=== PATIENT | female | born 1965 | race Caucasian/White ===

== ENCOUNTER 2016-08-05 11:12 | Observation (INO) | payer MEDICAID ==
[2016-08-05] MEDS ORDERED: SODIUM CHLORIDE 0.9% 1,000 ML IV ONE (12:49)
[2016-08-05] MEDS ORDERED: ONDANSETRON 4 MG/2 ML VIAL IVP STA ×2 (12:50→14:53)
[2016-08-05] MEDS ORDERED: KETOROLAC 30 MG/ML 1 ML VIAL IVP STA (12:51)
--- NOTE | 2016-08-05 12:54 | ED ---
Nausea/Vomiting/Diarrhea HPI - General Chief complaint: Nausea/Vomiting/Diarrhea Stated complaint: vomiting Time Seen by Provider: 08/05/16 12:31 Source: patient, RN notes reviewed Mode of arrival: ambulatory Limitations: no limitations - History of Present Illness Initial comments: Patient is a 51-year-old female since emergency room for multiple complaints. Patient states on Wednesday she began experiencing body aches. Patient states Wednesday night she began with nausea and vomiting. Patient states throughout the weekend she experiencing nausea, vomiting and diarrhea. Patient states on Wednesday she began with a cough and nasal congestion associated with nausea and vomiting. Patient states with her primary care provider, chest x-ray and was told she had "walking pneumonia". Patient states she wasn't sent home with out antibiotics and was told to take Tylenol and Motrin. Patient states she woke up this morning feeling even worse. Patient states she has not been able to eat for the past few days. Patient states she feels very weak and is still having all over body aches. Patient states she's having a nonproductive cough. Patient states she has chest pain every time she coughs. Patient denies shortness of breath. Patient denies headache. Patient states she feels very dizzy. He states dizziness is worse with movement. Patient denies any significant past medical history. Patient denies cardiac issues along issues. Patient denies smoking. Patient does admit she has a history of diverticulosis. Patient states she's having slight abdominal pain. Patient denies pain or burning during urination, trouble urinating or blood in urine. Patient does also admit she's having diarrhea. Patient denies any discoloration or blood in the stools. - Related Data Home Medications Medication Instructions Recorded Confirmed Ibuprofen [Motrin] 400 - 800 mg PO Q6HR PRN 08/05/16 08/05/16 Protonix (Unk Strength) 1 tab PO DAILY 08/05/16 08/05/16 Allergies Allergy/AdvReac Type Severity Reaction Status Date / Time No Known Allergies Allergy Verified 08/05/16 12:39 Review of Systems ROS Statement: Those systems with pertinent positive or pertinent negative responses have been documented in the HPI. ROS Other: All systems not noted in ROS Statement are negative. Past Medical History Additional Past Medical History / Comment(s): diverticulosis History of Any Multi-Drug Resistant Organisms: None Reported Past Surgical History: Section, Cholecystectomy Past Anesthesia/Blood Transfusion Reactions: No Reported Reaction Past Psychological History: No Psychological Hx Reported Smoking Status: Current some day smoker Past Alcohol Use History: None Reported Additional Past Alcohol Use History / Comment(s): OCCASSIONAL CIGAR Past Drug Use History: None Reported - Past Family History Mother Family Medical History: No Reported History General Exam - General Exam Comments Initial Comments: Laying in exam room, no acute distress. Limitations: no limitations General appearance: alert, in no apparent distress Head exam: Present: atraumatic, normocephalic, normal inspection Eye exam: Present: normal appearance ENT exam: Present: normal exam, normal oropharynx, mucous membranes moist, TM's normal bilaterally, normal external ear exam Neck exam: Present: normal inspection, full ROM. Absent: tenderness, lymphadenopathy Respiratory exam: Present: normal lung sounds bilaterally. Absent: respiratory distress Cardiovascular Exam: Present: regular rate, normal rhythm, normal heart sounds GI/Abdominal exam: Present: soft, tenderness (diffuse mild tenderness), normal bowel sounds. Absent: distended, guarding, rebound, rigid Extremities exam: Present: normal inspection Back exam: Present: normal inspection Neurological exam: Present: alert, oriented X3, CN II-XII intact Psychiatric exam: Present: normal affect, normal mood Skin exam: Present: warm, dry, intact, normal color. Absent: rash Course Vital Signs 08/05/16 08/05/16 08/05/16 11:17 13:15 15:01 Temperature 98.3 F Pulse Rate 78 67 Respiratory 20 18 Rate Blood Pressure 140/87 140/68 Blood Pressure 134/72 [Sitting] Blood Pressure 153/80 [Standing] Blood Pressure 156/70 [Supine] O2 Sat by Pulse 98 99 Oximetry 08/05/16 08/05/16 08/05/16 15:54 16:38 18:21 Temperature 97.7 F 98 F Pulse Rate 54 L 60 60 Respiratory 18 16 18 Rate Blood Pressure 164/74 160/83 150/58 Blood Pressure [Sitting] Blood Pressure [Standing] Blood Pressure [Supine] O2 Sat by Pulse 98 97 97 Oximetry Medical Decision Making - Medical Decision Making Patient is a 51-year-old female presents to the emergency room with multiple complaints. REVIEWED. Results discussed with patient. Patient still complaining of worsening dizziness and nausea. EKG significant for sinus bradycardia with PVCs. Patient denies any significant cardiac history. Case discussed with Dr. Ha. Dr. Ha also evaluated patient. Dr. Ha discussed case with Analisa GREENE, who agreed to admit for Dr. Weaver. - Lab Data Result diagrams: 08/05/16 13:04 08/05/16 13:04 Lab Results 08/05/16 08/05/16 08/05/16 Range/Units 13:04 13:04 13:04 WBC (3.8-10.6) k/uL RBC (3.80-5.40) m/uL Hgb (11.4-16.0) gm/dL Hct (34.0-46.0) % MCV (80.0-100.0) fL MCH (25.0-35.0) pg MCHC (31.0-37.0) g/dL RDW (11.5-15.5) % Plt Count (150-450) k/uL Neutrophils % % Lymphocytes % % Monocytes % % Eosinophils % % Basophils % % Neutrophils # (1.3-7.7) k/uL Lymphocytes # (1.0-4.8) k/uL Monocytes # (0-1.0) k/uL Eosinophils # (0-0.7) k/uL Basophils # (0-0.2) k/uL Sodium 144 (137-145) mmol/L Potassium 4.9 (3.5-5.1) mmol/L Chloride 106 (98-107) mmol/L Carbon Dioxide 24 (22-30) mmol/L Anion Gap 14 mmol/L BUN 11 (7-17) mg/dL Creatinine 0.58 (0.52-1.04) mg/dL Est GFR (MDRD) Af Amer >60 (>60 ml/min/1.73 sqM) Est GFR (MDRD) Non-Af >60 (>60 ml/min/1.73 sqM) Glucose 94 (74-99) mg/dL Calcium 9.6 (8.4-10.2) mg/dL Magnesium 2.0 (1.6-2.3) mg/dL Total Bilirubin 0.8 (0.2-1.3) mg/dL AST 32 (14-36) U/L ALT 46 (9-52) U/L Alkaline Phosphatase 76 (38-126) U/L Total Creatine Kinase (30-135) U/L CK-MB (CK-2) (0.0-2.4) ng/mL CK-MB (CK-2) Rel Index Troponin I (0.000-0.034) ng/mL Total Protein 8.2 (6.3-8.2) g/dL Albumin 4.7 (3.5-5.0) g/dL Amylase 31 (30-110) U/L Lipase 29 (23-300) U/L Urine Color Urine Appearance (Clear) Urine pH (5.0-8.0) Ur Specific [place] (1.001-1.035) Urine Protein (Negative) Urine Glucose (UA) (Negative) Urine Ketones (Negative) Urine Blood (Negative) Urine Nitrate (Negative) Urine Bilirubin (Negative) Urine Urobilinogen (<2.0) mg/dL Ur Leukocyte Esterase (Negative) Urine RBC (0-5) /hpf Urine WBC (0-5) /hpf Ur Squamous Epith Cells (0-4) /hpf Urine Bacteria (None) /hpf Urine Mucus (None) /hpf Influenza Type A RNA Not Detected (Not Detectd) Influenza Type B (PCR) Not Detected (Not Detectd) 08/05/16 08/05/16 08/05/16 Range/Units 13:04 13:04 15:00 WBC 5.8 (3.8-10.6) k/uL RBC 5.46 H (3.80-5.40) m/uL Hgb 15.0 (11.4-16.0) gm/dL Hct 46.4 H (34.0-46.0) % MCV 85.0 (80.0-100.0) fL MCH 27.5 (25.0-35.0) pg MCHC 32.3 (31.0-37.0) g/dL RDW 13.2 (11.5-15.5) % Plt Count 216 (150-450) k/uL Neutrophils % 57 % Lymphocytes % 32 % Monocytes % 5 % Eosinophils % 2 % Basophils % 1 % Neutrophils # 3.3 (1.3-7.7) k/uL Lymphocytes # 1.9 (1.0-4.8) k/uL Monocytes # 0.3 (0-1.0) k/uL Eosinophils # 0.1 (0-0.7) k/uL Basophils # 0.0 (0-0.2) k/uL Sodium (137-145) mmol/L Potassium (3.5-5.1) mmol/L Chloride (98-107) mmol/L Carbon Dioxide (22-30) mmol/L Anion Gap mmol/L BUN (7-17) mg/dL Creatinine (0.52-1.04) mg/dL Est GFR (MDRD) Af Amer (>60 ml/min/1.73 sqM) Est GFR (MDRD) Non-Af (>60 ml/min/1.73 sqM) Glucose (74-99) mg/dL Calcium (8.4-10.2) mg/dL Magnesium (1.6-2.3) mg/dL Total Bilirubin (0.2-1.3) mg/dL AST (14-36) U/L ALT (9-52) U/L Alkaline Phosphatase (38-126) U/L Total Creatine Kinase 92 (30-135) U/L CK-MB (CK-2) 0.4 (0.0-2.4) ng/mL CK-MB (CK-2) Rel Index 0.4 Troponin I <0.012 (0.000-0.034) ng/mL Total Protein (6.3-8.2) g/dL Albumin (3.5-5.0) g/dL Amylase (30-110) U/L Lipase (23-300) U/L Urine Color Yellow Urine Appearance Cloudy H (Clear) Urine pH 6.0 (5.0-8.0) Ur Specific [place] 1.022 (1.001-1.035) Urine Protein Trace H (Negative) Urine Glucose (UA) Negative (Negative) Urine Ketones 2+ H (Negative) Urine Blood Negative (Negative) Urine Nitrate Negative (Negative) Urine Bilirubin Negative (Negative) Urine Urobilinogen <2.0 (<2.0) mg/dL Ur Leukocyte Esterase Trace H (Negative) Urine RBC 2 (0-5) /hpf Urine WBC 2 (0-5) /hpf Ur Squamous Epith Cells 2 (0-4) /hpf Urine Bacteria Rare H (None) /hpf Urine Mucus Many H (None) /hpf Influenza Type A RNA (Not Detectd) Influenza Type B (PCR) (Not Detectd) 08/05/16 19:05 Sinus bradycardia with occasional premature ventricular complexes, ventricular rate 57 bpm, [place] interval 140 ms, QRS duration 76, QT/QTc 464/451 ms - Radiology Data Radiology results: report reviewed, image reviewed Disposition Clinical Impression: Dizziness, Nausea & vomiting, Arrhythmia Disposition: ADMITTED IP TO THIS [facility] Condition: Stable Decision Date: 08/05/16
[2016-08-05 13:25] LABS: Basophils % (A) 1 %; CH 27.9; Eosinophils # (A) 0.1 k/uL (0-0.7); Eosinophils % (A) 2 %; HCT 46.4 % (34.0-46.0); HDW 2.52; Luc # (Auto) 0.15; Luc % (Auto) 3; Lymphocytes # (A) 1.9 k/uL (1.0-4.8); Lymphocytes % (A) 32 %; MCH 27.5 pg (25.0-35.0); MCHC 32.3 g/dL (31.0-37.0); Mean Platelet Volume 8.9; Monocytes # (A) 0.3 k/uL (0-1.0); Monocytes % (A) 5 %; Neutrophils # (A) 3.3 k/uL (1.3-7.7); Neutrophils % (A) 57 %; RBC 5.46 m/uL (3.80-5.40); RDW 13.2 % (11.5-15.5); WBC 5.8 k/uL (3.8-10.6); WBC (Perox) 5.69
--- NOTE | 2016-08-05 13:29 | XR ---
EXAMINATION TYPE: XR chest 2V DATE OF EXAM: 08/05/2016 1:25 PM COMPARISON: 06/24/2011 INDICATION: Cough TECHNIQUE: Single frontal view of the chest is obtained. FINDINGS: The heart size is normal. The pulmonary vasculature is normal. The lungs are clear. IMPRESSION: 1. No acute pulmonary process.
[2016-08-05 13:44] LABS: Amylase 31 U/L (30-110); Anion Gap 14 mmol/L; Calcium 9.6 mg/dL (8.4-10.2); Carbon Dioxide 24 mmol/L (22-30); Chloride 106 mmol/L (98-107); Glucose 94 mg/dL (74-99); Non-African American GFR(MDRD) >60 (>60 ml/min/1.73 sqM); Sodium 144 mmol/L (137-145); Total Bilirubin 0.8 mg/dL (0.2-1.3); Total Protein 8.2 g/dL (6.3-8.2)
[2016-08-05 13:51] LABS: ALT 46 U/L (9-52); AST 32 U/L (14-36); Alkaline Phosphatase 76 U/L (38-126); Blood Urea Nitrogen 11 mg/dL (7-17); Potassium 4.9 mmol/L (3.5-5.1)
[2016-08-05] MEDS ORDERED: MECLIZINE 12.5 MG TAB PO STA (14:53)
[2016-08-05 15:18] LABS: Appearance,Urine Cloudy (Clear); Bacteria,Urine Rare /hpf; Bilirubin,Urine Negative (Negative); Glucose,Urine (UA) Negative (Negative); Ketones,Urine 2+ (Negative); Leukocyte Esterase,Urine Trace (Negative); Mucus,Urine Many /hpf; Nitrite,Urine Negative (Negative); Particle Count 11539; Protein,Urine Trace (Negative); RBC,Urine 2 /hpf (0-5); Specific Gravity,Urine 1.022 (1.001-1.035); Squamous Epithelial Cell,Urine 2 /hpf (0-4); UA Billing (MACRO vs. MICRO) MICRO; Urobilinogen,Urine <2.0 mg/dL (<2.0); WBC,Urine 2 /hpf (0-5)
[2016-08-05 15:50] LABS: Creatine Kinase 92 U/L (30-135)
[2016-08-05 16:01] LABS: Creatine Kinase MB 0.4 ng/mL (0.0-2.4); Troponin I <0.012 ng/mL (0.000-0.034)
[2016-08-05] MEDS ORDERED: DIAZEPAM 5 MG/ML 2 ML SYRINGE IVP STA (16:29)
[2016-08-05] MEDS ORDERED: NALOXONE 0.4 MG/ML 1 ML VIAL IV PRN (17:07)
[2016-08-05] MEDS ORDERED: ACETAMINOPHEN TAB 325 MG TAB PO PRN (17:07)
[2016-08-05] MEDS: SODIUM CHLORIDE 0.9% 1,000 ML IV SCH (17:25)
[2016-08-05] MEDS ORDERED: KETOROLAC 30 MG/ML 1 ML VIAL IVP PRN (19:00)
[2016-08-05 20:18] VITALS: BMI 27.9
[2016-08-06] MEDS: ONDANSETRON 4 MG/2 ML VIAL IVP PRN ×2 (06:22→14:43)
--- NOTE | 2016-08-06 08:42 | PN ---
CHIEF COMPLAINT: Vertigo. This is a 51-year-old lady with no significant past medical history, presented to hospital with what started like a afebrile illness in the beginning of the week, was started on antibiotics and she also developed symptoms of dizziness and vertigo. She comes to hospital with the same symptoms and had been admitted. She does not have any chest pain, difficulty in breathing, palpitations, or syncope. Her dizziness gets worse even with movements of her head. Her EKG shows sinus rhythm with PVCs and she has had one set of troponin that is negative. The other one is not available at this time. Hemoglobin is normal at 15, creatinine is 0.58. Past medical history is negative for hypertension, diabetes, dyslipidemia. Medications included ibuprofen and Protonix. ALLERGIES: There are no known drug allergies. Family history is negative for premature coronary artery disease. Social history is negative for current smoking, EtOH abuse, or drug abuse. REVIEW OF SYSTEMS: HEENT: Unremarkable. CARDIAC: As described above. RESPIRATORY: As described above. GI: Negative. GENITOURINARY: Negative. ALLERGY/IMMUNOLOGY: Negative. SKIN: Negative. MUSCULOSKELETAL: Negative. ENDOCRINE: Negative. DERM: Negative. CONSTITUTIONAL: Negative. ONCOLOGICAL: Negative. The rest of the system review is not relevant. On exam, comfortable at rest. Vital signs are stable. There is no jugular venous distention. Chest exam reveals good air entry bilaterally. Heart exam reveals first and second heart sounds. No gallop. No murmur, no rub. Abdomen is soft, nontender. Exam of extremities did not reveal any edema. Peripheral pulses are felt. FEATHER MAKER exam did not reveal focal neurological deficits. ASSESSMENT: 1. Asymptomatic premature ventricular contractions. 2. Vertigo, probably related to an ( ) problem related to recent viral infection. PLAN: I am going to start the patient on Antivert, obtain a 2-D echo to document her LV function, ambulate her and discharge her home. Work-up will be pursued as outpatient. If necessary with a stress test and Holter monitor.
[2016-08-06] MEDS: MECLIZINE 25 MG TAB PO SCH ×3 (10:17→20:52)
[2016-08-06] MEDS ORDERED: methylPREDNISolone SOD SUCCI 125 MG/2 ML VIAL IV STA (10:19)
[2016-08-06] MEDS ORDERED: DIAZEPAM 5 MG TAB PO STA (10:20)
--- NOTE | 2016-08-06 11:06 | ECHOF ---
Referral Reason:dizziness MEASUREMENTS -------- HEIGHT: 175.3 cm WEIGHT: 85.7 kg BP: 120/79 RVIDd: 2.5 cm (< 3.3) IVSd: 0.8 cm (0.6 - 1.1) LVIDd: 4.9 cm (3.9 - 5.3) LVPWd: 0.8 cm (0.6 - 1.1) IVSs: 1.5 cm LVIDs: 3.4 cm LVPWs: 1.3 cm LA Diam: 3.5 cm (2.7 - 3.8) LAESV Index (A-L): 25.67 ml/m Ao Diam: 3.0 cm (2.0 - 3.7) AV Cusp: 2.2 cm (1.5 - 2.6) MV EXCURSION: 19.132 mm (> 18.000) MV EF SLOPE: 130 mm/s (70 - 150) EPSS: 0.2 cm MV E Rene: 0.94 m/s MV DecT: 170 ms MV A Rene: 0.73 m/s MV E/A Ratio: 1.29 FINDINGS -------- Sinus rhythm. This was a technically good study. The left ventricular size is normal. Left ventricular wall thickness is normal. Overall left ventricular systolic function is normal with, an EF between 60 - 65 %. The right ventricle is normal in size and function. Normal LA size by volume 22+/-6 ml/m2. The right atrium is normal in size. The aortic valve is trileaflet and appears structurally normal. The mitral valve is normal. The tricuspid valve appears structurally normal. Pulmonic valve appears structurally normal. The aortic root size is normal. There is no pericardial effusion. CONCLUSIONS -------- 1. Sinus rhythm. 2. The mitral valve is normal. 3. The tricuspid valve appears structurally normal. 4. Pulmonic valve appears structurally normal. 5. The aortic root size is normal. 6. There is no pericardial effusion. 7. This was a technically good study. 8. The left ventricular size is normal. 9. Left ventricular wall thickness is normal. 10. Overall left ventricular systolic function is normal with, an EF between 60 - 65 %. 11. The right ventricle is normal in size and function. 12. Normal LA size by volume 22+/-6 ml/m2. 13. The right atrium is normal in size. 14. The aortic valve is trileaflet and appears structurally normal. PRESS SERVICE READER: Amara Power RDCS
--- NOTE | 2016-08-06 12:15 | P.HPIM ---
History of Present Illness H&P Date: 08/06/16 This is a 51-year-old female with recent onset history of dizziness that appears to get worse with the change in position of her head. Patient stated in good health until 4 days prior to admission. Patient noted to have progressive worsening of cough that is nonproductive in nature during the same period of time. Patient then noted to have dizziness is intermittent in nature that is associated with them nausea and vomiting. Patient was admitted to the hospital. Was noted to have multiple asymptomatic PVCs. Patient is having any chest pain, dizziness, nausea, vomiting at rest however with any head movement patient does have reproducibility of symptoms of vertigo. Patient denies having any decreased strength numbness or headaches or change in vision in the recent times. 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 EKG did not reveal any AV blocks. No ST-T wave changes. Was noted to have some PVCs. Cardiac enzymes initially were negative. Review of Systems All systems: negative (Noted in nature) Past Medical History Past Medical History: GERD/Reflux Additional Past Medical History / Comment(s): diverticulosis,uti, "i think i have a hiatal hernia" History of Any Multi-Drug Resistant Organisms: None Reported Past Surgical History: Section, Cholecystectomy Additional Past Surgical History / Comment(s): egd/colonosocpy Past Anesthesia/Blood Transfusion Reactions: No Reported Reaction Additional Past Anesthesia/Blood Transfusion Reaction / Comment(s): clausterphobia Past Psychological History: No Psychological Hx Reported Smoking Status: Current some day smoker Past Alcohol Use History: None Reported Additional Past Alcohol Use History / Comment(s): OCCASSIONAL CIGAR Past Drug Use History: None Reported - Past Family History Mother Family Medical History: Hypertension Father Family Medical History: Diabetes Mellitus Additional Family Medical History / Comment(s): diverticulosis Medications and Allergies Home Medications Medication Instructions Recorded Confirmed Type Ibuprofen [Motrin] 400 - 800 mg PO Q6HR PRN 08/05/16 08/05/16 History Protonix (Unk Strength) 1 tab PO DAILY 08/05/16 08/05/16 History Allergies Allergy/AdvReac Type Severity Reaction Status Date / Time No Known Allergies Allergy Verified 08/05/16 12:39 Physical Exam Vitals: Vital Signs Temp Pulse Pulse Resp BP BP Pulse Ox 08/06/16 11:40 97.2 F L 55 L 18 127/85 96 08/06/16 08:00 97.9 F 62 18 120/79 98 08/06/16 04:00 98.1 F 55 L 16 123/59 96 08/06/16 00:00 97.9 F 53 L 16 132/78 96 08/05/16 21:58 75 18 08/05/16 18:55 97.9 F 62 18 162/77 97 08/05/16 18:21 98 F 60 18 150/58 97 Intake and Output 08/05/16 08/06/16 08/06/16 22:59 06:59 14:59 Intake Total 236 Balance 236 Intake: Oral 236 Other: Voiding Method Toilet Toilet # Voids 1 1 Weight 85.9 kg Physical exam Gen. appearance oriented 3 in no distress HEENT reproducibility of peripheral vertigo no nystagmus present on admission. Neck is supple no JVD Lungs good air entry clear to auscultation no rhonchi or wheezing Heart S1-S2 heard regular rate and rhythm no murmurs appreciated Abdomen is soft nontender no organomegaly bowel sounds are intact Neurologically cranial nerves II-12 grossly intact no focal motor or sensory deficits noted strength is 5 out of 5 in all 4 extremities. Skin no abnormalities appreciated Results CBC & Chem 7: 08/05/16 13:04 08/05/16 13:04 Assessment and Plan Plan: 1 peripheral vertigo #2 asymptomatic PVCs #3 acute bronchitis likely viral in nature Plan Patient will be given symptomatically treatment if able to tolerate oral medication patient can likely be discharged home or discussed options including a dose of Solu-Medrol and 1 dose of Valium. Patient will have an echocardiogram as per cardiology. If patient does not tolerate oral intake will likely monitor or night with symptomatically control and thereafter be discharged in the a.m. Antivert to continue. Continue telemetry monitoring. No need for any therapy for PVCs.
[2016-08-06] MEDS: SODIUM CHLORIDE 0.9% 1,000 ML IV SCH ×2 (14:42→20:51)
[2016-08-06] MEDS ORDERED: ALBUTEROL NEBULIZED 2.5 MG/3 ML INHALATION PRN (20:27)
[2016-08-06] MEDS ORDERED: PANTOPRAZOLE 40 MG TABLET PO SCH (20:30)
[2016-08-06] MEDS ORDERED: IPRATROPIUM-ALBUTEROL 3 ML NEB INHALATION PRN (20:32)
[2016-08-06] MEDS: PANTOPRAZOLE 40 MG TABLET PO SCH (20:51)
--- NOTE | 2016-08-07 07:42 | PN ---
Jennifer is a 51-year-old lady who was admitted to hospital with dizziness and vertigo. I started her on Antivert with which there has been significant improvement in her symptoms. I did an echocardiogram on her that shows normal LV function and no evidence of significant valvular heart disease. This morning she is doing well and dizziness has resolved. On exam, she is comfortable at rest. Vital signs are stable. Chest exam reveals good air entry bilaterally. Heart exam reveals first and second heart sounds. No gallop. No murmur. Abdomen is soft. Exam of the extremities did not reveal any edema. Peripheral pulses are palpable. ASSESSMENT: 1. Dizziness and vertigo. 2. Premature ventricular contractions. PLAN: The patient is doing well. LV function is normal. She is stable to be discharged home and I will follow her up as outpatient.
[2016-08-07] MEDS: MECLIZINE 25 MG TAB PO SCH ×2 (08:53→17:21)
[2016-08-07] MEDS: PANTOPRAZOLE 40 MG TABLET PO SCH ×2 (08:54→17:21)
[2016-08-07] MEDS: IPRATROPIUM-ALBUTEROL 3 ML NEB INHALATION SCH ×3 (09:09→16:31)
[2016-08-07] MEDS: SODIUM CHLORIDE 0.9% 1,000 ML IV SCH (11:11)
[2016-08-07 15:24] VITALS: BP 136/81; PULSE 66; RESP 18; TEMP 98.2
--- NOTE | 2016-08-08 11:54 | DS ---
DATE OF ADMISSION: 08/05/2016 DATE OF DISCHARGE: 08/07/2016 DISCHARGE DIAGNOSES: 1. Benign positional vertigo, improved with meclizine. 2. Symptomatic premature ventricular contractions. 3. Acute bronchitis, likely viral in nature. HOSPITAL COURSE: Ms. Steiner is a 51-year-old female with known history of GERD and diverticulosis and also history of dizziness came to the hospital with complaints of dizziness, worsening with change in position of her head. Patient also having progressive worsening cough and nonproductive, most likely viral in nature. Otherwise, the patient was treated symptomatically for that and patient was started on meclizine. Patient did improve symptomatically. Patient also noted to have PVCs on the tele monitoring. Cardiology has seen the patient and recommended no further intervention at this time. Patient is asymptomatic otherwise, currently patient today ( ) is much improved with no dizziness or headache and is being discharged and followed at the cardiology clinic for possible outpatient stress test. The patient otherwise is still ready for discharge home. DISCHARGE PHYSICAL EXAMINATION: A 51-year-old female lying in bed comfortably. Awake, alert and oriented x3. Appears to be in no apparently distress. VITALS: Blood pressure is 136/81, pulse 66, respiration 18, temperature afebrile, pulse ox 96% on room air. HEENT: Atraumatic, normocephalic. Neck is supple. No JVD. CVS EXAM: S1 and S2 heard. No murmurs, no gallop, no rub. LUNGS: Bilateral air entry is present. No wheezing or crackles. ABDOMEN: Soft, nontender. Bowel sounds are present. CLIENT MANAGER: Awake, alert and oriented x3. No focal deficit. EXTREMITIES: No edema. Peripheral pulses bilaterally. No clubbing or cyanosis. PSYCHIATRIC: Cooperative. LABORATORY DATA: Reviewed. Discharge physical examination done. Discharge medications include: 1. Ibuprofen 400 mg q.6 hourly p.r.n. for pain. 2. Protonix 40 mg 1 tablet p.o. daily. 3. Meclizine 25 mg p.o. t.i.d. p.r.n. for dizziness and vertigo. Follow with Dr. Laila Miranda in one week Follow with Dr. Shaka Acharya on 08/27/2016 at 3:30 p.m. Home with self-care care. Activity as tolerated. Heart healthy diet.
== END 2016-08-07 18:33 | disposition home or self-care (01) ==
LOC: EC 11:12 → 3OBS 17:22
PROVIDERS: ADMIT Hospitalist; ATTEND Hospitalist
DX: H81.10 Benign paroxysmal vertigo, unspecified ear (principal); I49.3 Ventricular premature depolarization; J20.9 Acute bronchitis, unspecified; F17.200 Nicotine dependence, unspecified, uncomplicated; H81.399 Other peripheral vertigo, unspecified ear; K21.9 Gastro-esophageal reflux disease without esophagitis; Z82.49 Family history of ischemic heart disease and other diseases of the circulatory system; Z83.3 Family history of diabetes mellitus; Z79.899 Other long term (current) drug therapy; R52 Pain, unspecified
CPT/HCPCS: 36415; 94640; 93005; 93306; 80053; 82150; 82550; 82553; 83690; 83735; 84484 ×2; 85025; 81001; 80299; 87502; 71020; 99285; 96374; 96375 ×2; 96376; 96361 ×3; G0378 ×3; J2930; J3360; J2405 ×2; J1885 ×2; 87324

== ENCOUNTER 2021-05-18 06:53 | Emergency (ER) | payer BC, MEDICAID ==
[2021-05-18 07:16] VITALS: TEMP 99.8
[2021-05-18] MEDS ORDERED: ONDANSETRON 4 MG/2 ML VIAL IVP STA ×2 (07:39→10:08)
[2021-05-18] MEDS ORDERED: SODIUM CHLORIDE 0.9% 1,000 ML IV STA (07:39)
[2021-05-18] MEDS ORDERED: SODIUM CHLORIDE 0.9% 50 ML IVPB ONE (08:00)
[2021-05-18 08:14] LABS: ALT 30 U/L (4-34); AST 44 U/L (14-36); African American GFR (CKD) >90 (>60 ml/min/1.73 sqM); Albumin 4.1 g/dL (3.5-5.0); Alkaline Phosphatase 83 U/L (38-126); Anion Gap 9 mmol/L; Blood Urea Nitrogen 11 mg/dL (7-17); Calcium 8.7 mg/dL (8.4-10.2); Carbon Dioxide 24 mmol/L (22-30); Chloride 101 mmol/L (98-107); Glucose 107 mg/dL (74-99); Non-African American GFR(CKD) >90 (>60 ml/min/1.73 sqM); Sodium 134 mmol/L (137-145); Total Bilirubin 0.6 mg/dL (0.2-1.3); Total Protein 7.4 g/dL (6.3-8.2)
[2021-05-18 08:15] LABS: Potassium 4.4 mmol/L (3.5-5.1)
[2021-05-18 08:28] LABS: Basophils % (A) 0 %; Eosinophils % (A) 0 %; HCT 41.8 % (34.0-46.0); HGB 14.6 gm/dL (11.4-16.0); Lymphocytes # (A) 1.9 k/uL (1.0-4.8); Lymphocytes % (A) 44 %; MCV 82.9 fL (80.0-100.0); Mean Platelet Volume 10.3; Monocytes # (A) 0.2 k/uL (0-1.0); Monocytes % (A) 4 %; Neutrophils # (A) 2.1 k/uL (1.3-7.7); Neutrophils % (A) 50 %; Platelet Count 148 k/uL (150-450); RBC 5.04 m/uL (3.80-5.40); RDW 13.4 % (11.5-15.5); WBC 4.2 k/uL (3.8-10.6)
[2021-05-18] MEDS ORDERED: CASIRIVIMAB (REGN10933) (EUA) 600 MG, IMDEVIMAB (REGN10987) (EUA) 600 MG in SODIUM CHLO... IVPB ONE (08:30)
--- NOTE | 2021-05-18 09:26 | ED ---
SOB HPI - General Chief Complaint: Shortness of Breath Stated Complaint: Covid+,not feeling well Time Seen by Provider: 05/18/21 07:17 Source: patient, RN notes reviewed Mode of arrival: ambulatory Limitations: no limitations - History of Present Illness Initial Comments: Patient is a 56-year-old female with history of GERD, presenting to the emergency Department with complaints of increasing pleuritic symptoms. Patient states he tested positive for cochlear 5 days ago at the [facility], after having a few days of cough and cold-like symptoms. She states over the past 4-5 days, she's not been able to tolerate much food or liquids. She's been coughing to the point where it is making her throw up. She's been having intermittent low-grade fevers. She denies any chest pains, no shortness of breath, she does admit to some intermittent abdominal pains but no specific areas. She is requesting monoclonal antibodies. Patient has no further complaints. Upon arrival to the ER, her vitals are stable. - Related Data Home Medications Medication Instructions Recorded Confirmed Ibuprofen [Motrin] 400 - 800 mg PO Q6HR PRN 08/05/16 08/05/16 Protonix (Unk Strength) 1 tab PO DAILY 08/05/16 08/05/16 Previous Rx's Medication Instructions Recorded Meclizine [Antivert] 25 mg PO TID PRN #30 tab 08/07/16 Dexamethasone [Decadron] 6 mg PO DAILY 5 Days #5 tablet 05/18/21 Ondansetron Odt [Zofran Odt] 4 mg PO Q8HR PRN #10 tab 05/18/21 Allergies Allergy/AdvReac Type Severity Reaction Status Date / Time No Known Allergies Allergy Verified 05/18/21 07:12 Review of Systems ROS Statement: Those systems with pertinent positive or pertinent negative responses have been documented in the HPI. ROS Other: All systems not noted in ROS Statement are negative. Past Medical History Past Medical History: GERD/Reflux Additional Past Medical History / Comment(s): diverticulosis,uti, "i think i have a hiatal hernia" History of Any Multi-Drug Resistant Organisms: None Reported Past Surgical History: Section, Cholecystectomy Additional Past Surgical History / Comment(s): egd/colonosocpy Past Anesthesia/Blood Transfusion Reactions: No Reported Reaction Additional Past Anesthesia/Blood Transfusion Reaction / Comment(s): clausterphobia Past Psychological History: No Psychological Hx Reported Smoking Status: Never smoker Past Alcohol Use History: Occasional Past Drug Use History: None Reported - Past Family History Mother Family Medical History: Hypertension Father Family Medical History: Diabetes Mellitus Additional Family Medical History / Comment(s): diverticulosis General Exam - General Exam Comments Initial Comments: GENERAL: Patient is well-developed and well-nourished. Patient is nontoxic and in no acute distress. HEAD: Atraumatic, normocephalic. EYES: Pupils equal round and reactive to light, extraocular movements intact, sclera anicteric, conjunctiva are normal. Eyelids were unremarkable. ENT: Oropharynx clear without exudates. Moist mucous membranes. NECK: Normal range of motion, supple without lymphadenopathy or JVD. LUNGS: Unlabored respirations. Breath sounds clear to auscultation bilaterally and equal. No wheezes rales or rhonchi. HEART: Regular rate and rhythm without murmurs, rubs or gallops. ABDOMEN: Soft, nontender, normoactive bowel sounds. No guarding, no rebound. No masses appreciated. MUSCULOSKELETAL: Normal extremities with adequate strength and normal range of motion, no pitting or edema. No clubbing or cyanosis. NEUROLOGICAL: Patient is alert and oriented x 3. SKIN: Warm, Dry, normal turgor, no rashes or lesions noted. Course Vital Signs 05/18/21 05/18/21 05/18/21 07:12 08:37 08:59 Temperature 99.8 F H Pulse Rate 101 H 80 80 Respiratory 20 20 19 Rate Blood Pressure 102/72 119/80 127/73 O2 Sat by Pulse 96 96 97 Oximetry Medical Decision Making - Medical Decision Making Patient is a 56-year-old female here with nausea and vomiting over the past 4-5 days. Patient tested positive for cocaine 5 days ago, her symptoms began about 9-10 days ago. She having intermittent fevers. She is coughing to the point where tick in her throw up. Her exam is unremarkable. Patient does meet qualifications monoclonal antibodies, she does want these. Patient received infusion, no adverse side effects. Labs are within normal limits, chest x-ray shows scattered infiltrates, consistent with Covid. Patient received fluids and Zofran, feeling some mild improvement in her symptoms. I will start her on steroids and give her Zofran for home. Continue to increase her diet as tolerated. She is agreeable to this plan of care. Return parameters were discussed with her and she verbalized understanding. She'll follow up with her primary care. Case discussed with Dr. Chaidez. - Lab Data Result diagrams: 05/18/21 07:51 05/18/21 07:51 Lab Results 05/18/21 05/18/21 Range/Units 07:51 07:51 WBC 4.2 (3.8-10.6) k/uL RBC 5.04 (3.80-5.40) m/uL Hgb 14.6 (11.4-16.0) gm/dL Hct 41.8 (34.0-46.0) % MCV 82.9 (80.0-100.0) fL MCH 29.0 (25.0-35.0) pg MCHC 35.0 (31.0-37.0) g/dL RDW 13.4 (11.5-15.5) % Plt Count 148 L (150-450) k/uL MPV 10.3 Neutrophils % 50 % Lymphocytes % 44 % Monocytes % 4 % Eosinophils % 0 % Basophils % 0 % Neutrophils # 2.1 (1.3-7.7) k/uL Lymphocytes # 1.9 (1.0-4.8) k/uL Monocytes # 0.2 (0-1.0) k/uL Eosinophils # 0.0 (0-0.7) k/uL Basophils # 0.0 (0-0.2) k/uL Sodium 134 L (137-145) mmol/L Potassium 4.4 (3.5-5.1) mmol/L Chloride 101 (98-107) mmol/L Carbon Dioxide 24 (22-30) mmol/L Anion Gap 9 mmol/L BUN 11 (7-17) mg/dL Creatinine 0.66 (0.52-1.04) mg/dL Est GFR (CKD-EPI)AfAm >90 (>60 ml/min/1.73 sqM) Est GFR (CKD-EPI)NonAf >90 (>60 ml/min/1.73 sqM) Glucose 107 H (74-99) mg/dL Calcium 8.7 (8.4-10.2) mg/dL Total Bilirubin 0.6 (0.2-1.3) mg/dL AST 44 H (14-36) U/L ALT 30 (4-34) U/L Alkaline Phosphatase 83 (38-126) U/L Total Protein 7.4 (6.3-8.2) g/dL Albumin 4.1 (3.5-5.0) g/dL Disposition Clinical Impression: COVID-19, Nausea & vomiting Disposition: HOME SELF-CARE Condition: Stable Instructions (If sedation given, give patient instructions): Coronavirus Disease 2019 (COVID-19) Additional Instructions: Please return to the Emergency Department if symptoms worsen or any other concerns. May take Tylenol and/or Motrin for fever control. Take prescribed medications as instructed. Increase diet as tolerated. Follow up with your primary care. Prescriptions: Dexamethasone [Decadron] 6 mg PO DAILY 5 Days #5 tablet Ondansetron Odt [Zofran Odt] 4 mg PO Q8HR PRN #10 tab PRN Reason: Nausea Is patient prescribed a controlled substance at d/c from ED?: No Referrals: None,Stated [Primary Care Provider] - 1-2 days Time of Disposition: 10:10
--- NOTE | 2021-05-18 09:47 | XR ---
EXAMINATION TYPE: XR chest 1V portable DATE OF EXAM: 05/18/2021 COMPARISON: 08/05/2026 HISTORY: 56 years Female. STUDY INDICATION GIVEN: covid + . TECHNIQUE: AP chest radiograph IMPRESSION: Patchy bilateral and mild interstitial right greater than left opacities concerning for multifocal pn eumonia. No pneumothorax or large effusion. Normal cardiomediastinal silhouette. No acute osseous abnormalities seen.
[2021-05-18 11:01] VITALS: BP 120/86; PULSE 81; RESP 18
== END 2021-05-18 11:01 | disposition home or self-care (01) ==
LOC: EC 06:53
DX: U07.1 COVID-19 (principal); K21.9 Gastro-esophageal reflux disease without esophagitis; Z79.1 Long term (current) use of non-steroidal anti-inflammatories (NSAID); Z79.899 Other long term (current) drug therapy
CPT/HCPCS: 36415; 80053; 85025; 71045; 96374; 96376; 99284; J2405; Q0243

== ENCOUNTER 2021-08-02 11:42 | Observation (INO) | payer BC ==
--- NOTE | 2021-08-02 12:17 | ED ---
General Adult HPI - General Chief complaint: Neuro Symptoms/Deficit Stated complaint: slurred speech, lt arm problem Time Seen by Provider: 08/02/21 12:04 Source: patient, family, RN notes reviewed, old records reviewed Mode of arrival: wheelchair Limitations: no limitations - History of Present Illness Initial comments: 56-year-old female presents for evaluation of word finding difficulty, and left arm weakness and numbness. This occurred at approximately 11:15 AM. Lasted several minutes. Resolved at the time my evaluation. No previous history of TIA or CVA. Patient states she was unable to speak momentarily as well as had lost coordination and weakness of the left arm and hand. No symptoms on the right. No facial droop. Speech has returned to normal. - Related Data Home Medications Medication Instructions Recorded Confirmed No Known Home Medications 08/02/21 08/02/21 Allergies Allergy/AdvReac Type Severity Reaction Status Date / Time No Known Allergies Allergy Verified 08/02/21 13:59 Review of Systems ROS Statement: Those systems with pertinent positive or pertinent negative responses have been documented in the HPI. ROS Other: All systems not noted in ROS Statement are negative. Past Medical History Past Medical History: GERD/Reflux Additional Past Medical History / Comment(s): diverticulosis,uti, "i think i have a hiatal hernia" History of Any Multi-Drug Resistant Organisms: None Reported Past Surgical History: Section, Cholecystectomy Additional Past Surgical History / Comment(s): egd/colonosocpy Past Anesthesia/Blood Transfusion Reactions: No Reported Reaction Additional Past Anesthesia/Blood Transfusion Reaction / Comment(s): clausterphobia Past Psychological History: No Psychological Hx Reported Smoking Status: Never smoker Past Alcohol Use History: Occasional Past Drug Use History: None Reported - Past Family History Mother Family Medical History: Hypertension Father Family Medical History: Diabetes Mellitus Additional Family Medical History / Comment(s): diverticulosis General Exam Limitations: no limitations General appearance: alert, in no apparent distress Head exam: Present: atraumatic, normocephalic Eye exam: Present: normal appearance, PERRL, EOMI ENT exam: Present: normal exam Neck exam: Present: normal inspection. Absent: tenderness, meningismus Respiratory exam: Present: normal lung sounds bilaterally. Absent: respiratory distress, wheezes Cardiovascular Exam: Present: regular rate, normal rhythm GI/Abdominal exam: Present: soft. Absent: distended, tenderness Extremities exam: Present: normal inspection, normal capillary refill. Absent: pedal edema Neurological exam: Present: alert, oriented X3, CN II-XII intact, other (No ataxia, normal finger-nose bilaterally, normal [id number], good strength throughout, no numbness. NIH of 0.). Absent: motor sensory deficit Psychiatric exam: Present: normal affect, normal mood Skin exam: Present: warm, dry, intact. Absent: cyanosis, diaphoretic Course Vital Signs 08/02/21 08/02/21 11:47 12:12 Temperature 97.6 F Pulse Rate 71 70 Respiratory 18 18 Rate Blood Pressure 148/85 143/83 O2 Sat by Pulse 100 100 Oximetry EKG Findings - EKG Comments: EKG Findings:: EKG: Sinus rhythm with ventricular rate 72, OR interval 144, QRS duration 85, QTC 399, T-wave flattening in V2 and V3 no ST segment elevation. Medical Decision Making - Medical Decision Making 56-year-old female presenting with symptoms concerning for TIA. Symptoms resolved time my evaluation. I'll signs stable. She has an NIH of 0 and a normal neurologic exam. Head CT is performed, negative for cranial hemorrhage or mass effect. CT angiography performed which is negative for occlusion or stenosis. She has normal labs. EKG sinus rhythm. She will be admitted for further evaluation of TIA. Case discussed with Dr. Flores - Lab Data Result diagrams: 08/02/21 12:33 08/02/21 14:10 Lab Results 08/02/21 08/02/21 08/02/21 Range/Units 12:33 12:33 14:10 WBC 7.0 (3.8-10.6) k/uL RBC 4.79 (3.80-5.40) m/uL Hgb 14.2 (11.4-16.0) gm/dL Hct 43.1 (34.0-46.0) % MCV 90.0 (80.0-100.0) fL MCH 29.6 (25.0-35.0) pg MCHC 32.9 (31.0-37.0) g/dL RDW 13.5 (11.5-15.5) % Plt Count 237 (150-450) k/uL MPV 9.2 Neutrophils % 64 % Lymphocytes % 27 % Monocytes % 4 % Eosinophils % 3 % Basophils % 1 % Neutrophils # 4.5 (1.3-7.7) k/uL Lymphocytes # 1.9 (1.0-4.8) k/uL Monocytes # 0.3 (0-1.0) k/uL Eosinophils # 0.2 (0-0.7) k/uL Basophils # 0.1 (0-0.2) k/uL PT 9.7 (9.0-12.0) sec INR 0.9 (<1.2) APTT 22.4 (22.0-30.0) sec Sodium 138 (137-145) mmol/L Potassium 4.1 (3.5-5.1) mmol/L Chloride 108 H (98-107) mmol/L Carbon Dioxide 26 (22-30) mmol/L Anion Gap 4 mmol/L BUN 12 (7-17) mg/dL Creatinine 0.68 (0.52-1.04) mg/dL Est GFR (CKD-EPI)AfAm >90 (>60 ml/min/1.73 sqM) Est GFR (CKD-EPI)NonAf >90 (>60 ml/min/1.73 sqM) Glucose 106 H (74-99) mg/dL Calcium 8.9 (8.4-10.2) mg/dL Total Bilirubin 0.4 (0.2-1.3) mg/dL AST 17 (14-36) U/L ALT 17 (4-34) U/L Alkaline Phosphatase 57 (38-126) U/L Troponin I (0.000-0.034) ng/mL Total Protein 6.0 L (6.3-8.2) g/dL Albumin 3.7 (3.5-5.0) g/dL 08/02/21 Range/Units 14:10 WBC (3.8-10.6) k/uL RBC (3.80-5.40) m/uL Hgb (11.4-16.0) gm/dL Hct (34.0-46.0) % MCV (80.0-100.0) fL MCH (25.0-35.0) pg MCHC (31.0-37.0) g/dL RDW (11.5-15.5) % Plt Count (150-450) k/uL MPV Neutrophils % % Lymphocytes % % Monocytes % % Eosinophils % % Basophils % % Neutrophils # (1.3-7.7) k/uL Lymphocytes # (1.0-4.8) k/uL Monocytes # (0-1.0) k/uL Eosinophils # (0-0.7) k/uL Basophils # (0-0.2) k/uL PT (9.0-12.0) sec INR (<1.2) APTT (22.0-30.0) sec Sodium (137-145) mmol/L Potassium (3.5-5.1) mmol/L Chloride (98-107) mmol/L Carbon Dioxide (22-30) mmol/L Anion Gap mmol/L BUN (7-17) mg/dL Creatinine (0.52-1.04) mg/dL Est GFR (CKD-EPI)AfAm (>60 ml/min/1.73 sqM) Est GFR (CKD-EPI)NonAf (>60 ml/min/1.73 sqM) Glucose (74-99) mg/dL Calcium (8.4-10.2) mg/dL Total Bilirubin (0.2-1.3) mg/dL AST (14-36) U/L ALT (4-34) U/L Alkaline Phosphatase (38-126) U/L Troponin I <0.012 (0.000-0.034) ng/mL Total Protein (6.3-8.2) g/dL Albumin (3.5-5.0) g/dL Disposition Clinical Impression: Transient cerebral ischemia Disposition: ADMITTED IP TO THIS [facility] Condition: Stable Is patient prescribed a controlled substance at d/c from ED?: No Referrals: None,Stated [Primary Care Provider] - 1-2 days Decision to Admit Reason: Admit from EC Decision Date: 08/02/21 Decision Time: 16:25
[2021-08-02 12:49] LABS: Basophils # (A) 0.1 k/uL (0-0.2); Basophils % (A) 1 %; Eosinophils # (A) 0.2 k/uL (0-0.7); Eosinophils % (A) 3 %; HCT 43.1 % (34.0-46.0); HGB 14.2 gm/dL (11.4-16.0); Lymphocytes # (A) 1.9 k/uL (1.0-4.8); Lymphocytes % (A) 27 %; MCH 29.6 pg (25.0-35.0); MCHC 32.9 g/dL (31.0-37.0); Mean Platelet Volume 9.2; Monocytes # (A) 0.3 k/uL (0-1.0); Monocytes % (A) 4 %; Neutrophils # (A) 4.5 k/uL (1.3-7.7); Neutrophils % (A) 64 %; Platelet Count 237 k/uL (150-450); RBC 4.79 m/uL (3.80-5.40); RDW 13.5 % (11.5-15.5)
[2021-08-02 13:00] LABS: INR 0.9 (<1.2); Partial Thromboplastin Time 22.4 sec (22.0-30.0); Prothrombin Time 9.7 sec (9.0-12.0)
[2021-08-02 14:28] LABS: ALT 17 U/L (4-34); AST 17 U/L (14-36); African American GFR (CKD) >90 (>60 ml/min/1.73 sqM); Albumin 3.7 g/dL (3.5-5.0); Alkaline Phosphatase 57 U/L (38-126); Anion Gap 4 mmol/L; Blood Urea Nitrogen 12 mg/dL (7-17); Calcium 8.9 mg/dL (8.4-10.2); Carbon Dioxide 26 mmol/L (22-30); Chloride 108 mmol/L (98-107); Glucose 106 mg/dL (74-99); Non-African American GFR(CKD) >90 (>60 ml/min/1.73 sqM); Potassium 4.1 mmol/L (3.5-5.1); Sodium 138 mmol/L (137-145); Total Bilirubin 0.4 mg/dL (0.2-1.3)
--- NOTE | 2021-08-02 15:31 | CT ---
EXAMINATION TYPE: CT brain wo con DATE OF EXAM: 08/02/2021 COMPARISON: None HISTORY: Episode of slurred speech and difficulty moving left thumb. CT DLP: 1055.8 mGycm Automated exposure control for dose reduction was used. Images of the brain obtained without contrast. Ventricles have normal size. There is no mass effect or midline shift. There is no sign of intracrani al hemorrhage. Calvarium is intact skull base is intact. There is normal aeration of the mastoid sinu ses. IMPRESSION: Negative unenhanced head CT scan.
[2021-08-02] MEDS ORDERED: SODIUM CHLORIDE 0.9% 500 ML 500 ML IV ONE (15:51)
[2021-08-02] MEDS ORDERED: ASPIRIN 325 MG TAB PO STA (15:51)
--- NOTE | 2021-08-02 15:58 | CT ---
EXAMINATION TYPE: CT angio head neck DATE OF EXAM: 08/02/2021 COMPARISON: None HISTORY: Episode of slurred speech and difficulty moving left thumb. CT DLP: 433.5 mGycm Automated exposure control for dose reduction was used. CONTRAST: Performed with IV Contrast, patient injected with 65 mL of Isovue 370. Images obtained from the aortic arch to the vertex of the brain with IV contrast. There are Three-D p ostprocessed images. There is normal branching pattern of the great vessels on the aortic arch. There is bilateral arteria l flow in the subclavian arteries. There is arterial flow in the vertebrobasilar artery system. There is arterial flow in the vertebral arteries. There is arterial flow in the common internal and underwriting support specialist al carotid arteries bilaterally. There is no evidence of carotid or vertebral artery aneurysm or diss ection. There is wide patency of the carotid artery bifurcations. There is arterial flow in the anterior middle and posterior cerebral arteries. There is no mass effec t. There is no evidence of intracranial aneurysm or neovascularity. No evidence of intracranial arter ial stenosis. There is normal enhancement of the venous sinuses. IMPRESSION: Negative CT angiogram of the brain. Negative CT angiogram of the neck.
[2021-08-02] MEDS: SODIUM CHLORIDE 0.9% 1,000 ML IV SCH (16:43)
--- NOTE | 2021-08-02 18:16 | P.HPIM ---
History of Present Illness H&P Date: 08/02/21 Chief Complaint: TIA 56-year-old female with no significant past medical history presented to the emergency department because of an episode of word finding difficulty, and left arm weakness and numbness. This occurred at approximately 11:15 AM. Lasted several minutes. No previous history of TIA or CVA. Patient states she was unable to express herself, lost coordination and had weakness of the left arm and hand while she was holding a cup. No blurred vision, no leg weakness. No facial droop. Speech has returned to normal after a few minutes. Head CT is performed, negative for cranial hemorrhage or mass effect. CT angiography of the head and neck performed which is negative for occlusion or stenosis. She has normal labs. EKG sinus rhythm with no acute ST or T-wave changes.. She will be admitted for further evaluation of TIA. Review of Systems Complete review of system performed, pertinent positives per HPI, otherwise neg ative. Past Medical History Past Medical History: GERD/Reflux Additional Past Medical History / Comment(s): diverticulosis,uti, "i think i have a hiatal hernia" History of Any Multi-Drug Resistant Organisms: None Reported Past Surgical History: Section, Cholecystectomy Additional Past Surgical History / Comment(s): egd/colonosocpy Past Anesthesia/Blood Transfusion Reactions: No Reported Reaction Additional Past Anesthesia/Blood Transfusion Reaction / Comment(s): clausterphobia Past Psychological History: No Psychological Hx Reported Smoking Status: Never smoker Past Alcohol Use History: Occasional Past Drug Use History: None Reported - Past Family History Mother Family Medical History: Hypertension Father Family Medical History: Diabetes Mellitus Additional Family Medical History / Comment(s): diverticulosis Medications and Allergies Home Medications Medication Instructions Recorded Confirmed Type No Known Home Medications 08/02/21 08/02/21 History Allergies Allergy/AdvReac Type Severity Reaction Status Date / Time No Known Allergies Allergy Verified 08/02/21 13:59 Physical Exam Vitals: Vital Signs Temp Pulse Resp BP Pulse Ox 08/02/21 16:48 58 L 18 148/90 99 08/02/21 12:12 70 18 143/83 100 08/02/21 11:47 97.6 F 71 18 148/85 100 Intake and Output 08/02/21 08/02/21 08/02/21 06:59 14:59 22:59 Other: Weight 79.379 kg Constitutional: No acute distress, conversant, pleasant Eyes:Anicteric sclerae, moist conjunctiva, no lid-lag, PERRLA, ENMT: Oropharynx clear, no erythema, exudates Neck: Supple, FROM, no masses, or JVD, No carotid bruits, No thyromegaly Lungs: Clear to auscultation, Clear to percussion, Normal respiratory effort, no accessory muscle use Cardiovascular: Heart regular in rate and rhythm, No murmurs, gallops, or rubs, No peripheral edema Abdominal: Soft, Nontender, no guarding, rebound or rigidity, Normoactive bowel sounds, No hepatomegaly, No splenomegaly, No palpable mass Skin: Normal temperature, tone, texture, turgor, no induration, No subcutaneous nodules, No rash, lesions, No ulcers Extremities: No digital cyanosis, No clubbing, Pedal pulses intact and symmetrical, Radial pulses intact and symmetrical, No calf tenderness Psychiatric: Alert and oriented to person, place and time, appropriate affect, intact judgement Neuro: Muscles Strength 5/5 in all 4 extremities, Sensation to light touch grossly present throughout, Cranial nerves II-XII grossly intact, no focal sensory deficits Results CBC & Chem 7: 08/02/21 12:33 08/02/21 14:10 Labs: Abnormal Lab Results - Last 24 Hours (Table) 08/02/21 Range/Units 14:10 Chloride 108 H (98-107) mmol/L Glucose 106 H (74-99) mg/dL Total Protein 6.0 L (6.3-8.2) g/dL Assessment and Plan Plan: TIA Admit to observation Telemetry Neuro checks every 4 hours Check A1c Check lipid profile Check echocardiogram Brain MRI She was started on aspirin and Lipitor DVT prophylaxis Patient is ambulatory, low risk Admitted to observation, expected length of stay less than two midnights.
[2021-08-02] MEDS ORDERED: NALOXONE 0.4 MG/ML 1 ML VIAL IV PRN (18:19)
[2021-08-02] MEDS: ATORVASTATIN 80 MG TAB PO SCH (22:41)
[2021-08-03] MEDS: SODIUM CHLORIDE 0.9% 1,000 ML IV SCH ×3 (05:23→22:36)
[2021-08-03] MEDS: ASPIRIN 325 MG TAB PO SCH (08:03)
[2021-08-03 12:16] LABS: Chol/HDL Ratio 3.51 Ratio; VLDL Calculation 11.58 mg/dL (5.00-40.00)
[2021-08-03] MEDS: CLOPIDOGREL 75 MG TAB PO SCH (12:39)
[2021-08-03] MEDS: ACETAMINOPHEN TAB 325 MG TAB PO PRN (14:33)
--- NOTE | 2021-08-03 14:42 | P.PN ---
Subjective Progress Note Date: 08/03/21 Principal diagnosis: Left hand/arm weakness and numbness She is feeling well today, no recurrent symptoms of weakness or numbness. No slurred speech, no visual changes. Lipid profile came back significant for LDL 145, total cholesterol 219. Objective - Vital Signs Vital signs: Vital Signs Temp 98 F 08/03/21 14:10 Pulse 74 08/03/21 14:10 Resp 18 08/03/21 14:10 BP 130/78 08/03/21 14:10 Pulse Ox 98 08/03/21 14:10 Intake & Output 08/02/21 08/03/21 08/03/21 18:59 06:59 18:59 Intake Total 240 540 Balance 240 540 Weight 79.379 kg 79.6 kg Intake: Oral 240 540 Other: Voiding Method Toilet # Voids 2 3 - Exam Constitutional: No acute distress, conversant, pleasant Eyes:Anicteric sclerae, moist conjunctiva, no lid-lag, PERRLA, ENMT: Oropharynx clear, no erythema, exudates Neck: Supple, FROM, no masses, or JVD, No carotid bruits, No thyromegaly Lungs: Clear to auscultation, Clear to percussion, Normal respiratory effort, no accessory muscle use Cardiovascular: Heart regular in rate and rhythm, No murmurs, gallops, or rubs, No peripheral edema Abdominal: Soft, Nontender, no guarding, rebound or rigidity, Normoactive bowel sounds, No hepatomegaly, No splenomegaly, No palpable mass Skin: Normal temperature, tone, texture, turgor, no induration, No subcutaneous nodules, No rash, lesions, No ulcers Extremities: No digital cyanosis, No clubbing, Pedal pulses intact and symmetrical, Radial pulses intact and symmetrical, No calf tenderness Psychiatric: Alert and oriented to person, place and time, appropriate affect, intact judgement Neuro: Muscles Strength 5/5 in all 4 extremities, Sensation to light touch grossly present throughout, Cranial nerves II-XII grossly intact, no focal sensory deficits - Labs CBC & Chem 7: 08/02/21 12:33 08/02/21 14:10 Labs: Abnormal Lab Results - Last 24 Hours (Table) 08/02/21 08/02/21 Range/Units 12:33 14:10 Hemoglobin A1c 6.2 H (0.0-6.0) % Cholesterol 219.00 H (0.00-200.00) mg/dL LDL Cholesterol, Calc 145.0 H (0.0-131.0) mg/dL HDL Cholesterol 62.40 H (40.00-60.00) mg/dL Assessment and Plan Plan: TIA Continue telemetry Neuro checks every 4 hours A1c6.2 consistent with prediabetes, will advice diet and exercise vs. starting metformin. Follow up in 3 months. Lipid profile consistent with elevated LDL, started on lipitor, will benefit from low fat diet and exercise. Check echocardiogram Brain MRI She was started on aspirin and Lipitor. Plavix added by Dr. Patterson. DVT prophylaxis Patient is ambulatory, low risk
--- NOTE | 2021-08-03 16:22 | P.CNNES ---
History of Present Illness Consult date: 08/03/21 Requesting physician: Walter Otero Reason for Consult: TIA History of Present Illness: This is a telemedicine neurology consultation performed today on 08/03/2021. Patient is a 56-year-old right-handed female came to the hospital yesterday at 11:42 AM for a TIA. Patient states that yesterday she was ready to go out and start her day when while talking with the son, she started slurring her words, the words were nonsensical, could not form words. The symptoms lasted for about 5 minutes. She sat down, her gave her some water grading. She couldn't open the lead with her left hand, the left hand was not under control. Her son noticed some facial droop. The left arm/hand weakness lasted for about 15 minutes. She felt nauseous. The nausea continued for rest of the day. This morning the nausea has resolved, but she still has some slight frontal headache almost as if she has overslept. She denied any symptoms with the legs, balance issues. No loss of vision. Vital signs on arrival blood pressure 148/85, pulse rate 71, temperature 97.6. Patient's blood test shows normal CBC, PT/PTT, normal CMP. Troponin negative. Coronal virus PCR negative. Computed tomography scan of head showed no acute process. I personally reviewed computed tomography scan of the head, and agree with the findings. No acute process. Very subtle basal ganglial calcifications. CTA of head and neck was reported as negative. EKG with sinus rhythm. Patient does not take any medications at home. Patient was given aspirin 325 mg in the ER. Also started on Lipitor 80 mg. Patient does not take any med ications at home otherwise. She is nonsmoker. Patient was diagnosed with diabetes with hemoglobin A1c of 7.2. Patient states that she lost 40 pounds, and her A1c has returned back to normal 5.7. She drinks alcohol once in a while. Denies any family history of strokes or TIA. Denies excessive caffeine or soda intake. Review of Systems As mentioned in detail in HPI as above. All other 14 point of review of system reviewed and negative. Past Medical History Past Medical History: GERD/Reflux Additional Past Medical History / Comment(s): diverticulosis,uti, "i think i have a hiatal hernia" History of Any Multi-Drug Resistant Organisms: None Reported Past Surgical History: Section, Cholecystectomy Additional Past Surgical History / Comment(s): egd/colonosocpy Past Anesthesia/Blood Transfusion Reactions: No Reported Reaction Additional Past Anesthesia/Blood Transfusion Reaction / Comment(s): clausterphobia Past Psychological History: No Psychological Hx Reported Smoking Status: Never smoker Past Alcohol Use History: Occasional Past Drug Use History: None Reported - Past Family History Mother Family Medical History: Hypertension Father Family Medical History: Diabetes Mellitus Additional Family Medical History / Comment(s): diverticulosis Medications and Allergies Home Medications Medication Instructions Recorded Confirmed Type No Known Home Medications 08/02/21 08/02/21 History Allergies Allergy/AdvReac Type Severity Reaction Status Date / Time No Known Allergies Allergy Verified 08/02/21 13:59 Physical Examination - Vital Signs Vital Signs: Vital Signs Temp Pulse Pulse Resp BP BP Pulse Ox 08/03/21 08:00 58 L 18 08/03/21 07:00 97.6 F 60 16 120/74 96 08/03/21 02:00 97.5 F L 58 L 18 132/79 98 08/02/21 22:41 97.5 F L 56 L 18 146/78 98 08/02/21 21:10 80 18 137/87 98 08/02/21 18:55 81 16 128/81 99 08/02/21 16:48 58 L 18 148/90 99 08/02/21 12:12 70 18 143/83 100 08/02/21 11:47 97.6 F 71 18 148/85 100 Intake and Output 08/02/21 08/03/21 08/03/21 22:59 06:59 14:59 Intake Total 240 Balance 240 Intake: Oral 240 Other: Voiding Method Toilet # Voids 1 2 Weight 79.6 kg Patient is a middle aged female, in no acute distress. Patient is alert awake oriented to time place and person. Speech and language functions are normal. Patient can name and repeat very well. No aphasia or dysarthria. Attention, concentration and fund of knowledge is adequate. On cranial nerve examination, pupils are equal, round and reacting to light, visual watt are full on confrontation, extraocular muscles are intact with no nystagmus. Face is symmetric, tongue protrudes to the midline. Palatal elevation and sensation normal, hearing and shoulder shrug normal, facial sensation normal. Shoulder shrug normal. On muscle strength testing, there is no pronator drift and the strength is normal in arms and legs distally and proximally, except air traffic controller center which is 5-on the left. Deep tendon reflexes are 1 in the upper limbs, 2 with the knees 1 ankles and plantars downgoing. Sensory to touch is equal with no neglect. Cerebellar function showed no ataxia for [id number] testing. No dysdiadochokinesia. Tone and bulk of muscles normal. Gait normal. On general examination, there is no carotid bruit or murmur, S1-S2 audible. Abdomen is soft nontender. No organomegaly. Chest is clear. Peripheral pulses are present. No edema. Results - Laboratory Findings CBC and BMP: 08/02/21 12:33 08/02/21 14:10 Abnormal Lab Findings: Abnormal Labs 08/02/21 14:10 Chloride 108 H Glucose 106 H Total Protein 6.0 L Assessment and Plan Assessment: * Stroke/TIA, manifesting with transient slurred speech and left arm weakness. Her symptoms resolved in about 15 minutes. Patient still has very minimal weakness of the left hand on examination. Rule out CVA. Exact cause uncertain. Rule out cardioembolism. * Previous history of diabetes, resolved since lost weight 40 pounds. Plan: * MRI of the brain to evaluate for an acute stroke. * CTA of head and neck reported no significant stenosis. * Patient to be started on dual antiplatelet medication, as her ABCD2 score is 5. * 2-D echo with bubble study. Patient may need RSUS. * Patient's lipid panel with cholesterol 219, LDL 145, HDL 62 and triglycerides 57. We will start Lipitor 80 mg daily. * Hemoglobin A1c 6.2 * Telemetry monitoring so far showing sinus rhythm. * Continue neuro checks. Blood pressure is well-controlled 130/78. * Dr. Chavo Perry will resume neurology service in the morning. * Thank you for the consult.
[2021-08-03] MEDS: ATORVASTATIN 80 MG TAB PO SCH (21:06)
[2021-08-04] MEDS: HEPARIN SODIUM,PORCINE/PF 5,000 UNIT/0.5 ML SYRINGE SQ SCH ×2 (11:23→22:19)
[2021-08-04] MEDS: CLOPIDOGREL 75 MG TAB PO SCH (11:23)
--- NOTE | 2021-08-04 11:24 | P.PN ---
Subjective Progress Note Date: 08/04/21 I am seeing the patient for the first time during this admission. Please refer to Dr. Mac's note for further details. She feels her speech is better today compared to presentation. Objective - Vital Signs Vital signs: Vital Signs Temp 97.9 F 08/04/21 07:00 Pulse 55 L 08/04/21 07:00 Resp 15 08/04/21 07:00 BP 122/76 08/04/21 07:00 Pulse Ox 99 08/04/21 07:00 Intake & Output 08/03/21 08/04/21 08/04/21 18:59 06:59 18:59 Intake Total 660 Balance 660 Intake: Oral 660 Other: Voiding Method Toilet # Voids 3 2 - Exam GENERAL: The patient is lying in bed and is not in acute distress. NEUROLOGICAL: Higher mental function: The patient is awake, alert, oriented to self, place and time. Patient is following commands. No aphasia and no neglect. Cranial nerves: The pupils are round, equal and reactive to light. Visual watt are full to confrontation throughout. Extraocular movement is intact no nystagmus is noted. Facial sensation is normal to touch throughout. The facial strength is normal throughout. Tongue is midline and moved [id number] without any difficulty. No dysarthria is noted. Shoulder shrug is normal bilaterally. Motor: Gait is deferred. The strength is left upper extremity is 4+ to 5-. Otherwise 5 over 5 throughout. Normal tone and bulk. Cerebellum: Normal finger to nose heel to chin bilaterally. Sensation: Sensation is normal to touch throughout. WORK-UP: Diaz virus PCR was not detected Lipid panel is triglyceride of 57, cholesterol is 219, LDLs 145, HDL 62. Hemoglobin A1c is 6.2 Computed tomography scan of head showed no acute process. CTA of head and neck was reported as negative - Labs CBC & Chem 7: 08/02/21 12:33 08/02/21 14:10 Labs: Abnormal Lab Results - Last 24 Hours (Table) 08/02/21 08/02/21 Range/Units 12:33 14:10 Hemoglobin A1c 6.2 H (0.0-6.0) % Cholesterol 219.00 H (0.00-200.00) mg/dL LDL Cholesterol, Calc 145.0 H (0.0-131.0) mg/dL HDL Cholesterol 62.40 H (40.00-60.00) mg/dL Assessment and Plan Assessment: * Stroke, manifesting with transient slurred speech and left arm weakness. Her symptoms resolved in about 15 minutes. Patient still has minimal weakness of the left upper extremity on examination. Rule out CVA. Exact cause uncertain. Rule out cardioembolism. * Previous history of diabetes, resolved since lost weight 40 pounds. Plan: * MRI of the brain to evaluate for an acute stroke. * CTA of head and neck reported no significant stenosis. * Patient to be started on dual antiplatelet medication (currently on ASA 325mg and Plavix 75mg daily), as her ABCD2 score is 5. I will decrease ASA to 81mg daily (patient was not on any antiplatelets at home). Continue Lipitor 80 mg daily. * 2-D echo with bubble study is pending. Patient may need RUSS per Dr. Mac's recommendation.. * Telemetry monitoring so far showing sinus rhythm and few episodes essence in 50's at night. * Continue neuro checks. * PT, OT and TIPPLE BOSS are consulted. * Will defer the rest of medical management to the primary team. * For DVT prophylaxis: Started on subq heparin 5000U every 12 hours. * Upon discharge, the patient needs to follow-up with a neurologist as outpatient within 1-2 weeks. The plan is discussed with the patient's nurse and primary team. Lc Perry M.D. Neuro-Hospitalist Time with Patient: Less than 30
[2021-08-04] MEDS: ASPIRIN 81 MG PO SCH (11:40)
--- NOTE | 2021-08-04 17:47 | P.PN ---
Subjective Progress Note Date: 08/04/21 (delayed charting seen at 1530) Principal diagnosis: left hand weakness Patient is a 56-year-old female with GERD, prior diagnosis of prediabetes who presented with slurred speech and left arm weakness. In the ER she underwent an extensive evaluation. Head CT was negative for any acute process. CTA of the head and neck was negative for occlusion or stenosis. EKG showed no acute ST-T wave changes. She was admitted for stroke workup. She was started on aspirin a nd Plavix by neurology. MRI and echocardiogram are pending. Telemetry without any signs of A. fib. Patient seen and examined at bedside. She reports she continues to have some left hand difficulties however it is much improved. She feels as though her speech is back to baseline. General: non toxic, no distress, appears at stated age Derm: warm, dry Head: atraumatic, normocephalic, symmetric Eyes: EOMI, no lid lag, anicteric sclera Mouth: no lip lesion, mucus membranes moist Cardiovascular: S1S2 reg, no murmur, positive posterior tibial pulse bilateral, Lungs: CTA bilateral, no rhonchi, no rales , no accessory muscle use Abdominal: soft, nontender to palpation, no guarding, no appreciable organomegaly Ext: no gross muscle atrophy, no edema, no contractures Neuro: Extraocular motion intact, pupil equal round reactive to light, tongue deviation to the right, uvula elevation equal, muscle strength 5 out of 5 in bilateral shoulders, wrists, and elbow. Decreased strength of left intrinsic hand muscles when compared to right. [id number] normal. Psych: Alert, oriented, appropriate affect Left hand weakness and slurred speech Prediabetes Dyslipidemia -Anticipate patient will have a stroke as symptoms lasted greater than 24 hours -Await MRI brain -Await echo with bubble study -Case discussed with neurology. We'll anticipate patient will need outpatient RUSS as well as event monitor. Continue with aspirin and Plavix. Statin. -Hemoglobin A1c mildly elevated at 6.2 - anticipated home in AM DVT: heparin Objective - Vital Signs Vital signs: Vital Signs Temp 97.8 F 08/04/21 15:00 Pulse 62 08/04/21 15:00 Resp 15 08/04/21 15:00 BP 135/74 08/04/21 15:00 Pulse Ox 100 08/04/21 15:00 Intake & Output 08/03/21 08/04/21 08/04/21 18:59 06:59 18:59 Intake Total 660 252 Balance 660 252 Intake: Oral 660 252 Other: Voiding Method Toilet # Voids 3 2 1 - Labs CBC & Chem 7: 08/02/21 12:33 08/02/21 14:10
[2021-08-04] MEDS: SODIUM CHLORIDE 0.9% 1,000 ML IV SCH ×2 (20:28→20:29)
[2021-08-04] MEDS: ASPIRIN 325 MG TAB PO SCH (20:30)
--- NOTE | 2021-08-04 20:37 | MR ---
EXAMINATION TYPE: MR brain wo con DATE OF EXAM: 08/04/2021 COMPARISON: CT brain 2 days earlier. HISTORY: Episode of slurred speech and difficulty moving left thumb. TECHNIQUE: Multiplanar, multisequence imaging of the brain and brainstem is performed without IV cont rast. FINDINGS: Diffusion weighted images demonstrate no evidence of a recent infarct or other diffusion abnormality. There is no extraaxial fluid collection or significant white matter signal abnormality. The ventricu lar system and cisternal spaces are normal in size and appearance. The brain volume is age appropria te. Midline structures demonstrate normal morphology. The craniocervical junction appears within normal limits. Normal vascular flow voids are present. There is an incidental hypoplastic right A1 segment w ith filling of the A2 segment due to patent anterior communicating artery. The visualized sinuses are clear and the globes are intact. IMPRESSION: No MRI evidence for a recent infarct.
[2021-08-04] MEDS: ATORVASTATIN 80 MG TAB PO SCH (22:19)
[2021-08-05] MEDS: SODIUM CHLORIDE 0.9% 1,000 ML IV SCH (05:36)
[2021-08-05] MEDS: ACETAMINOPHEN TAB 325 MG TAB PO PRN (07:23)
[2021-08-05] MEDS: CLOPIDOGREL 75 MG TAB PO SCH (07:25)
[2021-08-05] MEDS: ASPIRIN 81 MG PO SCH (07:25)
[2021-08-05] MEDS: HEPARIN SODIUM,PORCINE/PF 5,000 UNIT/0.5 ML SYRINGE SQ SCH (07:26)
[2021-08-05 07:51] VITALS: RESP 15; TEMP 97.5
--- NOTE | 2021-08-05 11:37 | P.PN ---
Subjective Progress Note Date: 08/05/21 The patient is seen at bedside and she feels about the same. She denies any further episode of speech difficulty but continues to have weakness over the left upper extremity. She denies of any new neurological problems. Objective - Vital Signs Vital signs: Vital Signs Temp 97.5 F L 08/05/21 07:00 Pulse 57 L 08/05/21 07:00 Resp 15 08/05/21 07:00 BP 131/80 08/05/21 07:00 Pulse Ox 99 08/05/21 07:00 Intake & Output 08/04/21 08/05/21 08/05/21 18:59 06:59 18:59 Intake Total 725 80 Balance 725 80 Intake: Oral 725 80 Other: # Voids 1 3 1 - Exam GENERAL: The patient is lying in bed and is not in acute distress. NEUROLOGICAL: Higher mental function: The patient is awake, alert, oriented to self, place and time. Patient is following commands. No aphasia and no neglect. Cranial nerves: The pupils are round, equal and reactive to light. Visual fi elds are full to confrontation throughout. Extraocular movement is intact no nystagmus is noted. Facial sensation is normal to touch throughout. The facial strength is normal throughout. Tongue is midline and moved [id number] without any difficulty. No dysarthria is noted. Shoulder shrug is normal bilaterally. Motor: Gait is deferred. The strength is left upper extremity is 4+ to 5-. Oth erwise 5 over 5 throughout. Normal tone and bulk. Cerebellum: Normal finger bilaterally. Sensation: Sensation is normal to touch throughout. Reflex: 2+ over triceps, right bicep is 2+. Otherwise rest of uppers are 1+. Lowers are 2+. WORK-UP: Diaz virus PCR was not detected Lipid panel is triglyceride of 57, cholesterol is 219, LDLs 145, HDL 62. Hemoglobin A1c is 6.2 Computed tomography scan of head showed no acute process. CTA of head and neck was reported as negative. MRI the brain is reported as no MRI evidence for recent infarct. I personally reviewed the MRI and I agree was negative for at acute or subacute ischemic stroke. - Labs CBC & Chem 7: 08/02/21 12:33 08/02/21 14:10 Assessment and Plan Assessment: * Transient slurred speech and left arm weakness. Her symptoms resolved in about 15 minutes. Patient still has minimal weakness of the left upper extremity on examination. MRI Brain is negative for acute or subacute ischemic stroke. Rule out cervical pathology. Not sure reason for her ? transient slurred speech. * Previous history of diabetes, resolved since lost weight 40 pounds. Plan: * Patient to be started on dual antiplatelet medication (currently on ASA 81mg and Plavix 75mg daily. She was not on antiplatelets at home), as her ABCD2 score is 5. Because MRI Brain is negative for stroke I stopped Plavix. I decrease Lipitor from 80 mg to 40 qhs. * Ordered MRI C-spine. * Pending 2D echo. * Telemetry monitoring so far showing sinus rhythm and few episodes essence in 50's at night. * Continue neuro checks. * PT, OT and STATION MECHANIC are consulted. * Will defer the rest of medical management to the primary team. * For DVT prophylaxis: On subq heparin 5000U every 12 hours. * Upon discharge, the patient needs to follow-up with a neurologist as outpatient within 1-2 weeks. The plan is discussed with the patient's nurse and primary team. Lc Perry M.D. Neuro-Hospitalist Time with Patient: Less than 30
--- NOTE | 2021-08-05 11:42 | ECHOF ---
Referral Reason: MEASUREMENTS -------- HEIGHT: 154.9 cm WEIGHT: 79.4 kg BP: 111/73 RVIDd: 2.6 cm (< 3.3) IVSd: 1.0 cm (0.6 - 1.1) LVIDd: 3.2 cm (3.9 - 5.3) LVPWd: 1.3 cm (0.6 - 1.1) IVSs: 1.5 cm LVIDs: 2.0 cm LVPWs: 1.4 cm LAESV Index (A-L): 20.77 ml/m Ao Diam: 3.2 cm (2.0 - 3.7) AV Cusp: 2.2 cm (1.5 - 2.6) LA Diam: 3.4 cm (2.7 - 3.8) MV EXCURSION: 17.007 mm (> 18.000) MV EF SLOPE: 81 mm/s (70 - 150) EPSS: 0.6 cm MV E Rene: 0.64 m/s MV DecT: 259 ms MV A Rene: 0.78 m/s MV E/A Ratio: 0.82 RAP: 15.00 mmHg RVSP: 25.92 mmHg FINDINGS -------- Sinus rhythm. This was a technically adequate study. The left ventricular size is normal. Left ventricular wall thickness is normal. Overall left vent ricular systolic function is normal with, an EF between 55 - 60 %. The diastolic filling pattern is normal for the age of the patient 13.45. The right ventricle is normal in size. Normal LA size by volume 22+/-6 ml/m2. The right atrial size is normal. Contrast study was performed with 2 iv injections of 8 ccs of agitated normal saline, at rest, and wi th cough. Interatrial and interventricular septum intact. The aortic valve is trileaflet, and appears structurally normal. No aortic stenosis or regurgitation. The mitral valve is normal. Mild mitral regurgitation is present. The tricuspid valve appears structurally normal. Mild tricuspid regurgitation present. Right vent ricular systolic pressure is normal at < 35 mmHg. There is no pulmonic regurgitation present. The aortic root size is normal. The inferior vena cava is mildly dilated. There is no pericardial effusion. CONCLUSIONS -------- 1. Left ventricular wall thickness is normal. 2. Overall left ventricular systolic function is normal with, an EF between 55 - 60 %. 3. Normal LA size by volume 22+/-6 ml/m2. 4. Contrast study was performed with 2 iv injections of 8 ccs of agitated normal saline, at rest, and with cough. 5. Interatrial and interventricular septum intact. 6. The aortic valve is trileaflet, and appears structurally normal. No aortic stenosis or regurgitati on. 7. Mild mitral regurgitation is present. 8. Mild tricuspid regurgitation present. 9. The inferior vena cava is mildly dilated. 10. There is no pericardial effusion. DIRECTOR RIVER [employer]ORATION: Ronel Rivera RDCS
--- NOTE | 2021-08-05 14:22 | MR ---
MRI CERVICAL SPINE: CLINICAL HISTORY: Left arm weakness. TECHNIQUE: Multiplanar, multisequence imaging of the cervical spine is performed without precontrast. COMPARISON: CTA neck August 02, 2021. FINDINGS: Sagittal images of the cervical spine show the craniocervical junction to appear within nor mal limits. The cervical and upper thoracic spinal cord is normal in course, caliber, and signal. V ertebral alignment is straightened. The vertebral body heights are normal. [id number] multilev el spurring and disc space narrowing. The bone marrow signal intensity is within normal limits. Axial images at C2-C3 level appears within normal limits. Axial images at C3-C4 level shows broad-based right paracentral disc protrusion effacing anterior the suraj sac and causing mild bilateral neural foraminal narrowing. Axial images at C4-C5 level showed broad based right paracentral/foraminal disc protrusion effacing a nterior thecal sac, there is asymmetric moderate to severe right-sided neural foraminal narrowing wit h more mild to moderate left-sided neural foraminal narrowing. Axial images at C5-C6 level broad-based posterior disc protrusion effacing anterior thecal sac and ca using mild left and moderate right-sided neural foraminal narrowing as there is some marginal spurrin g. Axial images at C6-C7 level showed broad based posterior disc protrusion effacing anterior thecal sac and causing moderate right greater than left bilateral neural foraminal narrowing. Axial images at C7-T1 levels show small posterior disc protrusion mildly facing anterior thecal sac w ith mild right greater than left bilateral neural foraminal narrowing. Tiny 4 mm round low intensity lesion posterior left C7 vertebra axial image 9 and corresponds to small nonspecific sclerotic focus. IMPRESSION: Straightening of cervical spine with multilevel degenerative changes as detailed above. No suspicious cord edema.
[2021-08-05 15:15] VITALS: BP 147/85; PULSE 70
--- NOTE | 2021-08-05 16:47 | P.DS ---
Providers Date of admission: 08/02/21 16:23 Expected date of discharge: 08/05/21 Attending physician: Jerrod Flores MD Consults: 08/02/21 16:22 Consult Physician Routine Consulting Provider: Alvin Mac Consult Reason/Comments: TIA Do you want consulting provider notified?: Yes Primary care physician: Stated None Hospital Course: Discharge Diagnosis: Transient ischemic attack Dyslipidemia Cervical degenerative disc disease with radiculopathy Prediabetes Hospital Course: Patient is a 56-year-old female with GERD, prior diagnosis of prediabetes who presented with slurred speech and left arm weakness. In the ER she underwent an extensive evaluation. Head CT was negative for any acute process. CTA of the head and neck was negative for occlusion or stenosis. EKG showed no acute ST-T wave changes. She was admitted for stroke workup. She was started on aspirin and Plavix by neurology. MRI brain was negative for signs of stroke and echocardiogram had an EF of 55-60%. Telemetry without any signs of A. fib. due to conitnued hand weakness she had an MRI cervical spine which showed mulitple level degenerative changes. Patient seen and examined at bedside. No chest pain, no recurrent sppech difficulaties. She is aware that she again has pre-diabetes. 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 Vital signs reviewed and stable. General: non toxic, no distress, appears at stated age Derm: warm, dry Head: atraumatic, normocephalic, symmetric Eyes: EOMI, no lid lag, anicteric sclera Mouth: no lip lesion, mucus membranes moist Cardiovascular: S1S2 reg, no murmur, positive posterior tibial pulse bilateral, Lungs: CTA bilateral, no rhonchi, no rales , no accessory muscle use Abdominal: soft, nontender to palpation, no guarding, no appreciable organomegaly Ext: no gross muscle atrophy, no edema, no contractures Neuro: CN II-XI grossly intact, weakness left hand. Psych: Alert, oriented, appropriate affect A total of 25 minutes of time were spent preparing this complex discharge summary . Patient Condition at Discharge: Stable Plan - Discharge Summary Discharge Rx Participant: Yes New Discharge Prescriptions: New Aspirin 81 mg PO DAILY methylPREDNISolone Dose Pack [Medrol Dose Pack] 4 mg PO DIRECTED #1 packet Atorvastatin [Lipitor] 40 mg PO HS #30 tab Discharge Medication List Aspirin 81 mg PO DAILY 08/05/21 [Rx] Atorvastatin [Lipitor] 40 mg PO HS #30 tab 08/05/21 [Rx] methylPREDNISolone Dose Pack [Medrol Dose Pack] 4 mg PO DIRECTED #1 packet 08/05/21 [Rx] Follow up Appointment(s)/Referral(s): Jaylan Holder MD [STAFF PHYSICIAN] - 1 Week Ritchie Hernandez MD [STAFF PHYSICIAN] - As Needed (if unable to do a skilled nursing event monitor at Dr. Holder's office) Getachew Delgado DO [Doctor of Osteopathic Medicine] - 2 Weeks Activity/Diet/Wound Care/Special Instructions: Activity: as tolerated Diet: carb consistent diet Special Instructions: Repeat A1C in 3 months You should have an event monitor to assess for a fib, if you cannot get this done at Dr. Holder's office please follow with Dr. Hernandez. Discharge Disposition: HOME SELF-CARE
[2021-08-05] MEDS ORDERED: ATORVASTATIN 40 MG TAB PO SCH (21:00)
== END 2021-08-05 18:10 | disposition home or self-care (01) ==
LOC: EC 11:42 → 6NMEDSUR 16:23
PROVIDERS: ADMIT Internal Medicine; ATTEND Internal Medicine
DX: G45.9 Transient cerebral ischemic attack, unspecified (principal); E78.5 Hyperlipidemia, unspecified; M50.222 Other cervical disc displacement at C5-C6 level; M50.223 Other cervical disc displacement at C6-C7 level; M48.02 Spinal stenosis, cervical region; M54.10 Radiculopathy, site unspecified; R73.03 Prediabetes; R53.1 Weakness; R11.0 Nausea; R51.9 Headache, unspecified; K21.9 Gastro-esophageal reflux disease without esophagitis; I08.1 Rheumatic disorders of both mitral and tricuspid valves; Z71.3 Dietary counseling and surveillance; Z71.9 Counseling, unspecified; Z71.82 Exercise counseling; Z20.822 Contact with and (suspected) exposure to COVID-19; Z90.49 Acquired absence of other specified parts of digestive tract; Z82.49 Family history of ischemic heart disease and other diseases of the circulatory system; Z83.3 Family history of diabetes mellitus; Z83.79 Family history of other diseases of the digestive system
CPT/HCPCS: 96360; 96361 ×2; 96372 ×2; 99285; 36415; 93005; 93306; 97162; 97166; 92610; 92523; 80061; 80053; 84484; 85025; 85610; 85730; 83036; 87635; 70496; 70450; 70498; 70551; 72141; G0378 ×4; Q9967; J1644 ×2

== ENCOUNTER 2022-05-04 10:46 | Emergency (ER) | payer BC ==
[2022-05-04 11:02] VITALS: RESP 20
--- NOTE | 2022-05-04 12:29 | ED ---
General Adult HPI - General Chief complaint: Neuro Symptoms/Deficit Stated complaint: right side weakness Time Seen by Provider: 05/04/22 12:03 Source: patient Mode of arrival: ambulatory Limitations: no limitations - History of Present Illness Initial comments: Dictation was produced using [employer] dictation software. please excuse any grammatical, word or spelling errors. Chief Complaint: 57-year-old male presents emergency department for weakness and sensory deficit of the right upper extremity History of Present Illness: Patient's 57-year-old female she presents emergency Department with 1 week of decreased dexterity, control and sensory deficits to light touch of the right upper extremity. But: For the Last Week. Patient Has History of Transient Ischemic Attack Back in July. At That Time She Is Admitted to the Hospital. Patient denies any other deficits at this time. Denies any pain. No neck pain. Denies any fever, chills or night sweats. Patient did report having issue with vision that lasted for 30 minutes about 56 days ago. States that the the bitemporal visual watt had flashing lights. That resolved on its own spontaneously. The ROS documented in this emergency department record has been reviewed and confirmed by me. Those systems with pertinent positive or negative responses have been documented in the HPI. All other systems are other negative and/or noncontributory. PHYSICAL EXAM: General Impression: Alert and oriented x3, not in acute distress HEENT: Normocephalic atraumatic, extra-ocular movements intact, pupils equal and reactive to light bilaterally, mucous membranes moist. Cardiovascular: Heart regular rate and rhythm Chest: Able to complete full sentences, no retractions, no tachypnea Abdomen: abdomen soft, non-tender, non-distended, no organomegaly Musculoskeletal: Pulses present and equal in all extremities, no peripheral edema Motor: no focal deficits noted Neurological: CN II-XII grossly intact, no focal motor or sensory deficits noted, mild right extremity weakness, decreased dexterity with penmanship, gait is normal Skin: Intact with no visualized rashes Psych: Normal affect and mood ED course: 57-year-old female presents to the emergency department for right extremity issues. Signs upon arrival are within acceptable limits. Patient's symptoms have been ongoing for 7 days. Patient had a candidate for aggressive stroke treatments. NIH would be considered a score of 2. Chart review was performed. It appears that patient was admitted back in July for strokelike symptoms. She had an MRI. She also had a cervical spine MRI that showed deg enerative disc disease with foraminal narrowing. At that time she was admitted to the hospital for left-sided deficits. Laboratory evaluation obtained. CBC, coag panel, metabolic panel is unremarka ble. Computed tomography scan of the brain shows bilateral areas of low attenuation left worse than right concerning for stroke versus metastatic disease to the brain. Patient reevaluated at bedside found to be stable medical condition. Considering patient's clinical presentation is suspicion that this represents likely a brain mass. Patient will be transferred to [facility] for further intervention. My EKG interpretation: Ventricular rate 67, sinus rhythm,. 1:30, QS 90, QTC 336. No GA prolongation, no QTC prolongation, no ST or T-wave changes noted. . Overall, this EKG is unremarkable Case discussed with Dr. Escalante who is willing to accept patients care for ER to ER transfer. - Related Data Home Medications Medication Instructions Recorded Confirmed No Known Home Medications 05/04/22 05/04/22 Allergies Allergy/AdvReac Type Severity Reaction Status Date / Time No Known Allergies Allergy Verified 05/04/22 13:03 Review of Systems ROS Statement: Those systems with pertinent positive or pertinent negative responses have been documented in the HPI. ROS Other: All systems not noted in ROS Statement are negative. Past Medical History Past Medical History: CVA/TIA, GERD/Reflux Additional Past Medical History / Comment(s): diverticulosis,uti, "i think i silva ve a hiatal hernia" History of Any Multi-Drug Resistant Organisms: None Reported Past Surgical History: Section, Cholecystectomy Additional Past Surgical History / Comment(s): egd/colonosocpy Past Anesthesia/Blood Transfusion Reactions: No Reported Reaction Additional Past Anesthesia/Blood Transfusion Reaction / Comment(s): clausterphobia Past Psychological History: No Psychological Hx Reported Smoking Status: Never smoker Past Alcohol Use History: Occasional Past Drug Use History: None Reported - Past Family History Mother Family Medical History: Hypertension Father Family Medical History: Diabetes Mellitus Additional Family Medical History / Comment(s): diverticulosis General Exam Limitations: no limitations Course Vital Signs 05/04/22 10:59 Temperature 98.2 F Pulse Rate 82 Respiratory 20 Rate Blood Pressure 164/90 O2 Sat by Pulse 98 Oximetry Medical Decision Making - Lab Data Result diagrams: 05/04/22 12:49 05/04/22 12:49 Lab Results 05/04/22 05/04/22 05/04/22 Range/Units 12:49 12:49 12:49 WBC 11.2 H (3.8-10.6) k/uL RBC 4.72 (3.80-5.40) m/uL Hgb 13.4 (11.4-16.0) gm/dL Hct 40.9 (34.0-46.0) % MCV 86.7 (80.0-100.0) fL MCH 28.4 (25.0-35.0) pg MCHC 32.8 (31.0-37.0) g/dL RDW 13.0 (11.5-15.5) % Plt Count 279 (150-450) k/uL MPV 9.3 Neutrophils % 69 % Lymphocytes % 20 % Monocytes % 5 % Eosinophils % 5 % Basophils % 1 % Neutrophils # 7.7 (1.3-7.7) k/uL Lymphocytes # 2.3 (1.0-4.8) k/uL Monocytes # 0.5 (0-1.0) k/uL Eosinophils # 0.5 (0-0.7) k/uL Basophils # 0.1 (0-0.2) k/uL PT 10.1 (9.0-12.0) sec INR 0.9 (<1.2) APTT 22.8 (22.0-30.0) sec Sodium 141 (137-145) mmol/L Potassium 4.0 (3.5-5.1) mmol/L Chloride 104 (98-107) mmol/L Carbon Dioxide 30 (22-30) mmol/L Anion Gap 7 mmol/L BUN 10 (7-17) mg/dL Creatinine 0.64 (0.52-1.04) mg/dL Est GFR (CKD-EPI)AfAm >90 (>60 ml/min/1.73 sqM) Est GFR (CKD-EPI)NonAf >90 (>60 ml/min/1.73 sqM) Glucose 92 (74-99) mg/dL Calcium 9.3 (8.4-10.2) mg/dL Disposition Clinical Impression: Right arm weakness, Brain mass Disposition: OTHER INSTITUTION NOT DEFINED Condition: Serious Referrals: Daniel Abraham DO [Primary Care Provider] - 1-2 days Time of Disposition: 13:53 - Out of Hospital Transfer - Req. Specs Out of Hospital Transfer - Requested Specifics: Other Emergency Center ([facility])
--- NOTE | 2022-05-04 12:53 | CT ---
EXAMINATION TYPE: CT brain wo con DATE OF EXAM: 05/04/2022 HISTORY: Rt extremity sensory and strength deficit. Pt states hx TIA, CT DLP: 1114.4 mGycm. Automated Exposure Control for Dose Reduction was Utilized. TECHNIQUE: CT scan of the head is performed without contrast. COMPARISON: CT brain August 02, 2021. MRI brain August 04, 2021 FINDINGS: There is no acute intracranial hemorrhage or midline shift identified. Ventricles and sul ci within normal limits in size for patient's age. Area of low-attenuation with mendosa-white matter hany rring posterior left frontal lobe with some sulcal effacement is identified. Some involvement into th e left parietal lobe is not excluded. Smaller area of involvement in the right posterior frontal lobe near axial image 38 is also noted. Possible smaller area of involvement right parietal region axial image 40. Low-lying cerebellar tonsils into foramen magnum are redemonstrated. Position is stable. Th e globes are intact and the visualized sinuses are clear. IMPRESSION: No acute intracranial hemorrhage or midline shift. There are new areas of concern child care supervisor ior frontal lobe level bilaterally left greater than right could reflect evolving acute/subacute infa rcts. Due to bilateral new Findings and degree of left-sided vasogenic edema, differential would inc lude metastatic disease to the brain. Correlate clinically. Contrast-enhanced MRI follow-up can be pe rformed to further evaluate and differentiate if necessary.
[2022-05-04 13:06] LABS: Basophils # (A) 0.1 k/uL (0-0.2); Basophils % (A) 1 %; Eosinophils # (A) 0.5 k/uL (0-0.7); Eosinophils % (A) 5 %; HCT 40.9 % (34.0-46.0); HGB 13.4 gm/dL (11.4-16.0); Lymphocytes # (A) 2.3 k/uL (1.0-4.8); Lymphocytes % (A) 20 %; MCH 28.4 pg (25.0-35.0); MCHC 32.8 g/dL (31.0-37.0); MCV 86.7 fL (80.0-100.0); Mean Platelet Volume 9.3; Monocytes # (A) 0.5 k/uL (0-1.0); Monocytes % (A) 5 %; Neutrophils # (A) 7.7 k/uL (1.3-7.7); Neutrophils % (A) 69 %; Platelet Count 279 k/uL (150-450); RBC 4.72 m/uL (3.80-5.40); WBC 11.2 k/uL (3.8-10.6)
[2022-05-04 13:19] LABS: INR 0.9 (<1.2); Partial Thromboplastin Time 22.8 sec (22.0-30.0); Prothrombin Time 10.1 sec (9.0-12.0)
[2022-05-04 13:22] LABS: African American GFR (CKD) >90 (>60 ml/min/1.73 sqM); Anion Gap 7 mmol/L; Blood Urea Nitrogen 10 mg/dL (7-17); Calcium 9.3 mg/dL (8.4-10.2); Carbon Dioxide 30 mmol/L (22-30); Chloride 104 mmol/L (98-107); Glucose 92 mg/dL (74-99); Non-African American GFR(CKD) >90 (>60 ml/min/1.73 sqM); Sodium 141 mmol/L (137-145)
[2022-05-04] MEDS ORDERED: DEXAMETHASONE SOD PHOSPHATE 10 MG/ML 1 ML VIAL IV STA (14:00)
[2022-05-04 23:48] VITALS: BP 160/80; PULSE 76; TEMP 98.5
== END 2022-05-04 14:39 | disposition other institution (70) ==
LOC: EC 10:46
DX: R53.1 Weakness (principal); C71.9 Malignant neoplasm of brain, unspecified; G45.9 Transient cerebral ischemic attack, unspecified; K21.9 Gastro-esophageal reflux disease without esophagitis; Z79.899 Other long term (current) drug therapy
CPT/HCPCS: 36415; 93005; 80048; 85025; 85610; 85730; 70450; 99285; 96374; J1100

== ENCOUNTER → 2022-05-29 | Outpatient (CLI) | payer BC ==
--- NOTE | 2022-05-30 13:49 | PE ---
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 Images are reviewed on the computer in the coronal, a xial, and sagittal planes. Reconstructed rotating images are created on independent workstation and reviewed on the computer. A non-contrast CT is performed in conjunction with the PET scan. Glucose level 120 mg/dL COMPARISON: CT abdomen pelvis 12/31/2015, head neck 08/02/2021., PET/CT None, FINDINGS: Mediastinal SUV mean is 1.4. Hepatic parenchyma SUV mean is 2.4.. SKULL BASE AND NECK: No suspicious radiotracer activity. CHEST, MEDIASTINUM, AND HILAR REGION * Left supraclavicular lymphadenopathy somewhat conglomerate measuring up to 2.0 x 1.6 cm Max SUV 9. 2. Additional other lymph nodes noted in the left supraclavicular region. * Left perihilar lymph nodes/ consolidation with max SUV 7.8. * Left lower lobe consolidation measuring at least 4.0 x 3.2 x 3.7 cm Max SUV 11.3. Mediastinal lymphadenopathy with increased radiotracer activity including: * Prevascular space lymph node measuring 1.7 cm in short axis max SUV 6.5. * Right paratracheal lymph node measuring 2.1 cm Max SUV 5.8. * Subcarinal lymph node measuring 10 mm in short axis and max SUV 7.2 * Right intramuscular focus of FDG activity in the right subscapularis muscle measuring Max SUV 6.2. * Left focus of FDG activity within the triceps muscle max SUV 4.2 ABDOMEN AND PELVIS: * Right adrenal nodule measuring 1.6 cm Max SUV 4.1. * Left retroperitoneal lymph nodes max SUV 7.0 measuring up to 10 mm in short axis. OSSEOUS STRUCTURES: * T9 vertebral body abnormal FDG activity max SUV 10.3. * Right iliac bone focus of abnormal lucency with increased FDG activity max SUV 7.2. * Left femoral head and neck FDG activity with subtle lucency max SUV 9.9. * Left posterior vertebral body/left pedicle FDG activity max SUV 5.6. * C2 vertebral body/odontoid max SUV 4.5. OTHER CT: Mild atherosclerosis of the arterial vasculature. Mild multilevel disc degeneration changes throughout the spine. The gallbladder surgically absent. Colonic diverticulosis is mild. IMPRESSION: 1. Left lower lobe lung mass measuring up to 4.0 cm concerning for primary malignancy. There is abdo bianca, intraosseous and muscular metastatic disease. 2. Left femoral neck FDG activity with underlying lucent lesion concerning for impending pathologic fracture. Patient should be made left leg nonweightbearing. Orthopedic consultation.
== END | disposition home or self-care (01) ==
LOC: RADPETMAIN 14:58
PROVIDERS: ATTEND Radiology Radiation Oncology
DX: C34.32 Malignant neoplasm of lower lobe, left bronchus or lung (principal); C79.89 Secondary malignant neoplasm of other specified sites; C79.51 Secondary malignant neoplasm of bone; C79.31 Secondary malignant neoplasm of brain
CPT/HCPCS: 78815; A9552

== ENCOUNTER → 2022-07-20 | Outpatient (CLI) | payer BC ==
--- NOTE | 2022-07-20 09:56 | XR ---
EXAMINATION TYPE: XR chest 2V DATE OF EXAM: 07/20/2022 COMPARISON: Chest x-ray May 18, 2021. PET/CT May 29, 2022. HISTORY: Left sided lung cancer. TECHNIQUE: Frontal and lateral views of the chest are obtained. FINDINGS: Known central left lung mass or neoplasm less well seen on plain films versus recent PET/C T. No suspicious new focal airspace opacity, pleural effusion, or pneumothorax seen bilaterally. The cardiac silhouette size is stable and within normal limits. New moderate compression type fracture d eformity at level of osseous metastatic disease approximate T9 level in the thoracic spine is noted f rom most recent PET/CT. A metallic coil overlying the upper heart on frontal view is not clearly seen on lateral view presumably external to patient. Cholecystectomy clips are seen. IMPRESSION: As above.
== END | disposition home or self-care (01) ==
LOC: RADXRYALE 09:01
PROVIDERS: ATTEND Physician Assistant
DX: C34.92 Malignant neoplasm of unspecified part of left bronchus or lung (principal)
CPT/HCPCS: 71046

== ENCOUNTER 2022-09-22 10:26 | Inpatient (IN) | payer BC ==
[2022-09-22] MEDS ORDERED: SODIUM CHLORIDE 0.9% 500 ML 500 ML IV STA (10:46)
[2022-09-22 11:17] LABS: Anisocytosis Slight; Basophils % (A) 0 %; Eosinophils # (A) 0.1 k/uL (0-0.7); Eosinophils % (A) 1 %; HCT 33.4 % (34.0-46.0); Lymphocytes # (A) 0.3 k/uL (1.0-4.8); Lymphocytes % (A) 4 %; MCHC 32.9 g/dL (31.0-37.0); MCV 91.4 fL (80.0-100.0); Macrocytosis Slight; Monocytes # (A) 0.7 k/uL (0-1.0); Monocytes % (A) 8 %; Neutrophils # (A) 7.2 k/uL (1.3-7.7); Neutrophils % (A) 85 %; RBC 3.66 m/uL (3.80-5.40); RDW 19.4 % (11.5-15.5); WBC 8.5 k/uL (3.8-10.6)
[2022-09-22 11:34] LABS: Albumin 3.6 g/dL (3.5-5.0); Calcium 8.7 mg/dL (8.4-10.2); Magnesium 1.9 mg/dL (1.6-2.3); Potassium 3.5 mmol/L (3.5-5.1); Total Bilirubin 0.7 mg/dL (0.2-1.3)
[2022-09-22 11:42] LABS: Partial Thromboplastin Time 22.9 sec (22.0-30.0); Prothrombin Time 10.8 sec (9.0-12.0)
[2022-09-22 12:23] LABS: Platelet Count 60 k/uL (150-450)
--- NOTE | 2022-09-22 13:14 | CT ---
EXAMINATION TYPE: CT brain cspine wo con CT DLP: 1390.9 mGycm, Automated exposure control for dose reduction was used. DATE OF EXAM: 09/22/2022 11:49 AM COMPARISON: CT brain 05/04/2022, MRI brain 05/05/2022 MRI cervical spine 08/05/2021. CLINICAL INDICATION:Female, 57 years old with history of right sided tremor, hx brain mets; Right jose manuel e body tremors TECHNIQUE: Brain: Multiple axial CT images of the brain were obtained without IV contrast. Cspine: Axial CT images from the skull base to the inferior aspect of T2 we obtained without intraven ous contrast. Coronal and sagittal reformatted images were also reviewed. FINDINGS: Brain: Extra-axial spaces: No abnormal extra-axial fluid collections. Ventricular system: Within normal limits Cerebral parenchyma: No acute intraparenchymal hemorrhage or mass effect. Similar low attenuation wi th preservation the mendosa-white differentiation in the bilateral frontal lobes. Suggested new region w ithin the medial aspect of the right parietal lobe (series 201, image 35). The remaining mendosa-white j unction is well differentiated. Cerebellum: Unremarkable. Mass effect: No evidence of midline shift. Intracranial vasculature: unremarkable Soft tissues: Normal. Calvarium/osseous structures: No depressed skull fracture. Paranasal sinuses and mastoid air cells: The mastoid air cells are clear. Moderate mucosal thickening of the left sphenoid sinus. Visualized orbits: Orbital contents are intact. Cervical spine: Fracture: None. Osseous structures: Multilevel degenerative disc disease changes with endplate spurring and disc oste ophyte complex's. Vertebral alignment: Within normal limits. Spinal canal/Neural Foramina: No evidence of significant spinal canal narrowing. No evidence for sign ificant neural foraminal stenosis. Neck soft tissues: Prevertebral soft tissues are within normal limits. Other: The airway is patent. The lung apices are clear. IMPRESSION: 1. No acute intracranial hemorrhage or significant mass effect. 2. Similar bilateral frontal lobe hypodense regions with suggested new region in the medial aspect o f the right parietal lobe. These correlate to known metastatic disease. Consider further evaluation w ith MRI brain to assess for interval change. 3. No evidence of cervical spine fracture. 4. Mild multilevel degenerative disc disease.
--- NOTE | 2022-09-22 14:20 | ED ---
General Adult HPI - General Chief complaint: Neuro Symptoms/Deficit Stated complaint: Hypotension Time Seen by Provider: 09/22/22 10:30 Source: patient Mode of arrival: EMS Limitations: no limitations - History of Present Illness Initial comments: 57-year-old female past medical history of lung cancer metastatic to the brain who presents to the emergency department reporting right-sided tremors. She states that she felt well this morning and got up to cut herself breakfast. She was in the kitchen when she ended up having diffuse shaking of her right side. States that this is her week side due to her history of metastatic lung cancer to the brain. She has never had a seizure before or a focal seizure. She is not on any antiepileptics. States that the uncontrolled shaking went on for 2 minutes. She was conscious throughout all however she felt dizzy. She was assisted to a sitting position by her son. Denies any falls loss of conscious ness or injuries. Last had chemo 4 weeks ago. She did have some radiation in June by Dr. Webb at our facility. Her oncologist is out of [place]. She denies any headaches or visual changes. No weakness. Tremors have resolved at this time and patient states that she is asymptomatic. Does report to a rash on her body which is new. Denies any new exposures. EMS did provide her with 50 mg of Benadryl, 125 of Solu-Medrol, 500 mL of normal saline. She does admit that she's been having some mild headaches over the past week. 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 - Related Data Home Medications Medication Instructions Recorded Confirmed Apixaban [Eliquis] 5 mg PO BID 09/22/22 09/22/22 Cyclobenzaprine [Flexeril] 5 mg PO TID 09/22/22 09/22/22 Folic Acid 1 mg PO DAILY 09/22/22 09/22/22 Loperamide [Imodium] 2 mg PO QID PRN 09/22/22 09/22/22 Magnesium Oxide [Mag-Ox] 400 mg PO DAILY 09/22/22 09/22/22 Pantoprazole Sodium [Protonix] 40 mg PO DAILY 09/22/22 09/22/22 Pregabalin [Lyrica] 50 mg PO TID 09/22/22 09/22/22 Simethicone [Mylanta Gas Minis] 125 mg PO BID PRN 09/22/22 09/22/22 Previous Rx's Medication Instructions Recorded Acetaminophen Tab [Tylenol] 650 mg PO Q6HR PRN #90 tab 09/25/22 Cephalexin [Keflex] 500 mg PO Q6HR 7 Days #28 cap 09/25/22 Magnesium Oxide [Mag-Ox] 400 mg PO DAILY tab 09/25/22 dexAMETHasone [Decadron] 4 mg PO DIRECTED 8 Days #10 tab 09/25/22 levETIRAcetam [Keppra] 500 mg PO Q12HR #60 tab 09/25/22 Allergies Allergy/AdvReac Type Severity Reaction Status Date / Time No Known Allergies Allergy Verified 09/22/22 11:09 Review of Systems ROS Statement: Those systems with pertinent positive or pertinent negative responses have been documented in the HPI. ROS Other: All systems not noted in ROS Statement are negative. Past Medical History Past Medical History: CVA/TIA, GERD/Reflux Additional Past Medical History / Comment(s): diverticulosis,uti, "i think i have a hiatal hernia", brain and lung cancer, History of Any Multi-Drug Resistant Organisms: None Reported Past Surgical History: Section, Cholecystectomy Additional Past Surgical History / Comment(s): egd/colonosocpy Past Anesthesia/Blood Transfusion Reactions: No Reported Reaction Additional Past Anesthesia/Blood Transfusion Reaction / Comment(s): clausterphobia Past Psychological History: No Psychological Hx Reported Smoking Status: Never smoker Past Alcohol Use History: Occasional Past Drug Use History: None Reported - Past Family History Mother Family Medical History: Hypertension Father Family Medical History: Diabetes Mellitus Additional Family Medical History / Comment(s): diverticulosis General Exam Limitations: no limitations General appearance: alert, in no apparent distress Head exam: Present: atraumatic, normocephalic, normal inspection Eye exam: Present: normal appearance, PERRL, EOMI. Absent: scleral icterus, conjunctival injection, periorbital swelling ENT exam: Present: normal exam, mucous membranes moist Neck exam: Present: normal inspection. Absent: tenderness, meningismus, lymphadenopathy Respiratory exam: Present: normal lung sounds bilaterally. Absent: respiratory distress, wheezes, rales, rhonchi, stridor Cardiovascular Exam: Present: regular rate, normal rhythm, normal heart sounds. Absent: systolic murmur, diastolic murmur, rubs, gallop, clicks GI/Abdominal exam: Present: soft, normal bowel sounds. Absent: distended, tenderness, guarding, rebound, rigid Extremities exam: Present: normal inspection, full ROM, normal capillary refill. Absent: tenderness, pedal edema, joint swelling, calf tenderness Back exam: Present: normal inspection Neurological exam: Present: alert, oriented X3, CN II-XII intact Psychiatric exam: Present: normal affect, normal mood Skin exam: Present: warm, dry, intact, normal color. Absent: rash Course Vital Signs 09/22/22 09/22/22 09/22/22 10:29 12:16 14:21 Temperature 98.1 F 98.4 F 97.8 F Pulse Rate 105 H 95 98 Respiratory 18 16 18 Rate Blood Pressure 147/99 146/98 131/97 O2 Sat by Pulse 100 98 98 Oximetry 09/22/22 09/22/22 09/22/22 15:46 18:09 20:12 Temperature 98.1 F 97.6 F 98.0 F Pulse Rate 92 96 94 Respiratory 18 18 16 Rate Blood Pressure 136/93 140/78 124/85 O2 Sat by Pulse 99 96 97 Oximetry 09/22/22 20:41 Temperature Pulse Rate 98 Respiratory 18 Rate Blood Pressure 125/93 O2 Sat by Pulse 98 Oximetry EKG Findings - EKG Comments: EKG Findings:: EKG demonstrates sinus tachycardia with a rate of 104. NC inte rval 131. QRS 76. QTC 392. No acute ST segment elevations or depressions Medical Decision Making - Medical Decision Making Was pt. sent in by a medical professional or institution (, PA, [facility] [employer], urgent care, hospital, or [facility]...) When possible be specific @ -No Did you speak to anyone other than the patient for history (EMS, parent, family, police, friend...)? What history was obtained from this source @ -EMS regarding circumstances that patient was found, vitals, etc Did you review nursing and triage notes (agree or disagree)? Why? @ -I reviewed and agree with nursing and triage notes Were old charts reviewed (outside hosp., previous admission, EMS record, old EKG, old radiological studies, urgent care reports/EKG's, [facility] records)? Report findings @ -No old charts were reviewed - attempted but most care has not been at [facility] Differential Diagnosis (chest pain, altered mental status, abdominal pain women, abdominal pain men, vaginal bleeding, weakness, fever, dyspnea, syncope, headache, dizziness, GI bleed, back pain, seizure, CVA, palpatations, mental health, musculoskeletal)? @ -general seizure, focal seizure, brain mass, sdh, vasogenic edema EKG interpreted by me (3pts min.). @ -Yes X-rays interpreted by me (1pt min.). @ -None done CT interpreted by me (1pt min.). @ -yes U/S interpreted by me (1pt. min.). @ -None done What testing was considered but not performed or refused? (CT, X-rays, U/S, labs)? Why? @ -None What meds were considered but not given or refused? Why? @ -None Did you discuss the management of the patient with other professionals (professionals i.e. , PA, [employer] [employer], lab, RT, psych nurse, social service director, rail assembler, teacher, supervisor dog license officer, rn case mgr)? Give summary @ -Dr. Franco, admitting physician Was smoking cessation discussed for >3mins.? @ -No Was critical care preformed (if so, how long)? @ -No Were there social determinants of health that impacted care today? How? (Homelessness, low income, unemployed, alcoholism, drug addiction, transportation, low edu. Level, literacy, decrease access to med. care, [facility], rehab)? @ -No Was there de-escalation of care discussed even if they declined (Discuss DNR or withdrawal of care, Hospice)? DNR status @ -No What co-morbidities impacted this encounter? (DM, HTN, Smoking, COPD, CAD, Cancer, CVA, ARF, Chemo, Hep., AIDS, mental health diagnosis, sleep apnea, morbid obesity)? @ -Lung cancer with brain mets Was patient admitted / discharged? Hospital course, mention meds given and route, prescriptions, significant lab abnormalities, going to OR and other pertinent info. @ -Upon arrival patient was placed into room 6. A thorough history and physical exam was performed. Patient does not have any appreciable neuro symptoms. She reports that her symptoms are completely resolved. Laboratory studies are conducted and reviewed. Lactic acid elevated. CT of the brain demonstrates possible new questionable area of metastatic focus. Discuss the results with the patient. She wants to stay at our facility as this is where she has received her previous radiation treatments. Called and spoke with Dr. Franco who agreed to admit the patient. I will place the radiation oncology and neurologic consult Undiagnosed new problem with uncertain prognosis? @ -Yes Drug Therapy requiring intensive monitoring for toxicity (Heparin, Nitro, Insulin, Cardizem)? @ -No Were any procedures done? @ -No Diagnosis/symptom? @ -acute seizure-like activity, lung cancer with brain mets Acute, or Chronic, or Acute on Chronic? @ -acute seizure like, chronic lung cancer Uncomplicated (without systemic symptoms) or Complicated (systemic symptoms)? @ -complicated Side effects of treatment? @ -No Exacerbation, Progression, or Severe Exacerbation? @ -No Poses a threat to life or bodily function? How? (Chest pain, [place], [place], pneumonia, PE, COPD, DKA, ARF, appy, cholecystitis, CVA, Diverticulitis, Homicidal, Suicidal, threat to staff... and all critical care pts) @ -Yes - Lab Data Result diagrams: 09/25/22 06:03 09/25/22 06:03 Lab Results 09/22/22 09/22/22 09/22/22 Range/Units 10:57 10:57 10:57 WBC 8.5 (3.8-10.6) k/uL RBC 3.66 L (3.80-5.40) m/uL Hgb 11.0 L (11.4-16.0) gm/dL Hct 33.4 L (34.0-46.0) % MCV 91.4 (80.0-100.0) fL MCH 30.0 (25.0-35.0) pg MCHC 32.9 (31.0-37.0) g/dL RDW 19.4 H (11.5-15.5) % Plt Count 60 L (150-450) k/uL MPV 11.0 Neutrophils % 85 % Lymphocytes % 4 % Monocytes % 8 % Eosinophils % 1 % Basophils % 0 % Neutrophils # 7.2 (1.3-7.7) k/uL Lymphocytes # 0.3 L (1.0-4.8) k/uL Monocytes # 0.7 (0-1.0) k/uL Eosinophils # 0.1 (0-0.7) k/uL Basophils # 0.0 (0-0.2) k/uL Anisocytosis Slight Macrocytosis Slight PT 10.8 (9.0-12.0) sec INR 1.0 (<1.2) APTT 22.9 (22.0-30.0) sec Sodium 137 (137-145) mmol/L Potassium 3.5 (3.5-5.1) mmol/L Chloride 101 (98-107) mmol/L Carbon Dioxide 25 (22-30) mmol/L Anion Gap 11 mmol/L BUN 21 H (7-17) mg/dL Creatinine 1.15 H (0.52-1.04) mg/dL Est GFR (CKD-EPI)AfAm 62 (>60 ml/min/1.73 sqM) Est GFR (CKD-EPI)NonAf 53 (>60 ml/min/1.73 sqM) Glucose 134 H (74-99) mg/dL Lactic Ac Sepsis Rflx Plasma Lactic Acid Sp (0.7-2.0) mmol/L Calcium 8.7 (8.4-10.2) mg/dL Magnesium 1.9 (1.6-2.3) mg/dL Total Bilirubin 0.7 (0.2-1.3) mg/dL AST 30 (14-36) U/L ALT 46 H (4-34) U/L Alkaline Phosphatase 103 (38-126) U/L Creatine Kinase 21 L (30-135) U/L Total Protein 6.0 L (6.3-8.2) g/dL Albumin 3.6 (3.5-5.0) g/dL Prolactin 25.400 (2.800-29.200) ng/mL 09/22/22 09/22/22 Range/Units 10:57 11:45 WBC (3.8-10.6) k/uL RBC (3.80-5.40) m/uL Hgb (11.4-16.0) gm/dL Hct (34.0-46.0) % MCV (80.0-100.0) fL MCH (25.0-35.0) pg MCHC (31.0-37.0) g/dL RDW (11.5-15.5) % Plt Count (150-450) k/uL MPV Neutrophils % % Lymphocytes % % Monocytes % % Eosinophils % % Basophils % % Neutrophils # (1.3-7.7) k/uL Lymphocytes # (1.0-4.8) k/uL Monocytes # (0-1.0) k/uL Eosinophils # (0-0.7) k/uL Basophils # (0-0.2) k/uL Anisocytosis Macrocytosis PT (9.0-12.0) sec INR (<1.2) APTT (22.0-30.0) sec Sodium (137-145) mmol/L Potassium (3.5-5.1) mmol/L Chloride (98-107) mmol/L Carbon Dioxide (22-30) mmol/L Anion Gap mmol/L BUN (7-17) mg/dL Creatinine (0.52-1.04) mg/dL Est GFR (CKD-EPI)AfAm (>60 ml/min/1.73 sqM) Est GFR (CKD-EPI)NonAf (>60 ml/min/1.73 sqM) Glucose (74-99) mg/dL Lactic Ac Sepsis Rflx Y Plasma Lactic Acid Sp 3.6 H* (0.7-2.0) mmol/L Calcium (8.4-10.2) mg/dL Magnesium (1.6-2.3) mg/dL Total Bilirubin (0.2-1.3) mg/dL AST (14-36) U/L ALT (4-34) U/L Alkaline Phosphatase (38-126) U/L Creatine Kinase (30-135) U/L Total Protein (6.3-8.2) g/dL Albumin (3.5-5.0) g/dL Prolactin (2.800-29.200) ng/mL Disposition Clinical Impression: Tremor, Lung cancer metastatic to brain Disposition: ADMITTED IP TO THIS [facility] Condition: Stable Is patient prescribed a controlled substance at d/c from ED?: No Time of Disposition: 14:18 Decision to Admit Reason: Admit from EC Decision Date: 09/22/22 Decision Time: 14:18
[2022-09-22] MEDS ORDERED: NALOXONE 0.4 MG/ML 1 ML VIAL IV PRN (15:12)
[2022-09-22] MEDS ORDERED: LOPERAMIDE 2 MG CAP PO PRN (15:21)
[2022-09-22] MEDS ORDERED: SIMETHICONE 80 MG CHEWABLE PO PRN (15:21)
[2022-09-22] MEDS: MAGNESIUM OXIDE 400 MG TAB PO SCH ×2 (15:40→15:42)
[2022-09-22] MEDS: FOLIC ACID 1 MG TAB PO SCH ×2 (15:40→15:41)
[2022-09-22] MEDS: PANTOPRAZOLE 40 MG TABLET PO SCH ×2 (15:40→15:42)
[2022-09-22] MEDS: CYCLOBENZAPRINE 5 MG TAB PO SCH ×2 (15:40→21:36)
[2022-09-22] MEDS: SODIUM CHLORIDE 0.9% 1,000 ML IV SCH (15:40)
[2022-09-22] MEDS: PREGABALIN 50 MG CAP PO SCH ×2 (15:48→21:36)
--- NOTE | 2022-09-22 17:00 | P.HPIM ---
History of Present Illness H&P Date: 09/22/22 Patient is a 57-year-old female with history of lung cancer metastatic to brain, PE on Eliquis presenting for new onset of seizure-like activity. She claims that today while in the kitchen she noted her right eye flickering and then started noticing tremor of the right hand. It only lasted for a few seconds and she had weakness on the right side subsequently. All of her symptoms resolved by the time EMS was called. She's never had seizures in the past, and she is not on any antiepileptics. Her last chemotherapy was 4 weeks ago. She has had 4 rounds of chemotherapy, and 7 times pain radiation, she has also had radiation of other spots including her spine where she has fractures. In the ED, she was afebrile, tachycardic to 105, respiratory rate 18, blood pressure 147/99, saturating percent on room air. Laboratory workup showed hemoglobin of 11, platelet of 60, sodium 137, potassium 2.5, BUN 21, creatinine 1.15, Lactic acid 3.6. Head and cervical spine CT shows no acute intracranial hemorrhage or significant mass effect, but does show similar bilateral frontal lobe hypodense regions with suggested new lesion in the medial aspect of the right parietal lobe. Patient admitted for new seizure-like activity. Pertinent positives and negatives as discussed in HPI, a complete review of systems was performed and all other systems are negative. Patient seen and examined at bedside. Vital signs reviewed General: nontoxic, no distress, appears at stated age Derm: warm, dry, lower extremity petechiae Head: atraumatic, normocephalic, symmetric Eyes: EOMI, no lid lag, anicteric sclera, pupils equal round reactive to light ENT: Nose and ears atraumatic Neck: No thyromegaly, supple Mouth: no lip lesion, mucus membranes moist Cardiovascular: S1S2 reg, no murmur, no edema Lungs: clear to auscultation bilateral, no rhonchi, no rales, no wheeze, no accessory muscle use Abdominal: soft, nontender to palpation, no guarding, no appreciable organomegaly Ext: no gross muscle atrophy, muscle strength muscle strength 5 out of 5 in all 4 extremities, no contractures Neuro: CN II-XII grossly intact Psych: Alert, oriented, appropriate affect Assessment/Plan: Active: Seizure-like activity Lung cancer with metastatic brain lesions Mild normocytic anemia Thrombocytopenia Sinus tachycardia Acute kidney injury, nonoliguric Lactic acidosis -EEG ordered, prolactin pending -CT had to show new lesion in the medial aspect of the right parietal lobe -Neurology and oncology consulted -Anemia and thrombocytopenia likely in the setting of chemotherapy and nuria gnancy -CBC ordered for tomorrow -EKG personally interpreted, shows sinus tachycardia -Patient received 1 L of normal saline in the ED, continue normal saline at 75 mL an hour, encourage oral intake -Continue to monitor urine output, BMP ordered tomorrow -Repeat lactic acid pending Chronic: Pulmonary embolism on Eliquis The patient is admitted with an anticipated greater than 2 midnight stay as inpatient status for evaluation of seizure-like activity, new metastatic brain lesion. Surrogate decision-maker: spouse CODE STATUS: Full code DVT prophylaxis: Eliquis Anticipated discharge date: Pending clinical course Anticipated discharge place: Pending clinical course A total of 68 minutes was spent on the care of this complex patient more than 50% of the time was spent in counseling and care coordination. Past Medical History Past Medical History: CVA/TIA, GERD/Reflux Additional Past Medical History / Comment(s): diverticulosis,uti, "i think i have a hiatal hernia", brain and lung cancer, History of Any Multi-Drug Resistant Organisms: None Reported Past Surgical History: Section, Cholecystectomy Additional Past Surgical History / Comment(s): egd/colonosocpy Past Anesthesia/Blood Transfusion Reactions: No Reported Reaction Additional Past Anesthesia/Blood Transfusion Reaction / Comment(s): clausterphobia Past Psychological History: No Psychological Hx Reported Smoking Status: Never smoker Past Alcohol Use History: Occasional Past Drug Use History: None Reported - Past Family History Mother Family Medical History: Hypertension Father Family Medical History: Diabetes Mellitus Additional Family Medical History / Comment(s): diverticulosis Medications and Allergies Home Medications Medication Instructions Recorded Confirmed Type Apixaban [Eliquis] 5 mg PO BID 09/22/22 09/22/22 History Cyclobenzaprine [Flexeril] 5 mg PO TID 09/22/22 09/22/22 History Folic Acid 1 mg PO DAILY 09/22/22 09/22/22 History Ibuprofen [Motrin Ib] 600 mg PO Q6H PRN 09/22/22 09/22/22 History Loperamide [Imodium] 2 mg PO QID PRN 09/22/22 09/22/22 History Magnesium Oxide [Mag-Ox] 400 mg PO DAILY 09/22/22 09/22/22 History Pantoprazole Sodium [Protonix] 40 mg PO DAILY 09/22/22 09/22/22 History Pregabalin [Lyrica] 50 mg PO TID 09/22/22 09/22/22 History Simethicone [Mylanta Gas Minis] 125 mg PO BID PRN 09/22/22 09/22/22 History Allergies Allergy/AdvReac Type Severity Reaction Status Date / Time No Known Allergies Allergy Verified 09/22/22 11:09 Physical Exam Vitals: Vital Signs Temp Pulse Resp BP Pulse Ox 09/22/22 15:46 98.1 F 92 18 136/93 99 09/22/22 14:21 97.8 F 98 18 131/97 98 09/22/22 12:16 98.4 F 95 16 146/98 98 09/22/22 10:29 98.1 F 105 H 18 147/99 100 Intake and Output 09/22/22 09/22/22 09/22/22 06:59 14:59 22:59 Other: Weight 78.925 kg Results CBC & Chem 7: 09/22/22 10:57 09/22/22 10:57 Labs: Abnormal Lab Results - Last 24 Hours (Table) 09/22/22 09/22/22 09/22/22 Range/Units 10:57 10:57 10:57 RBC 3.66 L (3.80-5.40) m/uL Hgb 11.0 L (11.4-16.0) gm/dL Hct 33.4 L (34.0-46.0) % RDW 19.4 H (11.5-15.5) % Plt Count 60 L (150-450) k/uL Lymphocytes # 0.3 L (1.0-4.8) k/uL BUN 21 H (7-17) mg/dL Creatinine 1.15 H (0.52-1.04) mg/dL Glucose 134 H (74-99) mg/dL Plasma Lactic Acid Sp 3.6 H* (0.7-2.0) mmol/L ALT 46 H (4-34) U/L Creatine Kinase 21 L (30-135) U/L Total Protein 6.0 L (6.3-8.2) g/dL
[2022-09-22] MEDS ORDERED: LORazepam 2 MG/ML INJ IV PRN (17:04)
[2022-09-22] MEDS: ACETAMINOPHEN TAB 325 MG TAB PO PRN (18:12)
[2022-09-22 18:13] LABS: Prolactin 25.4 ng/mL (2.800-29.200)
[2022-09-22] MEDS: APIXABAN 5 MG TAB PO SCH (20:23)
[2022-09-22] MEDS ORDERED: diphenhydrAMINE 25 MG CAP PO PRN (22:59)
[2022-09-23] MEDS: SODIUM CHLORIDE 0.9% 1,000 ML IV SCH ×2 (05:08→15:27)
[2022-09-23 08:08] LABS: Anisocytosis Slight; Basophils % (A) 0 %; Eosinophils % (A) 0 %; HCT 27.7 % (34.0-46.0); Lymphocytes # (A) 0.5 k/uL (1.0-4.8); Lymphocytes % (A) 4 %; MCH 29.7 pg (25.0-35.0); MCHC 32.7 g/dL (31.0-37.0); MCV 90.7 fL (80.0-100.0); Macrocytosis Slight; Mean Platelet Volume 11.1; Monocytes # (A) 0.9 k/uL (0-1.0); Monocytes % (A) 7 %; Neutrophils # (A) 9.8 k/uL (1.3-7.7); Neutrophils % (A) 85 %; RBC 3.05 m/uL (3.80-5.40); RDW 19.5 % (11.5-15.5); WBC 11.5 k/uL (3.8-10.6)
[2022-09-23 08:17] LABS: African American GFR (CKD) 64 (>60 ml/min/1.73 sqM); Anion Gap 6 mmol/L; Blood Urea Nitrogen 26 mg/dL (7-17); Calcium 8.7 mg/dL (8.4-10.2); Carbon Dioxide 24 mmol/L (22-30); Chloride 106 mmol/L (98-107); Glucose 130 mg/dL (74-99); Non-African American GFR(CKD) 56 (>60 ml/min/1.73 sqM); Potassium 4.1 mmol/L (3.5-5.1); Sodium 136 mmol/L (137-145)
[2022-09-23 08:35] LABS: HGB 9.1 gm/dL (11.4-16.0); Platelet Count 65 k/uL (150-450)
[2022-09-23] MEDS: PANTOPRAZOLE 40 MG TABLET PO SCH (11:01)
[2022-09-23] MEDS: APIXABAN 5 MG TAB PO SCH ×2 (11:01→21:48)
[2022-09-23] MEDS: CYCLOBENZAPRINE 5 MG TAB PO SCH ×3 (11:02→21:49)
[2022-09-23] MEDS: MAGNESIUM OXIDE 400 MG TAB PO SCH (11:02)
[2022-09-23] MEDS: FOLIC ACID 1 MG TAB PO SCH (11:02)
[2022-09-23] MEDS: PREGABALIN 50 MG CAP PO SCH ×3 (11:03→21:49)
[2022-09-23] MEDS: DEXAMETHASONE SOD PHOSPHATE 4 MG/ML 1 ML VIAL IVP SCH ×2 (13:03→17:38)
--- NOTE | 2022-09-23 13:13 | P.PN ---
Subjective Progress Note Date: 09/23/22 Hospital Course: 57-year-old female with history of lung cancer metastatic to brain, PE on Eliquis presenting for new onset of seizure-like activity. In the ED, she was afebrile, tachycardic to 105, respiratory rate 18, blood pressure 147/99, saturating percent on room air. Laboratory workup showed hemoglobin of 11, platelet of 60, sodium 137, potassium 2.5, BUN 21, creatinine 1.15, Lactic acid 3.6. Head and cervical spine CT shows no acute intracranial hemorrhage or significant mass effect, but does show similar bilateral frontal lobe hypodense regions with suggested new lesion in the medial aspect of the right parietal lobe. Patient admitted for new seizure-like activity. She is pending brain MRI, and EEG. Neurology has been consulted. Subjective: Seen and examined at bedside. No acute events overnight. Denies any further seizure-like activity. Pertinent positives and negatives as discussed above, a complete review of systems was performed and all other systems are negative. Vitals Signs Reviewed. General: nontoxic, no distress, appears at stated age Derm: warm, dry, lower extremity petechiae Head: atraumatic, normocephalic, symmetric Eyes: EOMI, no lid lag, anicteric sclera, pupils equal round reactive to light ENT: Nose and ears atraumatic Neck: No thyromegaly, supple Mouth: no lip lesion, mucus membranes moist Cardiovascular: S1S2 reg, no murmur, no edema Lungs: clear to auscultation bilateral, no rhonchi, no rales, no wheeze, no accessory muscle use Abdominal: soft, nontender to palpation, no guarding, no appreciable organomegaly Ext: no gross muscle atrophy, muscle strength muscle strength 5 out of 5 in all 4 extremities, no contractures Neuro: CN II-XII grossly intact Psych: Alert, oriented, appropriate affect Data Reviewed Today: Pertinent Labs: WBC 11.5, hemoglobin 9.1, platelets 65, sodium 136, creatinine 1.11, lactate 1.3 Assessment and Plan: Active: Seizure-like activity Lung cancer with metastatic brain lesions Mild normocytic anemia Thrombocytopenia -EEG pending, brain MRI pending -Neurology and oncology and radiation oncology consulted -Ativan 2 mg IV every 6 hours as needed for seizures -Anemia and thrombocytopenia likely in the setting of chemotherapy and malignancy -No active bleeding -Patient currently is on Eliquis, repeat CBC tomorrow Resolved: Sinus tachycardia Acute kidney injury, nonoliguric Lactic acidosis Chronic: Pulmonary embolism on Eliquis DVT ppx: Eliquis Code status: Full code Anticipated discharge place: Pending clinical course Anticipated discharge time: Pending clinical course Objective - Vital Signs Vital signs: Vital Signs Temp 98.5 F 09/23/22 08:00 Pulse 98 09/23/22 10:55 Resp 16 09/23/22 08:54 BP 125/82 09/23/22 08:00 Pulse Ox 97 09/23/22 08:00 FiO2 Intake & Output 09/22/22 09/23/22 09/23/22 18:59 06:59 18:59 Intake Total 590 Balance 590 Weight 78.925 kg 78.925 kg Intake: Oral 590 Other: Voiding Method Bedside Commode Toilet Bedside Commode # Voids 2 - Labs CBC & Chem 7: 09/23/22 06:45 09/23/22 06:45 Labs: Abnormal Lab Results - Last 24 Hours (Table) 09/23/22 09/23/22 Range/Units 06:45 06:45 WBC 11.5 H (3.8-10.6) k/uL RBC 3.05 L (3.80-5.40) m/uL Hgb 9.1 L D (11.4-16.0) gm/dL Hct 27.7 L (34.0-46.0) % RDW 19.5 H (11.5-15.5) % Plt Count 65 L (150-450) k/uL Neutrophils # 9.8 H (1.3-7.7) k/uL Lymphocytes # 0.5 L (1.0-4.8) k/uL Sodium 136 L (137-145) mmol/L BUN 26 H (7-17) mg/dL Creatinine 1.11 H (0.52-1.04) mg/dL Glucose 130 H (74-99) mg/dL
--- NOTE | 2022-09-23 13:14 | MR ---
EXAMINATION TYPE: MR brain wo/w con DATE OF EXAM: 09/23/2022 COMPARISON: Outside brain MRI May 05, 2022. Outside report not available. CT brain from [facility]. HISTORY: Lung cancer, acute right side tremor, evaluate for mets. TECHNIQUE: Multiplanar, multisequence images of the brain and brainstem is performed without and with IV contras t, utilizing 8 mL intravenous Gadavist . FINDINGS: Diffusion weighted images demonstrate no evidence of a recent infarct or other diffusion ab normality. There is no extra-axial fluid collection or significant white matter signal abnormality. The ventricular system and cisternal spaces are normal in size and appearance. The brain volume is age appropriate. Midline structures demonstrate normal morphology. The craniocervical junction appears within normal limits. There is ring-enhancing mass in the posterior left frontal lobe measuring 1.2 x 1.2 cm image 40 sligh tly smaller in size from outside prior images where I measure near 1.5 cm. There is adjacent T2 signa l or vasogenic edema redemonstrated also improved from prior. Additional smaller ring-enhancing lesio ns right frontal and right parietal lobes axial image 39 diminished in size from prior. Right frontal lobe particularly decreased from 7 mm to 3 mm. Punctate right superior enhancing lesion prior study image 51 and now is not clearly seen. There is punctate 2 mm enhancing lesion deep right frontal lobe axial image 36. I cannot clearly see this on prior study. Additional punctate enhancing lesions thro ughout cerebellar hemisphere are felt present on coronal images is not clearly seen on prior study. F or reference is sagittal postcontrast image 89. Increased fluid signal left mastoid air cells is now present. There is new enhancing mucosa and abnor mal signal in the left sphenoid sinus. Globes are intact bilaterally. IMPRESSION: 1. Overall mixed response. Larger lesions are diminished in size from outside prior images. There are however several new punctate enhancing lesions worrisome for new metastatic foci not clearly seen on prior outside images. 2. There is new left-sided sphenoid sinusitis. Correlate clinically. 3. New fluid signal left mastoid air cells worrisome for mastoiditis. Correlate clinically.
[2022-09-23] MEDS ORDERED: levETIRAcetam IV 1,000 MG in SALINE 1 100ML.BAG IVPB STA (13:22)
--- NOTE | 2022-09-23 13:36 | EEG ---
ELECTROENCEPHALOGRAM REPORT PREAMBLE: This is a 57-year-old female with metastatic lung cancer with brain metastasis, has a new seizure like activity. CURRENT MEDICATIONS: 1. Eliquis. 2. Flexeril. 3. Benadryl. 4. Folic acid. 5. Ativan. 6. Lyrica. EEG FINDINGS: This is a 21-channel digital EEG recorded with video component, utilizing 10/20 international system with referential and bipolar montages. Background consists of well developed, well regulated moderate voltage activity in 10 hertz alpha. Background is posterior dominant and reactive to eye opening and closing. Photic driving response was seen with some flash frequencies. Drowsiness was seen with presence of bilaterally symmetric theta frequency rhythm. Deeper stages of sleep were not seen. Frequent myogenic activity was seen in the temporal region. No focal or generalized epileptiform activity was seen. IMPRESSION: This is a normal awake and drowsy EEG. No focal, lateralized, or epileptiform activity was seen. MMODL / IJN: [id number] /
--- NOTE | 2022-09-23 14:07 | P.CNNES ---
History of Present Illness Consult date: 09/23/22 Requesting physician: Raiza Tellez Reason for Consult: right sided tremor, possible new brain mets, hx radiation treatment History of Present Illness: Patient is a 57-year-old female with history of metastatic lung cancer with cerebral metastasis, came to the hospital by ambulance yesterday at 10:26 AM for new onset seizure. Patient states that yesterday she was cooking pancakes. She went to grab the fork when her right eye started twitching and then her head started twitching, then her right arm started jerking. She called her son who helped her. Patient was breathing very hard, she couldn't talk although she knew what was going on. She never lost consciousness. This episode lasted for 2-3 minutes. Patient's son called the ambulance and by the time EMS arrived, patient was able to speak and started coming around. By the time she was in the ambulance, everything was fine. She denies any tongue bite or loss of control of urine. She never had any seizure before. Patient says she has been having some headache for last 1 week as she sometimes see flashing light on the right side. EMS flow sheet not available in the chart. Vital signs on arrival blood pressure 147/99, pulse rate 105, temperature 98.1. Blood test shows normal WBC hemoglobin 11.0, platelets 60. PT/PTT normal, electrolytes are normal, BUN 21, creatinine 1.15. Lactate 3.6. AST normal, ALT mildly elevated 46. CK is normal, prolactin 25.4. CT head revealed no acute intracranial process. Similar bilateral frontal lobe hypodense regions with suspected new region in the medial aspect of the right parietal now. These correlate to known metastatic disease. Consider further evaluation with MRI brain to assess for interval change. I personally reviewed her CT head, and compared with the previous MRI from 05/05/2022, and agree with the findings. CT of the cervical spine showed no evidence of cervical spine fracture. Mild multilevel degenerative disc disease. EKG shows sinus tachycardia Patient states she has prediabetes with last A1c 6.2. Denies any hypertension. Current medications include folic acid, Flexeril, Eliquis 5 mg twice a day, Lyrica 50 mg 3 times a day and Protonix. Patient states that she was diagnosed with cancer on 05/04/2022, when she was having problems with handwriting with the right hand. She underwent testing and was found to have brain lesions. Further testing revealed metastatic lung cancer. Patient states she has undergone 7 radiation treatments to her head, 5 radiation treatment to her hip, 5 radiation treatment to the lower spine for bone metastasis. She also had undergone 4 sessions of chemo immunotherapy. Patient has been seen by myself in July 2021 for TIA when she has presented with slurred speech and left arm weakness. MRI of the cervical and brain were normal. Review of Systems Constitutional: Denies chills, Denies fever Eyes: right blurred vision, denies diplopia, denies pain Ears: deny: decreased hearing, ear discharge Ears, nose, mouth and throat: Reports headache, Denies sore throat Cardiovascular: Denies chest pain, Denies shortness of breath Respiratory: Denies cough, Denies excessive sputum Gastrointestinal: Denies abdominal pain, Denies diarrhea, Denies nausea, Denies vomiting Genitourinary: Denies dysuria, Denies hematuria Musculoskeletal: Denies frequent falls, Denies myalgias Integumentary: Denies pruritus, Denies rash Neurological: Reports as per HPI Psychiatric: Denies anxiety, Denies depression Past Medical History Past Medical History: CVA/TIA, GERD/Reflux, Pulmonary Embolus (PE) Additional Past Medical History / Comment(s): diverticulosis,uti, "i think i have a hiatal hernia", brain and lung cancer History of Any Multi-Drug Resistant Organisms: None Reported Past Surgical History: Section, Cholecystectomy, Joint Replacement Additional Past Surgical History / Comment(s): egd/colonosocpy, left hip replacement Past Anesthesia/Blood Transfusion Reactions: No Reported Reaction Additional Past Anesthesia/Blood Transfusion Reaction / Comment(s): clausterphobia Past Psychological History: No Psychological Hx Reported Smoking Status: Never smoker Past Alcohol Use History: Occasional Additional Past Alcohol Use History / Comment(s): OCCASSIONAL CIGAR Past Drug Use History: None Reported - Past Family History Mother Family Medical History: Hypertension Father Family Medical History: Diabetes Mellitus Additional Family Medical History / Comment(s): diverticulosis Medications and Allergies Home Medications Medication Instructions Recorded Confirmed Type Apixaban [Eliquis] 5 mg PO BID 09/22/22 09/22/22 History Cyclobenzaprine [Flexeril] 5 mg PO TID 09/22/22 09/22/22 History Folic Acid 1 mg PO DAILY 09/22/22 09/22/22 History Ibuprofen [Motrin Ib] 600 mg PO Q6H PRN 09/22/22 09/22/22 History Loperamide [Imodium] 2 mg PO QID PRN 09/22/22 09/22/22 History Magnesium Oxide [Mag-Ox] 400 mg PO DAILY 09/22/22 09/22/22 History Pantoprazole Sodium [Protonix] 40 mg PO DAILY 09/22/22 09/22/22 History Pregabalin [Lyrica] 50 mg PO TID 09/22/22 09/22/22 History Simethicone [Mylanta Gas Minis] 125 mg PO BID PRN 09/22/22 09/22/22 History Allergies Allergy/AdvReac Type Severity Reaction Status Date / Time No Known Allergies Allergy Verified 09/22/22 11:09 Physical Examination - Vital Signs Vital Signs: Vital Signs Temp Pulse Pulse Resp BP BP Pulse Ox 09/23/22 08:54 16 09/23/22 08:00 98.5 F 98 16 125/82 97 09/23/22 02:35 98.1 F 87 18 127/75 98 09/22/22 22:00 18 09/22/22 21:30 97.8 F 86 18 132/87 97 09/22/22 20:41 98 18 125/93 98 09/22/22 20:12 98.0 F 94 16 124/85 97 09/22/22 18:09 97.6 F 96 18 140/78 96 09/22/22 15:46 98.1 F 92 18 136/93 99 09/22/22 14:21 97.8 F 98 18 131/97 98 09/22/22 12:16 98.4 F 95 16 146/98 98 Intake and Output 09/22/22 09/23/22 09/23/22 22:59 06:59 14:59 Intake Total 590 Balance 590 Intake: Oral 590 Other: Voiding Method Bedside Commode Toilet Bedside Commode # Voids 2 Weight 78.925 kg Patient is a middle aged female, in no acute distress. Patient is alert awake oriented to time place and person. Speech and language functions are normal. Patient can name and repeat very well. No aphasia or dysarthria. Attention, concentration and fund of knowledge is adequate. On cranial nerve examination, pupils are equal, round and reacting to light, vi sual watt are full on confrontation, with no neglect on double simultaneous depression. Extraocular muscles are intact with no nystagmus. Face is symmetric, tongue protrudes to the midline. Palatal elevation and sensation normal, hearing and shoulder shrug normal, facial sensation normal. On muscle strength testing, there is no pronator drift and the strength is normal in arms and legs distally and proximally. Deep tendon reflexes are symmetric biceps 1+, brachioradialis 1+, knees 3+ and plantars are flat bilaterally. Sensory to touch is equal with no neglect on double simultaneous stimulation. Cerebellar function showed no ataxia for [id number] testing. No dysdiadochokinesia. No ataxia for [id number] testing on either side. Tone and bulk of muscles normal. Gait deferred.. On general examination, there is no carotid bruit or murmur, S1-S2 audible. Chest is clear on consultation. Abdomen is soft nontender. No organomegaly, bowel sounds present. Peripheral pulses are present. No edema. Results - Laboratory Findings CBC and BMP: 09/23/22 06:45 09/24/22 07:13 Abnormal Lab Findings: Abnormal Labs 09/22/22 09/22/22 09/22/22 10:57 10:57 10:57 WBC RBC 3.66 L Hgb 11.0 L Hct 33.4 L RDW 19.4 H Plt Count 60 L Neutrophils # Lymphocytes # 0.3 L Sodium BUN 21 H Creatinine 1.15 H Glucose 134 H Plasma Lactic Acid Sp 3.6 H* ALT 46 H Creatine Kinase 21 L Total Protein 6.0 L 09/23/22 09/23/22 06:45 06:45 WBC 11.5 H RBC 3.05 L Hgb 9.1 L D Hct 27.7 L RDW 19.5 H Plt Count 65 L Neutrophils # 9.8 H Lymphocytes # 0.5 L Sodium 136 L BUN 26 H Creatinine 1.11 H Glucose 130 H Plasma Lactic Acid Sp ALT Creatine Kinase Total Protein Assessment and Plan Assessment: * New onset focal seizure, 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 * Metastatic lung cancer Plan: * EEG was performed today, which was normal. No epileptiform activity was seen. However patient's event was classical partial seizure, likely from focal irritation from underlying metastasis. Patient needs to be on long-term antiepileptic medication. * Patient will be given Keppra 1000 mg IV loading dose, and then maintain on Keppra 500 mg twice a day. Possible side effects were discussed, including tiredness, drowsiness, and rare behavioral disturbance. * Patient was informed of [place] state law of no driving unless seizure free for 6 months, climbing ladders, operating dangerous machinery or unsupervised swimming. * Patient had MRI of the brain, results pending. * Neurology will follow. Thank you for the consult.
[2022-09-23] MEDS: levETIRAcetam 500 MG TAB PO SCH (21:48)
--- NOTE | 2022-09-23 22:10 | P.CONS ---
History of Present Illness - Reason for Consult Consult date: 09/23/22 History of metastatic lung cancer with metastasis to the brain - Chief Complaint Shaking of the arm and right eyelid - History of Present Illness Ms. Steiner is a 57-year-old woman with a past medical history significant for metastatic adenocarcinoma of the lung with metastases to the brain status post stereotactic radiosurgery in May 2022 followed by 4 cycles of carboplatin/pemetrexed/pembrolizumab treated at [facility] who presents following an episode concerning for seizure. She noted being at home and seated when she spontaneously developed flickering movements of the right eyelid along with generalized tonic-clonic movements of the right arm in the late morning of 09/22/2022. This lasted for about 2 to 3 minutes. She did not have loss of consciousness during this episode, but noted that she was in a mental fog for about 15 to 30 minutes afterwards. She was transported by EMS to to the ED. On presentation, she was hemodynamically stable and afebrile. Labs are notable for BUN 21, creatinine 1.15, and normal glucose and calcium. Prolactin levels were at 25.4 and within normal limits. Hemoglobin was noted to be 11 along with a platelet count of 60. CT of the head without contrast noted similar bilateral frontal lobe hypodense lesions when compared to MRI of the brain on 05/05/2022, but did note concern for potentially new lesion in the medial aspect of the rig ht parietal lobe. She was admitted to internal medicine for additional management recommendations. Following admission, she was started on Keppra along with dexamethasone 4 mg IV every 6 hours. Brain MRI noted treatment response to previously visualized lesions, but did note 2 new punctate lesions in the deep right frontal lobe and cerebellar hemisphere. She has not had any additional episodes concerning for seizure since admission. She denies any focal neurologic deficits currently. Review of Systems 14 point review of systems was conducted with pertinent positives negatives noted per HPI. Past Medical History Past Medical History: CVA/TIA, GERD/Reflux, Pulmonary Embolus (PE) Additional Past Medical History / Comment(s): diverticulosis,uti, "i think i have a hiatal hernia", brain and lung cancer History of Any Multi-Drug Resistant Organisms: None Reported Past Surgical History: Section, Cholecystectomy, Joint Replacement Additional Past Surgical History / Comment(s): egd/colonosocpy, left hip replac ement Past Anesthesia/Blood Transfusion Reactions: No Reported Reaction Additional Past Anesthesia/Blood Transfusion Reaction / Comm: clausterphobia Past Psychological History: No Psychological Hx Reported Smoking Status: Never smoker Past Alcohol Use History: Occasional Additional Past Alcohol Use History / Comment(s): OCCASSIONAL CIGAR Past Drug Use History: None Reported - Past Family History Mother Family Medical History: Hypertension Father Family Medical History: Diabetes Mellitus Additional Family Medical History / Comment(s): diverticulosis Medications and Allergies Home Medications Medication Instructions Recorded Confirmed Type Apixaban [Eliquis] 5 mg PO BID 09/22/22 09/22/22 History Cyclobenzaprine [Flexeril] 5 mg PO TID 09/22/22 09/22/22 History Folic Acid 1 mg PO DAILY 09/22/22 09/22/22 History Ibuprofen [Motrin Ib] 600 mg PO Q6H PRN 09/22/22 09/22/22 History Loperamide [Imodium] 2 mg PO QID PRN 09/22/22 09/22/22 History Magnesium Oxide [Mag-Ox] 400 mg PO DAILY 09/22/22 09/22/22 History Pantoprazole Sodium [Protonix] 40 mg PO DAILY 09/22/22 09/22/22 History Pregabalin [Lyrica] 50 mg PO TID 09/22/22 09/22/22 History Simethicone [Mylanta Gas Minis] 125 mg PO BID PRN 09/22/22 09/22/22 History Allergies Allergy/AdvReac Type Severity Reaction Status Date / Time No Known Allergies Allergy Verified 09/22/22 11:09 Physical Exam Vitals: Vital Signs Temp Pulse Resp BP Pulse Ox 09/23/22 19:39 97.9 F 90 18 130/77 94 L 09/23/22 14:00 97.5 F L 89 16 136/81 99 09/23/22 10:55 98 09/23/22 08:54 16 09/23/22 08:00 98.5 F 98 16 125/82 97 09/23/22 02:35 98.1 F 87 18 127/75 98 09/22/22 22:00 18 Intake and Output 09/23/22 09/23/22 09/23/22 06:59 14:59 22:59 Intake Total 590 Balance 590 Intake: Oral 590 Other: Voiding Method Toilet Bedside Commode # Voids 2 4 - Constitutional General appearance: cooperative, no acute distress - Respiratory Respiratory: bilateral: CTA - Cardiovascular Rhythm: regular - Gastrointestinal General gastrointestinal: no distended, normal bowel sounds, soft, no tenderness - Neurologic No dysmetria on [id number] exam. No focal weakness on flexion of the lower extremities or plantar flexion of the feet. No facial droop or dysarthria Results CBC & Chem 7: 09/23/22 06:45 09/23/22 06:45 Labs: Abnormal Lab Results - Last 24 Hours (Table) 09/23/22 09/23/22 Range/Units 06:45 06:45 WBC 11.5 H (3.8-10.6) k/uL RBC 3.05 L (3.80-5.40) m/uL Hgb 9.1 L D (11.4-16.0) gm/dL Hct 27.7 L (34.0-46.0) % RDW 19.5 H (11.5-15.5) % Plt Count 65 L (150-450) k/uL Neutrophils # 9.8 H (1.3-7.7) k/uL Lymphocytes # 0.5 L (1.0-4.8) k/uL Sodium 136 L (137-145) mmol/L BUN 26 H (7-17) mg/dL Creatinine 1.11 H (0.52-1.04) mg/dL Glucose 130 H (74-99) mg/dL MRI - head: image reviewed Assessment and Plan (1) Lung cancer metastatic to brain Current Visit: Yes Status: Acute Code(s): C34.90 - MALIGNANT NEOPLASM OF UNSP PART OF UNSP BRONCHUS OR LUNG; C79.31 - SECONDARY MALIGNANT NEOPLASM OF BRAIN SNOMED Code(s): 78330475 (2) Seizure Current Visit: Yes Status: Acute Code(s): R56.9 - UNSPECIFIED CONVULSIONS SNOMED Code(s): 35595432 Plan: Seizure -Noted to have episode of described tonic-clonic movement in the right arm along with flickering of the right eyelid lasting about 2 to 3 minutes -She appears to have mental fog for about 15 to 30 minutes following this episode, but denied any loss of consciousness -She does not have any focal deficits on exam and has not had any repeat episodes -Brain MRI did reveal new punctate lesions in the right frontal lobe and cerebellar hemispheres -It is unclear if these lesions resulted in a potential seizure as there is no vasogenic edema -Currently on Keppra and IV steroids with PPI for GI prophylaxis -Neurology consult for additional work-up and management Metastatic adenocarcinoma of the lung with metastasis to the brain -Received SRS in May 2022 to 6 previously visualized brain metastases -She has received 4 cycles of carboplatin/Alimta/pembrolizumab -Ms. Escobar and her note she was due for cycle 5 of chemotherapy for 09/24/2022 -We discussed that this will likely be rescheduled with her primary oncologist at [facility] -We will discuss her options for radiation treatment with her primary radiation oncologist Dr. Ferguson -She currently has treatment induced anemia and thrombocytopenia -Transfuse for hemoglobin less than 7 and/or platelet count less than 10,000 and/or bleeding
[2022-09-24] MEDS: SODIUM CHLORIDE 0.9% 1,000 ML IV SCH ×2 (04:27→17:11)
[2022-09-24] MEDS: DEXAMETHASONE SOD PHOSPHATE 4 MG/ML 1 ML VIAL IVP SCH ×5 (05:26→23:43)
[2022-09-24] MEDS: PANTOPRAZOLE 40 MG TABLET PO SCH (08:20)
[2022-09-24] MEDS: FOLIC ACID 1 MG TAB PO SCH (09:15)
[2022-09-24] MEDS: APIXABAN 5 MG TAB PO SCH ×2 (09:15→21:06)
[2022-09-24] MEDS: MAGNESIUM OXIDE 400 MG TAB PO SCH (09:16)
[2022-09-24] MEDS: levETIRAcetam 500 MG TAB PO SCH ×2 (09:16→21:06)
[2022-09-24] MEDS: CYCLOBENZAPRINE 5 MG TAB PO SCH ×3 (09:16→21:06)
[2022-09-24] MEDS: PREGABALIN 50 MG CAP PO SCH ×3 (09:16→21:06)
[2022-09-24 11:22] LABS: African American GFR (CKD) 86.6 (60.0-200.0); Anion Gap 10.5 mmol/L (10.00-18.00); BUN/Creat Ratio 22.47 Ratio (12.00-20.00); Blood Urea Nitrogen 19.5 mg/dL (9.0-27.0); Carbon Dioxide 23.4 mmol/L (20.0-27.5); Non-African American GFR(CKD) 74.7 (60.0-200.0); Potassium 3.8 mmol/L (3.5-5.5)
--- NOTE | 2022-09-24 12:07 | P.CONS ---
History of Present Illness - Reason for Consult Consult date: 09/24/22 Seizures, concern for JACKERMAN progression Requesting physician: Raiza Tellez - Chief Complaint "I feel better" - History of Present Illness Ms. Steiner is a 57-year-old female with metastatic adenocarcinoma of the lung. She underwent SRS to 6 intracranial lesions, completing treatment on 05/28/2022. She subsequently underwent courses of palliative radiation to the left hip and T7-T10 in 06/2022. She continues on chemoimmunotherapy with carboplatin/Alimta/Keytruda. She presents with seizure. The patient notes that over the past week she has had worsening headaches. Then, prior to admission, she was in her kitchen when her right arm suddenly started shaking. She did not lose consicousness. She presented to the ED. CT head demonstrated possible new hypodensity in the medial right frontal lobe. MRI brain on 09/23/2022 demonstrated possible new punctate lesion in the deep right frontal lobe, as well as possible punctate cerebellar lesions. The patient was started on Decadron 4 mg every 6 hours with GI prophylaxis. She has not had recurrent symptoms and denies any neurological deficits. She is inquiring about discharge. Review of Systems Neurological: Reports seizures Past Medical History Past Medical History: CVA/TIA, GERD/Reflux, Pulmonary Embolus (PE) Additional Past Medical History / Comment(s): diverticulosis,uti, "i think i have a hiatal hernia", brain and lung cancer History of Any Multi-Drug Resistant Organisms: None Reported Past Surgical History: Section, Cholecystectomy, Joint Replacement Additional Past Surgical History / Comment(s): egd/colonosocpy, left hip replacement Past Anesthesia/Blood Transfusion Reactions: No Reported Reaction Additional Past Anesthesia/Blood Transfusion Reaction / Comm: clausterphobia Past Psychological History: No Psychological Hx Reported Smoking Status: Never smoker Past Alcohol Use History: Occasional Additional Past Alcohol Use History / Comment(s): OCCASSIONAL CIGAR Past Drug Use History: None Reported - Past Family History Mother Family Medical History: Hypertension Father Family Medical History: Diabetes Mellitus Additional Family Medical History / Comment(s): diverticulosis Medications and Allergies Home Medications Medication Instructions Recorded Confirmed Type Apixaban [Eliquis] 5 mg PO BID 09/22/22 09/22/22 History Cyclobenzaprine [Flexeril] 5 mg PO TID 09/22/22 09/22/22 History Folic Acid 1 mg PO DAILY 09/22/22 09/22/22 History Ibuprofen [Motrin Ib] 600 mg PO Q6H PRN 09/22/22 09/22/22 History Loperamide [Imodium] 2 mg PO QID PRN 09/22/22 09/22/22 History Magnesium Oxide [Mag-Ox] 400 mg PO DAILY 09/22/22 09/22/22 History Pantoprazole Sodium [Protonix] 40 mg PO DAILY 09/22/22 09/22/22 History Pregabalin [Lyrica] 50 mg PO TID 09/22/22 09/22/22 History Simethicone [Mylanta Gas Minis] 125 mg PO BID PRN 09/22/22 09/22/22 History Allergies Allergy/AdvReac Type Severity Reaction Status Date / Time No Known Allergies Allergy Verified 09/22/22 11:09 Physical Exam Vitals: Vital Signs Temp Pulse Resp BP Pulse Ox 09/24/22 07:23 97.8 F 80 18 138/80 98 09/24/22 02:10 98.3 F 81 18 132/75 97 09/23/22 20:10 18 09/23/22 19:39 97.9 F 90 18 130/77 94 L 09/23/22 14:00 97.5 F L 89 16 136/81 99 Intake and Output 09/23/22 09/24/22 09/24/22 22:59 06:59 14:59 Intake Total 1500 Balance 1500 Intake: Intake, IV Titration 900 Amount Sodium Chloride 0.9% 1, 900 000 ml @ 75 mls/hr IV . [id number] [facility] Rx#:[id number] Oral 600 Other: Voiding Method Toilet Toilet Bedside Commode # Voids 4 3 1 - Constitutional General appearance: average body habitus - EENT mild facial swelling - Respiratory Respiratory: negative: prolonged expiration, prolonged inspiration - Neurologic no focal deficits Results CBC & Chem 7: 09/23/22 06:45 09/24/22 07:13 Labs: Abnormal Lab Results - Last 24 Hours (Table) 09/24/22 Range/Units 07:13 BUN/Creatinine Ratio 22.47 H (12.00-20.00) Ratio Glucose 143 H (70-110) mg/dL Assessment and Plan Assessment: Ms. Steiner is a 57-year-old female with metastatic adenocarcinoma of the lung. She underwent SRS to 6 intracranial lesions, completing treatment on 05/28/2022. She subsequently underwent courses of palliative radiation to the left hip and T7-T10 in 06/2022. She continues on chemoimmunotherapy with carboplatin/Alimta/Keytruda. She presents with seizure. Plan: Clinically, the patient is improved on Decadron. I personally reviewed her MRI brain. I do not appreciate new lesions within the cerebellum but do appreciate a punctate focus in the right medial frontal lobe. However, there is little associated FLAIR abnormality. Overall, her JACKERMAN demonstrates good treatment response to SRS and I do not have concern for JACKERMAN progression. Given her symptoms were right-sided, I suspect this may have been secondary to treatment- related edema from her dominant left-sided lesion. I reassured her there is not evidence for JACKERMAN progression. We will repeat MRI brain in 2 months. She will continue on chemoimmunotherapy. She can undergo a steroid taper upon discharge. Steven Ferguson MD Radiation Oncology Time with Patient: Greater than 30
[2022-09-24 12:39] LABS: Basophils # (A) 0.01 X 10*3/uL (0.00-0.10); Basophils % (A) 0.1 %; Eosinophils # (A) 0 X 10*3/uL (0.04-0.35); Eosinophils % (A) 0 %; HCT 25.6 % (37.2-46.3); HGB 8.1 g/dL (12.0-15.0); Immature Grans, Automated 1.1 %; Immature Platelet Fraction 14.2 % (1.1-6.1); Lymphocytes # (A) 0.62 X 10*3/uL (0.90-5.00); Lymphocytes % (A) 5.1 %; MCHC 31.6 g/dL (32.0-37.0); MCV 94.8 fL (80.0-97.0); Monocytes # (A) 0.52 X 10*3/uL (0.20-1.00); Monocytes % (A) 4.3 %; NRBC Per 100 WBC 0 /100 WBCS (0.0-0.0); Neutrophils # (A) 10.94 X 10*3/uL (1.80-7.70); Neutrophils % (A) 89.4 %; Platelet Count 66 X 10*3/uL (140-440); RDW 19.2 % (11.5-14.5); Rouleaux PRESENT; WBC 12.22 X 10*3/uL (4.50-10.00)
[2022-09-24] MEDS: ACETAMINOPHEN TAB 325 MG TAB PO PRN ×2 (14:32→19:47)
--- NOTE | 2022-09-24 15:10 | P.PN ---
Subjective Progress Note Date: 09/24/22 Hospital Course: 57-year-old female with history of lung cancer metastatic to brain, PE on Eliquis presenting for new onset of seizure-like activity. In the ED, she was afebrile, tachycardic to 105, respiratory rate 18, blood pressure 147/99, saturating percent on room air. Laboratory workup showed hemoglobin of 11, platelet of 60, sodium 137, potassium 2.5, BUN 21, creatinine 1.15, Lactic acid 3.6. Head and cervical spine CT shows no acute intracranial hemorrhage or significant mass effect, but does show similar bilateral frontal lobe hypodense regions with suggested new lesion in the medial aspect of the right parietal lobe. Patient admitted for new seizure-like activity. Neurology has been consulted. MRI brain shows several new punctate enhancing lesions, , new left-sided sphenoid sinusitis, possible left mastoiditis. EEG was negative. Patient was started on Keppra 500 twice a day. Oncology and radiation oncology was also consulted. Patient started on dexamethasone 4 mg IV every 6 hours. Subjective: Seen and examined at bedside. No acute events overnight. Denies any further seizure-like activity. Pertinent positives and negatives as discussed above, a complete review of systems was performed and all other systems are negative. Vitals Signs Reviewed. General: nontoxic, no distress, appears at stated age Derm: warm, dry, lower extremity petechiae Head: atraumatic, normocephalic, symmetric Eyes: EOMI, no lid lag, anicteric sclera, pupils equal round reactive to light ENT: Nose and ears atraumatic Neck: No thyromegaly, supple Mouth: no lip lesion, mucus membranes moist Cardiovascular: S1S2 reg, no murmur, no edema Lungs: clear to auscultation bilateral, no rhonchi, no rales, no wheeze, no accessory muscle use Abdominal: soft, nontender to palpation, no guarding, no appreciable organomegaly Ext: no gross muscle atrophy, muscle strength muscle strength 5 out of 5 in all 4 extremities, no contractures Neuro: CN II-XII grossly intact Psych: Alert, oriented, appropriate affect Data Reviewed Today: Pertinent Labs: WBC 12.2 , hemoglobin 8.1, platelets 66, sodium 142, creatinine 0.9 Assessment and Plan: Active: Seizure-like activity Lung cancer with metastatic brain lesions Mild normocytic anemia Thrombocytopenia Leukocytosis, likely steroid-induced -Neurology and oncology following -Keppra 500 twice a day -Patient oncology note reviewed: Repeat MRI brain in 2 months, and care on chemoimmunotherapy, she can go with a steroid taper upon discharge -Ativan 2 mg IV every 6 hours as needed for seizures -Anemia and thrombocytopenia likely in the setting of chemotherapy and malignancy -No active bleeding -Patient currently is on Eliquis Resolved: Sinus tachycardia Acute kidney injury, nonoliguric Lactic acidosis Chronic: Pulmonary embolism on Eliquis DVT ppx: Eliquis Code status: Full code Anticipated discharge place: Home Anticipated discharge time: Likely tomorrow Objective - Vital Signs Vital signs: Vital Signs Temp 98 F 09/24/22 12:19 Pulse 79 09/24/22 12:19 Resp 16 09/24/22 12:19 BP 133/81 09/24/22 12:19 Pulse Ox 97 09/24/22 12:19 FiO2 Intake & Output 09/23/22 09/24/22 09/24/22 18:59 06:59 18:59 Intake Total 1500 Balance 1500 Intake: Intake, IV Titration 900 Amount Sodium Chloride 0.9% 1, 900 000 ml @ 75 mls/hr IV . [id number] [facility] Rx#:[id number] Oral 600 Other: Voiding Method Toilet Toilet Toilet Bedside Commode Bedside Commode # Voids 4 3 1 - Labs CBC & Chem 7: 09/24/22 07:13 09/24/22 07:13 Labs: Abnormal Lab Results - Last 24 Hours (Table) 09/24/22 09/24/22 Range/Units 07:13 07:13 WBC 12.22 H (4.50-10.00) X 10*3/uL RBC 2.70 L (4.10-5.20) X 10*6/uL Hgb 8.1 L (12.0-15.0) g/dL Hct 25.6 L (37.2-46.3) % MCHC 31.6 L (32.0-37.0) g/dL RDW 19.2 H (11.5-14.5) % Plt Count 66 L (140-440) X 10*3/uL Plt Count Comment DECREASED A MPV 13.0 H (9.5-12.2) fL Immature Gran # 0.13 H (0.00-0.04) X 10*3/uL Neutrophils # 10.94 H (1.80-7.70) X 10*3/uL Lymphocytes # 0.62 L (0.90-5.00) X 10*3/uL Eosinophils # 0 L (0.04-0.35) X 10*3/uL Immature Plt Fraction 14.2 H (1.1-6.1) % BUN/Creatinine Ratio 22.47 H (12.00-20.00) Ratio Glucose 143 H (70-110) mg/dL
[2022-09-25] MEDS: SODIUM CHLORIDE 0.9% 1,000 ML IV SCH (05:26)
[2022-09-25] MEDS: DEXAMETHASONE SOD PHOSPHATE 4 MG/ML 1 ML VIAL IVP SCH ×2 (05:26→11:22)
[2022-09-25] MEDS: ACETAMINOPHEN TAB 325 MG TAB PO PRN (06:26)
[2022-09-25 07:34] VITALS: RESP 17
[2022-09-25] MEDS: PANTOPRAZOLE 40 MG TABLET PO SCH (08:08)
[2022-09-25] MEDS: CYCLOBENZAPRINE 5 MG TAB PO SCH (09:09)
[2022-09-25] MEDS: MAGNESIUM OXIDE 400 MG TAB PO SCH (09:09)
[2022-09-25] MEDS: APIXABAN 5 MG TAB PO SCH (09:09)
[2022-09-25] MEDS: levETIRAcetam 500 MG TAB PO SCH (09:09)
[2022-09-25] MEDS: PREGABALIN 50 MG CAP PO SCH (09:09)
[2022-09-25] MEDS: FOLIC ACID 1 MG TAB PO SCH (09:09)
--- NOTE | 2022-09-25 10:08 | P.PN ---
Subjective Progress Note Date: 09/24/22 Patient was seen for a follow-up. Patient is laying comfortably in the bed. Offers no complaints. No further seizures. She is tolerating Keppra very well. Objective - Vital Signs Vital signs: Vital Signs Temp 98 F 09/24/22 12:19 Pulse 79 09/24/22 12:19 Resp 16 09/24/22 12:19 BP 133/81 09/24/22 12:19 Pulse Ox 97 09/24/22 12:19 FiO2 Intake & Output 09/23/22 09/24/22 09/24/22 18:59 06:59 18:59 Intake Total 1500 Balance 1500 Intake: Intake, IV Titration 900 Amount Sodium Chloride 0.9% 1, 900 000 ml @ 75 mls/hr IV . [id number] [facility] Rx#:[id number] Oral 600 Other: Voiding Method Toilet Toilet Toilet Bedside Commode Bedside Commode # Voids 4 3 1 - Exam Mentation normal. Detail examination deferred. - Labs CBC & Chem 7: 09/24/22 07:13 09/24/22 07:13 Labs: Abnormal Lab Results - Last 24 Hours (Table) 09/24/22 09/24/22 Range/Units 07:13 07:13 WBC 12.22 H (4.50-10.00) X 10*3/uL RBC 2.70 L (4.10-5.20) X 10*6/uL Hgb 8.1 L (12.0-15.0) g/dL Hct 25.6 L (37.2-46.3) % MCHC 31.6 L (32.0-37.0) g/dL RDW 19.2 H (11.5-14.5) % Plt Count 66 L (140-440) X 10*3/uL Plt Count Comment DECREASED A MPV 13.0 H (9.5-12.2) fL Immature Gran # 0.13 H (0.00-0.04) X 10*3/uL Neutrophils # 10.94 H (1.80-7.70) X 10*3/uL Lymphocytes # 0.62 L (0.90-5.00) X 10*3/uL Eosinophils # 0 L (0.04-0.35) X 10*3/uL Immature Plt Fraction 14.2 H (1.1-6.1) % BUN/Creatinine Ratio 22.47 H (12.00-20.00) Ratio Glucose 143 H (70-110) mg/dL Assessment and Plan Assessment: * New onset focal seizure, likely from the dominant cerebral metastasis left parietal region. * Brain MRI revealed some improved prior metastatic lesions, however several new punctate enhancing lesions, worrisome for new metastatic foci. * Metastatic lung cancer * Possible left sphenoid sinusitis, left mastoiditis noticed on MRI. Plan: * EEG 09/23/2022 was normal. No epileptiform activity was seen. However patient's event was classical partial seizure, likely from focal irritation from underlying metastasis. Patient needs to be on long-term antiepileptic medication. * Patient was given Keppra 1000 mg IV loading dose, and then maintain on Keppra 500 mg twice a day. Possible side effects were discussed, including tiredness, drowsiness, and rare behavioral disturbance. Patient tolerating Keppra well. * MRI brain with and without contrast revealed overall mixed response. Larger lesions are diminished in size from outside Ryer images. There are however several new punctate enhancing lesions worrisome for new metastatic foci, not clearly seen on the prior outside images. There is new left-sided sphenoid sinusitis, correlate clinically. New fluid signal left mastoid air cells worrisome for mastoiditis. Correlate clinically. I personally reviewed MRI, agree with the findings. * Regarding new onset possible left sphenoid sinusitis and left mastoiditis, consider course of antibiotics or ENT consultation . * Reports of oncologist and radiation oncologist reviewed, appreciate input. Radiation oncologist not concerned about disease progression. No radiation treatment indicated. Patient will continue with chemotherapy as per oncologist. * Patient currently on dexamethasone 4 mg IV push every 6 hours. Tapering down those as per oncology. * Patient was informed of [place] state law of no driving unless seizure free for 6 months, climbing ladders, operating dangerous machinery or unsupervised swimming. * Neurologically clear for discharge. May follow up with neurologist as an outpatient.
[2022-09-25 11:27] LABS: African American GFR (CKD) 72.9 (60.0-200.0); Anion Gap 10.3 mmol/L (10.00-18.00); BUN/Creat Ratio 20.2 Ratio (12.00-20.00); Blood Urea Nitrogen 20.2 mg/dL (9.0-27.0); Calcium 8.7 mg/dL (8.7-10.3); Carbon Dioxide 22.7 mmol/L (20.0-27.5); Non-African American GFR(CKD) 62.9 (60.0-200.0)
[2022-09-25 11:36] LABS: Basophils # (A) 0.01 X 10*3/uL (0.00-0.10); Basophils % (A) 0.1 %; Eosinophils # (A) 0.02 X 10*3/uL (0.04-0.35); Eosinophils % (A) 0.1 %; HGB 7.5 g/dL (12.0-15.0); Immature Grans, Automated 1.2 %; Immature Platelet Fraction 13.3 % (1.1-6.1); Lymphocytes # (A) 0.75 X 10*3/uL (0.90-5.00); Lymphocytes % (A) 5.3 %; MCH 29.3 pg (27.0-32.0); MCV 97.7 fL (80.0-97.0); NRBC Per 100 WBC 0 /100 WBCS (0.0-0.0); Neutrophils # (A) 12.29 X 10*3/uL (1.80-7.70); Neutrophils % (A) 86.3 %; Platelet Count 64 X 10*3/uL (140-440); RBC 2.56 X 10*6/uL (4.10-5.20); RDW 19.1 % (11.5-14.5); WBC 14.24 X 10*3/uL (4.50-10.00)
[2022-09-25 12:18] VITALS: BP 138/79; PULSE 54; TEMP 97.5
--- NOTE | 2022-09-25 13:15 | P.DS ---
Providers Date of admission: 09/22/22 15:21 Expected date of discharge: 09/25/22 Attending physician: Owen Franco MD Consults: 09/22/22 15:12 Consult Physician Urgent Consulting Provider: Alvin Mac Consult Reason/Comments: right sided tremor, possible new brain mets, hx radiation treatment Do you want consulting provider notified?: Yes Consult Physician Urgent Consulting Provider: Steven Ferguson Consult Reason/Comments: possible new brain mets, hx radiation treatment Do you want consulting provider notified?: Yes 09/23/22 09:34 Consult Physician Urgent Consulting Provider: Petra Cleary Consult Reason/Comments: History of metastatic lung cancer, 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 She claims that today while in the kitchen she noted her right eye flickering and then started noticing tremor of the right hand. It only lasted for a few seconds and she had weakness on the right side subsequently. All of her symptoms resolved by the time EMS was called. She's never had seizures in the past, and she is not on any antiepileptics. Her last chemotherapy was 4 weeks ago. She has had 4 rounds of chemotherapy, and 7 times pain radiation, she has also had radiation of other spots including her spine where she has fractures. In the ED, she was afebrile, tachycardic to 105, respiratory rate 18, blood pressure 147/99, saturating percent on room air. Laboratory workup showed hemoglobin of 11, platelet of 60, sodium 137, potassium 2.5, BUN 21, creatinine 1.15, Lactic acid 3.6. Head and cervical spine CT shows no acute intracranial hemorrhage or significant mass effect, but does show similar bilateral frontal lobe hypodense regions with suggested new lesion in the medial aspect of the right parietal lobe. Patient admitted for new seizure-like activity." Progress note of 09/24/2022 Assessment and Plan: "Active: Seizure-like activity Lung cancer with metastatic brain lesions Mild normocytic anemia Thrombocytopenia Leukocytosis, likely steroid-induced -Neurology and oncology following -Keppra 500 twice a day -Patient oncology note reviewed: Repeat MRI brain in 2 months, and care on chemoimmunotherapy, she can go with a steroid taper upon discharge -Ativan 2 mg IV every 6 hours as needed for seizures -Anemia and thrombocytopenia likely in the setting of chemotherapy and malignancy -No active bleeding -Patient currently is on Eliquis Resolved: Sinus tachycardia Acute kidney injury, nonoliguric Lactic acidosis Chronic: Pulmonary embolism on Eliquis DVT ppx: Eliquis Code status: Full code Anticipated discharge place: Home" Today's note No new systemic symptoms on direct questioning patient was waking to be discharged home today General: nontoxic, no distress, appears at stated age, patient is sitting in the bed Derm: warm, dry, lower extremity petechiae Head: atraumatic, normocephalic, symmetric Eyes: EOMI, no lid lag, anicteric sclera, pupils equal round reactive to light ENT: Nose and ears atraumatic Neck: No thyromegaly, supple Mouth: no lip lesion, mucus membranes moist Cardiovascular: S1S2 reg, no murmur, no edema Lungs: clear to auscultation bilateral, no rhonchi, no rales, no wheeze, no accessory muscle use Abdominal: soft, nontender to palpation, no guarding, no appreciable organomegaly Ext: no gross muscle atrophy, muscle strength muscle strength 5 out of 5 in all 4 extremities, no contractures Neuro: CN II-XII grossly intact Psych: Alert, oriented, appropriate affect Sinusitis noted on the MRI, antibiotic was recommended by the neurology Patient is discharged home with her , to follow up with her PCP within a week Patient was given a prescription for Keppra, tapering dose of prednisone, Keflex for sinusitis Patient is strongly advised to return to the emergency room should there be any worsening of symptoms or recurrence of seizures Patient Condition at Discharge: Serious Plan - Discharge Summary Discharge Rx Participant: No New Discharge Prescriptions: New levETIRAcetam [Keppra] 500 mg PO Q12HR #60 tab Magnesium Oxide [Mag-Ox] 400 mg PO DAILY tab Acetaminophen Tab [Tylenol] 650 mg PO Q6HR PRN #90 tab PRN Reason: Mild Pain Or Fever > 100.5 Cephalexin [Keflex] 500 mg PO Q6HR 7 Days #28 cap predniSONE 0 mg PO DIRECTED #42 tab Continue Magnesium Oxide [Mag-Ox] 400 mg PO DAILY Loperamide [Imodium] 2 mg PO QID PRN PRN Reason: Diarrhea Folic Acid 1 mg PO DAILY Cyclobenzaprine [Flexeril] 5 mg PO TID Apixaban [Eliquis] 5 mg PO BID Simethicone [Mylanta Gas Minis] 125 mg PO BID PRN PRN Reason: Gi Upset Pregabalin [Lyrica] 50 mg PO TID Pantoprazole Sodium [Protonix] 40 mg PO DAILY Discontinued Ibuprofen [Motrin Ib] 600 mg PO Q6H PRN PRN Reason: Fever And/ Or Pain Discharge Medication List Apixaban [Eliquis] 5 mg PO BID 09/22/22 [History] Cyclobenzaprine [Flexeril] 5 mg PO TID 09/22/22 [History] Folic Acid 1 mg PO DAILY 09/22/22 [History] Loperamide [Imodium] 2 mg PO QID PRN 09/22/22 [History] Magnesium Oxide [Mag-Ox] 400 mg PO DAILY 09/22/22 [History] Pantoprazole Sodium [Protonix] 40 mg PO DAILY 09/22/22 [History] Pregabalin [Lyrica] 50 mg PO TID 09/22/22 [History] Simethicone [Mylanta Gas Minis] 125 mg PO BID PRN 09/22/22 [History] Acetaminophen Tab [Tylenol] 650 mg PO Q6HR PRN #90 tab 09/25/22 [Rx] Cephalexin [Keflex] 500 mg PO Q6HR 7 Days #28 cap 09/25/22 [Rx] Magnesium Oxide [Mag-Ox] 400 mg PO DAILY tab 09/25/22 [Rx] levETIRAcetam [Keppra] 500 mg PO Q12HR #60 tab 09/25/22 [Rx] predniSONE 0 mg PO DIRECTED #42 tab 09/25/22 [Rx] Follow up Appointment(s)/Referral(s): Daniel Abraham DO [Primary Care Provider] - 1-2 days
--- NOTE | 2022-09-25 17:52 | P.PN ---
Subjective Progress Note Date: 09/25/22 Principal diagnosis: seziure?/hx lung adenocarcinoma with brain mets At today's visit patient is resting comfortably in bed. at bedside. Patient reports feeling well. Denies any neuro deficits. Denies pain. Patient continues on Keppra and Decadron. No other reported complaints at this time Objective - Vital Signs Vital signs: Vital Signs Temp 97.5 F L 09/25/22 12:12 Pulse 54 L 09/25/22 12:12 Resp 17 09/25/22 12:12 BP 138/79 09/25/22 12:12 Pulse Ox 98 09/25/22 12:12 FiO2 Intake & Output 09/24/22 09/25/22 09/25/22 18:59 06:59 18:59 Other: Voiding Method Toilet Toilet Toilet # Voids 1 2 2 - Constitutional General appearance: Present: average body habitus, no acute distress - EENT Eyes: Present: anicteric sclerae, EOMI ENT: Present: hearing grossly normal - Respiratory Details: Breathing is even and unlabored - Cardiovascular Details: Skin is warm and dry - Integumentary Integumentary: Present: pale - Neurologic Neurologic Comment(s): Grossly intact - Musculoskeletal Musculoskeletal: Present: strength equal bilaterally - Psychiatric Psychiatric: Present: A&O x's 3, appropriate affect, intact judgment & insight - Labs CBC & Chem 7: 09/25/22 06:03 09/25/22 06:03 Labs: Abnormal Lab Results - Last 24 Hours (Table) 09/25/22 09/25/22 Range/Units 06:03 06:03 WBC 14.24 H (4.50-10.00) X 10*3/uL RBC 2.56 L (4.10-5.20) X 10*6/uL Hgb 7.5 L (12.0-15.0) g/dL Hct 25.0 L (37.2-46.3) % MCV 97.7 H (80.0-97.0) fL MCHC 30.0 L (32.0-37.0) g/dL RDW 19.1 H (11.5-14.5) % Plt Count 64 L (140-440) X 10*3/uL MPV 14.0 H (9.5-12.2) fL Immature Gran # 0.17 H (0.00-0.04) X 10*3/uL Neutrophils # 12.29 H (1.80-7.70) X 10*3/uL Lymphocytes # 0.75 L (0.90-5.00) X 10*3/uL Eosinophils # 0.02 L (0.04-0.35) X 10*3/uL Immature Plt Fraction 13.3 H (1.1-6.1) % BUN/Creatinine Ratio 20.20 H (12.00-20.00) Ratio Glucose 170 H (70-110) mg/dL Assessment and Plan (1) Lung cancer metastatic to brain Status: Acute Priority: High Code(s): C34.90 - MALIGNANT NEOPLASM OF UNSP PART OF UNSP BRONCHUS OR LUNG; C79.31 - SECONDARY MALIGNANT NEOPLASM OF BRAIN SNOMED Code(s): 02472358 Plan: Seizure -Noted to have episode of described tonic-clonic movement in the right arm along with flickering of the right eyelid lasting about 2 to 3 minutes -She appears to have mental fog for about 15 to 30 minutes following this episode, but denied any loss of consciousness -She does not have any focal deficits on exam and has not had any repeat episodes -Brain MRI did reveal new punctate lesions in the right frontal lobe and cerebellar hemispheres. -It is unclear if these lesions resulted in a potential seizure as there is no vasogenic edema, and mentioned cerebellar lesions wasn't appreciable upon review of MRI images. 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 Symptoms may be secondary to treatment- related edema from her dominant left sided lesion as neuro deficits were right sided. Patient will continue to follow with rad onc, and recommended repeat MRI brain in 2 months. Patient has follow-up next week with her primary oncologist. She'll be discharged on a Decadron taper -Currently on Keppra and IV steroids with PPI for GI prophylaxis -Neurology consult for additional work-up and management. EEG study normal Metastatic adenocarcinoma of the lung with metastasis to the brain -Received SRS in May 2022 to 6 previously visualized brain metastases -She has received 4 cycles of carboplatin/Alimta/pembrolizumab -Ms. Escobar and her note she was due for cycle 5 of chemotherapy for 09/24/2022 -Patient has follow-up next week with her primary oncologist at [facility] -It is recommended by her primary radiation oncologist Dr. Ferguson to have repeat brain MRI in 2 months. -Will discharge on decadron taper -She currently has treatment induced anemia and thrombocytopenia -Transfuse for hemoglobin less than 7 and/or platelet count less than 10,000 and/or bleeding
== END 2022-09-25 14:04 | disposition home or self-care (01) | DRG 55 ==
LOC: EC 10:26 → 5NMEDONC 15:21
PROVIDERS: ADMIT Student in an Organized Health Care Education/Training Program; ATTEND Student in an Organized Health Care Education/Training Program
DX: C79.31 Secondary malignant neoplasm of brain (principal); N17.9 Acute kidney failure, unspecified; C79.51 Secondary malignant neoplasm of bone; C34.90 Malignant neoplasm of unspecified part of unspecified bronchus or lung; R56.9 Unspecified convulsions; I95.9 Hypotension, unspecified; D69.59 Other secondary thrombocytopenia; D63.0 Anemia in neoplastic disease; D64.81 Anemia due to antineoplastic chemotherapy; Z28.310 Unvaccinated for COVID-19; T45.1X5A Adverse effect of antineoplastic and immunosuppressive drugs, initial encounter; K21.9 Gastro-esophageal reflux disease without esophagitis; K57.90 Diverticulosis of intestine, part unspecified, without perforation or abscess without bleeding; J32.3 Chronic sphenoidal sinusitis; R21 Rash and other nonspecific skin eruption; D72.829 Elevated white blood cell count, unspecified; T38.0X5A Adverse effect of glucocorticoids and synthetic analogues, initial encounter; M50.30 Other cervical disc degeneration, unspecified cervical region; R73.03 Prediabetes; Z79.01 Long term (current) use of anticoagulants; Z79.899 Other long term (current) drug therapy; Z96.642 Presence of left artificial hip joint; Z86.73 Personal history of transient ischemic attack (TIA), and cerebral infarction without residual deficits; Z87.440 Personal history of urinary (tract) infections; Z86.711 Personal history of pulmonary embolism
CPT/HCPCS: 36415; 70450; 70553; 72125; 80048; 80053; 82550; 83605; 83735; 84146; 85025; 85610; 85730; 93005; 95816; 96360; 96361; 99285

== ENCOUNTER 2022-10-09 05:17 | Inpatient (IN) | payer BC ==
[2022-10-09] MEDS ORDERED: SODIUM CHLORIDE 0.9% 500 ML 500 ML IV ONE (06:19)
[2022-10-09] MEDS ORDERED: HYDROmorphone 1 MG/ML 1 ML SYRINGE IVP STA (06:19)
--- NOTE | 2022-10-09 06:19 | ED ---
Extremity Problem HPI - General Chief complaint: Extremity Problem,Nontraumatic Stated complaint: Leg Pain/Tumor Time Seen by Provider: 10/09/22 06:06 Source: patient, RN notes reviewed, old records reviewed Mode of arrival: wheelchair Limitations: no limitations - History of Present Illness Initial comments: This is 57-year-old female that presents to the emergency room sent by her cancer Dr Celia for admission for intractable cancer pain. 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 She also has a blood clot in her right leg and had a stent placed and is currently taking Eliquis. They are planning on treating her tumor with radiation but she states missed her first appointment yesterday due to inability to get out of her chair due to pain. Her doctor recommended she come to the emergency room for pain control and have radiation treatments inpatient. Patient denies any fevers. No nausea vomiting or diarrhea. No chest pain or shortness of breath. MD Complaint: extremity pain -: days(s) Location: right, lower extremity History of Same: Yes Severity scale (1-10): 10 Quality: constant - Related Data Home Medications Medication Instructions Recorded Confirmed Apixaban [Eliquis] 5 mg PO BID 09/22/22 10/09/22 Cyclobenzaprine [Flexeril] 5 - 10 mg PO TID PRN 09/22/22 10/09/22 Folic Acid 1 mg PO DAILY 09/22/22 10/09/22 Pantoprazole Sodium [Protonix] 40 mg PO DAILY 09/22/22 10/09/22 Pregabalin [Lyrica] 50 mg PO TID 09/22/22 10/09/22 Acetaminophen Tab [Tylenol] 650 mg PO Q4HR PRN 10/09/22 10/09/22 HYDROcodone/APAP 7.5-325MG [[place] 1 tab PO Q6H PRN 10/09/22 10/09/22 7.5-325] Ondansetron [Zofran] 8 mg PO Q8HR PRN 10/09/22 10/09/22 dexAMETHasone [Decadron] 4 mg PO TID 10/09/22 10/09/22 Previous Rx's Medication Instructions Recorded Magnesium Oxide [Mag-Ox] 400 mg PO DAILY tab 09/25/22 levETIRAcetam [Keppra] 500 mg PO Q12HR #60 tab 09/25/22 Allergies Allergy/AdvReac Type Severity Reaction Status Date / Time diphenhydramine Allergy head to Verified 10/09/22 07:30 [From Benadryl] toe rash/peeling hands Review of Systems ROS Statement: Those systems with pertinent positive or pertinent negative responses have been documented in the HPI. ROS Other: All systems not noted in ROS Statement are negative. Past Medical History Past Medical History: CVA/TIA, GERD/Reflux, Pulmonary Embolus (PE) Additional Past Medical History / Comment(s): diverticulosis,uti, "i think i have a hiatal hernia", brain and lung cancer, "bone cancer" History of Any Multi-Drug Resistant Organisms: None Reported Past Surgical History: Section, Cholecystectomy, Joint Replacement Additional Past Surgical History / Comment(s): egd/colonosocpy, left hip replacement Past Anesthesia/Blood Transfusion Reactions: No Reported Reaction Additional Past Anesthesia/Blood Transfusion Reaction / Comment(s): clausterphobia Past Psychological History: No Psychological Hx Reported Smoking Status: Never smoker Past Alcohol Use History: Occasional Past Drug Use History: None Reported - Past Family History Mother Family Medical History: Hypertension Father Family Medical History: Diabetes Mellitus Additional Family Medical History / Comment(s): diverticulosis General Exam Limitations: no limitations General appearance: alert, in no apparent distress Head exam: Present: atraumatic Eye exam: Absent: scleral icterus, conjunctival injection, periorbital swelling ENT exam: Present: mucous membranes dry Neck exam: Absent: meningismus Respiratory exam: Absent: respiratory distress, accessory muscle use Cardiovascular Exam: Present: tachycardia GI/Abdominal exam: Present: soft. Absent: distended, guarding, rebound, rigid Extremities exam: Present: normal capillary refill. Absent: pedal edema, joint swelling, calf tenderness Right Neurovascular tendon exam: Absent: abnormal cap refill, extremity cold to touch, pallor, foot drop Neurological exam: Present: alert, oriented X3 Psychiatric exam: Present: normal affect, normal mood Skin exam: Present: warm, dry, normal color. 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 States her cancer doctor, Dr Yang wanted her admitted for inpatient radiation therapy and pain control. PET scan performed 05/29/2022 showing left lower lobe lung mass measuring 4 cm left femoral neck. Patient has metastatic adenocarcinoma of the lung, underwent SIRS 26 intracranial lesions completed treatment 05/28/2022. Palliative radiation to the left hip and T7 to T10 in June 2022. Patient diagnosed with DVT right leg at last admission Yvette León on Wednesday09/28/22 with filter placed at that time , has been on Eliquis. Patient will be admitted with intractable cancer pain. Case discussed with Dr. Breen. Was pt. sent in by a medical professional or institution (, PA, HEADWAITRESS, urgent care, hospital, or jail...) When possible be specific @ -Dr Yang Did you speak to anyone other than the patient for history (EMS, parent, family, police, friend...)? What history was obtained from this source @ -No Did you review nursing and triage notes (agree or disagree)? Why? @ -I reviewed and agree with nursing and triage notes Were old charts reviewed (outside hosp., previous admission, EMS record, old EKG, old radiological studies, urgent care reports/EKG's, jail records)? Report findings @ -yes as above Differential Diagnosis (chest pain, altered mental status, abdominal pain women, abdominal pain men, vaginal bleeding, weakness, fever, dyspnea, syncope, headache, dizziness, GI bleed, back pain, seizure, CVA, palpatations, mental health, musculoskeletal)? @ -Intractable cancer pain, DVT, radiculopathy, cellulitis, nerve entrapment, fracture EKG interpreted by me (3pts min.). @ -n/a X-rays interpreted by me (1pt min.). @ -None done CT interpreted by me (1pt min.). @ -None done U/S interpreted by me (1pt. min.). @ -None done What testing was considered but not performed or refused? (CT, X-rays, U/S, labs)? Why? @ -None What meds were considered but not given or refused? Why? @ -None Did you discuss the management of the patient with other professionals (professionals i.e. , PA, HEADWAITRESS, lab, RT, psych nurse, social services, senior research project manager, teacher, youth liaison officer, casework specialist)? Give summary @ -No Was smoking cessation discussed for >3mins.? @ -No Was critical care preformed (if so, how long)? @ -No Were there social determinants of health that impacted care today? How? (Homelessness, low income, unemployed, alcoholism, drug addiction, transportation, low edu. Level, literacy, decrease access to med. care, [facility], rehab)? @ -No Was there de-escalation of care discussed even if they declined (Discuss DNR or withdrawal of care, Hospice)? DNR status @ -No What co-morbidities impacted this encounter? (DM, HTN, Smoking, COPD, CAD, Cancer, CVA, ARF, Chemo, Hep., AIDS, mental health diagnosis, sleep apnea, morbid obesity)? @ -PE, DVT, CVA, lung cancer with metastasis to brain and spine, hiatal hernia Was patient admitted / discharged? Hospital course, mention meds given and ro felipe, prescriptions, significant lab abnormalities, going to OR and other pertinent info. @ -Admitted Undiagnosed new problem with uncertain prognosis? @ -No Drug Therapy requiring intensive monitoring for toxicity (Heparin, Nitro, Insulin, Cardizem)? @ -No Were any procedures done? @ -No Diagnosis/symptom? @ -Intractable cancer pain, lung cancer with metastasis to brain and bone Acute, or Chronic, or Acute on Chronic? @ -Acute on chronic Uncomplicated (without systemic symptoms) or Complicated (systemic symptoms)? @ -Uncomplicated Side effects of treatment? @ -No Exacerbation, Progression, or Severe Exacerbation? @ -No Poses a threat to life or bodily function? How? (Chest pain, [place], [place], pneumonia, PE, COPD, DKA, ARF, appy, cholecystitis, CVA, Diverticulitis, Homicidal, Suicidal, threat to staff... and all critical care pts) @ -No - Lab Data Result diagrams: 10/09/22 06:42 10/09/22 06:42 Lab Results 10/09/22 10/09/22 Range/Units 06:42 06:42 WBC 11.5 H (3.8-10.6) k/uL RBC 4.37 (3.80-5.40) m/uL Hgb 13.9 D (11.4-16.0) gm/dL Hct 40.8 (34.0-46.0) % MCV 93.3 (80.0-100.0) fL MCH 31.8 (25.0-35.0) pg MCHC 34.1 (31.0-37.0) g/dL RDW 19.3 H (11.5-15.5) % MPV 9.7 Anisocytosis Slight Macrocytosis Slight Sodium 137 (137-145) mmol/L Potassium 3.8 (3.5-5.1) mmol/L Chloride 105 (98-107) mmol/L Carbon Dioxide 26 (22-30) mmol/L Anion Gap 6 mmol/L BUN 32 H (7-17) mg/dL Creatinine 0.76 (0.52-1.04) mg/dL Est GFR (CKD-EPI)AfAm >90 (>60 ml/min/1.73 sqM) Est GFR (CKD-EPI)NonAf 89 (>60 ml/min/1.73 sqM) Glucose 103 H (74-99) mg/dL Calcium 9.0 (8.4-10.2) mg/dL Total Bilirubin 0.7 (0.2-1.3) mg/dL AST 36 (14-36) U/L ALT 25 (4-34) U/L Alkaline Phosphatase 101 (38-126) U/L Total Protein 6.0 L (6.3-8.2) g/dL Albumin 3.5 (3.5-5.0) g/dL Disposition Clinical Impression: Intractable pain, Lung cancer metastatic to bone, Lung cancer metastatic to brain Disposition: ADMITTED IP TO THIS [facility] Decision Date: 10/09/22 Decision Time: 06:33
[2022-10-09] MEDS ORDERED: NALOXONE 0.4 MG/ML 1 ML VIAL IV PRN (06:51)
[2022-10-09 07:04] LABS: ALT 25 U/L (4-34); AST 36 U/L (14-36); African American GFR (CKD) >90 (>60 ml/min/1.73 sqM); Albumin 3.5 g/dL (3.5-5.0); Alkaline Phosphatase 101 U/L (38-126); Anion Gap 6 mmol/L; Blood Urea Nitrogen 32 mg/dL (7-17); Carbon Dioxide 26 mmol/L (22-30); Chloride 105 mmol/L (98-107); Glucose 103 mg/dL (74-99); Non-African American GFR(CKD) 89 (>60 ml/min/1.73 sqM); Potassium 3.8 mmol/L (3.5-5.1); Sodium 137 mmol/L (137-145); Total Bilirubin 0.7 mg/dL (0.2-1.3)
[2022-10-09 07:17] LABS: Anisocytosis Slight; Basophils % (A) 0 %; Eosinophils # (A) 0.3 k/uL (0-0.7); Eosinophils % (A) 3 %; HCT 40.8 % (34.0-46.0); Lymphocytes # (A) 0.7 k/uL (1.0-4.8); Lymphocytes % (A) 6 %; MCH 31.8 pg (25.0-35.0); MCHC 34.1 g/dL (31.0-37.0); MCV 93.3 fL (80.0-100.0); Macrocytosis Slight; Mean Platelet Volume 9.7; Monocytes # (A) 0.5 k/uL (0-1.0); Monocytes % (A) 4 %; Neutrophils % (A) 87 %; RBC 4.37 m/uL (3.80-5.40); RDW 19.3 % (11.5-15.5); WBC 11.5 k/uL (3.8-10.6)
[2022-10-09 07:29] LABS: HGB 13.9 gm/dL (11.4-16.0)
[2022-10-09] MEDS ORDERED: ONDANSETRON 4 MG TAB PO PRN (07:46)
[2022-10-09 07:48] LABS: Platelet Count 37 k/uL (150-450)
[2022-10-09 07:49] LABS: Polychromasia Present
[2022-10-09] MEDS: levETIRAcetam 500 MG TAB PO SCH ×2 (08:45→20:00)
[2022-10-09] MEDS: PREGABALIN 50 MG CAP PO SCH ×3 (08:45→20:00)
[2022-10-09] MEDS: APIXABAN 5 MG TAB PO SCH ×2 (08:45→20:00)
[2022-10-09] MEDS: FOLIC ACID 1 MG TAB PO SCH (08:45)
[2022-10-09] MEDS: MAGNESIUM OXIDE 400 MG TAB PO SCH (08:45)
[2022-10-09] MEDS ORDERED: dexAMETHasone 4 MG TAB PO SCH (09:00)
[2022-10-09] MEDS ORDERED: PANTOPRAZOLE 40 MG TABLET PO SCH (09:00)
[2022-10-09] MEDS: HYDROcodone/APAP 7.5-325MG 1 EACH TAB PO PRN ×2 (09:29→16:12)
--- NOTE | 2022-10-09 12:47 | P.HPIM ---
History of Present Illness H&P Date: 10/09/22 Patient is a 57-year-old female with history of lung cancer metastatic to brain, PE on Eliquis and recent IVC filter, seizure disorder presenting with worsening right lower extremity pain. She claims that she had a recent MRI lumbar spine done at [facility] which showed a lesion at L5 causing nerve impingement leading to radiculopathy. She was supposed to get radiation yesterday, but missed her appointment due to intractable leg pain. She was unable to ambulate due to the pain. She was then asked by her physician to present to the hospital for further radiation and pain management. Currently she denies any chest pain, shortness of breath, abdominal pain, nausea, vomiting, diarrhea, constipation, or urinary complaints. She claims that her lower extremity pain starts in her back and radiates down to her foot on the right side. It is usually 10/10, stabbing and achy in nature. She still has some pain in the left side, but denies any extreme pain slight on the right. She denies any saddle anesthesia. In the ED, temperature was 98.5, pulse 124, blood pressure 114/79, respiratory rate 16, oxygen saturation 98% on room air. Lab workup showed WBC 11.5, plat elet 37, sodium 137, creatinine 0.76. Pertinent positives and negatives as discussed in HPI, a complete review of systems was performed and all other systems are negative. Patient seen and examined at bedside. Vital signs reviewed General: nontoxic, no distress, appears at stated age Derm: warm, dry Head: atraumatic, normocephalic, symmetric Eyes: EOMI, no lid lag, anicteric sclera, pupils equal round reactive to light ENT: Nose and ears atraumatic Neck: No thyromegaly, supple Mouth: no lip lesion, mucus membranes moist Cardiovascular: S1S2 reg, no murmur, no edema Lungs: clear to auscultation bilateral, no rhonchi, no rales, no wheeze, no accessory muscle use Abdominal: soft, nontender to palpation, no guarding, no appreciable organomegaly Ext: no gross muscle atrophy, unable to lift left leg due to pain, rest of the extremities were within normal limits Neuro: CN II-XII grossly intact Psych: Alert, oriented, appropriate affect Assessment/Plan: L5 radiculopathy Intractable pain, related to malignancy Metastatic lung cancer, with metastases to brain and spine Seizure disorder Mild leukocytosis Thrombocytopenia PE on Eliquis and status post IVC filter -Patient reportedly had an MRI of lumbar spine few days ago at [facility] -Oncology consult, radiation oncology consult -Currently on dexamethasone 4 mg by mouth 3 times a day -On Dilaudid 1 mg IV every 3 hours as needed, Tylenol 650 mg every 4 hours as needed, [place] 7.5 every 6 hours as needed -Lyrica 50 mg 3 times a day -Continue Keppra 500 twice a day -Leukocytosis likely reactive -Thrombocytopenia in the setting of chemotherapy and malignancy -Continue Eliquis 5 mg twice a day -Palliative care consulted The patient is admitted with an anticipated greater than 2 midnight stay as inpatient status for evaluation of intractable malignancy pain, L5 radiculopathy. Surrogate decision-maker: CODE STATUS: Full Code DVT prophylaxis: Eliquis Anticipated discharge date: Pending clinical course Anticipated discharge place: Pending clinical course A total of 55 minutes was spent on the care of this complex patient more than 50% of the time was spent in counseling and care coordination. Past Medical History Past Medical History: CVA/TIA, Deep Vein Thrombosis (DVT), GERD/Reflux, Pulmonary Embolus (PE) Additional Past Medical History / Comment(s): diverticulosis,uti, hiatal hernia, brain and lung cancer, bone cancer- spinal lesion History of Any Multi-Drug Resistant Organisms: None Reported Past Surgical History: Section, Cholecystectomy, Joint Replacement Additional Past Surgical History / Comment(s): egd/colonosocpy, left hip replacement, blood clot filter 09/2022 vicente garcia Past Anesthesia/Blood Transfusion Reactions: No Reported Reaction Additional Past Anesthesia/Blood Transfusion Reaction / Comment(s): clausterphobia Past Psychological History: No Psychological Hx Reported Smoking Status: Never smoker Past Alcohol Use History: None Reported Past Drug Use History: None Reported - Past Family History Mother Family Medical History: Hypertension Father Family Medical History: Diabetes Mellitus Additional Family Medical History / Comment(s): diverticulosis Medications and Allergies Home Medications Medication Instructions Recorded Confirmed Type Apixaban [Eliquis] 5 mg PO BID 09/22/22 10/09/22 History Cyclobenzaprine [Flexeril] 5 - 10 mg PO TID PRN 09/22/22 10/09/22 History Folic Acid 1 mg PO DAILY 09/22/22 10/09/22 History Pantoprazole Sodium [Protonix] 40 mg PO DAILY 09/22/22 10/09/22 History Pregabalin [Lyrica] 50 mg PO TID 09/22/22 10/09/22 History Magnesium Oxide [Mag-Ox] 400 mg PO DAILY tab 09/25/22 10/09/22 Rx levETIRAcetam [Keppra] 500 mg PO Q12HR #60 tab 09/25/22 10/09/22 Rx Acetaminophen Tab [Tylenol] 650 mg PO Q4HR PRN 10/09/22 10/09/22 History HYDROcodone/APAP 7.5-325MG [[place] 1 tab PO Q6H PRN 10/09/22 10/09/22 History 7.5-325] Ondansetron [Zofran] 8 mg PO Q8HR PRN 10/09/22 10/09/22 History dexAMETHasone [Decadron] 4 mg PO TID 10/09/22 10/09/22 History Allergies Allergy/AdvReac Type Severity Reaction Status Date / Time diphenhydramine Allergy head to Verified 10/09/22 07:30 [From Benadryl] toe rash/peeling hands Physical Exam Vitals: Vital Signs Temp Pulse Pulse Resp BP BP Pulse Ox 10/09/22 12:00 98 F 104 H 18 112/76 97 10/09/22 11:00 78 20 117/93 96 10/09/22 10:30 20 111/83 95 10/09/22 09:30 20 119/88 96 10/09/22 09:00 18 110/71 96 10/09/22 08:00 91 16 120/89 96 10/09/22 07:30 88 16 119/93 95 10/09/22 06:03 105 H 20 134/96 10/09/22 05:37 98.5 F 124 H 16 114/79 98 Intake and Output 10/08/22 10/09/22 10/09/22 22:59 06:59 14:59 Other: Weight 74.843 kg 74.843 kg Results CBC & Chem 7: 10/09/22 06:42 10/09/22 06:42 Labs: Abnormal Lab Results - Last 24 Hours (Table) 10/09/22 10/09/22 Range/Units 06:42 06:42 WBC 11.5 H (3.8-10.6) k/uL RDW 19.3 H (11.5-15.5) % Plt Count 37 L (150-450) k/uL Neutrophils # 10.0 H (1.3-7.7) k/uL Lymphocytes # 0.7 L (1.0-4.8) k/uL BUN 32 H (7-17) mg/dL Glucose 103 H (74-99) mg/dL Total Protein 6.0 L (6.3-8.2) g/dL Thrombosis Risk Factor Assmnt - Choose All That Apply Each Factor Represents 1 point: Age 41-60 years Each Risk Factor Represents 2 Points: Malignancy Each Risk Factor Represents 3 Points: History of DVT/PE Thrombosis Risk Factor Assessment Total Risk Factor Score: 6 Thrombosis Risk Factor Assessment Level: High Risk
[2022-10-09] MEDS: HYDROmorphone 1 MG/ML 1 ML SYRINGE IVP PRN ×2 (13:30→21:54)
[2022-10-09 16:56] LABS: Prothrombin Time 10.9 sec (9.0-12.0)
--- NOTE | 2022-10-09 17:07 | P.CONS ---
History of Present Illness - Reason for Consult Consult date: 10/09/22 right hip pain, metastatic cancer Requesting physician: Otto Nuñez - Chief Complaint right hip pain, inability to ambulate - History of Present Illness The patient is a 57-year-old female who was diagnosed with metastatic adenocarcinoma of the lung in April 2022. She was found to have disease involving the bone as well as brain metastasis. She was initially treated with radiosurgery to [employer] lesions in May 2022. She also underwent palliative radiotherapy to the left hip following EUGENIE for pathologic fracture and simultaneously underwent radiotherapy involving T7 to T10 in June 2022. This was done under the care of Dr. Ferguson. The patient has completed 4 cycles of Carbo/Alimta/Keytruda with her most recent on 08/27/2022. She now is hospitalized due to intractable right hip pain. The patient was hospitalized 1 week prior at [facility] on September 30. She was having intractable right hip pain at this time as well. She was found to have bilateral common femoral DVT, chronic on the right and subacute/chronic on the left. Secondary to this, the patient had an IVC filter placed on September 30. She underwent MRI evaluation of the lumbar spine on September 30 as well. This revealed metastatic involvement, particularly involving the posterior elements of multiple vertebral bodies. The worse lesion involving L5 with cortical breakthrough extending along the right cortical margin in the epidural space. The patient also was found to have osseous disease involving the right hip particularly the superior acetabulum, lesser trochanter and femoral canal on an MRI of the hip from October 04. The patient was told to minimize any weightbearing, and was planning for outpatient radiotherapy evaluation. Unfortunately, the patient's pain became such that she was not able to ambulate over the past 24 hours. She states she could barely move the leg and could not put weight on it. When she first presented to the ER, she was given 1 treatment with a lot it and had significant improvement. At the time of my visit, the patient's pain medication has worn off a bed and her pain is currently 7-8 out of 10. At this time the patient denies other complaints including headaches, nausea or other sites of pain. She has no significant changes in her bladder or bowel habits. Review of Systems Constitutional: Denies chills, Denies fever Ears, nose, mouth and throat: Denies headache Cardiovascular: Denies chest pain Respiratory: Denies cough, Denies dyspnea Gastrointestinal: Denies change in bowel habits Genitourinary: Denies dysuria, Denies flank pain Musculoskeletal: Reports as per HPI Integumentary: Denies rash Neurological: Denies aphasia, Denies ataxia, Denies seizures Psychiatric: Denies anxiety, Denies confusion Past Medical History Past Medical History: CVA/TIA, Deep Vein Thrombosis (DVT), GERD/Reflux, Pulmonary Embolus (PE) Additional Past Medical History / Comment(s): diverticulosis,uti, hiatal hernia, brain and lung cancer, bone cancer- spinal lesion History of Any Multi-Drug Resistant Organisms: None Reported Past Surgical History: Section, Cholecystectomy, Joint Replacement Additional Past Surgical History / Comment(s): egd/colonosocpy, left hip replacement, blood clot filter 09/2022 a tmacomb radha Past Anesthesia/Blood Transfusion Reactions: No Reported Reaction Additional Past Anesthesia/Blood Transfusion Reaction / Comm: clausterphobia Past Psychological History: No Psychological Hx Reported Smoking Status: Never smoker Past Alcohol Use History: None Reported Past Drug Use History: None Reported - Past Family History Mother Family Medical History: Hypertension Father Family Medical History: Diabetes Mellitus Additional Family Medical History / Comment(s): diverticulosis Medications and Allergies Home Medications Medication Instructions Recorded Confirmed Type Apixaban [Eliquis] 5 mg PO BID 09/22/22 10/09/22 History Cyclobenzaprine [Flexeril] 5 - 10 mg PO TID PRN 09/22/22 10/09/22 History Folic Acid 1 mg PO DAILY 09/22/22 10/09/22 History Pantoprazole Sodium [Protonix] 40 mg PO DAILY 09/22/22 10/09/22 History Pregabalin [Lyrica] 50 mg PO TID 09/22/22 10/09/22 History Magnesium Oxide [Mag-Ox] 400 mg PO DAILY tab 09/25/22 10/09/22 Rx levETIRAcetam [Keppra] 500 mg PO Q12HR #60 tab 09/25/22 10/09/22 Rx Acetaminophen Tab [Tylenol] 650 mg PO Q4HR PRN 10/09/22 10/09/22 History HYDROcodone/APAP 7.5-325MG [[place] 1 tab PO Q6H PRN 10/09/22 10/09/22 History 7.5-325] Ondansetron [Zofran] 8 mg PO Q8HR PRN 10/09/22 10/09/22 History dexAMETHasone [Decadron] 4 mg PO TID 10/09/22 10/09/22 History Allergies Allergy/AdvReac Type Severity Reaction Status Date / Time diphenhydramine Allergy head to Verified 10/09/22 07:30 [From Benadryl] toe rash/peeling hands Physical Exam Vitals: Vital Signs Temp Pulse Pulse Resp BP BP Pulse Ox 10/09/22 12:00 98 F 104 H 18 112/76 97 10/09/22 11:00 78 20 117/93 96 10/09/22 10:30 20 111/83 95 10/09/22 09:30 20 119/88 96 10/09/22 09:00 18 110/71 96 10/09/22 08:00 91 16 120/89 96 10/09/22 07:30 88 16 119/93 95 10/09/22 06:03 105 H 20 134/96 10/09/22 05:37 98.5 F 124 H 16 114/79 98 Intake and Output 10/09/22 10/09/22 10/09/22 06:59 14:59 22:59 Other: Weight 74.843 kg 74.843 kg - Constitutional General appearance: no acute distress - EENT Eyes: EOMI, PERRLA ENT: hearing grossly normal - Neck Neck: no lymphadenopathy - Respiratory Respiratory: bilateral: CTA - Cardiovascular Rhythm: regular - Gastrointestinal General gastrointestinal: no distended, no tenderness - Integumentary Integumentary: no calor - Neurologic Neurologic: CNII-XII intact - Musculoskeletal Musculoskeletal: right sided weakness (Right lower extremity - 4/5 strength with hip flexion and ankle flexion/ext) - Psychiatric Psychiatric: A&O x's 3, appropriate affect Results CBC & Chem 7: 10/09/22 06:42 10/09/22 06:42 Labs: Abnormal Lab Results - Last 24 Hours (Table) 10/09/22 10/09/22 Range/Units 06:42 06:42 WBC 11.5 H (3.8-10.6) k/uL RDW 19.3 H (11.5-15.5) % Plt Count 37 L (150-450) k/uL Neutrophils # 10.0 H (1.3-7.7) k/uL Lymphocytes # 0.7 L (1.0-4.8) k/uL BUN 32 H (7-17) mg/dL Glucose 103 H (74-99) mg/dL Total Protein 6.0 L (6.3-8.2) g/dL Assessment and Plan Assessment: The patient is a 57-year-old female who was diagnosed with metastatic adenocarcinoma of the lung in April 2022. She was found to have disease involving the bone as well as brain metastasis. She was initially treated with radiosurgery to [employer] lesions in May 2022. She also underwent palliative radiotherapy to the left hip following EUGENIE for pathologic fracture and simultaneously underwent radiotherapy involving T7 to T10 in June 2022. This was done under the care of Dr. Ferguson. The patient has completed 4 cycles of Carbo/Alimta/Keytruda with her most recent on 08/27/2022. She now is hospitalized due to intractable right hip pain. Plan: 1. Right hip pain: This is likely secondary to the patient's underlying metastatic disease involving the bone. Although a direct MRI comparison is not present, the disease involving both L5 and the right hip appear more significant than on prior CT or PET exams. I discussed with the patient that at this time we would continue Decadron, optimize pain management and initiate palliative radiotherapy. I explained that unfortunately we do not feel to initiate this treatment until Wednesday morning. I discussed that a course of palliative radiotherapy may help to decrease the patient's pain and improve her function. However, it sometimes takes 1-2 weeks for the full effects of radiotherapy to be realized. Therefore, continued optimization of her pain regimen is recommended. 2. Metastatic NSCLC: As detailed above, patient has completed 4 cycles of chemotherapy immunotherapy, but has been on hold since early August. She follows with Dr. Yang. She is not recommending additional systemic therapy until the patient has adequate pain control and is able to attend an outpatient visit. They have discussed palliative care/hospice within the past week, and the patient was not interested at that time. We will move forward with palliative radiation - likely just 1 large fraction of treatment to try to accelerate her response on Wednesday. Time with Patient: Greater than 30
[2022-10-09 17:08] LABS: Partial Thromboplastin Time 20.7 sec (22.0-30.0)
[2022-10-09] MEDS: DEXAMETHASONE SOD PHOSPHATE 4 MG/ML 1 ML VIAL IVP SCH (17:17)
--- NOTE | 2022-10-09 18:10 | P.CONS ---
History of Present Illness - Reason for Consult Consult date: 10/09/22 intractable cancer pain Requesting physician: Sammy Navarro - Chief Complaint RLE pain, hx metastatic lung adenocarcinoma - History of Present Illness Ms. Steiner is a 57-year-old woman with a past medical history significant for metastatic adenocarcinoma of the lung with metastases to the brain and bone, status post stereotactic radiosurgery in May 2022 followed by 4 cycles of carboplatin/pemetrexed/pembrolizumab, last cycle in early August. She is being treated at [facility] and follows with Dr. Yang. Treatment is on hold until she receives further XRT to manage pain of RLE/hip. Pt reports treatment regimen is being changed due to disease progression. She also follows for Dr. Blood and has received stereotactic radiosurgery in May 2022, and pall iative XRT to left hip and T7-T10 in 06/2022. She was scheduled for simulation yesterday with Dr. Blood for further XRT but was unable to make appt due to pain. Patient presented to the ER with worsening right lower extremity pain and was sent by her oncologist for pain control and further evaluation by rad onc. She reports that she has been unable to ambulate because of the pain. Of note nelson felix was admitted to [facility] approximately 2 weeks ago and was diagnosed with a DVT of the right lower extremity and had stent placed and was put on eliquis at that time. patient denies loss of bowel and bladder control. Denies numbness of lower extremities. Review of Systems 10 point ROS is negative except as stated in the HPI Past Medical History Past Medical History: CVA/TIA, GERD/Reflux, Pulmonary Embolus (PE) Additional Past Medical History / Comment(s): diverticulosis,uti, "i think i have a hiatal hernia", brain and lung cancer, "bone cancer" History of Any Multi-Drug Resistant Organisms: None Reported Past Surgical History: Section, Cholecystectomy, Joint Replacement Additional Past Surgical History / Comment(s): egd/colonosocpy, left hip replacement Past Anesthesia/Blood Transfusion Reactions: No Reported Reaction Additional Past Anesthesia/Blood Transfusion Reaction / Comm: clausterphobia Past Psychological History: No Psychological Hx Reported Smoking Status: Never smoker Past Alcohol Use History: Occasional Past Drug Use History: None Reported - Past Family History Mother Family Medical History: Hypertension Father Family Medical History: Diabetes Mellitus Additional Family Medical History / Comment(s): diverticulosis Medications and Allergies Home Medications Medication Instructions Recorded Confirmed Type Apixaban [Eliquis] 5 mg PO BID 09/22/22 10/09/22 History Cyclobenzaprine [Flexeril] 5 - 10 mg PO TID PRN 09/22/22 10/09/22 History Folic Acid 1 mg PO DAILY 09/22/22 10/09/22 History Pantoprazole Sodium [Protonix] 40 mg PO DAILY 09/22/22 10/09/22 History Pregabalin [Lyrica] 50 mg PO TID 09/22/22 10/09/22 History Magnesium Oxide [Mag-Ox] 400 mg PO DAILY tab 09/25/22 10/09/22 Rx levETIRAcetam [Keppra] 500 mg PO Q12HR #60 tab 09/25/22 10/09/22 Rx Acetaminophen Tab [Tylenol] 650 mg PO Q4HR PRN 10/09/22 10/09/22 History HYDROcodone/APAP 7.5-325MG [[place] 1 tab PO Q6H PRN 10/09/22 10/09/22 History 7.5-325] Ondansetron [Zofran] 8 mg PO Q8HR PRN 10/09/22 10/09/22 History dexAMETHasone [Decadron] 4 mg PO TID 10/09/22 10/09/22 History Allergies Allergy/AdvReac Type Severity Reaction Status Date / Time diphenhydramine Allergy head to Verified 10/09/22 07:30 [From Benadryl] toe rash/peeling hands Physical Exam Vitals: Vital Signs Temp Pulse Resp BP Pulse Ox 10/09/22 08:00 91 16 120/89 96 10/09/22 07:30 88 16 119/93 95 10/09/22 06:03 105 H 20 134/96 10/09/22 05:37 98.5 F 124 H 16 114/79 98 Intake and Output 10/08/22 10/09/22 10/09/22 22:59 06:59 14:59 Other: Weight 74.843 kg - Constitutional General appearance: average body habitus, no acute distress - EENT Eyes: anicteric sclerae, EOMI ENT: hearing grossly normal - Respiratory Respiratory: bilateral: CTA - Cardiovascular Rhythm: regular Heart sounds: normal: S1, S2 Abnormal Heart Sounds: no systolic murmur, no diastolic murmur, no rub, no S3 Gallop, no S4 Gallop, no click, no other leg Peripheral Edema: bilateral: None - Gastrointestinal General gastrointestinal: soft, no tenderness - Integumentary Integumentary: normal - Neurologic sensation of lower extremities intact, RLE 4/5 strength, LLE 5/5 - Psychiatric Psychiatric: A&O x's 3, appropriate affect, intact judgment & insight Results CBC & Chem 7: 10/09/22 06:42 10/09/22 06:42 Labs: Abnormal Lab Results - Last 24 Hours (Table) 10/09/22 10/09/22 Range/Units 06:42 06:42 WBC 11.5 H (3.8-10.6) k/uL RDW 19.3 H (11.5-15.5) % Plt Count 37 L (150-450) k/uL Neutrophils # 10.0 H (1.3-7.7) k/uL Lymphocytes # 0.7 L (1.0-4.8) k/uL BUN 32 H (7-17) mg/dL Glucose 103 H (74-99) mg/dL Total Protein 6.0 L (6.3-8.2) g/dL Assessment and Plan (1) Non-small cell lung cancer (NSCLC) Current Visit: Yes Status: Acute Priority: High Code(s): C34.90 - MALIGNANT NEOPLASM OF UNSP PART OF UNSP BRONCHUS OR LUNG SNOMED Code(s): 288366655 Plan: Metastatic adenocarcinoma of the lung with metastasis to the brain/bone -Received SRS in May 2022 to 6 previously visualized brain metastases. XRT to left hip, and T7-T10 in June 2022. -Rad onc consulted. Spoke with Dr. Castorena, and simulation planned for L5 and right hip lesions on Wednesday -She has received 4 cycles of carboplatin/Alimta/pembrolizumab, last cycle in early august -She is being treated at [facility] and follows with Dr. Yang. Treatment is on hold until she receives further XRT to manage pain of RLE/hip. Pt reports treatment regimen is being changed due to disease progression. -Decadron 4mg q6hr and pain medications ordered. PPI will also be added. Thrombocytopenia: -Thrombocytopenia noted in during last admission with platelets in the 60s. Platelets 37,000 today. -Thrombocytopenia could be related to treatment, will r/o DIC and HIT. No reported episodes of bleeding -1 unit platelets ordered to maintain platelets >50,000, due to anticoagulation for recent DVT -Please transfuse for platelets less than 50,000 attests: I performed H&P and developed impression and plan a care for patient, discussed with dictator. I agree with dictated note, documented as a scribe
[2022-10-10] MEDS: DEXAMETHASONE SOD PHOSPHATE 4 MG/ML 1 ML VIAL IVP SCH ×2 (01:10→05:56)
[2022-10-10] MEDS: polyethylene glycoL 3350 17 GM POWD.PACK PO PRN (05:56)
[2022-10-10] MEDS: HYDROmorphone 1 MG/ML 1 ML SYRINGE IVP PRN ×2 (05:56→22:42)
[2022-10-10 08:23] LABS: Anisocytosis Slight; Basophils % (A) 0 %; Eosinophils # (A) 0.1 k/uL (0-0.7); Eosinophils % (A) 0 %; HCT 30.1 % (34.0-46.0); Lymphocytes # (A) 0.3 k/uL (1.0-4.8); Lymphocytes % (A) 1 %; MCH 31.6 pg (25.0-35.0); MCHC 33.1 g/dL (31.0-37.0); MCV 95.6 fL (80.0-100.0); Macrocytosis Slight; Mean Platelet Volume 9.3; Monocytes # (A) 0.5 k/uL (0-1.0); Monocytes % (A) 3 %; Neutrophils # (A) 16.4 k/uL (1.3-7.7); Neutrophils % (A) 95 %; RBC 3.15 m/uL (3.80-5.40); WBC 17.2 k/uL (3.8-10.6)
[2022-10-10 08:34] LABS: African American GFR (CKD) >90 (>60 ml/min/1.73 sqM); Anion Gap 9 mmol/L; Blood Urea Nitrogen 25 mg/dL (7-17); Carbon Dioxide 25 mmol/L (22-30); Chloride 102 mmol/L (98-107); Glucose 212 mg/dL (74-99); Non-African American GFR(CKD) >90 (>60 ml/min/1.73 sqM); Sodium 136 mmol/L (137-145)
[2022-10-10 08:35] LABS: Platelet Count 71 k/uL (150-450)
[2022-10-10] MEDS ORDERED: PANTOPRAZOLE 40 MG/10 ML VIAL IVP SCH (09:00)
[2022-10-10] MEDS: FOLIC ACID 1 MG TAB PO SCH (09:48)
[2022-10-10] MEDS: PREGABALIN 50 MG CAP PO SCH ×3 (09:48→21:12)
[2022-10-10] MEDS: levETIRAcetam 500 MG TAB PO SCH ×2 (09:48→21:12)
[2022-10-10] MEDS: MAGNESIUM OXIDE 400 MG TAB PO SCH (09:48)
[2022-10-10] MEDS: APIXABAN 5 MG TAB PO SCH ×2 (09:48→21:12)
[2022-10-10] MEDS: PANTOPRAZOLE 40 MG TABLET PO SCH (09:48)
[2022-10-10] MEDS: HYDROcodone/APAP 7.5-325MG 1 EACH TAB PO PRN ×2 (09:52→18:10)
--- NOTE | 2022-10-10 10:48 | P.PN ---
Subjective Progress Note Date: 10/10/22 Hospital Course: 57-year-old female with history of lung cancer metastatic to brain, PE on Eliquis and recent IVC filter, seizure disorder presenting with worsening right lower extremity pain. In the ED, temperature was 98.5, pulse 124, blood pressure 114/79, respiratory rate 16, oxygen saturation 98% on room air. Lab workup showed WBC 11.5, platelet 37, sodium 137, creatinine 0.76. Patient admitted for acute or chronic intractable malignancy related pain, and likely L5 radiculopa thy. Patient oncology and oncology consulted. Subjective: Patient seen and examined at bedside. Pain has improved. She was able to get up out of the bed and use a commode. Denies any other complaints at the moment. Pertinent positives and negatives as discussed above, a complete review of sys tems was performed and all other systems are negative. Vitals Signs Reviewed. General: nontoxic, no distress, appears at stated age Derm: warm, dry Head: atraumatic, normocephalic, symmetric Eyes: EOMI, no lid lag, anicteric sclera Mouth: no lip lesion, mucus membranes moist Cardiovascular: S1S2 reg, no murmur Lungs: CTA bilateral, no rhonchi, no rales , no accessory muscle use Abdominal: soft, nontender to palpation, no guarding, no appreciable organomegaly Ext: no gross muscle atrophy, no edema, no contractures Neuro: CN II-XI grossly intact, no focal neuro deficits Psych: Alert, oriented, appropriate affect Data Reviewed Today: Pertinent Labs: WBC 17.2, hemoglobin 10, platelet 71, sodium 136, creatinine 0.57, blood sugar 212 Assessment and Plan: L5 radiculopathy Intractable pain, related to malignancy Metastatic lung cancer, with metastases to brain and spine Seizure disorder Leukocytosis Thrombocytopenia PE on Eliquis and status post IVC filter Hyperglycemia -Oncology note reviewed: Continue Decadron 4 mg every 6 hours, started on PPI, rule out DIC, and HRT, given 1 unit of platelets -Radiation oncology note reviewed: We'll be initiating palliative radiotherapy, likely on Wednesday -On Dilaudid 1 mg IV every 3 hours as needed, Tylenol 650 mg every 4 hours as needed, Nelson 7.5 every 6 hours as needed -Lyrica 50 mg 3 times a day -Continue Keppra 500 twice a day -Leukocytosis likely reactive and steroid-induced -Continue Eliquis 5 mg twice a day -Palliative care consulted -Hyperglycemia likely related to steroids DVT ppx: Eliquis Code status: Full code Anticipated discharge place: Pending clinical course Anticipated discharge time: Pending clinical course Objective - Vital Signs Vital signs: Vital Signs Temp 98.4 F 10/10/22 07:48 Pulse 85 10/10/22 07:48 Resp 18 10/10/22 07:48 BP 155/84 10/10/22 07:48 Pulse Ox 96 10/10/22 07:48 FiO2 Intake & Output 10/09/22 10/10/22 10/10/22 18:59 06:59 18:59 Intake Total 811 Balance 811 Weight 74.843 kg Intake: Oral 450 Blood Product 361 Platelet Pheresis Pas 361 Psoralen Unit [id number] Other: Voiding Method Bedside Commode Bedpan # Voids 1 1 # Bowel Movements 0 - Labs CBC & Chem 7: 10/10/22 07:43 10/10/22 07:43 Labs: Abnormal Lab Results - Last 24 Hours (Table) 10/09/22 10/10/22 10/10/22 Range/Units 15:57 07:43 07:43 WBC 17.2 H (3.8-10.6) k/uL RBC 3.15 L (3.80-5.40) m/uL Hgb 10.0 L D (11.4-16.0) gm/dL Hct 30.1 L (34.0-46.0) % RDW 19.0 H (11.5-15.5) % Plt Count 71 L D (150-450) k/uL Neutrophils # 16.4 H (1.3-7.7) k/uL Lymphocytes # 0.3 L (1.0-4.8) k/uL APTT 20.7 L (22.0-30.0) sec Sodium 136 L (137-145) mmol/L BUN 25 H (7-17) mg/dL Glucose 212 H (74-99) mg/dL
[2022-10-10] MEDS: dexAMETHasone 4 MG TAB PO SCH ×3 (14:56→21:12)
[2022-10-11] MEDS: MAGNESIUM OXIDE 400 MG TAB PO SCH (07:42)
[2022-10-11] MEDS: APIXABAN 5 MG TAB PO SCH ×2 (07:42→20:23)
[2022-10-11] MEDS: PREGABALIN 50 MG CAP PO SCH ×3 (07:42→21:33)
[2022-10-11] MEDS: FOLIC ACID 1 MG TAB PO SCH (07:43)
[2022-10-11] MEDS: PANTOPRAZOLE 40 MG TABLET PO SCH (07:43)
[2022-10-11] MEDS: levETIRAcetam 500 MG TAB PO SCH ×2 (07:43→20:23)
[2022-10-11] MEDS: dexAMETHasone 4 MG TAB PO SCH ×3 (07:43→21:33)
[2022-10-11] MEDS: HYDROcodone/APAP 7.5-325MG 1 EACH TAB PO PRN (09:05)
--- NOTE | 2022-10-11 10:20 | P.PN ---
Subjective Progress Note Date: 10/11/22 Hospital Course: 57-year-old female with history of lung cancer metastatic to brain, PE on Eliqu is and recent IVC filter, seizure disorder presenting with worsening right lower extremity pain. In the ED, temperature was 98.5, pulse 124, blood pressure 114/79, respiratory rate 16, oxygen saturation 98% on room air. Lab workup showed WBC 11.5, platelet 37, sodium 137, creatinine 0.76. Patient admitted for acute or chronic intractable malignancy related pain, and likely L5 radiculopathy. Radiation oncology and oncology consulted. Subjective: Patient seen and examined at bedside. Pain has improved. She was able to get up out of the bed and use a commode. Denies any other complaints at the moment. Pertinent positives and negatives as discussed above, a complete review of systems was performed and all other systems are negative. Vitals Signs Reviewed. General: nontoxic, no distress, appears at stated age Derm: warm, dry Head: atraumatic, normocephalic, symmetric Eyes: EOMI, no lid lag, anicteric sclera Mouth: no lip lesion, mucus membranes moist Cardiovascular: S1S2 reg, no murmur Lungs: CTA bilateral, no rhonchi, no rales , no accessory muscle use Abdominal: soft, nontender to palpation, no guarding, no appreciable organomegaly Ext: no gross muscle atrophy, no edema, no contractures Neuro: CN II-XI grossly intact, no focal neuro deficits Psych: Alert, oriented, appropriate affect Data Reviewed Today: Pertinent Labs: CBC and BMP pending, will be reviewed when available, fibrinogen 487 Assessment and Plan: L5 radiculopathy Intractable pain, related to malignancy Metastatic lung cancer, with metastases to brain and spine Seizure disorder Leukocytosis Thrombocytopenia, status post 1 unit of platelets PE on Eliquis and status post IVC filter Hyperglycemia -Oncology following, Continue Decadron 4 mg every 6 hours, started on pantoprazole 40, status post 1 unit of platelets -Less likely to be DIC, fibrinogen normal, HIT panel pending -Radiation oncology following, plan to initiate palliative radiotherapy, likely on Wednesday -On Dilaudid 1 mg IV every 3 hours as needed, Tylenol 650 mg every 4 hours as needed, [employer] 7.5 every 6 hours as needed -Lyrica 50 mg 3 times a day -Continue Keppra 500 twice a day -Leukocytosis likely reactive and steroid-induced, CBC ordered for tomorrow -Continue Eliquis 5 mg twice a day -Palliative care consulted -Hyperglycemia likely related to steroids DVT ppx: Eliquis Code status: Full code Anticipated discharge place: Pending clinical course Anticipated discharge time: Pending clinical course Objective - Vital Signs Vital signs: Vital Signs Temp 98.2 F 10/11/22 08:00 Pulse 93 10/11/22 08:00 Resp 16 10/11/22 08:00 BP 149/85 10/11/22 08:00 Pulse Ox 97 10/11/22 08:00 FiO2 Intake & Output 10/10/22 10/11/22 10/11/22 18:59 06:59 18:59 Other: Voiding Method Bedside Commode Bedside Commode # Voids 1 2 - Labs CBC & Chem 7: 10/10/22 07:43 10/10/22 07:43
[2022-10-11 11:07] LABS: African American GFR (CKD) 91.2 (60.0-200.0); Anion Gap 13.3 mmol/L (10.00-18.00); BUN/Creat Ratio 33.45 Ratio (12.00-20.00); Blood Urea Nitrogen 27.8 mg/dL (9.0-27.0); Calcium 9.2 mg/dL (8.7-10.3); Carbon Dioxide 23.3 mmol/L (20.0-27.5); Non-African American GFR(CKD) 78.7 (60.0-200.0); Potassium 4.1 mmol/L (3.5-5.5)
[2022-10-11 12:01] LABS: Basophils # (A) 0.02 X 10*3/uL (0.00-0.10); Basophils % (A) 0.1 %; Eosinophils # (A) 0.01 X 10*3/uL (0.04-0.35); Eosinophils % (A) 0.1 %; HCT 27.3 % (37.2-46.3); HGB 8.8 g/dL (12.0-15.0); Immature Grans, Automated 1.2 %; Immature Platelet Fraction 10.8 % (1.1-6.1); Lymphocytes # (A) 0.22 X 10*3/uL (0.90-5.00); Lymphocytes % (A) 1.2 %; MCHC 32.2 g/dL (32.0-37.0); MCV 96.1 fL (80.0-97.0); Mean Platelet Volume 13.2 fL (9.5-12.2); Monocytes # (A) 0.45 X 10*3/uL (0.20-1.00); Monocytes % (A) 2.5 %; NRBC Per 100 WBC 0 /100 WBCS (0.0-0.0); Neutrophils # (A) 16.86 X 10*3/uL (1.80-7.70); Neutrophils % (A) 94.9 %; Platelet Count 53 X 10*3/uL (140-440); RBC 2.84 X 10*6/uL (4.10-5.20); RDW 19.9 % (11.5-14.5); WBC 17.77 X 10*3/uL (4.50-10.00)
[2022-10-11] MEDS: HYDROmorphone 1 MG/ML 1 ML SYRINGE IVP PRN (12:07)
[2022-10-11] MEDS ORDERED: DEXTROSE 50% SYRINGE 50 ML IVP PRN (13:37)
--- NOTE | 2022-10-11 15:46 | P.PN ---
Subjective Progress Note Date: 10/11/22 Principal diagnosis: hx of metastatic lung adenocarcinoma, RLE pain At today's visit patient is resting comfortably in bed, family at bedside. Patient reports pain has been controlled on current medication regimen. She reports that right lower extremity pain worsened today when she was on the commode, and believes she was sitting down for too long. She has been taking 2 mg of IVP Dilaudid daily and two 7.5 mg [place] daily over the last 48 hours with adequate pain control. Plan to transition to oral pain meds. Simulation was rad onc planned for tomorrow Objective - Vital Signs Vital signs: Vital Signs Temp 97.5 F L 10/11/22 14:00 Pulse 98 10/11/22 14:00 Resp 18 10/11/22 14:00 BP 144/82 10/11/22 14:00 Pulse Ox 96 10/11/22 14:00 FiO2 Intake & Output 10/10/22 10/11/22 10/11/22 18:59 06:59 18:59 Other: Voiding Method Bedside Commode Bedside Commode # Voids 1 2 - Constitutional General appearance: Present: average body habitus, no acute distress - EENT Eyes: Present: anicteric sclerae, EOMI ENT: Present: hearing grossly normal - Respiratory Details: breathing is even and unlabored - Cardiovascular Details: skin is warm and dry - Integumentary Integumentary: Present: normal - Neurologic Neurologic Comment(s): right lower extremity weakness related to pain - Psychiatric Psychiatric: Present: A&O x's 3, appropriate affect, intact judgment & insight - Labs CBC & Chem 7: 10/11/22 04:22 10/11/22 04:22 Labs: Abnormal Lab Results - Last 24 Hours (Table) 10/11/22 10/11/22 Range/Units 04:22 04:22 WBC 17.77 H (4.50-10.00) X 10*3/uL RBC 2.84 L (4.10-5.20) X 10*6/uL Hgb 8.8 L (12.0-15.0) g/dL Hct 27.3 L (37.2-46.3) % RDW 19.9 H (11.5-14.5) % Plt Count 53 L (140-440) X 10*3/uL MPV 13.2 H (9.5-12.2) fL Immature Gran # 0.21 H (0.00-0.04) X 10*3/uL Neutrophils # 16.86 H (1.80-7.70) X 10*3/uL Lymphocytes # 0.22 L (0.90-5.00) X 10*3/uL Eosinophils # 0.01 L (0.04-0.35) X 10*3/uL Immature Plt Fraction 10.8 H (1.1-6.1) % BUN 27.8 H (9.0-27.0) mg/dL BUN/Creatinine Ratio 33.45 H (12.00-20.00) Ratio Glucose 344 H (70-110) mg/dL Assessment and Plan (1) Non-small cell lung cancer (NSCLC) Current Visit: Yes Status: Acute Priority: High Code(s): C34.90 - MALIGNANT NEOPLASM OF UNSP PART OF UNSP BRONCHUS OR LUNG SNOMED Code(s): 128102727 Plan: Metastatic adenocarcinoma of the lung with metastasis to the brain/bone -Received SRS in May 2022 to 6 previously visualized brain metastases. XRT to left hip, and T7-T10 in June 2022. -Rad onc consulted. Spoke with Dr. Castorena, and simulation planned for L5 and right hip lesions on Wednesday, no concern for cord compression at this time. Decadron switched to PO TID, continue PPI -She has been taking 2 mg of IVP Dilaudid daily and two 7.5 mg [place] daily over the last 48 hours with adequate pain control. Will transition to oral pain med regimen. -She has received 4 cycles of carboplatin/Alimta/pembrolizumab, last cycle in early august -She is being treated at [facility] and follows with Dr. Yang. Treatment is on hold until she receives further palliative XRT to manage pain of RLE/hip. Pt reports treatment regimen is being changed due to disease progression. Will f/u with Dr. Yang upon discharge Thrombocytopenia: -Thrombocytopenia noted in during last admission with platelets in the 60s. Platelets 53,000 today. -Thrombocytopenia could be related to treatment, will r/o DIC and HIT. DIC negative, HIT pending. No reported episodes of bleeding -S/p 1 unit of platelets to maintain platelets >50,000, due to anticoagulation for recent DVT -Please transfuse for platelets less than 50,000
[2022-10-11 17:20] LABS: Glucose,Whole Blood 339 mg/dL (70-110)
[2022-10-11] MEDS: INSULIN ASPART (NovoLOG) 100 UNIT/ML VIAL SQ SCH ×2 (17:49→20:23)
[2022-10-11 20:10] LABS: Glucose,Whole Blood 368 mg/dL (70-110)
[2022-10-12] MEDS: HYDROcodone/APAP 7.5-325MG 1 EACH TAB PO PRN ×4 (01:54→21:38)
[2022-10-12 08:03] LABS: Glucose,Whole Blood 168 mg/dL (70-110)
[2022-10-12] MEDS: PREGABALIN 50 MG CAP PO SCH ×3 (08:39→21:38)
[2022-10-12] MEDS: PANTOPRAZOLE 40 MG TABLET PO SCH (08:39)
[2022-10-12] MEDS: MAGNESIUM OXIDE 400 MG TAB PO SCH (08:39)
[2022-10-12] MEDS: APIXABAN 5 MG TAB PO SCH ×2 (08:39→20:10)
[2022-10-12] MEDS: INSULIN ASPART (NovoLOG) 100 UNIT/ML VIAL SQ SCH ×4 (08:39→20:14)
[2022-10-12] MEDS: levETIRAcetam 500 MG TAB PO SCH ×2 (08:40→20:10)
[2022-10-12] MEDS: dexAMETHasone 4 MG TAB PO SCH ×3 (08:40→21:38)
[2022-10-12] MEDS: FOLIC ACID 1 MG TAB PO SCH (08:40)
[2022-10-12 11:34] LABS: African American GFR (CKD) 105.8 (60.0-200.0); Anion Gap 11.9 mmol/L (10.00-18.00); BUN/Creat Ratio 34.56 Ratio (12.00-20.00); Blood Urea Nitrogen 25.4 mg/dL (9.0-27.0); Calcium 9.2 mg/dL (8.7-10.3); Carbon Dioxide 23.7 mmol/L (20.0-27.5); Non-African American GFR(CKD) 91.3 (60.0-200.0); Potassium 4.3 mmol/L (3.5-5.5)
[2022-10-12 12:14] LABS: HCT 27.4 % (37.2-46.3); HGB 8.8 g/dL (12.0-15.0); MCH 31.3 pg (27.0-32.0); MCHC 32.1 g/dL (32.0-37.0); MCV 97.5 fL (80.0-97.0); Mean Platelet Volume 12.4 fL (9.5-12.2); NRBC Per 100 WBC 0 /100 WBCS (0.0-0.0); Platelet Count 59 X 10*3/uL (140-440); RBC 2.81 X 10*6/uL (4.10-5.20); RDW 19.9 % (11.5-14.5); WBC 19.62 X 10*3/uL (4.50-10.00)
[2022-10-12 12:15] LABS: Basophils # (M) 0 X 10*3/uL (0.00-0.10); Eosinophils # (M) 0 X 10*3/uL (0.04-0.35); Immature Platelet Fraction 11.2 % (1.1-6.1); Monocytes # (M) 0.59 X 10*3/uL (0.20-1.00); Neutrophils # (M) 18.84 X 10*3/uL (2.00-8.90); Neutrophils % (M) 96 %; RBC Morphology NORMAL
[2022-10-12 12:31] LABS: Glucose,Whole Blood 205 mg/dL (70-110)
--- NOTE | 2022-10-12 15:08 | P.PN ---
Subjective Progress Note Date: 10/12/22 Principal diagnosis: Intractable pain from metastasis, non-small cell lung cancer In follow-up today patient has just returned from being simulated for radiation to painful mets, she will begin radiation tomorrow. Her pain is fairly well- controlled currently, on [place]. Reports increased pain when her legs "dangle"- ie sitting in chair, on commode, at bedside. She reports a bowel movement yesterday, soft and easily passable. Objective - Vital Signs Vital signs: Vital Signs Temp 98.1 F 10/12/22 06:56 Pulse 73 10/12/22 06:56 Resp 17 10/12/22 06:56 BP 154/81 10/12/22 06:56 Pulse Ox 98 10/12/22 06:56 FiO2 Intake & Output 10/11/22 10/12/22 10/12/22 18:59 06:59 18:59 Intake Total 600 Balance 600 Intake: Oral 600 Other: Voiding Method Bedside Commode Bedside Commode # Voids 2 2 - Constitutional General appearance: Present: average body habitus, cooperative, no acute distress - EENT Eyes: Present: anicteric sclerae, EOMI ENT: Present: hearing grossly normal - Respiratory Details: Respirations even and unlabored at rest - Integumentary Integumentary: Present: normal - Neurologic Neurologic: Present: CNII-XII intact (Grossly) - Psychiatric Psychiatric: Present: A&O x's 3, appropriate affect, intact judgment & insight - Labs CBC & Chem 7: 10/12/22 05:54 10/12/22 05:54 Labs: Abnormal Lab Results - Last 24 Hours (Table) 10/11/22 10/11/22 10/11/22 Range/Units 04:22 04:22 17:17 WBC 17.77 H (4.50-10.00) X 10*3/uL RBC 2.84 L (4.10-5.20) X 10*6/uL Hgb 8.8 L (12.0-15.0) g/dL Hct 27.3 L (37.2-46.3) % RDW 19.9 H (11.5-14.5) % Plt Count 53 L (140-440) X 10*3/uL MPV 13.2 H (9.5-12.2) fL Immature Gran # 0.21 H (0.00-0.04) X 10*3/uL Neutrophils # 16.86 H (1.80-7.70) X 10*3/uL Lymphocytes # 0.22 L (0.90-5.00) X 10*3/uL Eosinophils # 0.01 L (0.04-0.35) X 10*3/uL Immature Plt Fraction 10.8 H (1.1-6.1) % BUN 27.8 H (9.0-27.0) mg/dL BUN/Creatinine Ratio 33.45 H (12.00-20.00) Ratio Glucose 344 H (70-110) mg/dL POC Glucose (mg/dL) 339 H (70-110) mg/dL 10/11/22 10/12/22 Range/Units 20:08 08:02 WBC (4.50-10.00) X 10*3/uL RBC (4.10-5.20) X 10*6/uL Hgb (12.0-15.0) g/dL Hct (37.2-46.3) % RDW (11.5-14.5) % Plt Count (140-440) X 10*3/uL MPV (9.5-12.2) fL Immature Gran # (0.00-0.04) X 10*3/uL Neutrophils # (1.80-7.70) X 10*3/uL Lymphocytes # (0.90-5.00) X 10*3/uL Eosinophils # (0.04-0.35) X 10*3/uL Immature Plt Fraction (1.1-6.1) % BUN (9.0-27.0) mg/dL BUN/Creatinine Ratio (12.00-20.00) Ratio Glucose (70-110) mg/dL POC Glucose (mg/dL) 368 H 168 H (70-110) mg/dL Assessment and Plan (1) Intractable pain Current Visit: Yes Status: Acute Code(s): R52 - PAIN, UNSPECIFIED SNOMED Code(s): 47074719 (2) Non-small cell lung cancer (NSCLC) Current Visit: Yes Status: Acute Priority: High Code(s): C34.90 - MALIGNAN T NEOPLASM OF UNSP PART OF UNSP BRONCHUS OR LUNG SNOMED Code(s): 504096227 Plan: NSCLC -Progressive metastatic disease to the bones. Simulated and will start palliative radiation tomorrow -Hx of brain mets, previously treated with XRT -Tx at [facility] Primary Oncologist Dr. Yang. Finish palliative radiation 1st. Will f/u with Dr. Yang after discharge Intractable pain 2/2 metastatic disease -[place] working well in conjunction with steroids. Cont outpt for now -Radiation to start tomorrow for pain control -Medications for prevention of narcotic induced constipation ordered, cont outpt -PPI for prevention of steroid induced gastritis, cont outpt Doctor attests: I performed a history and physical examination of this patient, developed impression and plan of care. Discussed with dictator. I agree with dictators note, documented as a scribe.
--- NOTE | 2022-10-12 15:20 | P.PN ---
Subjective Progress Note Date: 10/12/22 Patient is a 57-year-old female with a history of metastatic lung cancer to brain and spine, pulmonary embolism on Eliquis with recent IVC filter and DVT, and seizure disorder who presented to the ER with complaints of worsening right lower extremity pain. She had a known L1 5 lesion with nerve root impingement. She presented to the ER for intractable pain. On presentation to the ER her vital signs within normal limits, lab work was remarkable for white blood cell count of 11.5, platelets 37, sodium 137, creatinine 0.76. She was admitted and was started on Dilaudid and [place] for pain as well as Lyrica. Oncology and radiation oncology were consulted. Patient underwent simulation for radiation on 10/12. Patient seen and examined at bedside. I had a long discussion with patient and her spouse. We discussed that she would benefit from longer acute opiate medications to achieve better pain control. Her and her will think about the benefits and risks that we talked about including sedation, increased ability to participate in ADLs, and constipation. They will consider this and we will reconvene tomorrow. Vital signs reviewed General: nontoxic, no distress, appears at stated age Cardiovascular: S1S2 reg, no murmur, positive posterior tibial pulse bilateral, Lungs: CTA bilateral, no rhonchi, no rales , no accessory muscle use Ext: no gross muscle atrophy, no edema, no contractures Neuro: CN II-XI grossly intact, no focal neuro deficits Psych: Alert, oriented, appropriate affect Assessment: Intractable malignancy related pain secondary to an L5 nerve root impingement Metastatic lung cancer with metastases to the brain and bone Thrombocytopenia, likely related to treatment for cancer and overall oncologic process Newly discovered DM 2 with hyperglycemia due to steroids Seizure disorder Leukocytosis Thrombocytopenia, status post 1 unit of platelets, HIT ruled out PE on Eliquis and status post IVC filter Imaging: None new Data Review: Vital signs reviewed from this morning temperature 98.1, respirations 17, pulse 73, blood pressure 154/81, O2 sat 98% on room air Morning laboratory analysis remarkable for white blood cell count 19.62, hemoglobin 8.8, platelets 59, blood sugar 205, A1c 6.5 Plan: - Had radaition simulation today, Plan is for radiation tomorrow at 10 am - Continue Decadron 4 mg every 6 hours, pantoprazole 40 mg daily, status post 1 unit of platelets - Conitnue with [place] 7.5 every 6 hours as needed. Patient consider long acting opiate medication. - Tylenol 650 mg every 4 hours as needed, - Lyrica 50 mg 3 times a day - Keppra 500 twice a day -Leukocytosis likely reactive and steroid-induced, Repeat CBC in AM, no signs of infection -Continue Eliquis 5 mg twice a day -Await palliative care recs -Hyperglycemia likely related to steroids - Will discuss with pt new diagnosis of DM in the morning, labs not available when I evaluated the patient. DVT prophylaxis: Eliquis Anticipated discharge date: Pending clinical course Anticipated discharge place: Pending clinical course This dictation was prepared using [employer] voice recognition software. Though every attempt is made to correct errors during during dictation some may still exist. Objective - Vital Signs Vital signs: Vital Signs Temp 98.1 F 10/12/22 06:56 Pulse 73 10/12/22 06:56 Resp 17 10/12/22 06:56 BP 154/81 10/12/22 06:56 Pulse Ox 98 10/12/22 06:56 FiO2 Intake & Output 10/11/22 10/12/22 10/12/22 18:59 06:59 18:59 Intake Total 600 Balance 600 Intake: Oral 600 Other: Voiding Method Bedside Commode Bedside Commode # Voids 2 2 - Labs CBC & Chem 7: 10/12/22 05:54 10/12/22 05:54 Labs: Abnormal Lab Results - Last 24 Hours (Table) 10/11/22 10/11/22 10/12/22 Range/Units 17:17 20:08 05:54 WBC (4.50-10.00) X 10*3/uL RBC (4.10-5.20) X 10*6/uL Hgb (12.0-15.0) g/dL Hct (37.2-46.3) % MCV (80.0-97.0) fL RDW (11.5-14.5) % Plt Count (140-440) X 10*3/uL Plt Count Comment MPV (9.5-12.2) fL Neutrophils # (Manual) (2.00-8.90) X 10*3/uL Lymphocytes # (Manual) (0.90-5.00) X 10*3/uL Eosinophils # (Manual) (0.04-0.35) X 10*3/uL Immature Plt Fraction (1.1-6.1) % BUN/Creatinine Ratio (12.00-20.00) Ratio Glucose (70-110) mg/dL POC Glucose (mg/dL) 339 H 368 H (70-110) mg/dL Hemoglobin A1c 6.5 H (0.0-6.0) % 10/12/22 10/12/22 10/12/22 Range/Units 05:54 05:54 08:02 WBC 19.62 H (4.50-10.00) X 10*3/uL RBC 2.81 L (4.10-5.20) X 10*6/uL Hgb 8.8 L (12.0-15.0) g/dL Hct 27.4 L (37.2-46.3) % MCV 97.5 H (80.0-97.0) fL RDW 19.9 H (11.5-14.5) % Plt Count 59 L (140-440) X 10*3/uL Plt Count Comment A MPV 12.4 H (9.5-12.2) fL Neutrophils # (Manual) 18.84 H (2.00-8.90) X 10*3/uL Lymphocytes # (Manual) 0.20 L (0.90-5.00) X 10*3/uL Eosinophils # (Manual) 0 L (0.04-0.35) X 10*3/uL Immature Plt Fraction 11.2 H (1.1-6.1) % BUN/Creatinine Ratio 34.56 H (12.00-20.00) Ratio Glucose 162 H (70-110) mg/dL POC Glucose (mg/dL) 168 H (70-110) mg/dL Hemoglobin A1c (0.0-6.0) % 10/12/22 Range/Units 12:28 WBC (4.50-10.00) X 10*3/uL RBC (4.10-5.20) X 10*6/uL Hgb (12.0-15.0) g/dL Hct (37.2-46.3) % MCV (80.0-97.0) fL RDW (11.5-14.5) % Plt Count (140-440) X 10*3/uL Plt Count Comment MPV (9.5-12.2) fL Neutrophils # (Manual) (2.00-8.90) X 10*3/uL Lymphocytes # (Manual) (0.90-5.00) X 10*3/uL Eosinophils # (Manual) (0.04-0.35) X 10*3/uL Immature Plt Fraction (1.1-6.1) % BUN/Creatinine Ratio (12.00-20.00) Ratio Glucose (70-110) mg/dL POC Glucose (mg/dL) 205 H (70-110) mg/dL Hemoglobin A1c (0.0-6.0) %
[2022-10-12 17:03] LABS: Glucose,Whole Blood 301 mg/dL (70-110)
[2022-10-12 20:11] LABS: Glucose,Whole Blood 391 mg/dL (70-110)
--- NOTE | 2022-10-12 20:29 | P.CONS ---
History of Present Illness - Reason for Consult Consult date: 10/12/22 Goals of care Requesting physician: Owen Franco - Chief Complaint Intractable right lower extremity pain - History of Present Illness The patient is a 57 year-old female with a past medical history of seizure disorder and Pr - on Eliquis and s/p IVC filter. 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 She is status post stereotactic radiosurgery in May 2022, followed by 4 cycles of carboplatin/pemetrexed/pembrolizumab, last cycle in early August.Treatment is on hold until she receives further XRT to manage pain of RLE/hip. She also has has has received stereotactic radiosurgery in May 2022, and palliative XRT to left hip and T7-T10 in 06/2022. She presented to the emergency department on 10/09/22 with intractable right lower extremity pain. She claims that she had a recent MRI lumbar spine done at [facility] which showed a lesion at L5 causing nerve impingement leading to radiculopathy. She was supposed to get radiation yesterday, but missed her appointment due to intractable leg pain. She was unable to ambulate due to the pain. She was then asked by her physician to present to the hospital for further radiation and pain management.She denied any nausea, vomiting, consitpation, abdominal pain chest pain, or shortness of breath. She denies any loss of bowel or bowel control. No numbness of lower extremities. discussed with the patient that at this time we would continue Decadron, optimize pain management and initiate palliative radiotherapy. He explained that unfortunately we do not feel to initiate this treatment until Wednesday morning. He discussed that a course of palliative radiotherapy may help to decrease the patient's pain and improve her function. However, it sometimes takes 1-2 weeks for the full effects of radiotherapy to be realized. Therefore, continued optimization of her pain regimen is recommended. Review of Systems Constitutional: Reports as per HPI Past Medical History Past Medical History: CVA/TIA, GERD/Reflux, Pulmonary Embolus (PE) Additional Past Medical History / Comment(s): diverticulosis,uti, "i think i have a hiatal hernia", brain and lung cancer, "bone cancer" History of Any Multi-Drug Resistant Organisms: None Reported Past Surgical History: Section, Cholecystectomy, Joint Replacement Additional Past Surgical History / Comment(s): egd/colonosocpy, left hip replacement Past Anesthesia/Blood Transfusion Reactions: No Reported Reaction Additional Past Anesthesia/Blood Transfusion Reaction / Comm: clausterphobia Past Psychological History: No Psychological Hx Reported Smoking Status: Never smoker Past Alcohol Use History: Occasional Past Drug Use History: None Reported - Past Family History Mother Family Medical History: Hypertension Father Family Medical History: Diabetes Mellitus Additional Family Medical History / Comment(s): diverticulosis Medications and Allergies Home Medications Medication Instructions Recorded Confirmed Type Apixaban [Eliquis] 5 mg PO BID 09/22/22 10/09/22 History Cyclobenzaprine [Flexeril] 5 - 10 mg PO TID PRN 09/22/22 10/09/22 History Folic Acid 1 mg PO DAILY 09/22/22 10/09/22 History Pantoprazole Sodium [Protonix] 40 mg PO DAILY 09/22/22 10/09/22 History Pregabalin [Lyrica] 50 mg PO TID 09/22/22 10/09/22 History Magnesium Oxide [Mag-Ox] 400 mg PO DAILY tab 09/25/22 10/09/22 Rx levETIRAcetam [Keppra] 500 mg PO Q12HR #60 tab 09/25/22 10/09/22 Rx Acetaminophen Tab [Tylenol] 650 mg PO Q4HR PRN 10/09/22 10/09/22 History HYDROcodone/APAP 7.5-325MG [[place] 1 tab PO Q6H PRN 10/09/22 10/09/22 History 7.5-325] Ondansetron [Zofran] 8 mg PO Q8HR PRN 10/09/22 10/09/22 History dexAMETHasone [Decadron] 4 mg PO DIRECTED #25 tablet 10/11/22 Rx Allergies Allergy/AdvReac Type Severity Reaction Status Date / Time diphenhydramine Allergy head to Verified 10/09/22 07:30 [From Benadryl] toe rash/peeling hands Physical Exam Vitals: Vital Signs Temp Pulse Resp BP BP Pulse Ox 10/12/22 06:56 98.1 F 73 17 154/81 98 10/12/22 02:20 98.7 F 85 18 154/85 96 10/12/22 01:37 98.4 F 83 18 164/88 97 10/11/22 20:05 18 Intake and Output 10/12/22 10/12/22 10/12/22 06:59 14:59 22:59 Intake Total 600 Balance 600 Intake: Oral 600 Other: Voiding Method Bedside Commode # Voids 2 3 General: Nontoxic, no acute distress HEENT: Atraumatic, normocephalic Lungs: Repirations even and unlabored. On RA GI: Soft, non-distended, non-tender Ext: No gross muscle atrophy, no edema, no contractures Neuro: Alert and oriented x 3. CN II-XI grossly intact, no focal deficits Psych: Alppropriate mood and affect, Intact judgement and insight Results CBC & Chem 7: 10/12/22 05:54 10/12/22 05:54 Labs: Abnormal Lab Results - Last 24 Hours (Table) 10/11/22 10/12/22 10/12/22 Range/Units 20:08 05:54 05:54 WBC 19.62 H (4.50-10.00) X 10*3/uL RBC 2.81 L (4.10-5.20) X 10*6/uL Hgb 8.8 L (12.0-15.0) g/dL Hct 27.4 L (37.2-46.3) % MCV 97.5 H (80.0-97.0) fL RDW 19.9 H (11.5-14.5) % Plt Count 59 L (140-440) X 10*3/uL Plt Count Comment A MPV 12.4 H (9.5-12.2) fL Neutrophils # (Manual) 18.84 H (2.00-8.90) X 10*3/uL Lymphocytes # (Manual) 0.20 L (0.90-5.00) X 10*3/uL Eosinophils # (Manual) 0 L (0.04-0.35) X 10*3/uL Immature Plt Fraction 11.2 H (1.1-6.1) % BUN/Creatinine Ratio (12.00-20.00) Ratio Glucose (70-110) mg/dL POC Glucose (mg/dL) 368 H (70-110) mg/dL Hemoglobin A1c 6.5 H (0.0-6.0) % 10/12/22 10/12/22 10/12/22 Range/Units 05:54 08:02 12:28 WBC (4.50-10.00) X 10*3/uL RBC (4.10-5.20) X 10*6/uL Hgb (12.0-15.0) g/dL Hct (37.2-46.3) % MCV (80.0-97.0) fL RDW (11.5-14.5) % Plt Count (140-440) X 10*3/uL Plt Count Comment MPV (9.5-12.2) fL Neutrophils # (Manual) (2.00-8.90) X 10*3/uL Lymphocytes # (Manual) (0.90-5.00) X 10*3/uL Eosinophils # (Manual) (0.04-0.35) X 10*3/uL Immature Plt Fraction (1.1-6.1) % BUN/Creatinine Ratio 34.56 H (12.00-20.00) Ratio Glucose 162 H (70-110) mg/dL POC Glucose (mg/dL) 168 H 205 H (70-110) mg/dL Hemoglobin A1c (0.0-6.0) % 10/12/22 Range/Units 17:01 WBC (4.50-10.00) X 10*3/uL RBC (4.10-5.20) X 10*6/uL Hgb (12.0-15.0) g/dL Hct (37.2-46.3) % MCV (80.0-97.0) fL RDW (11.5-14.5) % Plt Count (140-440) X 10*3/uL Plt Count Comment MPV (9.5-12.2) fL Neutrophils # (Manual) (2.00-8.90) X 10*3/uL Lymphocytes # (Manual) (0.90-5.00) X 10*3/uL Eosinophils # (Manual) (0.04-0.35) X 10*3/uL Immature Plt Fraction (1.1-6.1) % BUN/Creatinine Ratio (12.00-20.00) Ratio Glucose (70-110) mg/dL POC Glucose (mg/dL) 301 H (70-110) mg/dL Hemoglobin A1c (0.0-6.0) % Assessment and Plan Plan: Summary/Goals - The patient is resting in bed. Her , Michael, is present. Information regarding palliative care philosophies and services was provided. The patient got really anxious and stated that we are not to discuss the "H" word. She stated she is not willing to even consider hospice. The differences between palliative care were discussed. She stated that she is viewing this pain as a temporary set back. 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 She has 3 adult children and 3 grandchildren. She has been to Michael for 10 years. She states that she is very blessed to have a close family and is spoiled. She counts heavily on here to remember details and help her make decisions. She understands her diagnosis and her prognosis. She states she believes 90% of the castrejon is a positive mind set. She would like to continue treatment for her cancer once her palliative radiation treatment is done to help control her lower extremity pain. She rates her pain as a 7/10. A Fentanyl patch was added to her regimen to help provided consistent pain. She is hopeful that then she will not need to take [place] anymore. She agreed to think about outpatient palliative care. Recommendations - Fentanyl patch possible outpatient palliative care Advanced Directives - None on file Code Status - Full code Thank you for this consultation Kassy Keller [facility]- Palliative Care [facility]ink [phone] Email: [email or web address]
[2022-10-13 07:22] LABS: Glucose,Whole Blood 290 mg/dL (70-110)
[2022-10-13] MEDS: PANTOPRAZOLE 40 MG TABLET PO SCH (08:10)
[2022-10-13] MEDS: INSULIN ASPART (NovoLOG) 100 UNIT/ML VIAL SQ SCH ×4 (08:10→21:07)
[2022-10-13] MEDS: APIXABAN 5 MG TAB PO SCH ×2 (08:10→21:07)
[2022-10-13] MEDS: FOLIC ACID 1 MG TAB PO SCH (08:10)
[2022-10-13] MEDS: MAGNESIUM OXIDE 400 MG TAB PO SCH (08:10)
[2022-10-13] MEDS: levETIRAcetam 500 MG TAB PO SCH ×2 (08:10→21:07)
[2022-10-13] MEDS: PREGABALIN 50 MG CAP PO SCH ×3 (08:10→21:07)
[2022-10-13] MEDS: dexAMETHasone 4 MG TAB PO SCH ×3 (08:10→21:07)
[2022-10-13] MEDS: HYDROcodone/APAP 7.5-325MG 1 EACH TAB PO PRN ×4 (09:08→23:52)
--- NOTE | 2022-10-13 10:20 | CDI ---
Documentation Clarification Form Date: 10/13/2022 From: Peggy Espinosa Phone: [phone] Admit Date: 10/09/2022 6:53:00 AM Patient Name: Jennifer Steiner Visit Number: [id number] ATTENTION: The Clinical Documentation Specialists (CDI) and [facility] Coding Staff appreciate your assistance in clarifying documentation. Please respond to the clarification below the line at the bottom and electronically sign. The CDI & [facility] Coding staff will review the response and follow-up if needed. Please note: Queries are made part of the Legal Health Record. If you have any questions, please contact the author of this message via ITS. Dr. Maria D Eugene, DO There is documentation of a PE and DVT in the record. Additional clarification is requested. History/Risk Factors: Pt presented to [facility] approx. two weeks ago and was diagnosed w/ a PE and DVT of the RLE. Pt had an IVC filter placed during that admission and was started on Eliquis. Pt presented to [facility] for intractable pain due to her small cell lung cancer w/ mets to the brain and spine. Clinical Indicators: Per IM PN on 10/12 PE on Eliquis and status post IVC filter. Treatment: Eliquis Can you please clarify the acuity of the PE and DVT? [ ] Acute [ ] Subacute [ ] Chronic [ X ] History of [ ] Other, please specify [ ] Unable to determine MTDD
[2022-10-13 11:25] LABS: HGB 9.5 g/dL (12.0-15.0); MCH 31.4 pg (27.0-32.0); MCHC 31.7 g/dL (32.0-37.0); Mean Platelet Volume 13.3 fL (9.5-12.2); NRBC Per 100 WBC 0.1 /100 WBCS (0.0-0.0); Platelet Count 57 X 10*3/uL (140-440); RBC 3.03 X 10*6/uL (4.10-5.20); RDW 20.2 % (11.5-14.5); WBC 20.78 X 10*3/uL (4.50-10.00)
[2022-10-13 11:31] LABS: African American GFR (CKD) 95.7 (60.0-200.0); Anion Gap 13.7 mmol/L (10.00-18.00); BUN/Creat Ratio 34.79 Ratio (12.00-20.00); Blood Urea Nitrogen 27.8 mg/dL (9.0-27.0); Carbon Dioxide 23.1 mmol/L (20.0-27.5); Non-African American GFR(CKD) 82.5 (60.0-200.0); Potassium 3.9 mmol/L (3.5-5.5)
[2022-10-13 11:46] LABS: Glucose,Whole Blood 160 mg/dL (70-110)
--- NOTE | 2022-10-13 14:23 | P.PN ---
Subjective Progress Note Date: 10/13/22 The patient is a 57 year-old female with a past medical history of seizure disorder and Pr - on Eliquis and s/p IVC filter. 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 She is status post stereotactic radiosurgery in May 2022, followed by 4 cycles of carbop latin/pemetrexed/pembrolizumab, last cycle in early August.Treatment is on hold until she receives further XRT to manage pain of RLE/hip. She also has has has received stereotactic radiosurgery in May 2022, and palliative XRT to left hip and T7-T10 in 06/2022. She presented to the emergency department on 10/09/22 with intractable right lower extremity pain. She claims that she had a recent MRI lumbar spine done at [facility] which showed a lesion at L5 causing nerve impingement leading to radiculopathy. She was supposed to get radiation yesterday, but missed her appointment due to intractable leg pain. She was unable to ambulate due to the pain. She was then asked by her physician to present to the hospital for further radiation and pain management.She denied any nausea, vomiting, consitpation, abdominal pain chest pain, or shortness of breath. She denies any loss of bowel or bowel control. No numbness of lower extremities. discussed with the patient that at this time we would continue Decadron, optimize pain management and initiate palliative radiotherapy. He explained that unfortunately we do not feel to initiate this treatment until Wednesday morning. He discussed that a course of palliative radiotherapy may help to decrease the patient's pain and improve her function. However, it sometimes takes 1-2 weeks for the full effects of radiotherapy to be realized. Therefore, continued optimization of her pain regimen is recommended. 10/12 The patient is resting in bed. Her , Michael, is present. Information regarding palliative care philosophies and services was provided. The patient got really anxious and stated that we are not to discuss the "H" word. She stated she is not willing to even consider hospice. The differences between palliative care were discussed. She stated that she is viewing this pain as a temporary set back. 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 She has 3 adult children and 3 grandchildren. She has been to Michael for 10 years. She states that she is very blessed to have a close family and is spoiled. She counts heavily on here to remember details and help her make decisions. She understands her diagnosis and her prognosis. She states she believes 90% of the castrejon is a positive mind set. She would like to continue treatment for her cancer once her palliative radiation treatment is done to help control her lower extremity pain. She rates her pain as a 7/10. A Fentanyl patch was added to her regimen to help provided consistent pain. She is hopeful that then she will not need to take Porcupine anymore. She agreed to think about outpatient palliative care. Objective - Vital Signs Vital signs: Vital Signs Temp 97.8 F 10/13/22 12:28 Pulse 74 10/13/22 12:28 Resp 17 10/13/22 12:28 BP 144/88 10/13/22 12:28 Pulse Ox 97 10/13/22 12:28 FiO2 Intake & Output 10/12/22 10/13/22 10/13/22 18:59 06:59 18:59 Intake Total 200 Balance 200 Intake: Oral 200 Other: Voiding Method Bedside Commode Bedside Commode # Voids 3 2 - Exam General: Nontoxic, no acute distress HEENT: Atraumatic, normocephalic Lungs: Respirations even and unlabored. On RA GI: Soft, non-distended, non-tender Ext: No gross muscle atrophy, no edema, no contractures Neuro: Alert and oriented x 3. CN II-XI grossly intact, no focal deficits Psych: Appropriate mood and affect, judgment and insight intact - Labs CBC & Chem 7: 10/13/22 05:53 10/13/22 05:53 Labs: Abnormal Lab Results - Last 24 Hours (Table) 10/12/22 10/12/22 10/13/22 Range/Units 17:01 20:09 05:53 WBC 20.78 H (4.50-10.00) X 10*3/uL RBC 3.03 L (4.10-5.20) X 10*6/uL Hgb 9.5 L (12.0-15.0) g/dL Hct 30.0 L (37.2-46.3) % MCV 99.0 H (80.0-97.0) fL MCHC 31.7 L (32.0-37.0) g/dL RDW 20.2 H (11.5-14.5) % Plt Count 57 L (140-440) X 10*3/uL MPV 13.3 H (9.5-12.2) fL Absolute Nucleated RBC 0.02 H (0.00-0.00) X 10*3/uL NRBC/100 WBC Diff 0.1 H (0.0-0.0) /100 WBCS Immature Plt Fraction 12.0 H (1.1-6.1) % BUN (9.0-27.0) mg/dL BUN/Creatinine Ratio (12.00-20.00) Ratio Glucose (70-110) mg/dL POC Glucose (mg/dL) 301 H 391 H (70-110) mg/dL 10/13/22 10/13/22 10/13/22 Range/Units 05:53 07:18 11:43 WBC (4.50-10.00) X 10*3/uL RBC (4.10-5.20) X 10*6/uL Hgb (12.0-15.0) g/dL Hct (37.2-46.3) % MCV (80.0-97.0) fL MCHC (32.0-37.0) g/dL RDW (11.5-14.5) % Plt Count (140-440) X 10*3/uL MPV (9.5-12.2) fL Absolute Nucleated RBC (0.00-0.00) X 10*3/uL NRBC/100 WBC Diff (0.0-0.0) /100 WBCS Immature Plt Fraction (1.1-6.1) % BUN 27.8 H (9.0-27.0) mg/dL BUN/Creatinine Ratio 34.79 H (12.00-20.00) Ratio Glucose 287 H (70-110) mg/dL POC Glucose (mg/dL) 290 H 160 H (70-110) mg/dL Assessment and Plan Assessment: Symptoms * Pain - 5/10 RLE pain. 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 Her and friend/coworker are visiting. She reports improvement in her pain today. Anticipate having to increase dose of Fentanyl patch, will re-evaluate after 72 hours. The patient understands that the goal is to have long acting, consistent pain relief and decrease the need for [place]. She is in good spirits and is grateful for all the support she has received. She talked to the oncology team today and reports that she will begin 5 smaller dose radiation treatments as opposed to the one large dosed treatment. She is more comfortable with this because she has tolerated them well in the past. Recommendations - outpatient palliative care Advanced Directives - None on file Code Status - Full code Thank you for this consultation Kassy Keller [facility] Palliative Care [facility] [id number] Email: [email or web address]
--- NOTE | 2022-10-13 14:42 | P.PN ---
Subjective Progress Note Date: 10/13/22 (delayed charting seen at 0830) Patient is a 57-year-old female with a history of metastatic lung cancer to brain and spine, pulmonary embolism on Eliquis with recent IVC filter and DVT, a nd seizure disorder who presented to the ER with complaints of worsening right lower extremity pain. She had a known L1 5 lesion with nerve root impingement. She presented to the ER for intractable pain. On presentation to the ER her vital signs within normal limits, lab work was remarkable for white blood cell count of 11.5, platelets 37, sodium 137, creatinine 0.76. She was admitted and was started on Dilaudid and [place] for pain as well as Lyrica. Oncology and radiation oncology were consulted. Patient underwent simulation for radiation on 10/12 and first round on 10/13. Patient seen and examined at bedside. He continues to have some pain and is currently acyanotic 10. She did agree to a fentanyl patch yesterday but is still having some pain today. She denies any nausea, vomiting, diarrhea, constipation. Vital signs reviewed General: nontoxic, no distress, appears at stated age Cardiovascular: S1S2 reg, no murmur, positive posterior tibial pulse bilateral, Lungs: CTA bilateral, no rhonchi, no rales , no accessory muscle use Abdominal: soft, nontender to palpation, no guarding, no appreciable organomegaly Ext: no gross muscle atrophy, no edema, no contractures Neuro: CN II-XI grossly intact, no focal neuro deficits Psych: Alert, oriented, appropriate affect Assessment: Intractable malignancy related pain secondary to an L5 nerve root impingement Metastatic lung cancer with metastases to the brain and bone Thrombocytopenia, likely related to treatment for cancer and overall oncologic process Newly discovered DM 2 with hyperglycemia due to steroids Seizure disorder Thrombocytopenia, status post 1 unit of platelets, HIT ruled out Recent PE on Eliquis and status post IVC filter Leukocytosis increasing, likely related to steroid use. Data Review: Vital signs reviewed. Temperature 98.5, pulse 73, respirations 16, blood pressure 149/82, O2 sat 96% on room air Laboratory analysis reviewed. White blood cell count 20.78, hemoglobin 9.5, hematocrit 30, platelets 57. Sodium 139, potassium 3.9, BUN 27, creatinine 0.8, blood sugar 287. Blood sugars last evening were 391, 301, and 205. Plan: - First rounf of radiation today, D/W Dr. Bejarano and plan is for 4 additional sessions, patient will need to remain hosptialized until she can tolerate sitting to go to and from radiation. -Continue Decadron 4 mg every 6 hours, pantoprazole 40 mg daily, status post 1 unit of platelets -Conitnue with [place] 7.5 every 6 hours as needed. Fentany patch 25 mcg -Tylenol 650 mg every 4 hours as needed, -Lyrica 50 mg 3 times a day -Keppra 500 twice a day -Leukocytosis likely reactive and steroid-induced, Repeat CBC in AM, no signs of infection -Continue Eliquis 5 mg twice a day -Palliative care note reviewed, agree with fentanyl patch -Hyperglycemia likely related to steroids, SSI, add trandjenta conitnue to follow BS DVT prophylaxis: Eliquis Discussed with: PAtient, nursing Anticipated discharge date: Pending Clinical Course Anticipated discharge place: Pending Clinical Course This dictation was prepared using Comfy voice recognition software. Though every attempt is made to correct errors during during dictation some may still exist. Objective - Vital Signs Vital signs: Vital Signs Temp 97.8 F 10/13/22 12:28 Pulse 74 10/13/22 12:28 Resp 17 10/13/22 12:28 BP 144/88 10/13/22 12:28 Pulse Ox 97 10/13/22 12:28 FiO2 Intake & Output 10/12/22 10/13/22 10/13/22 18:59 06:59 18:59 Intake Total 450 Balance 450 Intake: Oral 450 Other: Voiding Method Bedside Commode Bedside Commode # Voids 3 2 - Labs CBC & Chem 7: 10/13/22 05:53 10/13/22 05:53 Labs: Abnormal Lab Results - Last 24 Hours (Table) 10/12/22 10/12/22 10/13/22 Range/Units 17:01 20:09 05:53 WBC 20.78 H (4.50-10.00) X 10*3/uL RBC 3.03 L (4.10-5.20) X 10*6/uL Hgb 9.5 L (12.0-15.0) g/dL Hct 30.0 L (37.2-46.3) % MCV 99.0 H (80.0-97.0) fL MCHC 31.7 L (32.0-37.0) g/dL RDW 20.2 H (11.5-14.5) % Plt Count 57 L (140-440) X 10*3/uL MPV 13.3 H (9.5-12.2) fL Absolute Nucleated RBC 0.02 H (0.00-0.00) X 10*3/uL NRBC/100 WBC Diff 0.1 H (0.0-0.0) /100 WBCS Immature Plt Fraction 12.0 H (1.1-6.1) % BUN (9.0-27.0) mg/dL BUN/Creatinine Ratio (12.00-20.00) Ratio Glucose (70-110) mg/dL POC Glucose (mg/dL) 301 H 391 H (70-110) mg/dL 10/13/22 10/13/22 10/13/22 Range/Units 05:53 07:18 11:43 WBC (4.50-10.00) X 10*3/uL RBC (4.10-5.20) X 10*6/uL Hgb (12.0-15.0) g/dL Hct (37.2-46.3) % MCV (80.0-97.0) fL MCHC (32.0-37.0) g/dL RDW (11.5-14.5) % Plt Count (140-440) X 10*3/uL MPV (9.5-12.2) fL Absolute Nucleated RBC (0.00-0.00) X 10*3/uL NRBC/100 WBC Diff (0.0-0.0) /100 WBCS Immature Plt Fraction (1.1-6.1) % BUN 27.8 H (9.0-27.0) mg/dL BUN/Creatinine Ratio 34.79 H (12.00-20.00) Ratio Glucose 287 H (70-110) mg/dL POC Glucose (mg/dL) 290 H 160 H (70-110) mg/dL
[2022-10-13] MEDS: SENNOSIDES-DOCUSATE SODIUM 1 EACH TAB PO SCH (14:48)
[2022-10-13] MEDS: LINAGLIPTIN 5 MG TABLET PO SCH (14:48)
[2022-10-13 17:11] LABS: Glucose,Whole Blood 292 mg/dL (70-110)
[2022-10-13 20:29] LABS: Glucose,Whole Blood 304 mg/dL (70-110)
[2022-10-14] MEDS: HYDROcodone/APAP 7.5-325MG 1 EACH TAB PO PRN ×4 (04:54→20:29)
[2022-10-14] MEDS: polyethylene glycoL 3350 17 GM POWD.PACK PO PRN ×2 (04:55→21:33)
[2022-10-14 07:04] LABS: Glucose,Whole Blood 160 mg/dL (70-110)
[2022-10-14] MEDS: INSULIN ASPART (NovoLOG) 100 UNIT/ML VIAL SQ SCH ×4 (08:07→21:23)
[2022-10-14] MEDS: dexAMETHasone 4 MG TAB PO SCH ×3 (08:08→21:26)
[2022-10-14] MEDS: APIXABAN 5 MG TAB PO SCH ×2 (08:08→21:26)
[2022-10-14] MEDS: FOLIC ACID 1 MG TAB PO SCH (08:08)
[2022-10-14] MEDS: levETIRAcetam 500 MG TAB PO SCH ×2 (08:08→21:26)
[2022-10-14] MEDS: PREGABALIN 50 MG CAP PO SCH ×3 (08:08→21:26)
[2022-10-14] MEDS: LINAGLIPTIN 5 MG TABLET PO SCH (08:08)
[2022-10-14] MEDS: MAGNESIUM OXIDE 400 MG TAB PO SCH (08:08)
[2022-10-14] MEDS: PANTOPRAZOLE 40 MG TABLET PO SCH (08:08)
[2022-10-14] MEDS: SENNOSIDES-DOCUSATE SODIUM 1 EACH TAB PO SCH (08:09)
[2022-10-14 11:04] LABS: Glucose,Whole Blood 216 mg/dL (70-110)
[2022-10-14 11:34] LABS: African American GFR (CKD) 95.5 (60.0-200.0); Anion Gap 11.7 mmol/L (10.00-18.00); BUN/Creat Ratio 42.63 Ratio (12.00-20.00); Blood Urea Nitrogen 34.1 mg/dL (9.0-27.0); Calcium 9.1 mg/dL (8.7-10.3); Carbon Dioxide 24.3 mmol/L (20.0-27.5); Non-African American GFR(CKD) 82.4 (60.0-200.0)
[2022-10-14 12:20] LABS: HCT 28.2 % (37.2-46.3); HGB 9.3 g/dL (12.0-15.0); Immature Platelet Fraction 12.4 % (1.1-6.1); MCH 31.5 pg (27.0-32.0); MCV 95.6 fL (80.0-97.0); Mean Platelet Volume 12.7 fL (9.5-12.2); NRBC Per 100 WBC 0 /100 WBCS (0.0-0.0); Platelet Count 44 X 10*3/uL (140-440); RBC 2.95 X 10*6/uL (4.10-5.20); RDW 19.8 % (11.5-14.5); WBC 21.29 X 10*3/uL (4.50-10.00)
--- NOTE | 2022-10-14 13:07 | P.PN ---
Subjective Progress Note Date: 10/14/22 The patient is a 57 year-old female with a past medical history of seizure disorder and Pr - on Eliquis and s/p IVC filter. 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 She is status post stereotactic radiosurgery in May 2022, followed by 4 cycles of carbop latin/pemetrexed/pembrolizumab, last cycle in early August.Treatment is on hold until she receives further XRT to manage pain of RLE/hip. She also has has has received stereotactic radiosurgery in May 2022, and palliative XRT to left hip and T7-T10 in 06/2022. She presented to the emergency department on 10/09/22 with intractable right lower extremity pain. She claims that she had a recent MRI lumbar spine done at [facility] which showed a lesion at L5 causing nerve impingement leading to radiculopathy. She was supposed to get radiation yesterday, but missed her appointment due to intractable leg pain. She was unable to ambulate due to the pain. She was then asked by her physician to present to the hospital for further radiation and pain management.She denied any nausea, vomiting, consitpation, abdominal pain chest pain, or shortness of breath. She denies any loss of bowel or bowel control. No numbness of lower extremities. discussed with the patient that at this time we would continue Decadron, optimize pain management and initiate palliative radiotherapy. He explained that unfortunately we do not feel to initiate this treatment until Wednesday morning. He discussed that a course of palliative radiotherapy may help to decrease the patient's pain and improve her function. However, it sometimes takes 1-2 weeks for the full effects of radiotherapy to be realized. Therefore, continued optimization of her pain regimen is recommended. 10/12 The patient is resting in bed. Her , Michael, is present. Information regarding palliative care philosophies and services was provided. The patient got really anxious and stated that we are not to discuss the "H" word. She stated she is not willing to even consider hospice. The differences between palliative care were discussed. She stated that she is viewing this pain as a temporary set back. 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 She has 3 adult children and 3 grandchildren. She has been to Michael for 10 years. She states that she is very blessed to have a close family and is spoiled. She counts heavily on here to remember details and help her make decisions. She understands her diagnosis and her prognosis. She states she believes 90% of the castrejon is a positive mind set. She would like to continue treatment for her cancer once her palliative radiation treatment is done to help control her lower extremity pain. She rates her pain as a 7/10. A Fentanyl patch was added to her regimen to help provided consistent pain. She is hopeful that then she will not need to take [place] anymore. She agreed to think about outpatient palliative care. 10/13 The patient is resting in bed. Her and friend/coworker are visiting. She reports improvement in her pain today. Anticipate having to increase dose of Fentanyl patch, will re-evaluate after 72 hours. The patient understands that the goal is to have long acting, consistent pain relief and decrease the need for [place]. She is in good spirits and is grateful for all the support she has received. She talked to the oncology team today and reports t hat she will begin 5 smaller dose radiation treatments as opposed to the one large dosed treatment. She is more comfortable with this because she has tolerated them well in the past. Objective - Vital Signs Vital signs: Vital Signs Temp 98.3 F 10/14/22 12:30 Pulse 82 10/14/22 12:30 Resp 18 10/14/22 12:30 BP 162/95 10/14/22 12:30 Pulse Ox 96 10/14/22 12:30 FiO2 Intake & Output 10/13/22 10/14/22 10/14/22 18:59 06:59 18:59 Intake Total 450 Output Total 0 Balance 450 0 Intake: Oral 450 Output: Stool 0 Other: Voiding Method Bedside Commode # Voids 1 - Exam General: Nontoxic, no acute distres HEENT: Atraumatic, normocephalic Lungs: Respirations even and unlabored. On RA GI: Soft, non-distended, non-tender Ext: No gross muscle atrophy, no edema, no contractures Neuro: Alert and oriented x 3. CN II-XI grossly intact, no focal deficits Psych: Appropriate mood and affect, judgment and insight intact - Labs CBC & Chem 7: 10/14/22 07:44 10/14/22 07:44 Labs: Abnormal Lab Results - Last 24 Hours (Table) 10/13/22 10/13/22 10/14/22 Range/Units 17:09 20:28 07:03 WBC (4.50-10.00) X 10*3/uL RBC (4.10-5.20) X 10*6/uL Hgb (12.0-15.0) g/dL Hct (37.2-46.3) % RDW (11.5-14.5) % Plt Count (140-440) X 10*3/uL MPV (9.5-12.2) fL Immature Plt Fraction (1.1-6.1) % BUN (9.0-27.0) mg/dL BUN/Creatinine Ratio (12.00-20.00) Ratio Glucose (70-110) mg/dL POC Glucose (mg/dL) 292 H 304 H 160 H (70-110) mg/dL 10/14/22 10/14/22 10/14/22 Range/Units 07:44 07:44 11:03 WBC 21.29 H (4.50-10.00) X 10*3/uL RBC 2.95 L (4.10-5.20) X 10*6/uL Hgb 9.3 L (12.0-15.0) g/dL Hct 28.2 L (37.2-46.3) % RDW 19.8 H (11.5-14.5) % Plt Count 44 L (140-440) X 10*3/uL MPV 12.7 H (9.5-12.2) fL Immature Plt Fraction 12.4 H (1.1-6.1) % BUN 34.1 H (9.0-27.0) mg/dL BUN/Creatinine Ratio 42.63 H (12.00-20.00) Ratio Glucose 143 H (70-110) mg/dL POC Glucose (mg/dL) 216 H (70-110) mg/dL Assessment and Plan Assessment: Symptoms * Pain - 0/10 RLE pain. Continue Fentanyl patch, [place], dexamethasone, and Lyrica. 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 She understands that she is getting 5 smaller treatments as opposed to 1 large radiation treatment. However, she was under the impression that she would be able to stay in the hospital until the 5 radiation treatments are completed. She is concerned that her right lower extremity pain will be too severe to travel 30 minutes in the care [address] way to radiation. Her pain is better when she is lying with her leg extended. However, it is still quite painful when she sits with her leg dangling. The plan is to increase her Fentanyl patch to 50 mcgs tomorrow. Oncology POWDER TRUCK DRIVER Jaylan Linton came to assess the patient. He stated he would talk to the oncology radiation doctor to confirm a plan. Recommendations - outpatient palliative care Advanced Directives - None on file Code Status - Full code Thank you for this consultation Kassy Keller [facility] [id number] Email: [email or web address]
[2022-10-14 13:30] VITALS: BMI 25.0
--- NOTE | 2022-10-14 14:46 | P.PN ---
Subjective Progress Note Date: 10/14/22 Principal diagnosis: hx of metastatic lung adenocarcinoma, RLE pain At today's visit patient is resting comfortably in bed, family at bedside. Patient reports pain has been controlled on current medication regimen. She reports when resting her pain is 0 out of 10 today. She reports pain is exacerbated by sitting up on the bed or the commode. She also reports numbness and right lower extremity. No loss of bowel or bladder control. Fentanyl patch added yesterday by palliative care team. S/p XRT yesterday, plan for 5 treatments. Objective - Vital Signs Vital signs: Vital Signs Temp 98.3 F 10/14/22 12:30 Pulse 82 10/14/22 12:30 Resp 18 10/14/22 12:30 BP 162/95 10/14/22 12:30 Pulse Ox 96 10/14/22 12:30 FiO2 Intake & Output 10/13/22 10/14/22 10/14/22 18:59 06:59 18:59 Intake Total 450 Output Total 0 Balance 450 0 Weight 74.843 kg Intake: Oral 450 Output: Stool 0 Other: Voiding Method Bedside Commode # Voids 1 - Constitutional General appearance: Present: average body habitus, no acute distress - EENT Eyes: Present: anicteric sclerae, EOMI ENT: Present: hearing grossly normal - Respiratory Details: Breathing is even and unlabored - Cardiovascular Details: Skin is warm and dry - Integumentary Integumentary: Present: pale - Neurologic Neurologic Comment(s): Right lower Extremity weakness - Psychiatric Psychiatric: Present: A&O x's 3, appropriate affect, intact judgment & insight - Labs CBC & Chem 7: 10/14/22 07:44 10/14/22 07:44 Labs: Abnormal Lab Results - Last 24 Hours (Table) 10/13/22 10/13/22 10/14/22 Range/Units 17:09 20:28 07:03 WBC (4.50-10.00) X 10*3/uL RBC (4.10-5.20) X 10*6/uL Hgb (12.0-15.0) g/dL Hct (37.2-46.3) % RDW (11.5-14.5) % Plt Count (140-440) X 10*3/uL MPV (9.5-12.2) fL Immature Plt Fraction (1.1-6.1) % BUN (9.0-27.0) mg/dL BUN/Creatinine Ratio (12.00-20.00) Ratio Glucose (70-110) mg/dL POC Glucose (mg/dL) 292 H 304 H 160 H (70-110) mg/dL 10/14/22 10/14/22 10/14/22 Range/Units 07:44 07:44 11:03 WBC 21.29 H (4.50-10.00) X 10*3/uL RBC 2.95 L (4.10-5.20) X 10*6/uL Hgb 9.3 L (12.0-15.0) g/dL Hct 28.2 L (37.2-46.3) % RDW 19.8 H (11.5-14.5) % Plt Count 44 L (140-440) X 10*3/uL MPV 12.7 H (9.5-12.2) fL Immature Plt Fraction 12.4 H (1.1-6.1) % BUN 34.1 H (9.0-27.0) mg/dL BUN/Creatinine Ratio 42.63 H (12.00-20.00) Ratio Glucose 143 H (70-110) mg/dL POC Glucose (mg/dL) 216 H (70-110) mg/dL Assessment and Plan (1) Non-small cell lung cancer (NSCLC) Current Visit: Yes Status: Acute Priority: High Code(s): C34.90 - MALIGNANT NEOPLASM OF UNSP PART OF UNSP BRONCHUS OR LUNG SNOMED Code(s): 416412676 Plan: Metastatic adenocarcinoma of the lung with metastasis to the brain/bone -Received SRS in May 2022 to 6 previously visualized brain metastases. XRT to left hip, and T7-T10 in June 2022. -Rad onc consulted. Spoke with Dr. Castorena, and simulation planned for L5 and right hip lesions, no concern for cord compression at this time. Decadron switched to PO TID, will begin taper after 7 days, continue PPI -25 mcg fentanyl patch started yesterday, taking 4 norcos daily with good pain control at rest, but with increasing pain on movement and sitting. Spoke with internal medicine and plan is to increase fentanyl patch to 50 mcg tomorrow. Will continue patient on [place] prn. 2 week script for fentanyl and norco sent to patient's pharmacy until she can f/u with primary oncologist for further ma sandra. -She has received 4 cycles of carboplatin/[place]/pembrolizumab, last cycle in early august -She is being treated at [facility] and follows with Dr. Yang. Treatment is on hold until she receives further palliative XRT to manage pain of RLE/hip. Pt reports treatment regimen is being changed due to disease progression. Will f/u with Dr. Yang upon discharge -Scheduled to receive 5 treatments of XRT to right hip and lumbar spine lesions. Spoke with Dr. Castorena, and as long as pain is controlled so patient can commute to treatment, they are ok with discharge on wednesday after XRT, and can complete XRT treatment wednesday as an outpatient. IM team updated Thrombocytopenia: -Thrombocytopenia noted during last admission with platelets in the 60s. Platelets 44,000 today. Additional unit platelets ordered -Thrombocytopenia may be related to treatment. DIC and HIT negative. No reported episodes of bleeding -Goal is platelets >50,000, to maintain anticoagulation for recent DVT -Please transfuse for platelets less than 50,000
--- NOTE | 2022-10-14 16:05 | P.PN ---
Subjective Progress Note Date: 10/14/22 Patient is a 57-year-old female with a history of metastatic lung cancer to brain and spine, pulmonary embolism on Eliquis with recent IVC filter and DVT, and seizure disorder who presented to the ER with complaints of worsening right lower extremity pain. She had a known L1 5 lesion with nerve root impingement. She presented to the ER for intractable pain. On presentation to the ER her vital signs within normal limits, lab work was remarkable for white blood cell count of 11.5, platelets 37, sodium 137, creatinine 0.76. She was admitted and was started on Dilaudid and [place] for pain as well as Lyrica. Oncology and radiation oncology were consulted. Patient underwent simulation for radiation on 10/12 and first round on 10/13. Patient seen and examined at bedside. She c/o hip and leg pain. We discussed that we need to treat her pain until she can tolerate sitting flat. Having bowel movements. Vital signs reviewed General: nontoxic, no distress, appears at stated age Cardiovascular: S1S2 reg, no murmur, positive posterior tibial pulse bilateral, Lungs: CTA bilateral, no rhonchi, no rales , no accessory muscle use Abdominal: soft, nontender to palpation, no guarding, no appreciable organomegaly Ext: no gross muscle atrophy, no edema, no contractures Neuro: CN II-XI grossly intact, no focal neuro deficits Psych: Alert, oriented, appropriate affect Assessment: Intractable malignancy related pain secondary to an L5 nerve root impingement Metastatic lung cancer with metastases to the brain and bone Thrombocytopenia, likely related to treatment for cancer and overall oncologic process, s/o 1 unit of plt and a second ordered for today. Newly discovered DM 2 with hyperglycemia due to steroids Seizure disorder Recent PE on Eliquis and status post IVC filter Leukocytosis increasing, likely related to steroid use. Data Review: Vital signs reviewed temperature 90.8, pulse 79, respirations 17, blood pressure 149/64, O2 sat 96% on room air Labs reviewed white blood cell count 21.29, hemoglobin 9.3, hematocrit 28.2, platelets 44, blood sugar 216 Plan: - S/p 2/5 rounds of radiation for bone pain and lesion - case discussed with oncology nurse practitioner. Plan will be for 4 additional sessions of radiation, patient needs to remain hospitalized until she can tolerate transportation to and from radiation. Any point in time with this is achieved she could be discharged to the outpatient setting. -Increase fentanyl patch to 50 g in the morning. Continue with [place] 7.5/325 as needed for pain. -Increase white blood cell consult to be secondary to steroids -Increased blood sugars felt to be secondary to steroids. Patient does meet diabetic criteria however she has been on steroids for an extended amount of time. I was planning to discharge her home on oral medication that avoids hypoglycemia such as SGL T2 inhibitor or DPP 4. However patient has had significant high blood sugars and will likely require continued dexamethasone therefore patient may need insulin. We'll start Levemir 12 units at night. If this is effective will need to discuss with need for insulin at home. - 1 unit plt ordered by oncology given todays plt of 44 -Continue Decadron 4 mg every 6 hours, pantoprazole 40 mg daily, status post 1 unit of platelets -Tylenol 650 mg every 4 hours as needed, -Lyrica 50 mg 3 times a day -Keppra 500 twice a day -Leukocytosis likely reactive and steroid-induced, Repeat CBC in AM, no signs of infection -Continue Eliquis 5 mg twice a day - SSI, trandjenta, continue to follow BS DVT prophylaxis: Eliquis Discussed with: Patient, nursing Anticipated discharge date: Pending Clinical Course Anticipated discharge place: Pending Clinical Course This dictation was prepared using [employer] voice recognition software. Though every attempt is made to correct errors during during dictation some may still exist. Objective - Vital Signs Vital signs: Vital Signs Temp 98.3 F 10/14/22 12:30 Pulse 82 10/14/22 12:30 Resp 18 10/14/22 12:30 BP 162/95 10/14/22 12:30 Pulse Ox 96 10/14/22 12:30 FiO2 Intake & Output 10/13/22 10/14/22 10/14/22 18:59 06:59 18:59 Intake Total 450 Output Total 0 Balance 450 0 Weight 74.843 kg Intake: Oral 450 Output: Stool 0 Other: Voiding Method Bedside Commode # Voids 1 1 - Labs CBC & Chem 7: 10/14/22 07:44 10/14/22 07:44 Labs: Abnormal Lab Results - Last 24 Hours (Table) 10/13/22 10/13/22 10/14/22 Range/Units 17:09 20:28 07:03 WBC (4.50-10.00) X 10*3/uL RBC (4.10-5.20) X 10*6/uL Hgb (12.0-15.0) g/dL Hct (37.2-46.3) % RDW (11.5-14.5) % Plt Count (140-440) X 10*3/uL MPV (9.5-12.2) fL Immature Plt Fraction (1.1-6.1) % BUN (9.0-27.0) mg/dL BUN/Creatinine Ratio (12.00-20.00) Ratio Glucose (70-110) mg/dL POC Glucose (mg/dL) 292 H 304 H 160 H (70-110) mg/dL 10/14/22 10/14/22 10/14/22 Range/Units 07:44 07:44 11:03 WBC 21.29 H (4.50-10.00) X 10*3/uL RBC 2.95 L (4.10-5.20) X 10*6/uL Hgb 9.3 L (12.0-15.0) g/dL Hct 28.2 L (37.2-46.3) % RDW 19.8 H (11.5-14.5) % Plt Count 44 L (140-440) X 10*3/uL MPV 12.7 H (9.5-12.2) fL Immature Plt Fraction 12.4 H (1.1-6.1) % BUN 34.1 H (9.0-27.0) mg/dL BUN/Creatinine Ratio 42.63 H (12.00-20.00) Ratio Glucose 143 H (70-110) mg/dL POC Glucose (mg/dL) 216 H (70-110) mg/dL
[2022-10-14 17:08] LABS: Glucose,Whole Blood 158 mg/dL (70-110)
[2022-10-14 20:20] LABS: Glucose,Whole Blood 140 mg/dL (70-110)
[2022-10-14] MEDS: INSULIN DETEMIR (LEVEMIR) 100 UNIT/ML SYR SQ SCH (21:25)
[2022-10-15] MEDS: HYDROcodone/APAP 7.5-325MG 1 EACH TAB PO PRN ×4 (04:22→22:23)
[2022-10-15 06:55] LABS: Anisocytosis Slight; Basophils % (A) 0 %; Eosinophils # (A) 0.1 k/uL (0-0.7); Eosinophils % (A) 1 %; HCT 28.8 % (34.0-46.0); HGB 9.4 gm/dL (11.4-16.0); Lymphocytes # (A) 0.2 k/uL (1.0-4.8); Lymphocytes % (A) 1 %; MCH 30.6 pg (25.0-35.0); MCHC 32.7 g/dL (31.0-37.0); MCV 93.8 fL (80.0-100.0); Macrocytosis Slight; Mean Platelet Volume 9.4; Monocytes # (A) 0.6 k/uL (0-1.0); Monocytes % (A) 3 %; Neutrophils # (A) 17.5 k/uL (1.3-7.7); Neutrophils % (A) 95 %; RBC 3.07 m/uL (3.80-5.40); RDW 19.2 % (11.5-15.5); WBC 18.5 k/uL (3.8-10.6)
[2022-10-15 07:12] LABS: Platelet Count 48 k/uL (150-450)
[2022-10-15 07:22] LABS: Glucose,Whole Blood 181 mg/dL (70-110)
[2022-10-15] MEDS: INSULIN ASPART (NovoLOG) 100 UNIT/ML VIAL SQ SCH ×4 (08:50→22:21)
[2022-10-15] MEDS: PANTOPRAZOLE 40 MG TABLET PO SCH (08:52)
[2022-10-15] MEDS: dexAMETHasone 4 MG TAB PO SCH ×3 (08:52→22:21)
[2022-10-15] MEDS: levETIRAcetam 500 MG TAB PO SCH ×2 (08:53→22:21)
[2022-10-15] MEDS: FOLIC ACID 1 MG TAB PO SCH (08:53)
[2022-10-15] MEDS: SENNOSIDES-DOCUSATE SODIUM 1 EACH TAB PO SCH (08:53)
[2022-10-15] MEDS: APIXABAN 5 MG TAB PO SCH ×2 (08:54→22:21)
[2022-10-15] MEDS: MAGNESIUM OXIDE 400 MG TAB PO SCH (08:54)
[2022-10-15] MEDS: LINAGLIPTIN 5 MG TABLET PO SCH (08:54)
[2022-10-15] MEDS: PREGABALIN 50 MG CAP PO SCH ×3 (08:54→22:21)
[2022-10-15 11:08] LABS: Glucose,Whole Blood 324 mg/dL (70-110)
--- NOTE | 2022-10-15 14:49 | P.PN ---
Subjective Progress Note Date: 10/15/22 Hospital Course: Patient is a 57-year-old female with a history of metastatic lung cancer to brain and spine, pulmonary embolism on Eliquis with recent IVC filter and DVT, and seizure disorder who presented to the ER with complaints of worsening right lower extremity pain. She had a known L1 5 lesion with nerve root impingement. She presented to the ER for intractable pain. On presentation to the ER her vital signs within normal limits, lab work was remarkable for white blood cell count of 11.5, platelets 37, sodium 137, creatinine 0.76. She was admitted and was started on Dilaudid and [place] for pain as well as Lyrica. Oncology and radiation oncology were consulted. Patient underwent simulation for radiation on 10/12 and first round on 10/13. Currently on round 3. Subjective: Seen and examined at bedside. No acute events overnight. Had her third round of radiation today. Continues to have pain in her leg. Pertinent positives and negatives as discussed above, a complete review of systems was performed and all other systems are negative. Vitals Signs Reviewed. General: nontoxic, no distress, appears at stated age Cardiovascular: S1S2 reg, no murmur, positive posterior tibial pulse bilateral, Lungs: CTA bilateral, no rhonchi, no rales , no accessory muscle use Abdominal: soft, nontender to palpation, no guarding, no appreciable organomegaly Ext: no gross muscle atrophy, no edema, no contractures Neuro: CN II-XI grossly intact, no focal neuro deficits Psych: Alert, oriented, appropriate affect Data Reviewed Today: Pertinent Labs: WBC 18.5, hemoglobin 9.4, platelet 48, blood sugars range between 148-181 Assessment and Plan: Intractable malignancy related pain secondary to an L5 nerve root impingement Metastatic lung cancer with metastases to the brain and bone Thrombocytopenia, likely related to treatment for cancer and overall oncologic process, s/o 1 unit of plt and a second ordered for today. Newly discovered DM 2 with hyperglycemia due to steroids Seizure disorder Recent PE on Eliquis and status post IVC filter Leukocytosis increasing, likely related to steroid use - S/p 3/5 rounds of radiation for bone pain and lesion -Oncology following, Plan will be for 4 additional sessions of radiation, patient needs to remain hospitalized until she can tolerate transportation to and from radiation. Any point in time with this is achieved she could be discharged to the outpatient setting. -On fentanyl patch to 50 g in the morning. Continue with [place] 7.5/325 as needed for pain. -Increase white blood cell consult to be secondary to steroids -Increased blood sugars felt to be secondary to steroids. Patient does meet diabetic criteria however she has been on steroids for an extended amount of time. I was planning to discharge her home on oral medication that avoids hypoglycemia such as SGL T2 inhibitor or DPP 4. However patient has had significant high blood sugars and will likely require continued dexamethasone therefore patient may need insulin. Currently on Levemir 12 units at night. If this is effective will need to discuss with need for insulin at home. , Continue sliding scale insulin, tradjeta -Patient is stable -Continue Decadron 4 mg every 6 hours, pantoprazole 40 mg daily -Tylenol 650 mg every 4 hours as needed, -Lyrica 50 mg 3 times a day -Keppra 500 twice a day -Leukocytosis likely reactive and steroid-induced, Repeat CBC in AM, no signs of infection -Continue Eliquis 5 mg twice a day DVT ppx: Eliquis Code status: Full code Anticipated discharge place: Pending clinical course Anticipated discharge time: Pending clinical course Objective - Vital Signs Vital signs: Vital Signs Temp 97.7 F 10/15/22 12:00 Pulse 80 10/15/22 12:00 Resp 18 10/15/22 12:00 BP 137/79 10/15/22 12:00 Pulse Ox 98 10/15/22 12:00 FiO2 Intake & Output 10/14/22 10/15/22 10/15/22 18:59 06:59 18:59 Intake Total 340 590 Balance 340 590 Weight 74.843 kg Intake: Oral 590 Blood Product 340 Platelet Pheresis Pas 340 Psoralen Unit [id number] Other: Voiding Method Bedpan # Voids 1 2 1 - Labs CBC & Chem 7: 10/15/22 06:14 10/14/22 07:44 Labs: Abnormal Lab Results - Last 24 Hours (Table) 10/14/22 10/14/22 10/15/22 Range/Units 17:06 20:18 06:14 WBC 18.5 H (3.8-10.6) k/uL RBC 3.07 L (3.80-5.40) m/uL Hgb 9.4 L (11.4-16.0) gm/dL Hct 28.8 L (34.0-46.0) % RDW 19.2 H (11.5-15.5) % Plt Count 48 L (150-450) k/uL Neutrophils # 17.5 H (1.3-7.7) k/uL Lymphocytes # 0.2 L (1.0-4.8) k/uL POC Glucose (mg/dL) 158 H 140 H (70-110) mg/dL 10/15/22 10/15/22 Range/Units 07:21 11:07 WBC (3.8-10.6) k/uL RBC (3.80-5.40) m/uL Hgb (11.4-16.0) gm/dL Hct (34.0-46.0) % RDW (11.5-15.5) % Plt Count (150-450) k/uL Neutrophils # (1.3-7.7) k/uL Lymphocytes # (1.0-4.8) k/uL POC Glucose (mg/dL) 181 H 324 H (70-110) mg/dL
[2022-10-15 17:08] LABS: Glucose,Whole Blood 158 mg/dL (70-110)
[2022-10-15 20:35] LABS: Glucose,Whole Blood 256 mg/dL (70-110)
[2022-10-15] MEDS: INSULIN DETEMIR (LEVEMIR) 100 UNIT/ML SYR SQ SCH (22:21)
[2022-10-16] MEDS: HYDROcodone/APAP 7.5-325MG 1 EACH TAB PO PRN ×5 (04:39→21:58)
[2022-10-16 07:41] LABS: Glucose,Whole Blood 148 mg/dL (70-110)
[2022-10-16] MEDS: INSULIN ASPART (NovoLOG) 100 UNIT/ML VIAL SQ SCH ×4 (07:59→20:46)
[2022-10-16] MEDS: SENNOSIDES-DOCUSATE SODIUM 1 EACH TAB PO SCH (09:15)
[2022-10-16] MEDS: APIXABAN 5 MG TAB PO SCH ×2 (09:15→20:46)
[2022-10-16] MEDS: FOLIC ACID 1 MG TAB PO SCH (09:15)
[2022-10-16] MEDS: MAGNESIUM OXIDE 400 MG TAB PO SCH (09:16)
[2022-10-16] MEDS: PREGABALIN 50 MG CAP PO SCH ×3 (09:16→20:46)
[2022-10-16] MEDS: PANTOPRAZOLE 40 MG TABLET PO SCH (09:16)
[2022-10-16] MEDS: dexAMETHasone 4 MG TAB PO SCH ×3 (09:16→20:46)
[2022-10-16] MEDS: LINAGLIPTIN 5 MG TABLET PO SCH (09:16)
[2022-10-16] MEDS: levETIRAcetam 500 MG TAB PO SCH ×2 (09:16→20:46)
[2022-10-16] MEDS: polyethylene glycoL 3350 17 GM POWD.PACK PO PRN (09:21)
[2022-10-16 11:11] LABS: Glucose,Whole Blood 178 mg/dL (70-110)
--- NOTE | 2022-10-16 11:45 | P.PN ---
Subjective Progress Note Date: 10/16/22 Hospital Course: Patient is a 57-year-old female with a history of metastatic lung cancer to bra in and spine, pulmonary embolism on Eliquis with recent IVC filter and DVT, and seizure disorder who presented to the ER with complaints of worsening right lower extremity pain. She had a known L1 5 lesion with nerve root impingement. She presented to the ER for intractable pain. On presentation to the ER her vital signs within normal limits, lab work was remarkable for white blood cell count of 11.5, platelets 37, sodium 137, creatinine 0.76. She was admitted and was started on Dilaudid and [place] for pain as well as Lyrica. Oncology and radiation oncology were consulted. Patient underwent simulation for radiation on 10/12 and first round on 10/13. Currently on round 4 today. Subjective: Seen and examined at bedside. No acute events overnight. Fourth round of radiation is planned for today the afternoon. Continues to have pain in her leg, but improving, she claims that she was able to sit up this morning. She is still struggling to go bedside commode. Pertinent positives and negatives as discussed above, a complete review of systems was performed and all other systems are negative. Vitals Signs Reviewed. General: nontoxic, no distress, appears at stated age Cardiovascular: S1S2 reg, no murmur, positive posterior tibial pulse bilateral, Lungs: CTA bilateral, no rhonchi, no rales , no accessory muscle use Abdominal: soft, nontender to palpation, no guarding, no appreciable organomegaly Ext: no gross muscle atrophy, no edema, no contractures Neuro: CN II-XI grossly intact, no focal neuro deficits, left hip flexion limited due to pain Psych: Alert, oriented, appropriate affect Data Reviewed Today: Pertinent Labs: Blood sugars range between 148-256, CBC pending, will be reviewed when available Assessment and Plan: Intractable malignancy related pain secondary to an L5 nerve root impingement Metastatic lung cancer with metastases to the brain and bone Thrombocytopenia, likely related to treatment for cancer and overall oncologic process, s/o 2 unit of plt Newly discovered DM 2 with hyperglycemia due to steroids Seizure disorder Recent PE on Eliquis and status post IVC filter Leukocytosis increasing, likely related to steroid use - S/p 3/5 rounds of radiation for bone pain and lesion, fourth session today -Oncology following, Plan will be for sessions of radiation inpatient, patient needs to remain hospitalized until she can tolerate transportation to and from radiation. Any point in time with this is achieved she could be discharged to the outpatient setting. -On fentanyl patch to 50 g in the morning. Continue with [place] 7.5/325 as needed for pain. -Increase white blood cell consult to be secondary to steroids, repeat CBC pendi ng from today -on Levemir 12 units at night, Continue sliding scale insulin, tradjeta -Continue Decadron 4 mg every 6 hours, pantoprazole 40 mg daily -Tylenol 650 mg every 4 hours as needed, -Lyrica 50 mg 3 times a day -Keppra 500 twice a day -Continue Eliquis 5 mg twice a day DVT ppx: Eliquis Code status: Full code Anticipated discharge place: Pending clinical course Anticipated discharge time: Pending clinical course Objective - Vital Signs Vital signs: Vital Signs Temp 97.9 F 10/16/22 07:35 Pulse 77 10/16/22 07:35 Resp 18 10/16/22 07:35 BP 151/91 10/16/22 07:35 Pulse Ox 96 10/16/22 07:35 FiO2 Intake & Output 10/15/22 10/16/22 10/16/22 18:59 06:59 18:59 Intake Total 590 Output Total 0 Balance 590 Intake: Oral 590 Output: Stool 0 Other: Voiding Method Bedpan Bedpan # Voids 1 2 1 - Labs CBC & Chem 7: 10/15/22 06:14 10/14/22 07:44 Labs: Abnormal Lab Results - Last 24 Hours (Table) 10/15/22 10/15/22 10/16/22 Range/Units 17:06 20:34 07:39 POC Glucose (mg/dL) 158 H 256 H 148 H (70-110) mg/dL 10/16/22 Range/Units 11:10 POC Glucose (mg/dL) 178 H (70-110) mg/dL
[2022-10-16 12:12] LABS: HCT 29.6 % (37.2-46.3); HGB 9.6 g/dL (12.0-15.0); MCH 31.7 pg (27.0-32.0); MCHC 32.4 g/dL (32.0-37.0); MCV 97.7 fL (80.0-97.0); Mean Platelet Volume 12.8 fL (9.5-12.2); NRBC Per 100 WBC 0 /100 WBCS (0.0-0.0); Platelet Count 39 X 10*3/uL (140-440); RBC 3.03 X 10*6/uL (4.10-5.20); RDW 19.8 % (11.5-14.5)
[2022-10-16 12:43] LABS: Basophils # (A) 0.04 X 10*3/uL (0.00-0.10); Basophils % (A) 0.2 %; Eosinophils # (A) 0.15 X 10*3/uL (0.04-0.35); Eosinophils % (A) 0.7 %; Immature Grans, Automated 3.5 %; Immature Platelet Fraction 10.9 % (1.1-6.1); Lymphocytes # (A) 0.23 X 10*3/uL (0.90-5.00); Lymphocytes % (A) 1.1 %; Monocytes # (A) 0.78 X 10*3/uL (0.20-1.00); Monocytes % (A) 3.6 %; Neutrophils # (A) 19.46 X 10*3/uL (1.80-7.70); Neutrophils % (A) 90.9 %; RBC Morphology NORMAL
[2022-10-16 17:10] LABS: Glucose,Whole Blood 173 mg/dL (70-110)
[2022-10-16 20:29] LABS: Glucose,Whole Blood 407 mg/dL (70-110)
[2022-10-16] MEDS: INSULIN DETEMIR (LEVEMIR) 100 UNIT/ML SYR SQ SCH (20:46)
[2022-10-16] MEDS: polyethylene glycoL 3350 17 GM POWD.PACK PO SCH (21:59)
[2022-10-17] MEDS: HYDROcodone/APAP 7.5-325MG 1 EACH TAB PO PRN ×5 (04:14→21:52)
[2022-10-17 07:04] LABS: Glucose,Whole Blood 200 mg/dL (70-110)
[2022-10-17] MEDS: dexAMETHasone 4 MG TAB PO SCH (08:16)
[2022-10-17] MEDS: LINAGLIPTIN 5 MG TABLET PO SCH (08:16)
[2022-10-17] MEDS: levETIRAcetam 500 MG TAB PO SCH ×2 (08:16→21:50)
[2022-10-17] MEDS: polyethylene glycoL 3350 17 GM POWD.PACK PO SCH ×2 (08:16→21:51)
[2022-10-17] MEDS: SENNOSIDES-DOCUSATE SODIUM 1 EACH TAB PO SCH (08:16)
[2022-10-17] MEDS: APIXABAN 5 MG TAB PO SCH ×2 (08:16→21:50)
[2022-10-17] MEDS: INSULIN ASPART (NovoLOG) 100 UNIT/ML VIAL SQ SCH ×4 (08:16→21:46)
[2022-10-17] MEDS: FOLIC ACID 1 MG TAB PO SCH (08:16)
[2022-10-17] MEDS: MAGNESIUM OXIDE 400 MG TAB PO SCH (08:16)
[2022-10-17] MEDS: PANTOPRAZOLE 40 MG TABLET PO SCH (08:16)
[2022-10-17] MEDS: PREGABALIN 50 MG CAP PO SCH ×3 (08:16→21:50)
[2022-10-17 10:46] LABS: Basophils # (A) 0.09 X 10*3/uL (0.00-0.10); Basophils % (A) 0.5 %; Eosinophils # (A) 0.15 X 10*3/uL (0.04-0.35); Eosinophils % (A) 0.8 %; HCT 29.7 % (37.2-46.3); HGB 9.6 g/dL (12.0-15.0); Immature Grans, Automated 4.2 %; Lymphocytes # (A) 0.16 X 10*3/uL (0.90-5.00); Lymphocytes % (A) 0.8 %; MCH 31.4 pg (27.0-32.0); MCHC 32.3 g/dL (32.0-37.0); MCV 97.1 fL (80.0-97.0); Mean Platelet Volume 12.2 fL (9.5-12.2); Monocytes # (A) 0.74 X 10*3/uL (0.20-1.00); Monocytes % (A) 3.8 %; NRBC Per 100 WBC 0 /100 WBCS (0.0-0.0); Neutrophils # (A) 17.28 X 10*3/uL (1.80-7.70); Neutrophils % (A) 89.9 %; Platelet Count 52 X 10*3/uL (140-440); RBC 3.06 X 10*6/uL (4.10-5.20); WBC 19.23 X 10*3/uL (4.50-10.00)
[2022-10-17 10:47] LABS: Immature Platelet Fraction 9.1 % (1.1-6.1); RBC Morphology NORMAL
[2022-10-17 11:28] LABS: Glucose,Whole Blood 371 mg/dL (70-110)
--- NOTE | 2022-10-17 12:05 | P.PN ---
Subjective Progress Note Date: 10/17/22 Patient is a 57-year-old female with a history of metastatic lung cancer to brain and spine, pulmonary embolism on Eliquis with recent IVC filter and DVT, and seizure disorder who presented to the ER with complaints of worsening right lower extremity pain. She had a known L1 5 lesion with nerve root impingement. She presented to the ER for intractable pain. On presentation to the ER her vital signs within normal limits, lab work was remarkable for white blood cell count of 11.5, platelets 37, sodium 137, creatinine 0.76. She was admitted and was started on Dilaudid and [place] for pain as well as Lyrica. Oncology and radiation oncology were consulted. Patient underwent simulation for radiation on 10/12 and first round on 10/13 with a plan for a total of 5 doses. She has not been able to sit due to pain. Patient seen and examined at bedside. She states that today she was able to sit in bed to eat instead of having to lay flat. She has not had a BM in a few days but feels like she could have one now. Discussed with her that she needs to start moving and sitting in the chair. If she is unable to do this without pain we need to start adjusting the pain medication regimen and she has to be able to function on discharge. Vital signs reviewed General: nontoxic, no distress, appears at stated age Cardiovascular: S1S2 reg, no murmur, positive posterior tibial pulse bilateral, Lungs: Decreased bs bilateral, no rhonchi, no rales , no accessory muscle use Abdominal: soft, nontender to palpation, no guarding, no appreciable organomegaly Ext: no gross muscle atrophy, no edema, no contractures Neuro: CN II-XI grossly intact, no focal neuro deficits Psych: Alert, oriented, appropriate affect Assessment: Intractable malignancy related pain secondary to an L5 nerve root impingement Metastatic lung cancer with metastases to the brain and bone Thrombocytopenia, likely related to treatment for cancer and overall oncologic process, s/p 2 units of plt and a second ordered for today. Newly discovered DM 2 with hyperglycemia due to steroids Seizure disorder Recent PE on Eliquis and status post IVC filter Leukocytosis, related to steroid use. Data Review: Vital signs reviewed and temperature 97.2, pulse 78, respirations 15, blood pressure 161/80, and O2 sat 96% on room air Labs reviewed and white blood cell count 19.23 (down from 21.4 yesterday), platelets 52 Blood sugars reviewed, AM fasting 200, yesterday blood sugars were 407, 173, 178, 148 Plan: - S/p 4/5 rounds of radiation for bone pain and lesion -Fentanyl patch to 50 g in the morning. Continue with [place] 7.5/325 as needed for pain. -Increase white blood cell consult to be secondary to steroids -Increased blood sugars felt to be secondary to steroids. However patient has had significant high blood sugars and will likely require continued dexamethasone therefore patient. Increase Levemir 15 units at night. Plan for insulin on discharge. -Continue Decadron 4 mg TID, pantoprazole 40 mg daily -Tylenol 650 mg every 4 hours as needed, -Lyrica 50 mg 3 times a day -Keppra 500 twice a day -Leukocytosis likely reactive and steroid-induced, Repeat CBC in AM, no signs of infection -Continue Eliquis 5 mg twice a day - SSI, trandjenta, continue to follow BS DVT prophylaxis: Eliquis Discussed with: Patient, nursing Anticipated discharge date: Wednesday after radiation Anticipated discharge place: Pending Clinical Course This dictation was prepared using [employer] voice recognition software. Though every attempt is made to correct errors during during dictation some may still exist. Objective - Vital Signs Vital signs: Vital Signs Temp 97.2 F L 10/17/22 06:05 Pulse 78 10/17/22 06:05 Resp 15 10/17/22 06:05 BP 161/80 10/17/22 06:05 Pulse Ox 96 10/17/22 06:05 FiO2 Intake & Output 10/16/22 10/17/22 10/17/22 18:59 06:59 18:59 Intake Total 365 118 Output Total 500 Balance 365 -382 Intake: Oral 118 Blood Product 365 Platelet Pheresis Pas 365 Psoralen Unit [id number] Output: Urine 500 Stool 0 Other: Voiding Method Bedpan Bedpan Bedpan # Voids 1 1 # Bowel Movements 1 - Labs CBC & Chem 7: 10/17/22 05:50 10/14/22 07:44 Labs: Abnormal Lab Results - Last 24 Hours (Table) 10/16/22 10/16/22 10/16/22 Range/Units 07:09 17:09 20:27 WBC 21.40 H (4.50-10.00) X 10*3/uL RBC 3.03 L (4.10-5.20) X 10*6/uL Hgb 9.6 L (12.0-15.0) g/dL Hct 29.6 L (37.2-46.3) % MCV 97.7 H (80.0-97.0) fL RDW 19.8 H (11.5-14.5) % Plt Count 39 L (140-440) X 10*3/uL Plt Count Comment A MPV 12.8 H (9.5-12.2) fL Immature Gran # 0.74 H (0.00-0.04) X 10*3/uL Neutrophils # 19.46 H (1.80-7.70) X 10*3/uL Lymphocytes # 0.23 L (0.90-5.00) X 10*3/uL Immature Plt Fraction 10.9 H (1.1-6.1) % POC Glucose (mg/dL) 173 H 407 H (70-110) mg/dL 10/17/22 10/17/22 10/17/22 Range/Units 05:50 07:03 11:26 WBC 19.23 H (4.50-10.00) X 10*3/uL RBC 3.06 L (4.10-5.20) X 10*6/uL Hgb 9.6 L (12.0-15.0) g/dL Hct 29.7 L (37.2-46.3) % MCV 97.1 H (80.0-97.0) fL RDW 20.0 H (11.5-14.5) % Plt Count 52 L (140-440) X 10*3/uL Plt Count Comment DECREASED A MPV (9.5-12.2) fL Immature Gran # 0.81 H (0.00-0.04) X 10*3/uL Neutrophils # 17.28 H (1.80-7.70) X 10*3/uL Lymphocytes # 0.16 L (0.90-5.00) X 10*3/uL Immature Plt Fraction 9.1 H (1.1-6.1) % POC Glucose (mg/dL) 200 H 371 H (70-110) mg/dL
[2022-10-17 17:17] LABS: Glucose,Whole Blood 85 mg/dL (70-110)
[2022-10-17 20:30] LABS: Glucose,Whole Blood 131 mg/dL (70-110)
[2022-10-17] MEDS ORDERED: INSULIN DETEMIR (LEVEMIR) 100 UNIT/ML SYR SQ SCH (21:00)
[2022-10-18] MEDS: HYDROcodone/APAP 7.5-325MG 1 EACH TAB PO PRN ×4 (06:20→21:03)
[2022-10-18 07:10] LABS: Glucose,Whole Blood 79 mg/dL (70-110)
[2022-10-18] MEDS: INSULIN ASPART (NovoLOG) 100 UNIT/ML VIAL SQ SCH ×4 (07:11→21:02)
[2022-10-18] MEDS: MAGNESIUM OXIDE 400 MG TAB PO SCH (08:12)
[2022-10-18] MEDS: FOLIC ACID 1 MG TAB PO SCH (08:12)
[2022-10-18] MEDS: LINAGLIPTIN 5 MG TABLET PO SCH (08:12)
[2022-10-18] MEDS: levETIRAcetam 500 MG TAB PO SCH ×2 (08:12→21:02)
[2022-10-18] MEDS: APIXABAN 5 MG TAB PO SCH ×2 (08:12→21:02)
[2022-10-18] MEDS: PANTOPRAZOLE 40 MG TABLET PO SCH (08:12)
[2022-10-18] MEDS: polyethylene glycoL 3350 17 GM POWD.PACK PO SCH ×2 (08:12→21:02)
[2022-10-18] MEDS: SENNOSIDES-DOCUSATE SODIUM 1 EACH TAB PO SCH (08:12)
[2022-10-18] MEDS: PREGABALIN 50 MG CAP PO SCH ×3 (08:12→21:01)
[2022-10-18] MEDS: dexAMETHasone 4 MG TAB PO SCH ×2 (10:21→21:02)
[2022-10-18 10:33] LABS: HGB 9.6 g/dL (12.0-15.0); Immature Platelet Fraction 11.3 % (1.1-6.1); MCH 31.6 pg (27.0-32.0); MCHC 33.1 g/dL (32.0-37.0); MCV 95.4 fL (80.0-97.0); Mean Platelet Volume 11.8 fL (9.5-12.2); NRBC Per 100 WBC 0.2 /100 WBCS (0.0-0.0); Platelet Count 25 X 10*3/uL (140-440); RBC 3.04 X 10*6/uL (4.10-5.20); RDW 20.1 % (11.5-14.5); WBC 12.24 X 10*3/uL (4.50-10.00)
[2022-10-18 11:15] LABS: Glucose,Whole Blood 213 mg/dL (70-110)
[2022-10-18 12:02] LABS: African American GFR (CKD) >90 (>60 ml/min/1.73 sqM); Anion Gap 6 mmol/L; Blood Urea Nitrogen 33 mg/dL (7-17); Calcium 9.2 mg/dL (8.4-10.2); Carbon Dioxide 29 mmol/L (22-30); Chloride 99 mmol/L (98-107); Glucose 70 mg/dL (74-99); Non-African American GFR(CKD) >90 (>60 ml/min/1.73 sqM); Potassium 4.1 mmol/L (3.5-5.1); Sodium 134 mmol/L (137-145)
--- NOTE | 2022-10-18 13:51 | P.PN ---
Subjective Progress Note Date: 10/18/22 (Delayed charting seen at 9 AM) Patient is a 57-year-old female with a history of metastatic lung cancer to brain and spine, pulmonary embolism on Eliquis with recent IVC filter and DVT, a nd seizure disorder who presented to the ER with complaints of worsening right lower extremity pain. She had a known L1 5 lesion with nerve root impingement. She presented to the ER for intractable pain. On presentation to the ER her vital signs within normal limits, lab work was remarkable for white blood cell count of 11.5, platelets 37, sodium 137, creatinine 0.76. She was admitted and was started on Dilaudid and [place] for pain as well as Lyrica. Oncology and radiation oncology were consulted. Patient underwent simulation for radiation on 10/12 and first round on 10/13 with a plan for a total of 5 doses. She has not been able to sit due to pain. Patient seen and examined at bedside. She is able to get up to the chair for 4 hours yesterday. She supplements her again this morning. She states the pain medications appear adequate. She denies any nausea or vomiting. She is anxious to go home. She is wondering if she should switch her care to the [place] was seen here and [facility] as it is much closer for her. Vital signs reviewed General: nontoxic, no distress, appears at stated age Cardiovascular: S1S2 reg, no murmur, positive posterior tibial pulse bilateral, Lungs: Decreased bs bilateral, no rhonchi, no rales , no accessory muscle use Abdominal: soft, nontender to palpation, no guarding, no appreciable organomegaly Ext: no gross muscle atrophy, no edema, no contractures Neuro: CN II-XI grossly intact, no focal neuro deficits Psych: Alert, oriented, appropriate affect Assessment: Intractable malignancy related pain secondary to an L5 nerve root impingement Metastatic lung cancer with metastases to the brain and bone Thrombocytopenia, likely related to treatment for cancer and overall oncologic process, s/p 3 units of plt Newly discovered DM 2 with hyperglycemia due to steroids Seizure disorder Recent PE on Eliquis and status post IVC filter Leukocytosis, related to steroid use. Data Review: Vital signs reviewed temperature 98.4, pulse 91, respirations 18, blood pressure 114/77, O2 sat 97% on air Labs reviewed and white blood cell count 12.24 (down from 19.23), hemoglobin stable at 9.6, platelets came back at 25 down from 52 yesterday, sodium 134 Blood sugars reviewed in a.m. fasting was 78 this morning Plan: -1 unit of platelets today, total of 4 after this is infused - S/p 4/5 rounds of radiation for bone pain and lesion -Fentanyl patch to 50 g. Continue with [place] 7.5/325 as needed for pain. - Case discussed with Dr. Nuñez, steroids will be weaned. Now dexamethasone 4 mg twice daily. Blood sugars therefore decrease or 78 this morning. We'll back off on Levemir to 10 units nightly. Discussed with patient that her cold be to get her home on a medication such tradjenta or Januvia. -Tylenol 650 mg every 4 hours as needed, -Lyrica 50 mg 3 times a day -Keppra 500 twice a day -Leukocytosis likely reactive and steroid-induced, Repeat CBC in AM, no signs of infection -Continue Eliquis 5 mg twice a day - SSI, trandjenta, continue to follow BS DVT prophylaxis: Eliquis Discussed with: Patient, nursing Anticipated discharge date: Wednesday after radiation Anticipated discharge place: Pending Clinical Course This dictation was prepared using [email or web address] voice recognition software. Though every attempt is made to correct errors during during dictation some may still exist. Objective - Vital Signs Vital signs: Vital Signs Temp 98.1 F 10/18/22 13:26 Pulse 100 10/18/22 13:26 Resp 16 10/18/22 13:26 BP 102/70 10/18/22 13:26 Pulse Ox 99 10/18/22 13:26 FiO2 Intake & Output 10/17/22 10/18/22 10/18/22 18:59 06:59 18:59 Intake Total 200 0 Output Total 0 Balance 200 0 Intake: Oral 200 Blood Product 0 Unit 0 Output: Stool 0 Other: Voiding Method Bedpan Bedpan # Voids 3 # Bowel Movements 2 - Labs CBC & Chem 7: 10/18/22 05:51 10/18/22 05:51 Labs: Abnormal Lab Results - Last 24 Hours (Table) 10/17/22 10/18/22 10/18/22 Range/Units 20:25 05:51 05:51 WBC 12.24 H (4.50-10.00) X 10*3/uL RBC 3.04 L (4.10-5.20) X 10*6/uL Hgb 9.6 L (12.0-15.0) g/dL Hct 29.0 L (37.2-46.3) % RDW 20.1 H (11.5-14.5) % Plt Count 25 L (140-440) X 10*3/uL Absolute Nucleated RBC 0.02 H (0.00-0.00) X 10*3/uL NRBC/100 WBC Diff 0.2 H (0.0-0.0) /100 WBCS Immature Plt Fraction 11.3 H (1.1-6.1) % Sodium 134 L (137-145) mmol/L BUN 33 H (7-17) mg/dL Glucose 70 L (74-99) mg/dL POC Glucose (mg/dL) 131 H (70-110) mg/dL 10/18/22 Range/Units 11:13 WBC (4.50-10.00) X 10*3/uL RBC (4.10-5.20) X 10*6/uL Hgb (12.0-15.0) g/dL Hct (37.2-46.3) % RDW (11.5-14.5) % Plt Count (140-440) X 10*3/uL Absolute Nucleated RBC (0.00-0.00) X 10*3/uL NRBC/100 WBC Diff (0.0-0.0) /100 WBCS Immature Plt Fraction (1.1-6.1) % Sodium (137-145) mmol/L BUN (7-17) mg/dL Glucose (74-99) mg/dL POC Glucose (mg/dL) 213 H (70-110) mg/dL
[2022-10-18 17:25] LABS: Glucose,Whole Blood 195 mg/dL (70-110)
--- NOTE | 2022-10-18 18:54 | P.PN ---
Subjective Progress Note Date: 10/18/22 the patient's pain control is improved. After being strongly urged to do so multiple times by the admitting service, and ours, the patient has been out of bed, and sitting up in a chair for significant periods of time since yesterday. She states that her pain control is better though she is not bearing any weight on the right lower extremity. She reports regular bowel movements. Objective - Vital Signs Vital signs: Vital Signs Temp 98.1 F 10/18/22 15:33 Pulse 105 H 10/18/22 15:33 Resp 16 10/18/22 15:33 BP 102/68 10/18/22 15:33 Pulse Ox 97 10/18/22 15:33 FiO2 Intake & Output 10/17/22 10/18/22 10/18/22 18:59 06:59 18:59 Intake Total 200 297 Output Total 0 Balance 200 297 Intake: Oral 200 Blood Product 297 Platelet Pheresis Pas 297 Psoralen Unit [id number] Output: Stool 0 Other: Voiding Method Bedpan Bedpan # Voids 3 1 # Bowel Movements 2 1 - Constitutional General appearance: Present: no acute distress - EENT Eyes: Present: EOMI ENT: Present: hearing grossly normal, normal oropharynx - Respiratory Respiratory: bilateral: CTA - Cardiovascular Rhythm: regular Heart sounds: normal: S1, S2 - Gastrointestinal General gastrointestinal: Present: normal bowel sounds, soft - Integumentary Integumentary: Present: normal - Neurologic Neurologic: Present: CNII-XII intact - Musculoskeletal Musculoskeletal: Present: right sided weakness (right lower extremity) - Labs CBC & Chem 7: 10/18/22 05:51 10/18/22 05:51 Labs: Abnormal Lab Results - Last 24 Hours (Table) 10/17/22 10/18/22 10/18/22 Range/Units 20:25 05:51 05:51 WBC 12.24 H (4.50-10.00) X 10*3/uL RBC 3.04 L (4.10-5.20) X 10*6/uL Hgb 9.6 L (12.0-15.0) g/dL Hct 29.0 L (37.2-46.3) % RDW 20.1 H (11.5-14.5) % Plt Count 25 L (140-440) X 10*3/uL Absolute Nucleated RBC 0.02 H (0.00-0.00) X 10*3/uL NRBC/100 WBC Diff 0.2 H (0.0-0.0) /100 WBCS Immature Plt Fraction 11.3 H (1.1-6.1) % Sodium 134 L (137-145) mmol/L BUN 33 H (7-17) mg/dL Glucose 70 L (74-99) mg/dL POC Glucose (mg/dL) 131 H (70-110) mg/dL 10/18/22 10/18/22 Range/Units 11:13 17:24 WBC (4.50-10.00) X 10*3/uL RBC (4.10-5.20) X 10*6/uL Hgb (12.0-15.0) g/dL Hct (37.2-46.3) % RDW (11.5-14.5) % Plt Count (140-440) X 10*3/uL Absolute Nucleated RBC (0.00-0.00) X 10*3/uL NRBC/100 WBC Diff (0.0-0.0) /100 WBCS Immature Plt Fraction (1.1-6.1) % Sodium (137-145) mmol/L BUN (7-17) mg/dL Glucose (74-99) mg/dL POC Glucose (mg/dL) 213 H 195 H (70-110) mg/dL Assessment and Plan (1) Intractable pain Narrative/Plan: this is improved, since increase in fentanyl to 50 g. The patient is continuing on [place] when necessary, and on Decadron. Case was discussed in detail with the admitting service. As she is still inpatient, her Decadron dose was decreased today as part of her planned taper - The patient did get out of bed, and spend time sitting up in the chair, with relatively good tolerance. - She will complete her radiation tomorrow - Continue to taper Decadron outpatient Current Visit: Yes Status: Acute Code(s): R52 - PAIN, UNSPECIFIED SNOMED Code(s): 00509232 (2) Non-small cell lung cancer (NSCLC) Narrative/Plan: the patient has follow-up scheduled with her primary oncologist after completion of radiation to discuss start of systemic therapy. She states that she is considering possibly transferring her care locally because of proximity to her place of residence. However , he'll make a decision regarding that after discussing with her family, and her primary oncologist. Current Visit: Yes Status: Acute Priority: High Code(s): C34.90 - MALIGNANT NEOPLASM OF UNSP PART OF UNSP BRONCHUS OR LUNG SNOMED Code(s): 750951385
[2022-10-18 20:00] LABS: Glucose,Whole Blood 283 mg/dL (70-110)
[2022-10-18] MEDS ORDERED: INSULIN DETEMIR (LEVEMIR) 100 UNIT/ML SYR SQ SCH (21:00)
[2022-10-18] MEDS: INSULIN DETEMIR (LEVEMIR) 100 UNIT/ML SYR SQ SCH (21:02)
[2022-10-19] MEDS: HYDROcodone/APAP 7.5-325MG 1 EACH TAB PO PRN ×4 (04:11→18:02)
[2022-10-19 07:12] LABS: Glucose,Whole Blood 123 mg/dL (70-110)
[2022-10-19] MEDS: MAGNESIUM OXIDE 400 MG TAB PO SCH (08:14)
[2022-10-19] MEDS: INSULIN ASPART (NovoLOG) 100 UNIT/ML VIAL SQ SCH ×4 (08:14→20:44)
[2022-10-19] MEDS: FOLIC ACID 1 MG TAB PO SCH (08:14)
[2022-10-19] MEDS: SENNOSIDES-DOCUSATE SODIUM 1 EACH TAB PO SCH (08:14)
[2022-10-19] MEDS: levETIRAcetam 500 MG TAB PO SCH ×2 (08:14→20:44)
[2022-10-19] MEDS: LINAGLIPTIN 5 MG TABLET PO SCH (08:15)
[2022-10-19] MEDS: PANTOPRAZOLE 40 MG TABLET PO SCH (08:15)
[2022-10-19] MEDS: PREGABALIN 50 MG CAP PO SCH ×3 (08:15→21:34)
[2022-10-19] MEDS: APIXABAN 5 MG TAB PO SCH ×2 (08:15→20:44)
[2022-10-19] MEDS: dexAMETHasone 4 MG TAB PO SCH (08:15)
[2022-10-19] MEDS: polyethylene glycoL 3350 17 GM POWD.PACK PO SCH ×2 (08:15→20:43)
[2022-10-19 11:19] LABS: Glucose,Whole Blood 172 mg/dL (70-110)
[2022-10-19 11:38] LABS: African American GFR (CKD) 113.7 (60.0-200.0); Anion Gap 12.3 mmol/L (10.00-18.00); BUN/Creat Ratio 49.18 Ratio (12.00-20.00); Blood Urea Nitrogen 33.1 mg/dL (9.0-27.0); Calcium 9.4 mg/dL (8.7-10.3); Carbon Dioxide 24.9 mmol/L (20.0-27.5); Non-African American GFR(CKD) 98.1 (60.0-200.0); Potassium 4.3 mmol/L (3.5-5.5)
[2022-10-19 12:02] LABS: HCT 28.1 % (37.2-46.3); Immature Platelet Fraction 13.7 % (1.1-6.1); MCH 30.8 pg (27.0-32.0); MCV 96.2 fL (80.0-97.0); Mean Platelet Volume 12.4 fL (9.5-12.2); NRBC Per 100 WBC 0 /100 WBCS (0.0-0.0); Platelet Count 17 X 10*3/uL (140-440); RBC 2.92 X 10*6/uL (4.10-5.20); WBC 12.77 X 10*3/uL (4.50-10.00)
--- NOTE | 2022-10-19 12:51 | P.PN ---
Subjective Progress Note Date: 10/19/22 (delayed charting seen at 0930) Patient is a 57-year-old female with a history of metastatic lung cancer to brain and spine, pulmonary embolism on Eliquis with recent IVC filter and DVT, a nd seizure disorder who presented to the ER with complaints of worsening right lower extremity pain. She had a known L1 5 lesion with nerve root impingement. She presented to the ER for intractable pain. On presentation to the ER her vital signs within normal limits, lab work was remarkable for white blood cell count of 11.5, platelets 37, sodium 137, creatinine 0.76. She was admitted and was started on Dilaudid and [place] for pain as well as Lyrica. Oncology and radiation oncology were consulted. Patient underwent simulation for radiation on 10/12 and first round on 10/13 with a plan for a total of 5 doses. She has not been able to sit due to pain. Her pain medications were adjusted and she was able to tolerate sitting in the chair between this and her radiation. Her platelets continued to be low and she required multiple transfusions. Patient seen and examined at bedside. Pain is well controlled. She is excited to complete radiation. She is worried about her platelets needing transfusion after discharge. NOw at [facility] they have to go through the ED for platelets and her wait is usually greater than 4 hours. Vital signs reviewed General: nontoxic, no distress, appears at stated age Cardiovascular: S1S2 reg, no murmur, positive posterior tibial pulse bilateral, Lungs: Decreased bs bilateral, no rhonchi, no rales , no accessory muscle use Abdominal: soft, nontender to palpation, no guarding, no appreciable organomegaly Ext: no gross muscle atrophy, no edema, no contractures Neuro: CN II-XI grossly intact, no focal neuro deficits Psych: Alert, oriented, appropriate affect Assessment: Intractable malignancy related pain secondary to an L5 nerve root impingement Metastatic lung cancer with metastases to the brain and bone Thrombocytopenia, possible IT related to immune therapy, s/p 4 units of plt Newly discovered DM 2 with hyperglycemia due to steroids Seizure disorder Recent PE on Eliquis and status post IVC filter Leukocytosis, related to steroid use. Data Review: Vital signs reviewed and temperature 98.5, pulse 86, respirations 18, blood pressure 134/81, O2 sat 97% on room air Laboratory analysis reviewed and was felt count 12.77, hemoglobin 9, platelets 17 (down from 25 after receiving 1 unit of platelets yesterday) Blood sugars a.m. fasting is 123, lasting evening 183, 195, and 213 Plan: - Case discussed with Dr Cleary and Loren Mcgowan, low platekets may be due to immunotherapy resulting in ITP. THey will increase steroids to prednisone 80 mg dialy - 1 additional unit of plt today and recheck CBC in AM - S/p 4/5 rounds of radiation for bone pain and lesion, last scheduled for today - Fentanyl patch to 50 g. Continue with [place] 7.5/325 as needed for pain. - Levemir to 10 units nightly. Discussed with patient that depending on steroid need could be home on levemir vs tradjenta or Januvia. -Tylenol 650 mg every 4 hours as needed, -Lyrica 50 mg 3 times a day -Keppra 500 twice a day -Leukocytosis likely reactive and steroid-induced, Repeat CBC in AM, no signs of infection -Continue Eliquis 5 mg twice a day - SSI, trandjenta, continue to follow BS DVT prophylaxis: Eliquis Discussed with: Patient, nursing Anticipated discharge date: tomorrow after CBC Anticipated discharge place: Pending Clinical Course This dictation was prepared using [employer] voice recognition software. Though every attempt is made to correct errors during during dictation some may still exist. Objective - Vital Signs Vital signs: Vital Signs Temp 98.5 F 10/19/22 07:13 Pulse 86 10/19/22 07:13 Resp 18 10/19/22 07:13 BP 134/81 10/19/22 07:13 Pulse Ox 97 10/19/22 07:13 FiO2 Intake & Output 10/18/22 10/19/22 10/19/22 18:59 06:59 18:59 Intake Total 297 400 Balance 297 400 Intake: Oral 400 Blood Product 297 Platelet Pheresis Pas 297 Psoralen Unit [id number] Other: Voiding Method Bedside Commode # Voids 1 1 # Bowel Movements 1 - Labs CBC & Chem 7: 10/19/22 06:42 10/19/22 06:42 Labs: Abnormal Lab Results - Last 24 Hours (Table) 10/18/22 10/18/22 10/19/22 Range/Units 17:24 19:46 06:42 WBC 12.77 H (4.50-10.00) X 10*3/uL RBC 2.92 L (4.10-5.20) X 10*6/uL Hgb 9.0 L (12.0-15.0) g/dL Hct 28.1 L (37.2-46.3) % RDW 20.0 H (11.5-14.5) % Plt Count 17 L* (140-440) X 10*3/uL MPV 12.4 H (9.5-12.2) fL Immature Plt Fraction 13.7 H (1.1-6.1) % BUN (9.0-27.0) mg/dL BUN/Creatinine Ratio (12.00-20.00) Ratio Glucose (70-110) mg/dL POC Glucose (mg/dL) 195 H 283 H (70-110) mg/dL 10/19/22 10/19/22 10/19/22 Range/Units 06:42 07:11 11:17 WBC (4.50-10.00) X 10*3/uL RBC (4.10-5.20) X 10*6/uL Hgb (12.0-15.0) g/dL Hct (37.2-46.3) % RDW (11.5-14.5) % Plt Count (140-440) X 10*3/uL MPV (9.5-12.2) fL Immature Plt Fraction (1.1-6.1) % BUN 33.1 H (9.0-27.0) mg/dL BUN/Creatinine Ratio 49.18 H (12.00-20.00) Ratio Glucose 136 H (70-110) mg/dL POC Glucose (mg/dL) 123 H 172 H (70-110) mg/dL
[2022-10-19] MEDS: predniSONE 20 MG TAB PO SCH (15:20)
--- NOTE | 2022-10-19 15:29 | P.PN ---
Subjective Progress Note Date: 10/19/22 Principal diagnosis: Intractable pain from metastasis, non-small cell lung cancer In follow-up today patient is staying "ahead of the pain" with fentanyl, [place] every 4 hours, and dexamethasone taper. Unfortunately, her platelets decreased when the steroids were tapered, thankfully her pain did not increase. She requires anticoagulation for recent DVT. Thankfully, hemoglobin has remained stable, no gross bleeding. Objective - Vital Signs Vital signs: Vital Signs Temp 99.0 F 10/19/22 12:56 Pulse 104 H 10/19/22 12:56 Resp 20 10/19/22 12:56 BP 138/83 10/19/22 12:56 Pulse Ox 97 10/19/22 12:56 FiO2 Intake & Output 10/18/22 10/19/22 10/19/22 18:59 06:59 18:59 Intake Total 297 400 240 Balance 297 400 240 Intake: Oral 400 240 Blood Product 297 Platelet Pheresis Pas 297 Psoralen Unit [id number] Other: Voiding Method Bedside Commode # Voids 1 1 # Bowel Movements 1 - Constitutional General appearance: Present: average body habitus, cooperative, no acute distress - EENT Eyes: Present: anicteric sclerae, EOMI ENT: Present: hearing grossly normal - Respiratory Details: Respirations even and unlabored at rest - Peripheral edema leg Peripheral Edema: bilateral: None - Integumentary Integumentary: Present: normal - Neurologic Neurologic: Present: CNII-XII intact - Musculoskeletal Musculoskeletal: Present: strength equal bilaterally - Psychiatric Psychiatric: Present: A&O x's 3, appropriate affect, intact judgment & insight - Labs CBC & Chem 7: 10/19/22 06:42 10/19/22 06:42 Labs: Abnormal Lab Results - Last 24 Hours (Table) 10/18/22 10/18/22 10/19/22 Range/Units 17:24 19:46 06:42 WBC 12.77 H (4.50-10.00) X 10*3/uL RBC 2.92 L (4.10-5.20) X 10*6/uL Hgb 9.0 L (12.0-15.0) g/dL Hct 28.1 L (37.2-46.3) % RDW 20.0 H (11.5-14.5) % Plt Count 17 L* (140-440) X 10*3/uL MPV 12.4 H (9.5-12.2) fL Immature Plt Fraction 13.7 H (1.1-6.1) % BUN (9.0-27.0) mg/dL BUN/Creatinine Ratio (12.00-20.00) Ratio Glucose (70-110) mg/dL POC Glucose (mg/dL) 195 H 283 H (70-110) mg/dL 10/19/22 10/19/22 10/19/22 Range/Units 06:42 07:11 11:17 WBC (4.50-10.00) X 10*3/uL RBC (4.10-5.20) X 10*6/uL Hgb (12.0-15.0) g/dL Hct (37.2-46.3) % RDW (11.5-14.5) % Plt Count (140-440) X 10*3/uL MPV (9.5-12.2) fL Immature Plt Fraction (1.1-6.1) % BUN 33.1 H (9.0-27.0) mg/dL BUN/Creatinine Ratio 49.18 H (12.00-20.00) Ratio Glucose 136 H (70-110) mg/dL POC Glucose (mg/dL) 123 H 172 H (70-110) mg/dL Assessment and Plan (1) Pain of metastatic malignancy Current Visit: Yes Status: Acute Priority: High Code(s): G89.3 - NEOPLASM RELATED PAIN (ACUTE) (CHRONIC) SNOMED Code(s): 899639458 (2) Non-small cell lung cancer (NSCLC) Current Visit: Yes Status: Acute Priority: High Code(s): C34.90 - MALIGNANT NEOPLASM OF UNSP PART OF UNSP BRONCHUS OR LUNG SNOMED Code(s): 921092820 (3) Thrombocytopathia Current Visit: Yes Status: Acute Code(s): D69.1 - QUALITATIVE PLATELET DEFECTS SNOMED Code(s): 849594400 (4) DVT (deep venous thrombosis) Current Visit: Yes Status: Acute Priority: High Code(s): I82.409 - ACUTE EMBOLISM AND THOMBOS UNSP DEEP VN UNSP LOWER EXTREMITY SNOMED Code(s): 817710533 Plan: NSCLC -Progressive, metastatic disease to the bones. Simulated, cont on palliative radiation -Hx of brain mets, previously treated with XRT -Tx at [facility] Primary Oncologist Dr. Yang. Patient wants to transfer care locally. Have asked patient to contact Primary Oncologist and have them make referral over to our office for transfer of care. Phone numbers were given to the patient's for the same. He verbalized understanding. Intractable pain 2/2 metastatic disease -Fentanyl has been added. Patient continuing on [place]. Fairly decent pain control at this time. -Continue medications for prevention of narcotic-induced constipation -Patient was on a dexamethasone taper for the same. Dexamethasone taper has been changed to prednisone taper, concerns for immunotherapy-induced ITP. -PPI for prevention of steroid induced gastritis, cont outpt -Radiation to to completion Thrombocytopenia -Persistent -platelet counts decreased with tapering of steroids, suspect low platelets may be immunotherapy-related. Patient reports a history of side effects of immunotherapy that sounds very much like a Latrell Raffaele's type reaction. -Change steroids to prednisone. A little over 1 mg/kg at 80 mg, Ordered daily. -Have requested labs from [facility] To see if this is chronic, stable or worsening, or a new problem Doctor attests: I performed a history and physical examination of this patient, developed impression and plan of care. Discussed with dictator. I agree with dictators note, documented as a scribe. Time with Patient: Greater than 30
[2022-10-19] MEDS ORDERED: MAGNESIUM HYDROXIDE 2,400 MG/10 ML CUP PO PRN (15:30)
[2022-10-19 17:22] LABS: Glucose,Whole Blood 205 mg/dL (70-110)
[2022-10-19 20:02] LABS: Glucose,Whole Blood 235 mg/dL (70-110)
[2022-10-19] MEDS: INSULIN DETEMIR (LEVEMIR) 100 UNIT/ML SYR SQ SCH (20:45)
[2022-10-20 06:58] LABS: Anisocytosis Slight; HCT 24.8 % (34.0-46.0); HGB 8.2 gm/dL (11.4-16.0); MCH 31.7 pg (25.0-35.0); MCHC 33.1 g/dL (31.0-37.0); MCV 95.5 fL (80.0-100.0); Macrocytosis Slight; Mean Platelet Volume 10.4; RDW 18.8 % (11.5-15.5); WBC 10.5 k/uL (3.8-10.6)
[2022-10-20 07:41] LABS: Glucose,Whole Blood 141 mg/dL (70-110)
[2022-10-20 08:49] LABS: Platelet Count 22 k/uL (150-450)
[2022-10-20] MEDS: INSULIN ASPART (NovoLOG) 100 UNIT/ML VIAL SQ SCH ×4 (09:05→20:58)
[2022-10-20] MEDS: FOLIC ACID 1 MG TAB PO SCH (09:21)
[2022-10-20] MEDS: MAGNESIUM OXIDE 400 MG TAB PO SCH (09:21)
[2022-10-20] MEDS: LINAGLIPTIN 5 MG TABLET PO SCH (09:21)
[2022-10-20] MEDS: PREGABALIN 50 MG CAP PO SCH ×3 (09:21→20:59)
[2022-10-20] MEDS: predniSONE 20 MG TAB PO SCH (09:21)
[2022-10-20] MEDS: levETIRAcetam 500 MG TAB PO SCH ×2 (09:21→20:58)
[2022-10-20] MEDS: PANTOPRAZOLE 40 MG TABLET PO SCH (09:22)
[2022-10-20] MEDS: SENNOSIDES-DOCUSATE SODIUM 1 EACH TAB PO SCH (09:22)
[2022-10-20] MEDS: APIXABAN 5 MG TAB PO SCH ×2 (09:22→20:58)
[2022-10-20] MEDS: polyethylene glycoL 3350 17 GM POWD.PACK PO SCH ×2 (09:22→20:59)
--- NOTE | 2022-10-20 09:38 | P.PN ---
Subjective Progress Note Date: 10/20/22 Patient is a 57-year-old female with a history of metastatic lung cancer to brain and spine, pulmonary embolism on Eliquis with recent IVC filter and DVT, and seizure disorder who presented to the ER with complaints of worsening right lower extremity pain. She had a known L1 5 lesion with nerve root impingement. She presented to the ER for intractable pain. On presentation to the ER her vital signs within normal limits, lab work was remarkable for white blood cell count of 11.5, platelets 37, sodium 137, creatinine 0.76. She was admitted and was started on Dilaudid and [place] for pain as well as Lyrica. Oncology and radiation oncology were consulted. Patient underwent simulation for radiation on 10/12 and first round on 10/13 with a plan for a total of 5 doses. She has not been able to sit due to pain. Her pain medications were adjusted and she was able to tolerate sitting in the chair between this and her radiation. Her platelets continued to be low and she required multiple transfusions. Patient seen and examined at bedside. She did well up and walking with physical therapy yesterday. She is still not wanting to bear weight. She denies any nausea or vomiting. She is eating and drinking well. She is very nervous about her platelets. Vital signs reviewed General: nontoxic, no distress, appears at stated age Cardiovascular: S1S2 reg, no murmur, positive posterior tibial pulse bilateral, Lungs: Decreased bs bilateral, no rhonchi, no rales , no accessory muscle use Abdominal: soft, nontender to palpation, no guarding, no appreciable organomegaly Ext: no gross muscle atrophy, no edema, no contractures Neuro: CN II-XI grossly intact, no focal neuro deficits Psych: Alert, oriented, appropriate affect Assessment: Thrombocytopenia, possible IT related to immune therapy, s/p 5 units of plt Anemia, worsening, undetermined etiology Intractable malignancy related pain secondary to an L5 nerve root impingement Metastatic lung cancer with metastases to the brain and bone Newly discovered DM 2 with hyperglycemia due to steroids Seizure disorder Recent PE on Eliquis and status post IVC filter Leukocytosis, related to steroid use, resolved Data Review: Vital signs reviewed texture 90, pulse 83, respirations 18, blood pressure 129/79, O2 sat 96% on room air Labs reviewed hemoglobin 8.2 (down from 9), platelets 22 (up from 17 yesterday but that was after 1 unit of platelets Sugars reviewed in fasting 141, yesterday evening 235 Plan: -Anemia is worsening and will need to monitor carefully as to etiology. -Await further oncology recommendations - 1 additional unit of plt today for a totoal of 6 this hospital stay and re check CBC in AM - S/p 5 rounds of radiation for bone pain and lesion - Fentanyl patch to 50 g. Continue with [place] 7.5/325 as needed for pain. -Continue to monitor blood sugars. I anticipate undergo up with reinitiation of high-dose steroids with prednisone 80 mg. Continue with sliding scale, NovoLog. Levemir will be increased to 12 units, continue with tradjenta 5 ,g daily. -Tylenol 650 mg every 4 hours as needed, -Lyrica 50 mg 3 times a day -Keppra 500 twice a day -Continue Eliquis 5 mg twice a day DVT prophylaxis: Eliquis Discussed with: Patient, nursing Anticipated discharge date: Pending clinical course Anticipated discharge place: Pending Clinical Course This dictation was prepared using [employer] voice recognition software. Though every attempt is made to correct errors during during dictation some may still exist. Objective - Vital Signs Vital signs: Vital Signs Temp 98.0 F 10/20/22 07:30 Pulse 83 10/20/22 07:30 Resp 18 10/20/22 07:30 BP 129/79 10/20/22 07:30 Pulse Ox 96 10/20/22 07:30 FiO2 Intake & Output 10/19/22 10/20/22 10/20/22 18:59 06:59 18:59 Intake Total 240 861 Balance 240 861 Intake: Oral 240 600 Blood Product 261 Platelet Pheresis Pas 261 Psoralen Unit [id number] Other: Voiding Method Bedside Commode # Voids 1 1 # Bowel Movements 1 - Labs CBC & Chem 7: 10/20/22 05:40 10/19/22 06:42 Labs: Abnormal Lab Results - Last 24 Hours (Table) 10/19/22 10/19/22 10/19/22 Range/Units 06:42 06:42 11:17 WBC 12.77 H (4.50-10.00) X 10*3/uL RBC 2.92 L (4.10-5.20) X 10*6/uL Hgb 9.0 L (12.0-15.0) g/dL Hct 28.1 L (37.2-46.3) % RDW 20.0 H (11.5-14.5) % Plt Count 17 L* (140-440) X 10*3/uL MPV 12.4 H (9.5-12.2) fL Immature Plt Fraction 13.7 H (1.1-6.1) % BUN 33.1 H (9.0-27.0) mg/dL BUN/Creatinine Ratio 49.18 H (12.00-20.00) Ratio Glucose 136 H (70-110) mg/dL POC Glucose (mg/dL) 172 H (70-110) mg/dL 10/19/22 10/19/22 10/20/22 Range/Units 17:20 19:58 05:40 WBC (4.50-10.00) X 10*3/uL RBC 2.60 L (4.10-5.20) X 10*6/uL Hgb 8.2 L (12.0-15.0) g/dL Hct 24.8 L (37.2-46.3) % RDW 18.8 H (11.5-14.5) % Plt Count 22 L D (140-440) X 10*3/uL MPV (9.5-12.2) fL Immature Plt Fraction (1.1-6.1) % BUN (9.0-27.0) mg/dL BUN/Creatinine Ratio (12.00-20.00) Ratio Glucose (70-110) mg/dL POC Glucose (mg/dL) 205 H 235 H (70-110) mg/dL 10/20/22 Range/Units 07:34 WBC (4.50-10.00) X 10*3/uL RBC (4.10-5.20) X 10*6/uL Hgb (12.0-15.0) g/dL Hct (37.2-46.3) % RDW (11.5-14.5) % Plt Count (140-440) X 10*3/uL MPV (9.5-12.2) fL Immature Plt Fraction (1.1-6.1) % BUN (9.0-27.0) mg/dL BUN/Creatinine Ratio (12.00-20.00) Ratio Glucose (70-110) mg/dL POC Glucose (mg/dL) 141 H (70-110) mg/dL
[2022-10-20 11:27] LABS: Glucose,Whole Blood 286 mg/dL (70-110)
[2022-10-20 12:27] LABS: Glucose,Whole Blood 285 mg/dL (70-110)
--- NOTE | 2022-10-20 16:19 | P.PN ---
Subjective Progress Note Date: 10/20/22 Principal diagnosis: Intractable pain from metastasis, non-small cell lung cancer In follow-up today patient reports significantly improved pain control, rating it at a 3, she was able to hold off on her breakthrough [place] for several hours and just use a heating pad with decent relief. She denies any bleeding. She continues on eliquis for DVT about 3 weeks ago. Her platelets are 22,000 today after a unit of single door platelets yesterday. She was started on high dose p rednisone yesterday. Objective - Vital Signs Vital signs: Vital Signs Temp 98.3 F 10/20/22 12:15 Pulse 86 10/20/22 12:15 Resp 18 10/20/22 12:15 BP 132/80 10/20/22 12:15 Pulse Ox 97 10/20/22 12:15 FiO2 Intake & Output 10/19/22 10/20/22 10/20/22 18:59 06:59 18:59 Intake Total 240 861 Balance 240 861 Intake: Oral 240 600 Blood Product 261 Platelet Pheresis Pas 261 Psoralen Unit [id number] Other: Voiding Method Bedside Commode # Voids 1 1 # Bowel Movements 1 - Constitutional General appearance: Present: average body habitus, cooperative, no acute distress - EENT Eyes: Present: anicteric sclerae, EOMI ENT: Present: hearing grossly normal, normal oropharynx - Respiratory Details: Respirations even and unlabored at rest - Cardiovascular Details: Skin warm and dry to the touch - Peripheral edema leg Peripheral Edema: bilateral: None - Integumentary Integumentary: Present: normal - Neurologic Neurologic: Present: CNII-XII intact - Musculoskeletal Musculoskeletal: Present: strength equal bilaterally - Psychiatric Psychiatric: Present: A&O x's 3, appropriate affect, intact judgment & insight - Labs CBC & Chem 7: 10/20/22 05:40 10/19/22 06:42 Labs: Abnormal Lab Results - Last 24 Hours (Table) 10/19/22 10/19/22 10/20/22 Range/Units 17:20 19:58 05:40 RBC 2.60 L (3.80-5.40) m/uL Hgb 8.2 L (11.4-16.0) gm/dL Hct 24.8 L (34.0-46.0) % RDW 18.8 H (11.5-15.5) % Plt Count 22 L D (150-450) k/uL POC Glucose (mg/dL) 205 H 235 H (70-110) mg/dL 10/20/22 10/20/22 10/20/22 Range/Units 07:34 11:15 12:25 RBC (3.80-5.40) m/uL Hgb (11.4-16.0) gm/dL Hct (34.0-46.0) % RDW (11.5-15.5) % Plt Count (150-450) k/uL POC Glucose (mg/dL) 141 H 286 H 285 H (70-110) mg/dL Assessment and Plan (1) Pain of metastatic malignancy Current Visit: Yes Status: Acute Priority: High Code(s): G89.3 - NEOPLASM RELATED PAIN (ACUTE) (CHRONIC) SNOMED Code(s): 477072372 (2) Non-small cell lung cancer (NSCLC) Current Visit: Yes Status: Acute Priority: High Code(s): C34.90 - MALIGNAN T NEOPLASM OF UNSP PART OF UNSP BRONCHUS OR LUNG SNOMED Code(s): 933033687 (3) Thrombocytopathia Current Visit: Yes Status: Acute Code(s): D69.1 - QUALITATIVE PLATELET DEFECTS SNOMED Code(s): 388402049 (4) DVT (deep venous thrombosis) Current Visit: Yes Status: Acute Priority: High Code(s): I82.409 - ACUTE EMBOLISM AND THOMBOS UNSP DEEP VN UNSP LOWER EXTREMITY SNOMED Code(s): 165696284 Plan: NSCLC -Progressive, metastatic disease to the bones. Simulated, cont on palliative radiation -Hx of brain mets, previously treated with XRT -Transfer of care locally. 10/29 at 3pm 1st office visit here Intractable pain 2/2 metastatic disease -Fentanyl and Panola, pt reporting decent pain control at this time. 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 -PPI for prevention of steroid induced gastritis, cont outpt -Radiation to to completion Thrombocytopenia -Persistent, 14K yesterday, s/p 1 unit SPD, 22K today -suspect low platelets may be immunotherapy-related. Patient reports a history of severe side effects of immunotherapy-sounded like a Latrell Raffaele's type reaction. -1 mg/kg of pred ordered, rounded to 80 mg, started 10/19/22, daily. Cont for now, no taper instructions -Have requested labs from [facility] to see if low platelets is chronic, stable or worsening, or a new problem Doctor attests: I performed a history and physical examination of this patient, developed impression and plan of care. Discussed with dictator. I agree with dictators note, documented as a scribe.
[2022-10-20 17:13] LABS: Glucose,Whole Blood 247 mg/dL (70-110)
[2022-10-20] MEDS: HYDROcodone/APAP 7.5-325MG 1 EACH TAB PO PRN (18:14)
[2022-10-20 20:12] LABS: Glucose,Whole Blood 389 mg/dL (70-110)
[2022-10-20] MEDS: INSULIN DETEMIR (LEVEMIR) 100 UNIT/ML SYR SQ SCH (20:58)
[2022-10-21] MEDS: HYDROcodone/APAP 7.5-325MG 1 EACH TAB PO PRN ×2 (04:05→08:19)
[2022-10-21 07:24] LABS: Anisocytosis Slight; HCT 23.6 % (34.0-46.0); HGB 8.1 gm/dL (11.4-16.0); MCH 32.1 pg (25.0-35.0); MCHC 34.4 g/dL (31.0-37.0); MCV 93.4 fL (80.0-100.0); Macrocytosis Slight; Mean Platelet Volume 10.5; RBC 2.53 m/uL (3.80-5.40); RDW 18.9 % (11.5-15.5); WBC 9.6 k/uL (3.8-10.6)
[2022-10-21 07:42] LABS: African American GFR (CKD) >90 (>60 ml/min/1.73 sqM); Anion Gap 6 mmol/L; Blood Urea Nitrogen 34 mg/dL (7-17); Calcium 8.8 mg/dL (8.4-10.2); Carbon Dioxide 28 mmol/L (22-30); Chloride 101 mmol/L (98-107); Glucose 64 mg/dL (74-99); Magnesium 1.9 mg/dL (1.6-2.3); Non-African American GFR(CKD) >90 (>60 ml/min/1.73 sqM); Potassium 3.4 mmol/L (3.5-5.1); Sodium 135 mmol/L (137-145)
[2022-10-21 07:50] LABS: Platelet Count 12 k/uL (150-450)
[2022-10-21 08:03] LABS: Glucose,Whole Blood 72 mg/dL (70-110)
[2022-10-21] MEDS ORDERED: POTASSIUM CHLORIDE ER 20 MEQ TAB.ER PO STA (08:06)
[2022-10-21] MEDS: INSULIN ASPART (NovoLOG) 100 UNIT/ML VIAL SQ SCH ×6 (08:18→21:00)
--- NOTE | 2022-10-21 08:18 | P.PN ---
Subjective Progress Note Date: 10/21/22 Patient is a 57-year-old female with a history of metastatic lung cancer to brain and spine, pulmonary embolism on Eliquis with recent IVC filter and DVT, and seizure disorder who presented to the ER with complaints of worsening right lower extremity pain. She had a known L1 5 lesion with nerve root impingement. She presented to the ER for intractable pain. On presentation to the ER her vital signs within normal limits, lab work was remarkable for white blood cell count of 11.5, platelets 37, sodium 137, creatinine 0.76. She was admitted and was started on Dilaudid and [place] for pain as well as Lyrica. Oncology and radiation oncology were consulted. Patient underwent simulation for radiation on 10/12 and first round on 10/13 with a plan for a total of 5 doses. She has not been able to sit due to pain. Her pain medications were adjusted and she was able to tolerate sitting in the chair between this and her radiation. Her platelets continued to be low and she required multiple transfusions. Patient seen and examined at bedside. Her right hip pain increased yesterday a fter she went to the bathroom, her norco helped a little but this is a significant increase in her pain. Vital signs reviewed General: nontoxic, no distress, appears at stated age Cardiovascular: S1S2 reg, no murmur, positive posterior tibial pulse bilateral, Lungs: Decreased bs bilateral, no rhonchi, no rales , no accessory muscle use Abdominal: soft, nontender to palpation, no guarding, no appreciable organomegaly Ext: no gross muscle atrophy, no edema, no contractures Neuro: CN II-XI grossly intact, no focal neuro deficits Psych: Alert, oriented, appropriate affect Assessment: Thrombocytopenia, possible IT related to immune therapy, s/p 5 units of plt Anemia, worsening, undetermined etiology Intractable malignancy related pain secondary to an L5 nerve root impingement and hip lesion Metastatic lung cancer with metastases to the brain and bone Newly discovered DM 2 with hyperglycemia due to steroids Seizure disorder Recent PE on Eliquis and status post IVC filter Leukocytosis, related to steroid use, resolved Data Review: VS reviewed and temp 97.9, pulse 79. RR 15, BP 153/83, O2 98% RA. Labs reveiwed. HgB 81. (8.2 yesterday), Plt 12 (down from 22), sodium 135, Potassium 3.4, Bun 34, glucose 64 (will verify with accucheck) BS reviewed and last ngiht it was 389 and 247 Plan: - Nursing will notify oncology of plt to determine next steps - potassium 40 mEq X 1 - Increase fentanyl patch to 75 mcg. Continue with [place] 7.5/325 as needed for pain. - Check X-ray of right hip - S/p 5 rounds of radiation for bone pain and lesion -Continue to monitor blood sugars. On high-dose steroids with prednisone 80 mg. Continue with sliding scale, NovoLog. Novolog 2 units with meals. Levemir will be increased to 15 units, continue with tradjenta 5 ,g daily. -Tylenol 650 mg every 4 hours as needed, -Lyrica 50 mg 3 times a day -Keppra 500 twice a day -Continue Eliquis 5 mg twice a day DVT prophylaxis: Eliquis Discussed with: Patient, nursing Anticipated discharge date: Pending clinical course Anticipated discharge place: Pending Clinical Course This dictation was prepared using [employer] voice recognition software. Though every attempt is made to correct errors during during dictation some may still exist. Objective - Vital Signs Vital signs: Vital Signs Temp 97.9 F 10/21/22 01:21 Pulse 79 10/21/22 01:21 Resp 15 10/21/22 01:21 BP 153/82 10/21/22 01:21 Pulse Ox 98 10/21/22 01:21 FiO2 Intake & Output 10/20/22 10/21/22 10/21/22 18:59 06:59 18:59 Intake Total 600 Output Total 0 Balance 600 Intake: Oral 600 Output: Stool 0 Other: Voiding Method Bedside Commode # Voids 1 - Labs CBC & Chem 7: 10/21/22 06:09 10/21/22 06:09 Labs: Abnormal Lab Results - Last 24 Hours (Table) 10/20/22 10/20/22 10/20/22 Range/Units 05:40 11:15 12:25 RBC (3.80-5.40) m/uL Hgb (11.4-16.0) gm/dL Hct (34.0-46.0) % RDW (11.5-15.5) % Plt Count 22 L D (150-450) k/uL Sodium (137-145) mmol/L Potassium (3.5-5.1) mmol/L BUN (7-17) mg/dL Glucose (74-99) mg/dL POC Glucose (mg/dL) 286 H 285 H (70-110) mg/dL 10/20/22 10/20/22 10/21/22 Range/Units 17:11 20:10 06:09 RBC 2.53 L (3.80-5.40) m/uL Hgb 8.1 L (11.4-16.0) gm/dL Hct 23.6 L (34.0-46.0) % RDW 18.9 H (11.5-15.5) % Plt Count 12 L* (150-450) k/uL Sodium (137-145) mmol/L Potassium (3.5-5.1) mmol/L BUN (7-17) mg/dL Glucose (74-99) mg/dL POC Glucose (mg/dL) 247 H 389 H (70-110) mg/dL 10/21/22 Range/Units 06:09 RBC (3.80-5.40) m/uL Hgb (11.4-16.0) gm/dL Hct (34.0-46.0) % RDW (11.5-15.5) % Plt Count (150-450) k/uL Sodium 135 L (137-145) mmol/L Potassium 3.4 L (3.5-5.1) mmol/L BUN 34 H (7-17) mg/dL Glucose 64 L (74-99) mg/dL POC Glucose (mg/dL) (70-110) mg/dL
[2022-10-21] MEDS: PANTOPRAZOLE 40 MG TABLET PO SCH (08:19)
[2022-10-21] MEDS: FOLIC ACID 1 MG TAB PO SCH (08:19)
[2022-10-21] MEDS: SENNOSIDES-DOCUSATE SODIUM 1 EACH TAB PO SCH (08:20)
[2022-10-21] MEDS: LINAGLIPTIN 5 MG TABLET PO SCH (08:20)
[2022-10-21] MEDS: APIXABAN 5 MG TAB PO SCH (08:20)
[2022-10-21] MEDS: polyethylene glycoL 3350 17 GM POWD.PACK PO SCH ×2 (08:20→19:35)
[2022-10-21] MEDS: levETIRAcetam 500 MG TAB PO SCH ×2 (08:20→20:59)
[2022-10-21] MEDS: predniSONE 20 MG TAB PO SCH (08:20)
[2022-10-21] MEDS: MAGNESIUM OXIDE 400 MG TAB PO SCH (08:20)
[2022-10-21] MEDS: PREGABALIN 50 MG CAP PO SCH ×3 (08:25→20:59)
[2022-10-21] MEDS ORDERED: DEXAMETHASONE SOD PHOSPHATE 10 MG/ML 1 ML VIAL IVP SCH (09:00)
[2022-10-21] MEDS: DEXAMETHASONE SOD PHOS (MDV) 40 MG in DEXTROSE 5% IN WATER 50 ML IVPB SCH ×2 (10:14)
--- NOTE | 2022-10-21 11:07 | P.PN ---
Subjective Progress Note Date: 10/21/22 Principal diagnosis: Intractable pain from metastasis, non-small cell lung cancer In follow-up today patient reports pain is controlled. She is needing [place] for breakthrough pain and only modest amounts. Patient denies epistaxis, gum bleeding, black or bloody stool, hematuria, she does have easy bruising on her extremities, some bruising around her IV site, no petechiae or purpura. Objective - Vital Signs Vital signs: Vital Signs Temp 98.8 F 10/21/22 08:03 Pulse 73 10/21/22 08:03 Resp 16 10/21/22 08:03 BP 138/82 10/21/22 08:03 Pulse Ox 98 10/21/22 08:03 FiO2 Intake & Output 10/20/22 10/21/22 10/21/22 18:59 06:59 18:59 Intake Total 600 180 Output Total 0 Balance 600 180 Intake: Oral 600 180 Output: Stool 0 Other: Voiding Method Bedside Commode # Voids 1 - Constitutional General appearance: Present: average body habitus, cooperative, no acute distress - EENT Eyes: Present: anicteric sclerae, EOMI ENT: Present: hearing grossly normal - Respiratory Details: Respirations even and unlabored at rest - Peripheral edema leg Peripheral Edema: bilateral: None - Integumentary Integumentary: Present: normal - Neurologic Neurologic: Present: CNII-XII intact - Musculoskeletal Musculoskeletal: Present: strength equal bilaterally - Psychiatric Psychiatric: Present: A&O x's 3, appropriate affect, intact judgment & insight - Labs CBC & Chem 7: 10/21/22 06:09 10/21/22 06:09 Labs: Abnormal Lab Results - Last 24 Hours (Table) 10/20/22 10/20/22 10/20/22 Range/Units 11:15 12:25 17:11 RBC (3.80-5.40) m/uL Hgb (11.4-16.0) gm/dL Hct (34.0-46.0) % RDW (11.5-15.5) % Plt Count (150-450) k/uL Sodium (137-145) mmol/L Potassium (3.5-5.1) mmol/L BUN (7-17) mg/dL Glucose (74-99) mg/dL POC Glucose (mg/dL) 286 H 285 H 247 H (70-110) mg/dL 10/20/22 10/21/22 10/21/22 Range/Units 20:10 06:09 06:09 RBC 2.53 L (3.80-5.40) m/uL Hgb 8.1 L (11.4-16.0) gm/dL Hct 23.6 L (34.0-46.0) % RDW 18.9 H (11.5-15.5) % Plt Count 12 L* (150-450) k/uL Sodium 135 L (137-145) mmol/L Potassium 3.4 L (3.5-5.1) mmol/L BUN 34 H (7-17) mg/dL Glucose 64 L (74-99) mg/dL POC Glucose (mg/dL) 389 H (70-110) mg/dL Assessment and Plan (1) Thrombocytopenia Current Visit: Yes Status: Acute Priority: High Code(s): D69.6 - THROM BOCYTOPENIA, UNSPECIFIED SNOMED Code(s): 384414666 (2) DVT (deep venous thrombosis) Current Visit: Yes Status: Acute Priority: High Code(s): I82.409 - ACUTE EMBOLISM AND THOMBOS UNSP DEEP VN UNSP LOWER EXTREMITY SNOMED Code(s): 194995554 (3) Pain of metastatic malignancy Current Visit: Yes Status: Resolved Priority: High Code(s): G89.3 - NEOPLASM RELATED PAIN (ACUTE) (CHRONIC) SNOMED Code(s): 367624518 (4) Non-small cell lung cancer (NSCLC) Current Visit: Yes Status: Acute Priority: High Code(s): C34.90 - MALIGNANT NEOPLASM OF UNSP PART OF UNSP BRONCHUS OR LUNG SNOMED Code(s): 471557335 Plan: Thrombocytopenia -Persistent. Platelets 22,000 yesterday, 12,000 today. -Held platelet transfusion yesterday as suspected low platelets a side effect of immunotherapy. High-dose prednisone was started. 1 mg/kg of pred ordered, rounded to 80 mg, started 10/19/22. Platelets did not respond as anticipated. Changed to high-dose IV dexamethasone today. -Continue on PPI for prevention of steroid-induced gastritis -1 unit single donor platelets ordered -CBC daily -Close monitoring for any bleeding -Anticoagulation stopped as patient has an IVC filter. We'll continue to hold until platelets are 50,000 or above -Pending lab reports from [facility] to see if low platelets is chronic, stable or worsening, or a new problem SCLC -Progressive, metastatic disease to the bones, source of patient's pain. Radiation is completed -Hx of brain mets, previously treated with XRT -Transfer of care locally. 10/29 at 3pm 1st office visit here Intractable pain 2/2 metastatic disease -Fentanyl and [place], pt reporting good pain control now. -Continue medications for prevention of narcotic-induced constipation Doctor attests: I performed a history and physical examination of this patient, developed impression and plan of care. Discussed with dictator. I agree with dictators note, documented as a scribe.
[2022-10-21 12:09] LABS: Glucose,Whole Blood 253 mg/dL (70-110)
--- NOTE | 2022-10-21 15:10 | XR ---
EXAMINATION TYPE: XR Hip Complete RT DATE OF EXAM: 10/21/2022 CLINICAL HISTORY: History of metastatic lung cancer with radiation treatment to right hip TECHNIQUE: AP and frogleg views of the right hip are obtained. COMPARISON: Prior PET/CT May 29, 2022. FINDINGS: There is no acute fracture/dislocation evident in the right hip. Moderate superior lateral and inferior acetabular spurring is seen. Right hip joint space shows no significant narrowing. The overlying soft tissue appears unremarkable. Metastatic lesion on PET right iliac bone less well seen on plain film. IMPRESSION: As above.
[2022-10-21 17:21] LABS: Glucose,Whole Blood 196 mg/dL (70-110)
[2022-10-21 18:19] LABS: Mean Platelet Volume 11.1
[2022-10-21 18:21] LABS: Platelet Count 14 k/uL (150-450)
[2022-10-21 20:36] LABS: Glucose,Whole Blood 334 mg/dL (70-110)
[2022-10-21] MEDS ORDERED: INSULIN DETEMIR (LEVEMIR) 100 UNIT/ML SYR SQ SCH (21:00)
[2022-10-22 07:15] LABS: Glucose,Whole Blood 96 mg/dL (70-110)
[2022-10-22 07:30] LABS: Anisocytosis Slight; HCT 23.7 % (34.0-46.0); MCHC 33.8 g/dL (31.0-37.0); MCV 94.5 fL (80.0-100.0); Macrocytosis Slight; Mean Platelet Volume 10.6; RBC 2.51 m/uL (3.80-5.40); RDW 19.1 % (11.5-15.5); WBC 10.4 k/uL (3.8-10.6)
[2022-10-22 07:35] LABS: Platelet Count 14 k/uL (150-450)
[2022-10-22] MEDS: INSULIN ASPART (NovoLOG) 100 UNIT/ML VIAL SQ SCH ×7 (07:44→21:31)
[2022-10-22] MEDS: PANTOPRAZOLE 40 MG TABLET PO SCH (07:54)
[2022-10-22] MEDS: PREGABALIN 50 MG CAP PO SCH ×3 (07:54→21:30)
[2022-10-22] MEDS: SENNOSIDES-DOCUSATE SODIUM 1 EACH TAB PO SCH (07:54)
[2022-10-22] MEDS: levETIRAcetam 500 MG TAB PO SCH ×2 (07:54→21:30)
[2022-10-22] MEDS: MAGNESIUM OXIDE 400 MG TAB PO SCH (07:54)
[2022-10-22] MEDS: FOLIC ACID 1 MG TAB PO SCH (07:54)
[2022-10-22 07:55] LABS: African American GFR (CKD) >90 (>60 ml/min/1.73 sqM); Anion Gap 5 mmol/L; Blood Urea Nitrogen 34 mg/dL (7-17); Carbon Dioxide 28 mmol/L (22-30); Chloride 103 mmol/L (98-107); Glucose 89 mg/dL (74-99); Non-African American GFR(CKD) >90 (>60 ml/min/1.73 sqM); Potassium 3.7 mmol/L (3.5-5.1); Sodium 136 mmol/L (137-145)
[2022-10-22] MEDS: LINAGLIPTIN 5 MG TABLET PO SCH (07:55)
[2022-10-22] MEDS: polyethylene glycoL 3350 17 GM POWD.PACK PO SCH ×2 (07:56→21:30)
[2022-10-22] MEDS: DEXAMETHASONE SOD PHOS (MDV) 40 MG in DEXTROSE 5% IN WATER 50 ML IVPB SCH ×2 (09:55)
[2022-10-22 11:55] LABS: Glucose,Whole Blood 200 mg/dL (70-110)
--- NOTE | 2022-10-22 13:36 | P.PN ---
Subjective Progress Note Date: 10/22/22 Principal diagnosis: hx of metastatic lung adenocarcinoma, RLE pain At today's visit patient is resting comfortably in bed, family at bedside. Patient reports feeling very well today. She states she got a good night's sleep. She denies pain. denies episodes of bleeding. Patient was taken off of eliquis yesterday due to persisting thrombocytopenia. No other reported compla ints at this time. Objective - Vital Signs Vital signs: Vital Signs Temp 98.8 F 10/22/22 12:59 Pulse 82 10/22/22 12:59 Resp 16 10/22/22 12:59 BP 127/73 10/22/22 12:59 Pulse Ox 96 10/22/22 12:59 FiO2 Intake & Output 10/21/22 10/22/22 10/22/22 18:59 06:59 18:59 Intake Total 461 500 271 Output Total 0 Balance 461 500 271 Intake: Oral 180 500 Blood Product 281 271 Platelet Pheresis Pas 271 Psoralen Unit [id number] Platelet Pheresis Pas 281 Psoralen Unit [id number] Output: Stool 0 Other: Voiding Method Bedside Commode # Voids 2 # Bowel Movements 2 - Constitutional General appearance: Present: average body habitus, no acute distress - EENT Eyes: Present: anicteric sclerae, EOMI ENT: Present: hearing grossly normal - Respiratory Details: breathing even and unlabored - Cardiovascular Details: skin warm and dry - Integumentary Integumentary: Present: pale - Neurologic Neurologic Comment(s): right lower extremity weakness - Psychiatric Psychiatric: Present: A&O x's 3, appropriate affect, intact judgment & insight - Labs CBC & Chem 7: 10/25/22 07:08 10/22/22 06:27 Labs: Abnormal Lab Results - Last 24 Hours (Table) 10/21/22 10/21/22 10/21/22 Range/Units 17:20 17:42 20:33 RBC (3.80-5.40) m/uL Hgb (11.4-16.0) gm/dL Hct (34.0-46.0) % RDW (11.5-15.5) % Plt Count 14 L* (150-450) k/uL Sodium (137-145) mmol/L BUN (7-17) mg/dL POC Glucose (mg/dL) 196 H 334 H (70-110) mg/dL 10/22/22 10/22/22 10/22/22 Range/Units 06:27 06:27 11:47 RBC 2.51 L (3.80-5.40) m/uL Hgb 8.0 L (11.4-16.0) gm/dL Hct 23.7 L (34.0-46.0) % RDW 19.1 H (11.5-15.5) % Plt Count 14 L* (150-450) k/uL Sodium 136 L (137-145) mmol/L BUN 34 H (7-17) mg/dL POC Glucose (mg/dL) 200 H (70-110) mg/dL Assessment and Plan (1) Non-small cell lung cancer (NSCLC) Current Visit: Yes Status: Acute Priority: High Code(s): C34.90 - MALIGNANT NEOPLASM OF UNSP PART OF UNSP BRONCHUS OR LUNG SNOMED Code(s): 716919132 (2) Thrombocytopenia Current Visit: Yes Status: Acute Priority: High Code(s): D69.6 - THROMBOCYTOPENIA, UNSPECIFIED SNOMED Code(s): 484431147 Plan: Metastatic adenocarcinoma of the lung with metastasis to the brain/bone -Progressive, metastatic disease to the bones, source of patient's pain. Radiation is completed -Hx of brain mets, previously treated with XRT -Received SRS in May 2022 to 6 previously visualized brain metastases. XRT to left hip, and T7-T10 in June 2022. -She has received 4 cycles of carboplatin/Alimta/pembrolizumab, last cycle in early august -She is being treated at [facility] and follows with Dr. Yang. Treatment has been on hold until she received further palliative XRT to manage pain of RLE/hip. Pt reports treatment regimen is being changed due to disease progression. -Transfer of care locally. 10/29 at 3pm 1st office visit Intractable pain 2/2 metastatic disease -Fentanyl and [place], pt reporting good pain control now. -Continue medications for prevention of narcotic-induced constipation Thrombocytopenia -Persistent. Platelets 12,000 yesterday, 14,000 today. 1 unit platelet ordered yesterday, additional unit ordered today -Low platelets suspected to be side effect of immunotherapy. Platelet transfusions are not having appropriate response. High-dose prednisone was started. 1 mg/kg of pred ordered, rounded to 80 mg, started 10/19/22. Platelets did not respond as anticipated. Changed to high-dose IV dexamethasone. IVIG ordered today for additional platelet support -Continue on PPI for prevention of steroid-induced gastritis -CBC daily -Close monitoring for any bleeding -Anticoagulation stopped as patient has an IVC filter. Will continue to hold until platelets are 50,000 or above -Pending lab reports from [facility] to see if low platelets is chronic, stable or worsening, or acute Doctor attests: I performed a history and physical examination of this patient, developed impression and plan of care. Discussed with dictator. I agree with dictators note, documented as a scribe. Ms. Steiner has been undergoing treatment for metastatic lung adenocarcinoma at [facility] and has had disease progression after 4 cycles of carboplatin/alimta/keytruda with disease progression in the lumbar spine and right hip. She has received palliative RT to the right hip since admission with pain currently controlled on oral pain medication. She has been having progressi ve thrombocytopenia that was initially thought to be chemotherapy related, but given not having had received chemotherapy since around mid August, there is a concern this is immune-mediated secondary to keytruda. As such, she has been treated with steroids and IVIG. She has had recent PE secondary to malignancy for which she has been on therapeutic anticoagulation. This has been discontinued due to thrombocytopenia and placement of IVC at [facility] in September 2022. 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 As such, she would be a candidate for bispecific anti-body drug avimatinib. Patient with these mutations can have remarkable responses to targeted treatment which are often long lasting, up to years. Therefore, the goal of this admission is to optimize her acute issues as much as possible with the plan of starting this treatment outpatient. Patients can receive this treatments even with an ECOG of 2-3. I would not recommend hospice at this time unless her health detiorates dramatically to the point where she is in the active process of dying. Please don't hesitate to contact us if there are additional questions or concerns regarding her.
[2022-10-22] MEDS ORDERED: IMMUNE GLOBULIN (GAMMAGARD) 30 GM in EMPTY BAG 1 BAG IV ONE (14:00)
[2022-10-22] MEDS ORDERED: IMMUNE GLOBULIN (GAMMAGARD) 10 GM in EMPTY BAG 1 BAG IV ONE (14:00)
--- NOTE | 2022-10-22 17:02 | P.PN ---
Subjective Progress Note Date: 10/22/22 (delayed charting seen at 0815) Patient is a 57-year-old female with a history of metastatic lung cancer to brain and spine, pulmonary embolism on Eliquis with recent IVC filter and DVT, a nd seizure disorder who presented to the ER with complaints of worsening right lower extremity pain. She had a known L1 5 lesion with nerve root impingement. She presented to the ER for intractable pain. On presentation to the ER her vital signs within normal limits, lab work was remarkable for white blood cell count of 11.5, platelets 37, sodium 137, creatinine 0.76. She was admitted and was started on Dilaudid and [place] for pain as well as Lyrica. Oncology and radiation oncology were consulted. Patient underwent simulation for radiation on 10/12 and first round on 10/13 with a plan for a total of 5 doses. She has not been able to sit due to pain. Her pain medications were adjusted and she was able to tolerate sitting in the chair between this and her radiation. Her platelets continued to be low and she required multiple transfusions. Patient seen and examined at bedside. Her pain is better tolerated today. She denies any feelings of fatigue or with her platelets are low. She's been eating and drinking well. Vital signs reviewed General: nontoxic, no distress, appears at stated age Cardiovascular: S1S2 reg, no murmur, positive posterior tibial pulse bilateral, Lungs: Decreased bs bilateral, no rhonchi, no rales , no accessory muscle use Abdominal: soft, nontender to palpation, no guarding, no appreciable organomegaly Ext: no gross muscle atrophy, no edema, no contractures Neuro: CN II-XI grossly intact, no focal neuro deficits Psych: Alert, oriented, appropriate affect Assessment: Thrombocytopenia, possible related to immune therapy, s/p 6 units of plt Anemia, worsening, undetermined etiology Intractable malignancy related pain secondary to an L5 nerve root impingement and hip lesion Metastatic lung cancer with metastases to the brain and bone Newly discovered DM 2 with hyperglycemia due to steroids Seizure disorder Recent PE on Eliquis and status post IVC filter (3 weeks prior to this hospitalization) Leukocytosis, related to steroid use, resolved Data Review: Vital signs reviewed temperature 97.5, pulse 84, respirations 12, blood pressure 140/81, O2 sat 97% on room air Labs reviewed from today and remarkable for hemoglobin of 8, platelets of 14, sodium 136, BUN 34, Sugars this morning were 96, 1147 or 200, and lastly in [id number] Plan: -1 additional unit of platelets today -Oncology note reviewed: Continue to hold anticoagulation until platelets are greater than 500, IVIG ordered today -Continue with dexamethasone 40 mg IV piggyback daily -Continue fentanyl 75 g daily -Decrease Levemir to 12 units at night as a.m. fasting blood sugars are relatively low, increase NovoLog with meals to 4 units, continue with sliding scale -Continue with [place] 7.5/325 as needed for pain. - S/p 5 rounds of radiation for bone pain this hospital stay -Lyrica 50 mg 3 times a day -Keppra 500 twice a day DVT prophylaxis: SCDs Discussed with: Patient, nursing Anticipated discharge date: Pending clinical course Anticipated discharge place: Pending Clinical Course This dictation was prepared using [employer] voice recognition software. Though every attempt is made to correct errors during during dictation some may still exist. Objective - Vital Signs Vital signs: Vital Signs Temp 98.8 F 10/22/22 12:59 Pulse 82 10/22/22 12:59 Resp 16 10/22/22 12:59 BP 127/73 10/22/22 12:59 Pulse Ox 96 10/22/22 12:59 FiO2 Intake & Output 10/21/22 10/22/22 10/22/22 18:59 06:59 18:59 Intake Total 461 500 521 Output Total 0 Balance 461 500 521 Intake: Oral 180 500 250 Blood Product 281 271 Platelet Pheresis Pas 271 Psoralen Unit [id number] Platelet Pheresis Pas 281 Psoralen Unit [id number] Output: Stool 0 Other: Voiding Method Bedside Commode # Voids 2 # Bowel Movements 2 - Labs CBC & Chem 7: 10/22/22 06:27 10/22/22 06:27 Labs: Abnormal Lab Results - Last 24 Hours (Table) 10/21/22 10/21/22 10/21/22 Range/Units 17:20 17:42 20:33 RBC (3.80-5.40) m/uL Hgb (11.4-16.0) gm/dL Hct (34.0-46.0) % RDW (11.5-15.5) % Plt Count 14 L* (150-450) k/uL Sodium (137-145) mmol/L BUN (7-17) mg/dL POC Glucose (mg/dL) 196 H 334 H (70-110) mg/dL 10/22/22 10/22/22 10/22/22 Range/Units 06:27 06:27 11:47 RBC 2.51 L (3.80-5.40) m/uL Hgb 8.0 L (11.4-16.0) gm/dL Hct 23.7 L (34.0-46.0) % RDW 19.1 H (11.5-15.5) % Plt Count 14 L* (150-450) k/uL Sodium 136 L (137-145) mmol/L BUN 34 H (7-17) mg/dL POC Glucose (mg/dL) 200 H (70-110) mg/dL
[2022-10-22 17:19] LABS: Glucose,Whole Blood 191 mg/dL (70-110)
[2022-10-22 21:27] LABS: Glucose,Whole Blood 186 mg/dL (70-110)
[2022-10-22] MEDS: INSULIN DETEMIR (LEVEMIR) 100 UNIT/ML SYR SQ SCH (21:30)
[2022-10-23] MEDS: PANTOPRAZOLE 40 MG TABLET PO SCH (05:16)
[2022-10-23 07:22] LABS: Glucose,Whole Blood 82 mg/dL (70-110)
[2022-10-23] MEDS: INSULIN ASPART (NovoLOG) 100 UNIT/ML VIAL SQ SCH ×7 (07:23→22:23)
[2022-10-23] MEDS: DEXAMETHASONE SOD PHOS (MDV) 40 MG in DEXTROSE 5% IN WATER 50 ML IVPB SCH ×2 (08:20)
[2022-10-23] MEDS: MAGNESIUM OXIDE 400 MG TAB PO SCH (08:21)
[2022-10-23] MEDS: polyethylene glycoL 3350 17 GM POWD.PACK PO SCH ×3 (08:21→22:24)
[2022-10-23] MEDS: HYDROcodone/APAP 7.5-325MG 1 EACH TAB PO PRN (08:21)
[2022-10-23] MEDS: LINAGLIPTIN 5 MG TABLET PO SCH (08:21)
[2022-10-23] MEDS: FOLIC ACID 1 MG TAB PO SCH (08:21)
[2022-10-23] MEDS: PREGABALIN 50 MG CAP PO SCH ×3 (08:22→22:23)
[2022-10-23] MEDS: SENNOSIDES-DOCUSATE SODIUM 1 EACH TAB PO SCH (08:22)
[2022-10-23] MEDS: levETIRAcetam 500 MG TAB PO SCH ×2 (08:22→22:23)
[2022-10-23 11:20] LABS: Glucose,Whole Blood 144 mg/dL (70-110)
[2022-10-23] MEDS ORDERED: IMMUNE GLOBULIN (GAMMAGARD) 10 GM in EMPTY BAG 1 BAG IV ONE (14:00)
[2022-10-23] MEDS ORDERED: IMMUNE GLOBULIN (GAMMAGARD) 30 GM in EMPTY BAG 1 BAG IV ONE (14:00)
--- NOTE | 2022-10-23 14:15 | P.PN ---
Subjective Progress Note Date: 10/23/22 Principal diagnosis: hx of metastatic lung adenocarcinoma, RLE pain At today's visit patient is resting comfortably in bed. Patient reports Generalized weakness today. She denies pain. Denies episodes of bleeding. IVIG started yesterday for platelet support. Eliquis has been discontinued. No other reported complaints at this time. Objective - Vital Signs Vital signs: Vital Signs Temp 98.5 F 10/23/22 12:47 Pulse 76 10/23/22 12:47 Resp 16 10/23/22 12:47 BP 128/80 10/23/22 12:47 Pulse Ox 97 10/23/22 12:47 FiO2 Intake & Output 10/22/22 10/23/22 10/23/22 18:59 06:59 18:59 Intake Total 971 590 Output Total 0 Balance 971 590 Intake: Intake, IV Titration 200 Amount Dexamethasone Sod Phos ( 100 Mdv) 40 mg In Dextrose 5% in Water 50 ml @ 100 mls /hr IVPB DAILY [facility] Rx#: [id number] Immune Globulin ( 100 Gammagard) 10 gm In Empty Bag 1 bag @ Titrate IV . Q0M ONE Rx#:[id number] Oral 500 590 Blood Product 271 Platelet Pheresis Pas 271 Psoralen Unit [id number] Output: Stool 0 Other: Voiding Method Bedside Commode Bedpan # Voids 3 1 - Constitutional General appearance: Present: average body habitus, no acute distress - EENT Eyes: Present: anicteric sclerae, EOMI ENT: Present: hearing grossly normal - Respiratory Details: breathing is even and unlabored - Cardiovascular Details: skin is warm and dry - Integumentary Integumentary: Present: pale - Neurologic Neurologic Comment(s): right lower extremity weakness - Psychiatric Psychiatric: Present: A&O x's 3, appropriate affect, intact judgment & insight - Labs CBC & Chem 7: 10/22/22 06:27 10/22/22 06:27 Labs: Abnormal Lab Results - Last 24 Hours (Table) 10/22/22 10/22/22 10/23/22 Range/Units 17:18 21:24 11:19 POC Glucose (mg/dL) 191 H 186 H 144 H (70-110) mg/dL Assessment and Plan (1) Non-small cell lung cancer (NSCLC) Current Visit: Yes Status: Acute Priority: High Code(s): C34.90 - MALIGNANT NEOPLASM OF UNSP PART OF UNSP BRONCHUS OR LUNG SNOMED Code(s): 503880768 (2) Thrombocytopenia Current Visit: Yes Status: Acute Priority: High Code(s): D69.6 - THROMB OCYTOPENIA, UNSPECIFIED SNOMED Code(s): 590561867 Plan: Metastatic adenocarcinoma of the lung with metastasis to the brain/bone -Progressive, metastatic disease to the bones, source of patient's pain. Radiation is completed -Hx of brain mets, previously treated with XRT -Received SRS in May 2022 to 6 previously visualized brain metastases. XRT to left hip, and T7-T10 in June 2022. -She has received 4 cycles of carboplatin/Alimta/pembrolizumab, last cycle in early august -She is being treated at [facility] and follows with Dr. Yang. Treatment has been on hold until she received further palliative XRT to manage pain of RLE/hip. Pt reports treatment regimen is being changed due to disease progression. -Transfer of care locally. 10/29 at 3pm 1st office visit Intractable pain 2/2 metastatic disease -Fentanyl and [place], pt reporting good pain control now. -Continue medications for prevention of narcotic-induced constipation Thrombocytopenia -Persistent. Platelets 14,000 yesterday, CBC pending today. 1 unit platelet ordered yesterday. -Low platelets suspected to be side effect of immunotherapy. Platelet transfusions are not having appropriate response. High-dose prednisone was started. 1 mg/kg of pred ordered, rounded to 80 mg, started 10/19/22. Platelets did not respond as anticipated. Changed to high-dose IV dexamethasone. IVIG ordered for additional platelet support -Continue on PPI for prevention of steroid-induced gastritis -CBC daily -Close monitoring for any bleeding -Anticoagulation stopped as patient has an IVC filter. Will continue to hold until platelets are 50,000 or above -Pending lab reports from [facility] to see if low platelets is chronic, stable or worsening, or acute
--- NOTE | 2022-10-23 14:56 | P.PN ---
Subjective Progress Note Date: 10/23/22 Patient is a 57-year-old female with a history of metastatic lung cancer to brain and spine, pulmonary embolism on Eliquis with recent IVC filter and DVT, and seizure disorder who presented to the ER with complaints of worsening right lower extremity pain. She had a known L1 5 lesion with nerve root impingement. She presented to the ER for intractable pain. On presentation to the ER her vital signs within normal limits, lab work was remarkable for white blood cell count of 11.5, platelets 37, sodium 137, creatinine 0.76. She was admitted and was started on Dilaudid and [place] for pain as well as Lyrica. Oncology and radiation oncology were consulted. Patient underwent simulation for radiation on 10/12 and first round on 10/13 with a plan for a total of 5 doses. She has not been able to sit due to pain. Her pain medications were adjusted and she was able to tolerate sitting in the chair between this and her radiation. Her platelets continued to be low and she required multiple transfusions. Patient seen and examined at bedside. Her pain is better tolerated today. She denies any feelings of fatigue or with her platelets are low. She's been eating and drinking well. 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 Psych - Calm and cooperative Assessment: Thrombocytopenia, possible related to immune therapy, s/p 7 units of plt (I reviewed patient's labs, luis eduardo León and patient's baseline platelets are 70) Anemia: Stable Intractable malignancy related pain secondary to an L5 nerve root impingement and hip lesion Metastatic lung cancer with metastases to the brain and bone Newly discovered DM 2 with hyperglycemia due to steroids Seizure disorder Recent PE on Eliquis and status post IVC filter (3 weeks prior to this hospitalization) Leukocytosis, related to steroid use, resolved Data Review: Vital signs reviewed temperature 97.5, pulse 84, respirations 12, blood pressure 140/81, O2 sat 97% on room air Labs reviewed from today: Labs pending Plan: -Oncology note reviewed: Continue to hold anticoagulation until platelets are greater than 50, IVIG ordered today -Continue with dexamethasone 40 mg IV piggyback daily -Continue fentanyl 75 g daily -Decrease Levemir to 12 units at night as a.m. fasting blood sugars are relatively low, increase NovoLog with meals to 4 units, continue with sliding scale -Continue with [place] 7.5/325 as needed for pain. - S/p 5 rounds of radiation for bone pain this hospital stay -Lyrica 50 mg 3 times a day -Keppra 500 twice a day DVT prophylaxis: SCDs Discussed with: Patient, nursing Anticipated discharge date: Pending clinical course Anticipated discharge place: Pending Clinical Course Objective - Vital Signs Vital signs: Vital Signs Temp 98.5 F 10/23/22 12:47 Pulse 76 10/23/22 12:47 Resp 16 10/23/22 12:47 BP 128/80 10/23/22 12:47 Pulse Ox 97 10/23/22 12:47 FiO2 Intake & Output 10/22/22 10/23/22 10/23/22 18:59 06:59 18:59 Intake Total 971 590 Output Total 0 Balance 971 590 Intake: Intake, IV Titration 200 Amount Dexamethasone Sod Phos ( 100 Mdv) 40 mg In Dextrose 5% in Water 50 ml @ 100 mls /hr IVPB DAILY [facility] Rx#: [id number] Immune Globulin ( 100 Gammagard) 10 gm In Empty Bag 1 bag @ Titrate IV . Q0M ONE Rx#:[id number] Oral 500 590 Blood Product 271 Platelet Pheresis Pas 271 Psoralen Unit [id number] Output: Stool 0 Other: Voiding Method Bedside Commode Bedpan # Voids 3 1 - Labs CBC & Chem 7: 10/22/22 06:27 10/22/22 06:27 Labs: Abnormal Lab Results - Last 24 Hours (Table) 10/22/22 10/22/22 10/23/22 Range/Units 17:18 21:24 11:19 POC Glucose (mg/dL) 191 H 186 H 144 H (70-110) mg/dL
[2022-10-23 17:23] LABS: Glucose,Whole Blood 275 mg/dL (70-110)
[2022-10-23 20:17] LABS: Glucose,Whole Blood 313 mg/dL (70-110)
[2022-10-23 21:19] LABS: Anisocytosis Slight; Basophils % (A) 0 %; Eosinophils % (A) 0 %; HCT 22.4 % (34.0-46.0); HGB 7.6 gm/dL (11.4-16.0); Lymphocytes # (A) 0.1 k/uL (1.0-4.8); Lymphocytes % (A) 1 %; MCH 32.3 pg (25.0-35.0); MCHC 33.8 g/dL (31.0-37.0); MCV 95.6 fL (80.0-100.0); Macrocytosis Slight; Mean Platelet Volume 11.5; Monocytes # (A) 0.2 k/uL (0-1.0); Monocytes % (A) 2 %; Neutrophils # (A) 8.1 k/uL (1.3-7.7); Neutrophils % (A) 96 %; RBC 2.34 m/uL (3.80-5.40); RDW 18.7 % (11.5-15.5); WBC 8.4 k/uL (3.8-10.6)
[2022-10-23 21:21] LABS: Platelet Count 11 k/uL (150-450)
[2022-10-23] MEDS: INSULIN DETEMIR (LEVEMIR) 100 UNIT/ML SYR SQ SCH (22:23)
[2022-10-24 07:33] LABS: Anisocytosis Slight; Basophils % (A) 0 %; Eosinophils # (A) 0.1 k/uL (0-0.7); Eosinophils % (A) 1 %; HCT 21.8 % (34.0-46.0); HGB 7.2 gm/dL (11.4-16.0); Lymphocytes # (A) 0.2 k/uL (1.0-4.8); Lymphocytes % (A) 3 %; MCH 32.1 pg (25.0-35.0); MCHC 33.1 g/dL (31.0-37.0); MCV 96.9 fL (80.0-100.0); Macrocytosis Slight; Mean Platelet Volume 11.5; Monocytes # (A) 0.3 k/uL (0-1.0); Monocytes % (A) 4 %; Neutrophils # (A) 6.9 k/uL (1.3-7.7); Neutrophils % (A) 91 %; RBC 2.25 m/uL (3.80-5.40); RDW 18.6 % (11.5-15.5); WBC 7.6 k/uL (3.8-10.6)
[2022-10-24 07:34] LABS: Platelet Count 11 k/uL (150-450)
[2022-10-24 07:37] LABS: Glucose,Whole Blood 104 mg/dL (70-110)
[2022-10-24] MEDS: INSULIN ASPART (NovoLOG) 100 UNIT/ML VIAL SQ SCH ×7 (08:07→21:08)
[2022-10-24] MEDS: DEXAMETHASONE SOD PHOS (MDV) 40 MG in DEXTROSE 5% IN WATER 50 ML IVPB SCH ×2 (08:38)
[2022-10-24] MEDS: SENNOSIDES-DOCUSATE SODIUM 1 EACH TAB PO SCH (08:44)
[2022-10-24] MEDS: PANTOPRAZOLE 40 MG TABLET PO SCH (08:44)
[2022-10-24] MEDS: LINAGLIPTIN 5 MG TABLET PO SCH (08:44)
[2022-10-24] MEDS: FOLIC ACID 1 MG TAB PO SCH (08:44)
[2022-10-24] MEDS: MAGNESIUM OXIDE 400 MG TAB PO SCH (08:44)
[2022-10-24] MEDS: PREGABALIN 50 MG CAP PO SCH ×3 (08:44→21:08)
[2022-10-24] MEDS: levETIRAcetam 500 MG TAB PO SCH ×2 (08:44→21:08)
[2022-10-24] MEDS: polyethylene glycoL 3350 17 GM POWD.PACK PO SCH ×2 (08:46→21:08)
[2022-10-24 09:56] LABS: Anisocytosis Slight; Basophils % (A) 0 %; Eosinophils # (A) 0.2 k/uL (0-0.7); Eosinophils % (A) 2 %; HCT 23.5 % (34.0-46.0); HGB 7.7 gm/dL (11.4-16.0); Lymphocytes # (A) 0.3 k/uL (1.0-4.8); Lymphocytes % (A) 4 %; MCHC 32.6 g/dL (31.0-37.0); Macrocytosis Slight; Mean Platelet Volume 9.8; Monocytes # (A) 0.2 k/uL (0-1.0); Monocytes % (A) 3 %; Neutrophils # (A) 6.3 k/uL (1.3-7.7); Neutrophils % (A) 90 %; RDW 18.5 % (11.5-15.5)
[2022-10-24 10:11] LABS: Platelet Count 9 k/uL (150-450)
[2022-10-24 11:56] LABS: Glucose,Whole Blood 269 mg/dL (70-110)
--- NOTE | 2022-10-24 13:29 | P.PN ---
Subjective Progress Note Date: 10/24/22 Patient is a 57-year-old female with a history of metastatic lung cancer to brain and spine, pulmonary embolism on Eliquis with recent IVC filter and DVT, and seizure disorder who presented to the ER with complaints of worsening right lower extremity pain. She had a known L1 5 lesion with nerve root impingement. She presented to the ER for intractable pain. On presentation to the ER her vital signs within normal limits, lab work was remarkable for white blood cell count of 11.5, platelets 37, sodium 137, creatinine 0.76. She was admitted and was started on Dilaudid and [place] for pain as well as Lyrica. Oncology and radiation oncology were consulted. Patient underwent simulation for radiation on 10/12 and first round on 10/13 with a plan for a total of 5 doses. She has not been able to sit due to pain. Her pain medications were adjusted and she was able to tolerate sitting in the chair between this and her radiation. Her platelets continued to be low and she required multiple transfusions. Patient seen this morning. She is upset because her platelets are decreasing. Patient has no acute complaints. 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 Patient's hem oglobin improved from 7.7-7.2. Patient's platelets dropped from 11-9. Assessment: Thrombocytopenia, possible related to immune therapy, s/p 7 units of plt (I reviewed patient's labs, luis eduardo León and patient's baseline platelets are 70) Anemia: Stable Intractable malignancy related pain secondary to an L5 nerve root impingement and hip lesion Metastatic lung cancer with metastases to the brain and bone Newly discovered DM 2 with hyperglycemia due to steroids Seizure disorder Recent PE on Eliquis and status post IVC filter (3 weeks prior to this hospitalization) Leukocytosis, related to steroid use, resolved Plan: -Oncology note reviewed: Continue to hold anticoagulation until platelets are greater than 50, resume IVIG -Patient completed a course of steroids -Continue fentanyl 75 g daily -Decrease Levemir to 12 units at night as a.m. fasting blood sugars are relatively low, increase NovoLog with meals to 4 units, continue with sliding scale -Continue with [place] 7.5/325 as needed for pain. - S/p 5 rounds of radiation for bone pain this hospital stay -Lyrica 50 mg 3 times a day -Keppra 500 twice a day -Patient is making plans on making a trip with friends next year. I believe hematology should discuss with the patient about her prognosis. Will defer goals of care discussion to hematology. At this time patient does not know what her prognosis is. Unclear if hematology has discussed prognosis with the patient or patient is in denial. DVT prophylaxis: SCDs Discussed with: Patient, nursing Anticipated discharge date: Pending clinical course Anticipated discharge place: Pending Clinical Course Objective - Vital Signs Vital signs: Vital Signs Temp 98.0 F 10/24/22 07:33 Pulse 74 10/24/22 12:14 Resp 17 10/24/22 12:14 BP 133/85 10/24/22 12:14 Pulse Ox 97 10/24/22 12:14 FiO2 Intake & Output 10/23/22 10/24/22 10/24/22 18:59 06:59 18:59 Intake Total 590 267 Balance 590 267 Intake: Oral 590 Blood Product 267 Platelet Pheresis Pas 267 Psoralen Unit [id number] Other: Voiding Method Bedpan Bedpan Bedpan # Voids 1 1 # Bowel Movements 1 1 - Labs CBC & Chem 7: 10/24/22 09:46 10/22/22 06:27 Labs: Abnormal Lab Results - Last 24 Hours (Table) 10/23/22 10/23/22 10/23/22 Range/Units 17:22 20:14 20:49 RBC 2.34 L (3.80-5.40) m/uL Hgb 7.6 L (11.4-16.0) gm/dL Hct 22.4 L (34.0-46.0) % RDW 18.7 H (11.5-15.5) % Plt Count 11 L* (150-450) k/uL Neutrophils # 8.1 H (1.3-7.7) k/uL Lymphocytes # 0.1 L (1.0-4.8) k/uL POC Glucose (mg/dL) 275 H 313 H (70-110) mg/dL 10/24/22 10/24/22 10/24/22 Range/Units 06:25 09:46 11:55 RBC 2.25 L 2.40 L (3.80-5.40) m/uL Hgb 7.2 L 7.7 L (11.4-16.0) gm/dL Hct 21.8 L 23.5 L (34.0-46.0) % RDW 18.6 H 18.5 H (11.5-15.5) % Plt Count 11 L* 9 L* (150-450) k/uL Neutrophils # (1.3-7.7) k/uL Lymphocytes # 0.2 L 0.3 L (1.0-4.8) k/uL POC Glucose (mg/dL) 269 H (70-110) mg/dL
[2022-10-24] MEDS ORDERED: IMMUNE GLOBULIN (GAMMAGARD) 30 GM in EMPTY BAG 1 BAG IV ONE (14:00)
[2022-10-24] MEDS ORDERED: IMMUNE GLOBULIN (GAMMAGARD) 10 GM in EMPTY BAG 1 BAG IV ONE (14:00)
[2022-10-24 17:42] LABS: Glucose,Whole Blood 261 mg/dL (70-110)
[2022-10-24 20:34] LABS: Glucose,Whole Blood 252 mg/dL (70-110)
[2022-10-24] MEDS: INSULIN DETEMIR (LEVEMIR) 100 UNIT/ML SYR SQ SCH (21:08)
[2022-10-25 07:18] LABS: Glucose,Whole Blood 79 mg/dL (70-110)
[2022-10-25] MEDS: INSULIN ASPART (NovoLOG) 100 UNIT/ML VIAL SQ SCH ×7 (07:21→21:38)
[2022-10-25 07:45] LABS: Anisocytosis Slight; Basophils % (A) 0 %; Eosinophils # (A) 0.1 k/uL (0-0.7); Eosinophils % (A) 2 %; HCT 21.3 % (34.0-46.0); HGB 7.1 gm/dL (11.4-16.0); Lymphocytes # (A) 0.3 k/uL (1.0-4.8); Lymphocytes % (A) 5 %; MCH 32.5 pg (25.0-35.0); MCHC 33.4 g/dL (31.0-37.0); MCV 97.1 fL (80.0-100.0); Macrocytosis Slight; Mean Platelet Volume 10.2; Monocytes # (A) 0.2 k/uL (0-1.0); Monocytes % (A) 4 %; Neutrophils # (A) 5.6 k/uL (1.3-7.7); Neutrophils % (A) 88 %; RBC 2.19 m/uL (3.80-5.40); RDW 18.6 % (11.5-15.5); WBC 6.3 k/uL (3.8-10.6)
[2022-10-25 07:53] LABS: Platelet Count 10 k/uL (150-450)
[2022-10-25] MEDS: FOLIC ACID 1 MG TAB PO SCH (08:21)
[2022-10-25] MEDS: levETIRAcetam 500 MG TAB PO SCH ×2 (08:21→21:38)
[2022-10-25] MEDS: PANTOPRAZOLE 40 MG TABLET PO SCH (08:21)
[2022-10-25] MEDS: PREGABALIN 50 MG CAP PO SCH ×3 (08:21→21:38)
[2022-10-25] MEDS: SENNOSIDES-DOCUSATE SODIUM 1 EACH TAB PO SCH (08:21)
[2022-10-25] MEDS: LINAGLIPTIN 5 MG TABLET PO SCH (08:21)
[2022-10-25] MEDS: MAGNESIUM OXIDE 400 MG TAB PO SCH (08:21)
[2022-10-25] MEDS: polyethylene glycoL 3350 17 GM POWD.PACK PO SCH ×3 (08:22→21:38)
--- NOTE | 2022-10-25 10:18 | P.PN ---
Subjective Progress Note Date: 10/25/22 Patient is a 57-year-old female with a history of metastatic lung cancer to brain and spine, pulmonary embolism on Eliquis with recent IVC filter and DVT, and seizure disorder who presented to the ER with complaints of worsening right lower extremity pain. She had a known L1 5 lesion with nerve root impingement. She presented to the ER for intractable pain. On presentation to the ER her vital signs within normal limits, lab work was remarkable for white blood cell count of 11.5, platelets 37, sodium 137, creatinine 0.76. She was admitted and was started on Dilaudid and [place] for pain as well as Lyrica. Oncology and radiation oncology were consulted. Patient underwent simulation for radiation on 10/12 and first round on 10/13 with a plan for a total of 5 doses. She has not been able to sit due to pain. Her pain medications were adjusted and she was able to tolerate sitting in the chair between this and her radiation. Her platelets continued to be low and she required multiple transfusions. Patient this morning had no acute complaints. No acute issues overnight. 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 Patient's platelets improved from 9-10. Assessment: Thrombocytopenia, possible related to immune therapy, s/p 8 units of plt (I reviewed patient's labs, luis eduardo León and patient's baseline platelets are 70) Anemia: Stable Intractable malignancy related pain secondary to an L5 nerve root impingement and hip lesion Metastatic lung cancer with metastases to the brain and bone Newly discovered DM 2 with hyperglycemia due to steroids Seizure disorder Recent PE on Eliquis and status post IVC filter (3 weeks prior to this hospitalization) Leukocytosis, related to steroid use, resolved Plan: -Oncology note reviewed: Continue to hold anticoagulation until platelets are greater than 50, resume IVIG -Patient completed a course of steroids -Continue fentanyl 75 g daily -Decrease Levemir to 12 units at night as a.m. fasting blood sugars are relatively low, increase NovoLog with meals to 4 units, continue with sliding scale -Continue with [place] 7.5/325 as needed for pain. - S/p 5 rounds of radiation for bone pain this hospital stay -Lyrica 50 mg 3 times a day -Keppra 500 twice a day -Patient is making plans on making a trip with friends next year. I believe hematology should discuss with the patient about her prognosis. Will defer goals of care discussion to hematology. At this time patient does not know what her prognosis is. Unclear if hematology has discussed prognosis with the patient or patient is in denial. DVT prophylaxis: SCDs Discussed with: Patient, nursing Anticipated discharge date: Pending clinical course Anticipated discharge place: Pending Clinical Course Objective - Vital Signs Vital signs: Vital Signs Temp 98.4 F 10/25/22 07:13 Pulse 75 10/25/22 07:13 Resp 18 10/25/22 07:13 BP 127/84 10/25/22 07:13 Pulse Ox 99 10/25/22 07:13 FiO2 Intake & Output 10/24/22 10/25/22 10/25/22 18:59 06:59 18:59 Intake Total 267 590 Output Total 0 Balance 267 590 Intake: Oral 590 Blood Product 267 Platelet Pheresis Pas 267 Psoralen Unit [id number] Output: Stool 0 Other: Voiding Method Bedpan Bedpan # Voids 3 2 # Bowel Movements 1 - Labs CBC & Chem 7: 10/25/22 07:08 10/22/22 06:27 Labs: Abnormal Lab Results - Last 24 Hours (Table) 10/24/22 10/24/22 10/24/22 Range/Units 11:55 17:40 20:31 RBC (3.80-5.40) m/uL Hgb (11.4-16.0) gm/dL Hct (34.0-46.0) % RDW (11.5-15.5) % Plt Count (150-450) k/uL Lymphocytes # (1.0-4.8) k/uL POC Glucose (mg/dL) 269 H 261 H 252 H (70-110) mg/dL 10/25/22 Range/Units 07:08 RBC 2.19 L (3.80-5.40) m/uL Hgb 7.1 L (11.4-16.0) gm/dL Hct 21.3 L (34.0-46.0) % RDW 18.6 H (11.5-15.5) % Plt Count 10 L* (150-450) k/uL Lymphocytes # 0.3 L (1.0-4.8) k/uL POC Glucose (mg/dL) (70-110) mg/dL
[2022-10-25 12:10] LABS: Glucose,Whole Blood 167 mg/dL (70-110)
[2022-10-25 17:19] LABS: Glucose,Whole Blood 119 mg/dL (70-110)
[2022-10-25] MEDS: HYDROcodone/APAP 7.5-325MG 1 EACH TAB PO PRN (18:36)
[2022-10-25 20:30] LABS: Glucose,Whole Blood 279 mg/dL (70-110)
[2022-10-26] MEDS: HYDROcodone/APAP 7.5-325MG 1 EACH TAB PO PRN ×4 (02:04→20:56)
[2022-10-26 02:09] LABS: Glucose,Whole Blood 125 mg/dL (70-110)
[2022-10-26] MEDS: INSULIN DETEMIR (LEVEMIR) 100 UNIT/ML SYR SQ SCH ×2 (02:23→21:03)
[2022-10-26] MEDS: ACETAMINOPHEN TAB 325 MG TAB PO PRN (05:16)
[2022-10-26 07:12] LABS: Glucose,Whole Blood 124 mg/dL (70-110)
[2022-10-26] MEDS: INSULIN ASPART (NovoLOG) 100 UNIT/ML VIAL SQ SCH ×7 (07:37→21:03)
[2022-10-26] MEDS: polyethylene glycoL 3350 17 GM POWD.PACK PO SCH ×2 (08:06→20:50)
[2022-10-26] MEDS: SENNOSIDES-DOCUSATE SODIUM 1 EACH TAB PO SCH (08:06)
[2022-10-26] MEDS: PREGABALIN 50 MG CAP PO SCH ×3 (08:06→20:49)
[2022-10-26] MEDS: MAGNESIUM OXIDE 400 MG TAB PO SCH (08:06)
[2022-10-26] MEDS: levETIRAcetam 500 MG TAB PO SCH ×2 (08:06→20:49)
[2022-10-26] MEDS: PANTOPRAZOLE 40 MG TABLET PO SCH (08:06)
[2022-10-26] MEDS: FOLIC ACID 1 MG TAB PO SCH (08:06)
[2022-10-26] MEDS: LINAGLIPTIN 5 MG TABLET PO SCH (08:06)
[2022-10-26 09:31] LABS: Basophils # (M) 0 X 10*3/uL (0.00-0.10); Eosinophils # (M) 0.15 X 10*3/uL (0.04-0.35); HCT 23.6 % (37.2-46.3); HGB 7.5 g/dL (12.0-15.0); Immature Platelet Fraction 18.9 % (1.1-6.1); Lymphocytes # (M) 0.52 X 10*3/uL (0.90-5.00); MCH 32.2 pg (27.0-32.0); MCHC 31.8 g/dL (32.0-37.0); MCV 101.3 fL (80.0-97.0); Monocytes # (M) 0.15 X 10*3/uL (0.20-1.00); Myelocytes % 1 % (0-0); NRBC Per 100 WBC 0.9 /100 WBCS (0.0-0.0); Neutrophils # (M) 6.49 X 10*3/uL (2.00-8.90); Neutrophils % (M) 88 %; Platelet Count 5 X 10*3/uL (140-440); RBC 2.33 X 10*6/uL (4.10-5.20); RBC Morphology NORMAL; RDW 19.9 % (11.5-14.5); WBC 7.38 X 10*3/uL (4.50-10.00)
[2022-10-26 11:17] LABS: Glucose,Whole Blood 178 mg/dL (70-110)
--- NOTE | 2022-10-26 13:51 | P.PN ---
Subjective Progress Note Date: 10/26/22 Patient is a 57-year-old female with a history of metastatic lung cancer to brain and spine, pulmonary embolism on Eliquis with recent IVC filter and DVT, and seizure disorder who presented to the ER with complaints of worsening right lower extremity pain. She had a known L1 5 lesion with nerve root impingement. She presented to the ER for intractable pain. On presentation to the ER her vital signs within normal limits, lab work was remarkable for white blood cell count of 11.5, platelets 37, sodium 137, creatinine 0.76. She was admitted and was started on Dilaudid and [place] for pain as well as Lyrica. Oncology and radiation oncology were consulted. Patient underwent simulation for radiation on 10/12 and first round on 10/13 with a plan for a total of 5 doses. She has not been able to sit due to pain. Her pain medications were adjusted and she was able to tolerate sitting in the chair between this and her radiation. Her platelets continued to be low and she required multiple transfusions. Patient has completed a course of IVIG and steroids. Patient this morning had no acute complaints. No acute issues overnight. Vital signs reviewed General examination - Alert and Oriented 3 in NAD Heart - + S1S2 no murmurs Lungs - Clear to auscultation Abdomen soft NT ND +ve BS Extremities - No edema TRIM CARPENTER - Moving all 4 extremities spontaneously Psych - Calm and cooperative Labs reviewed from today: Patient's platelets decreased from 10 to 5 Assessment: Thrombocytopenia, possible related to immune therapy, s/p 9 units of plt (I r eviewed patient's labs, luis eduardo León and patient's baseline platelets are 70) Anemia: Stable Intractable malignancy related pain secondary to an L5 nerve root impingement and hip lesion Metastatic lung cancer with metastases to the brain and bone Newly discovered DM 2 with hyperglycemia due to steroids Seizure disorder Recent PE on Eliquis and status post IVC filter (3 weeks prior to this hospital ization) Leukocytosis, related to steroid use, resolved Plan: -I discussed the case with oncology. Patient has completed a course of steroids and IVIG. Patient will be transfused another unit of platelets. Per oncology plan is to start promecta using free samples from the office. Oncology once there is a poor trend in the platelets then she will be medically stable for discharge. -Patient completed a course of steroids and IVIG -Continue fentanyl 75 g daily -Decrease Levemir to 12 units at night as a.m. fasting blood sugars are relatively low, increase NovoLog with meals to 4 units, continue with sliding scale -Continue with [place] 7.5/325 as needed for pain. - S/p 5 rounds of radiation for bone pain this hospital stay -Lyrica 50 mg 3 times a day -Keppra 500 twice a day DVT prophylaxis: SCDs Discussed with: Oncology Anticipated discharge date: Pending clinical course Anticipated discharge place: Pending Clinical Course Objective - Vital Signs Vital signs: Vital Signs Temp 98.5 F 10/26/22 13:07 Pulse 96 10/26/22 13:07 Resp 16 10/26/22 13:07 BP 111/71 10/26/22 13:07 Pulse Ox 96 10/26/22 13:07 FiO2 Intake & Output 10/25/22 10/26/22 10/26/22 18:59 06:59 18:59 Intake Total 354 350 0 Output Total 0 Balance 354 350 0 Intake: Oral 350 Blood Product 354 0 Unit 0 Platelet Pheresis Pas 354 Psoralen Unit [id number] Output: Stool 0 Other: Voiding Method Bedpan Bedpan # Voids 3 1 - Labs CBC & Chem 7: 10/26/22 05:47 10/22/22 06:27 Labs: Abnormal Lab Results - Last 24 Hours (Table) 10/25/22 10/25/22 10/26/22 Range/Units 17:18 20:28 02:08 RBC (4.10-5.20) X 10*6/uL Hgb (12.0-15.0) g/dL Hct (37.2-46.3) % MCV (80.0-97.0) fL MCH (27.0-32.0) pg MCHC (32.0-37.0) g/dL RDW (11.5-14.5) % Plt Count (140-440) X 10*3/uL Plt Count Comment Absolute Nucleated RBC (0.00-0.00) X 10*3/uL Myelocytes % (0-0) % Lymphocytes # (Manual) (0.90-5.00) X 10*3/uL Monocytes # (Manual) (0.20-1.00) X 10*3/uL NRBC/100 WBC Diff (0.0-0.0) /100 WBCS Immature Plt Fraction (1.1-6.1) % POC Glucose (mg/dL) 119 H 279 H 125 H (70-110) mg/dL 10/26/22 10/26/22 10/26/22 Range/Units 05:47 07:10 11:15 RBC 2.33 L (4.10-5.20) X 10*6/uL Hgb 7.5 L (12.0-15.0) g/dL Hct 23.6 L (37.2-46.3) % MCV 101.3 H (80.0-97.0) fL MCH 32.2 H (27.0-32.0) pg MCHC 31.8 L (32.0-37.0) g/dL RDW 19.9 H (11.5-14.5) % Plt Count 5 L* (140-440) X 10*3/uL Plt Count Comment A Absolute Nucleated RBC 0.07 H (0.00-0.00) X 10*3/uL Myelocytes % 1 H (0-0) % Lymphocytes # (Manual) 0.52 L (0.90-5.00) X 10*3/uL Monocytes # (Manual) 0.15 L (0.20-1.00) X 10*3/uL NRBC/100 WBC Diff 0.9 H (0.0-0.0) /100 WBCS Immature Plt Fraction 18.9 H (1.1-6.1) % POC Glucose (mg/dL) 124 H 178 H (70-110) mg/dL
--- NOTE | 2022-10-26 15:28 | P.PN ---
Subjective Progress Note Date: 10/26/22 Principal diagnosis: Intractable pain from metastasis, non-small cell lung cancer In follow-up today patient reported severe knee pain this am, forgot that she could take norco for breakthrough pain, Her pain was well-controlled after taking some [place]. She is utilizing medications to maintain a soft easily passable bowel movement, she did start using her as needed MiraLAX. She had a BM last night. Her platelets continue to be extremely low, no overt bleeding to report, Hemoglobin is stable today Objective - Vital Signs Vital signs: Vital Signs Temp 98.7 F 10/26/22 07:12 Pulse 91 10/26/22 07:12 Resp 18 10/26/22 07:12 BP 108/73 10/26/22 07:12 Pulse Ox 97 10/26/22 07:12 FiO2 Intake & Output 10/25/22 10/26/22 10/26/22 18:59 06:59 18:59 Intake Total 354 350 Output Total 0 Balance 354 350 Intake: Oral 350 Blood Product 354 Platelet Pheresis Pas 354 Psoralen Unit [id number] Output: Stool 0 Other: Voiding Method Bedpan Bedpan # Voids 3 1 - Constitutional General appearance: Present: average body habitus, cooperative, no acute distres s - EENT Eyes: Present: anicteric sclerae, EOMI ENT: Present: hearing grossly normal - Respiratory Details: Respirations even and unlabored at rest - Peripheral edema leg Peripheral Edema: bilateral: Trace - Integumentary Integumentary: Present: normal - Neurologic Neurologic: Present: CNII-XII intact - Musculoskeletal Musculoskeletal: Present: generalized weakness - Psychiatric Psychiatric: Present: A&O x's 3, appropriate affect, intact judgment & insight - Labs CBC & Chem 7: 10/26/22 05:47 10/22/22 06:27 Labs: Abnormal Lab Results - Last 24 Hours (Table) 10/25/22 10/25/22 10/25/22 Range/Units 12:09 17:18 20:28 RBC (4.10-5.20) X 10*6/uL Hgb (12.0-15.0) g/dL Hct (37.2-46.3) % MCV (80.0-97.0) fL MCH (27.0-32.0) pg MCHC (32.0-37.0) g/dL RDW (11.5-14.5) % Plt Count (140-440) X 10*3/uL Plt Count Comment Absolute Nucleated RBC (0.00-0.00) X 10*3/uL Myelocytes % (0-0) % Lymphocytes # (Manual) (0.90-5.00) X 10*3/uL Monocytes # (Manual) (0.20-1.00) X 10*3/uL NRBC/100 WBC Diff (0.0-0.0) /100 WBCS Immature Plt Fraction (1.1-6.1) % POC Glucose (mg/dL) 167 H 119 H 279 H (70-110) mg/dL 10/26/22 10/26/22 10/26/22 Range/Units 02:08 05:47 07:10 RBC 2.33 L (4.10-5.20) X 10*6/uL Hgb 7.5 L (12.0-15.0) g/dL Hct 23.6 L (37.2-46.3) % MCV 101.3 H (80.0-97.0) fL MCH 32.2 H (27.0-32.0) pg MCHC 31.8 L (32.0-37.0) g/dL RDW 19.9 H (11.5-14.5) % Plt Count 5 L* (140-440) X 10*3/uL Plt Count Comment A Absolute Nucleated RBC 0.07 H (0.00-0.00) X 10*3/uL Myelocytes % 1 H (0-0) % Lymphocytes # (Manual) 0.52 L (0.90-5.00) X 10*3/uL Monocytes # (Manual) 0.15 L (0.20-1.00) X 10*3/uL NRBC/100 WBC Diff 0.9 H (0.0-0.0) /100 WBCS Immature Plt Fraction 18.9 H (1.1-6.1) % POC Glucose (mg/dL) 125 H 124 H (70-110) mg/dL Assessment and Plan (1) Thrombocytopenia Current Visit: Yes Status: Acute Priority: High Code(s): D69.6 - THROMBOCYTOPENIA, UNSPECIFIED SNOMED Code(s): 263634052 (2) DVT (deep venous thrombosis) Current Visit: Yes Status: Acute Priority: High Code(s): I82.409 - ACUTE EMBOLISM AND THOMBOS UNSP DEEP VN UNSP LOWER EXTREMITY SNOMED Code(s): 745273553 (3) Pain of metastatic malignancy Current Visit: Yes Status: Resolved Priority: High Code(s): G89.3 - NEOPLASM RELATED PAIN (ACUTE) (CHRONIC) SNOMED Code(s): 360882406 (4) Non-small cell lung cancer (NSCLC) Current Visit: Yes Status: Acute Priority: High Code(s): C34.90 - MALIGNANT NEOPLASM OF UNSP PART OF UNSP BRONCHUS OR LUNG SNOMED Code(s): 252172804 Plan: Thrombocytopenia -Persistent. -[place] to be secondary to immunotherapy -Patient is had high-dose steroids, Oral and IV, and IVIG with no improvement in platelet counts. -Patient continues to receive platelet transfusions with no significant improvement in the platelet counts. -Plans to start thrombopoietin receptor agonist, Promacta. Sample brought to the hospital for clearance by Pharmacy, start today. -Continue on PPI for prevention of steroid-induced gastritis -1 unit single donor platelets ordered for platelet count of 5000 -CBC daily -Close monitoring for any bleeding DVT/PE -Anticoagulation for recent DVT/PE has been held, patient has an IVC filter. We'll continue to hold until platelets are 50,000 or above -Pending lab reports from Yvette León to see if low platelets is chronic, stable or worsening, or a new problem SCLC -Progressive, metastatic disease to the bones. -Hx of brain mets, previously treated with XRT -Transfer of care locally. 10/29 at 3pm 1st office visit here Intractable pain 2/2 metastatic disease -Fentanyl and [place], pt reporting good pain control now. -Continue medications for prevention of narcotic-induced constipation -Patient reports a recent bowel movement Doctor attests: I performed a history and physical examination of this patient, developed impression and plan of care. Discussed with dictator. I agree with dictators note, documented as a scribe.
[2022-10-26] MEDS: PROMACTA PO SCH (16:14)
[2022-10-26 17:11] LABS: Glucose,Whole Blood 171 mg/dL (70-110)
[2022-10-26 21:07] LABS: Glucose,Whole Blood 142 mg/dL (70-110)
[2022-10-27] MEDS: HYDROcodone/APAP 7.5-325MG 1 EACH TAB PO PRN (01:24)
[2022-10-27 07:16] LABS: Glucose,Whole Blood 113 mg/dL (70-110)
[2022-10-27] MEDS: INSULIN ASPART (NovoLOG) 100 UNIT/ML VIAL SQ SCH ×7 (07:23→21:17)
[2022-10-27 07:54] LABS: Anisocytosis Slight; HCT 23.6 % (34.0-46.0); HGB 7.7 gm/dL (11.4-16.0); MCH 32.2 pg (25.0-35.0); MCHC 32.7 g/dL (31.0-37.0); MCV 98.4 fL (80.0-100.0); Macrocytosis Slight; Mean Platelet Volume 13.3; RBC 2.39 m/uL (3.80-5.40); RDW 18.6 % (11.5-15.5); WBC 5.2 k/uL (3.8-10.6)
[2022-10-27] MEDS: PANTOPRAZOLE 40 MG TABLET PO SCH (09:07)
[2022-10-27] MEDS: FOLIC ACID 1 MG TAB PO SCH (09:07)
[2022-10-27] MEDS: PREGABALIN 50 MG CAP PO SCH ×3 (09:07→21:17)
[2022-10-27] MEDS: MAGNESIUM OXIDE 400 MG TAB PO SCH (09:07)
[2022-10-27] MEDS: SENNOSIDES-DOCUSATE SODIUM 1 EACH TAB PO SCH (09:07)
[2022-10-27] MEDS: levETIRAcetam 500 MG TAB PO SCH ×2 (09:07→21:17)
[2022-10-27] MEDS: polyethylene glycoL 3350 17 GM POWD.PACK PO SCH ×2 (09:09→21:17)
[2022-10-27 09:41] LABS: Platelet Count 11 k/uL (150-450)
[2022-10-27] MEDS: LINAGLIPTIN 5 MG TABLET PO SCH (09:48)
[2022-10-27 11:11] LABS: Glucose,Whole Blood 161 mg/dL (70-110)
[2022-10-27] MEDS: ACETAMINOPHEN TAB 325 MG TAB PO PRN ×2 (12:56→16:48)
--- NOTE | 2022-10-27 15:56 | P.PN ---
Subjective Progress Note Date: 10/27/22 Patient is a 57-year-old female with a history of metastatic lung cancer to brain and spine, pulmonary embolism on Eliquis with recent IVC filter and DVT, and seizure disorder who presented to the ER with complaints of worsening right lower extremity pain. She had a known L1 5 lesion with nerve root impingement. She presented to the ER for intractable pain. On presentation to the ER her vital signs within normal limits, lab work was remarkable for white blood cell count of 11.5, platelets 37, sodium 137, creatinine 0.76. She was admitted and was started on Dilaudid and [place] for pain as well as Lyrica. Oncology and radiation oncology were consulted. Patient underwent simulation for radiation on 10/12 and first round on 10/13 with a plan for a total of 5 doses. She has not been able to sit due to pain. Her pain medications were adjusted and she was able to tolerate sitting in the chair between this and her radiation. Her platelets continued to be low and she required multiple transfusions. Patient has completed a course of IVIG and steroids. Patient this morning had no acute complaints. No acute issues overnight. General: non toxic, no distress, appears at stated age Derm: warm, dry Head: atraumatic, normocephalic, symmetric Eyes: EOMI, no lid lag, anicteric sclera Cardiovascular: Good distal perfusion in all 4 extremities Lungs: no accessory muscle use Ext: no gross muscle atrophy, no edema, no contractures Neuro: no focal neuro deficits Psych: Alert, oriented, appropriate affect Thrombocytopenia, possible related to immune therapy, s/p 9 units of plt (I r eviewed patient's labs, luis eduardo León and patient's baseline platelets are 70) Anemia: Stable Intractable malignancy related pain secondary to an L5 nerve root impingement and hip lesion Metastatic lung cancer with metastases to the brain and bone Newly discovered DM 2 with hyperglycemia due to steroids Seizure disorder Recent PE on Eliquis and status post IVC filter (3 weeks prior to this hospital ization) Leukocytosis, related to steroid use, resolved Based on my assessment of this patient, this patient meets a moderate complexity level of care. Patient has a new diagnosis of thrombocytopenia, possible related to immune therapy with uncertain prognosis. She is status post 9 units of platelets. Hematology on board. Diabetes Mellitus: Sliding scale. Hypoglycemic precautions. Novolog 4 units TID. Tradjenta 5 mg PO QD. Seizure: Keppra 500 mg PO BID. Pain control: Fentanyl patch 75 mcg/hr I have reviewed the following instructional consultant notes: None. I have reviewed the results of the following tests: CBC shows hemoglobin is 7.7 and platelet count of 11. Vnqpg-by-fpax - 178 over the past 24 hours. I have ordered the following tests: CBC ordered for tomorrow morning. I have discussed the care of this patient with the following independent historian: None. I have independently interpreted the following test below: None. I have discussed the management of this patient with the following physician: None. Objective - Vital Signs Vital signs: Vital Signs Temp 100.6 F H 10/27/22 15:38 Pulse 136 H 10/27/22 15:38 Resp 20 10/27/22 15:38 BP 109/75 10/27/22 12:44 Pulse Ox 95 10/27/22 15:38 FiO2 Intake & Output 10/26/22 10/27/22 10/27/22 18:59 06:59 18:59 Intake Total 290 Output Total 0 Balance 290 0 Intake: Blood Product 290 Platelet Pheresis Pas 290 Psoralen Unit [id number] Output: Stool 0 Other: Voiding Method Bedpan # Voids 1 1 2 # Bowel Movements 1 - Labs CBC & Chem 7: 10/27/22 06:52 10/22/22 06:27 Labs: Abnormal Lab Results - Last 24 Hours (Table) 10/26/22 10/26/22 10/27/22 Range/Units 17:09 21:01 06:52 RBC 2.39 L (3.80-5.40) m/uL Hgb 7.7 L (11.4-16.0) gm/dL Hct 23.6 L (34.0-46.0) % RDW 18.6 H (11.5-15.5) % Plt Count 11 L* (150-450) k/uL POC Glucose (mg/dL) 171 H 142 H (70-110) mg/dL 10/27/22 10/27/22 Range/Units 07:15 11:09 RBC (3.80-5.40) m/uL Hgb (11.4-16.0) gm/dL Hct (34.0-46.0) % RDW (11.5-15.5) % Plt Count (150-450) k/uL POC Glucose (mg/dL) 113 H 161 H (70-110) mg/dL
[2022-10-27] MEDS ORDERED: VANCOMYCIN IV PER PHARMACY 1 EACH MISC MISCELLANE PRN (16:35)
[2022-10-27] MEDS ORDERED: VANCOMYCIN 1,500 MG in SODIUM CHLORIDE 0.9% 500 ML IVPB STA (16:42)
[2022-10-27] MEDS: PROMACTA PO SCH (16:48)
--- NOTE | 2022-10-27 17:13 | P.PN ---
Subjective Progress Note Date: 10/27/22 Principal diagnosis: Intractable pain from metastasis, non-small cell lung cancer In follow-up today nursing and reported to the patient has been sleeping most of the day. She was arousable but drifted back off to sleep very quickly. No reports of any bleeding. Patient did have a fever a few hours ago. She was given Tylenol, she is going to be getting another dose when seen. She was started on the Elotrombopag yesterday, no side effects to report so far. Objective - Vital Signs Vital signs: Vital Signs Temp 100.6 F H 10/27/22 15:38 Pulse 136 H 10/27/22 15:38 Resp 20 10/27/22 15:38 BP 109/75 10/27/22 12:44 Pulse Ox 95 10/27/22 15:38 FiO2 Intake & Output 10/26/22 10/27/22 10/27/22 18:59 06:59 18:59 Intake Total 290 Output Total 0 Balance 290 0 Intake: Blood Product 290 Platelet Pheresis Pas 290 Psoralen Unit [id number] Output: Stool 0 Other: Voiding Method Bedpan # Voids 1 1 2 # Bowel Movements 1 - Constitutional General appearance: Present: average body habitus, cooperative, no acute distress - EENT Eyes: Present: anicteric sclerae, EOMI ENT: Present: hearing grossly normal, thrush - Respiratory Respiratory: bilateral: CTA - Cardiovascular Details: Tachycardia Heart sounds: normal: S1, S2 Abnormal Heart Sounds: Absent: systolic murmur, diastolic murmur, rub, S3 Gallop, S4 Gallop, click, other - Peripheral edema leg Peripheral Edema: bilateral: None - Gastrointestinal General gastrointestinal: Present: normal bowel sounds, soft - Neurologic Neurologic: Present: CNII-XII intact (Grossly) - Musculoskeletal Musculoskeletal: Present: generalized weakness - Psychiatric Psychiatric: Present: A&O x's 3, appropriate affect, intact judgment & insight - Labs CBC & Chem 7: 10/27/22 06:52 10/22/22 06:27 Labs: Abnormal Lab Results - Last 24 Hours (Table) 10/26/22 10/26/22 10/27/22 Range/Units 17:09 21:01 06:52 RBC 2.39 L (3.80-5.40) m/uL Hgb 7.7 L (11.4-16.0) gm/dL Hct 23.6 L (34.0-46.0) % RDW 18.6 H (11.5-15.5) % Plt Count 11 L* (150-450) k/uL POC Glucose (mg/dL) 171 H 142 H (70-110) mg/dL 10/27/22 10/27/22 Range/Units 07:15 11:09 RBC (3.80-5.40) m/uL Hgb (11.4-16.0) gm/dL Hct (34.0-46.0) % RDW (11.5-15.5) % Plt Count (150-450) k/uL POC Glucose (mg/dL) 113 H 161 H (70-110) mg/dL Assessment and Plan (1) Sepsis Current Visit: Yes Status: Acute Priority: High Code(s): A41.9 - SEPSIS, UNSPECIFIED ORGANISM SNOMED Code(s): 07227392 (2) Thrombocytopenia Current Visit: Yes Status: Acute Priority: High Code(s): D69.6 - THROMBOCYTOPENIA, UNSPECIFIED SNOMED Code(s): 243430501 (3) DVT (deep venous thrombosis) Current Visit: Yes Status: Acute Priority: High Code(s): I82.409 - ACUTE EMBOLISM AND THOMBOS UNSP DEEP VN UNSP LOWER EXTREMITY SNOMED Code(s): 506429391 (4) Pain of metastatic malignancy Current Visit: Yes Status: Resolved Priority: High Code(s): G89.3 - NEOPLASM RELATED PAIN (ACUTE) (CHRONIC) SNOMED Code(s): 399808588 (5) Non-small cell lung cancer (NSCLC) Current Visit: Yes Status: Acute Priority: High Code(s): C34.90 - MALIGNANT NEOPLASM OF UNSP PART OF UNSP BRONCHUS OR LUNG SNOMED Code(s): 086894083 Plan: Sepsis -Sepsis criteria met-fever, tachycardia, lethargy -Pancultures ordered stat -Empiric vancomycin, pharmacy to dose -Coags, fibrinogen, CBC, CMP, LDH and haptoglobin STAT -As soon as fever under control need to transfuse platelets, platelets are 11,000 today -IV fluids were at KVO, increased to 100 -Consult Infectious Disease Oral thrush -Start with oral clotrimazole Thrombocytopenia -Persistent. -Promacta started 10/26. Platelets for 5000 yesterday, she received 1 unit single donor platelets, platelets are 11,000 today. -Continue on PPI for prevention of steroid-induced gastritis -1 unit single donor platelets ordered for platelet count of 11,000, meeting sepsis criteria -CBC daily -Close monitoring for any bleeding, continue to monitor hemoglobin. This has been stable, hemoglobin 7.7 today -Labs were received from [facility]. 08/04 platelets were normal range, 08/11 plans for 53,000, during that last week of July they were as low as 14,000. 08/24/22 her platelets were 346,000, by there were 5000, at the end of August they were in the 80-90,000 range. These fluctuations are most consistent with chemotherapy induced thrombocytopenia but, she has not had chemotherapy for almost 3 weeks so, would anticipate recovery if the low counts were from chemotherapy. She did have a severe immunotherapy reaction but, she did not respond to high doses of steroids as would be expected. She was given IVIG with no stability in the platelet counts. Has received platelets with no significant improvement. Thrombopoietin receptor agonist medications started. DVT/PE -Anticoagulation for recent DVT/PE has been held, patient has an IVC filter. Continue to hold until platelets are 50,000 or above SCLC -Progressive, metastatic disease to the bones. -Hx of brain mets, previously treated with XRT -Transfer of care locally. 10/29 at 3pm 1st office visit here Intractable pain 2/2 metastatic disease -Resolved -Fentanyl and [place], pt reporting good pain control now. -Continue medications for prevention of narcotic-induced constipation -BM yesterday Time with Patient: Greater than 30 (>75 min)
[2022-10-27 17:24] LABS: Glucose,Whole Blood 140 mg/dL (70-110)
--- NOTE | 2022-10-27 17:48 | XR ---
EXAMINATION TYPE: XR chest 1V portable DATE OF EXAM: 10/27/2022 COMPARISON: 07/20/2022 INDICATION: Fever, history of lung cancer TECHNIQUE: Single frontal view of the chest is obtained. FINDINGS: The heart size is normal. The pulmonary vasculature is normal. No suspicious mass identified. There is vague increased linear markings at the right lung base. Some air bronchograms and density are present in the retrocardiac left base. Correlate with location of th e patient's reported lung cancer. Pneumonia could be considered within the differential. IMPRESSION: 1. Retrocardiac consolidation with a few air bronchograms. Correlate for patient's known lung cancer versus left lower lobe medial lobe pneumonia
[2022-10-27 18:11] LABS: Appearance,Urine Cloudy (Clear); Bacteria,Urine Rare /hpf; Bilirubin,Urine Negative (Negative); Blood,Urine Negative (Negative); Color,Urine Yellow; Glucose,Urine (UA) Negative (Negative); Ketones,Urine Negative (Negative); Leukocyte Esterase,Urine Large (Negative); Mucus,Urine Few /hpf; Nitrite,Urine Negative (Negative); PH, Urine 5.5 (5.0-8.0); Protein,Urine 1+ (Negative); RBC,Urine 3 /hpf (0-5); Specific Gravity,Urine 1.022 (1.001-1.035); Squamous Epithelial Cell,Urine 3 /hpf (0-4); WBC,Urine 66 /hpf (0-5)
[2022-10-27] MEDS ORDERED: SODIUM CHLORIDE 0.9% 1,000 ML IV ONE (18:13)
[2022-10-27 18:31] LABS: ALT 29 U/L (4-34); AST 23 U/L (14-36); African American GFR (CKD) >90 (>60 ml/min/1.73 sqM); Albumin 2.6 g/dL (3.5-5.0); Albumin/Globulin Ratio 0.7; Alkaline Phosphatase 93 U/L (38-126); Anion Gap 5 mmol/L; Blood Urea Nitrogen 25 mg/dL (7-17); Calcium 8.3 mg/dL (8.4-10.2); Carbon Dioxide 29 mmol/L (22-30); Chloride 98 mmol/L (98-107); Globulin 3.6 g/dL; Glucose 123 mg/dL (74-99); LDH 735 U/L (120-246); Non-African American GFR(CKD) >90 (>60 ml/min/1.73 sqM); Sodium 132 mmol/L (137-145); Total Protein 6.2 g/dL (6.3-8.2)
[2022-10-27 18:35] LABS: Anisocytosis Slight; Basophils % (A) 0 %; Eosinophils # (A) 0.1 k/uL (0-0.7); Eosinophils % (A) 2 %; HCT 22.9 % (34.0-46.0); HGB 7.7 gm/dL (11.4-16.0); Lymphocytes # (A) 0.2 k/uL (1.0-4.8); Lymphocytes % (A) 4 %; MCH 32.9 pg (25.0-35.0); MCHC 33.6 g/dL (31.0-37.0); MCV 97.8 fL (80.0-100.0); Macrocytosis Slight; Mean Platelet Volume 12.5; Monocytes # (A) 0.2 k/uL (0-1.0); Monocytes % (A) 3 %; Neutrophils % (A) 89 %; RBC 2.34 m/uL (3.80-5.40); RDW 18.2 % (11.5-15.5); WBC 5.7 k/uL (3.8-10.6)
[2022-10-27 18:55] LABS: INR 1.2 (<1.2); Partial Thromboplastin Time 22.7 sec (22.0-30.0); Prothrombin Time 11.9 sec (9.0-12.0)
[2022-10-27 19:30] LABS: Platelet Count 8 k/uL (150-450)
[2022-10-27 19:39] LABS: Band Neutrophils % 2 %; Eosinophils # (M) 0.06 k/uL (0-0.7); Lymphocytes # (M) 0.51 k/uL (1.0-4.8); Metamyelocytes # (M) 0.06 k/uL (0); Metamyelocytes % 1 %; Monocytes # (M) 0.06 k/uL (0-1.0); Myelocytes # (M) 0.06 k/uL (0); Myelocytes % 1 %; Neutrophils % (M) 85 %; Nucleated Red Blood Cells 0 /100 WBC (0-0); Tear Drop Cells Present; Total Cells Counted 100
[2022-10-27 20:27] LABS: Glucose,Whole Blood 235 mg/dL (70-110)
[2022-10-27] MEDS: INSULIN DETEMIR (LEVEMIR) 100 UNIT/ML SYR SQ SCH (21:17)
[2022-10-27] MEDS: CLOTRIMAZOLE TROCHE 10 MG TROCHE MUCOUS MEM SCH ×2 (21:17→22:57)
[2022-10-27] MEDS: SALT AND SODA MOUTHWASH 1,000 ML PO SCH ×2 (21:24→22:57)
[2022-10-27] MEDS: SODIUM CHLORIDE 0.9% 1,000 ML IV SCH (21:25)
[2022-10-28] MEDS: CLOTRIMAZOLE TROCHE 10 MG TROCHE MUCOUS MEM SCH ×4 (06:03→21:44)
[2022-10-28] MEDS: SALT AND SODA MOUTHWASH 1,000 ML PO SCH ×4 (06:03→21:48)
[2022-10-28] MEDS: SODIUM CHLORIDE 0.9% 1,000 ML IV SCH ×2 (06:04→15:35)
[2022-10-28 06:09] LABS: Anisocytosis Slight; HCT 20.6 % (34.0-46.0); MCHC 32.6 g/dL (31.0-37.0); MCV 98.3 fL (80.0-100.0); Macrocytosis Slight; Mean Platelet Volume 8.1; RDW 18.1 % (11.5-15.5); WBC 4.2 k/uL (3.8-10.6)
[2022-10-28 06:42] LABS: Platelet Count 30 k/uL (150-450)
[2022-10-28 06:44] LABS: HGB 6.7 gm/dL (11.4-16.0)
[2022-10-28 07:31] LABS: Glucose,Whole Blood 83 mg/dL (70-110)
[2022-10-28] MEDS: INSULIN ASPART (NovoLOG) 100 UNIT/ML VIAL SQ SCH ×7 (08:11→21:45)
[2022-10-28] MEDS: PANTOPRAZOLE 40 MG TABLET PO SCH (08:30)
[2022-10-28] MEDS: levETIRAcetam 500 MG TAB PO SCH ×2 (08:30→21:45)
[2022-10-28] MEDS: LINAGLIPTIN 5 MG TABLET PO SCH (08:30)
[2022-10-28] MEDS: MAGNESIUM OXIDE 400 MG TAB PO SCH (08:30)
[2022-10-28] MEDS: FOLIC ACID 1 MG TAB PO SCH (08:30)
[2022-10-28] MEDS: ACETAMINOPHEN TAB 325 MG TAB PO PRN (08:31)
[2022-10-28] MEDS: SENNOSIDES-DOCUSATE SODIUM 1 EACH TAB PO SCH (08:31)
[2022-10-28] MEDS: PREGABALIN 50 MG CAP PO SCH ×3 (08:31→21:45)
[2022-10-28] MEDS: polyethylene glycoL 3350 17 GM POWD.PACK PO SCH ×2 (08:31→21:46)
[2022-10-28] MEDS: POTASSIUM CHLORIDE 10 MEQ in WATER FOR INJECTION 1 100ML.BAG IVPB SCH ×4 (10:13→20:45)
[2022-10-28] MEDS ORDERED: VANCOMYCIN 1,250 MG in SODIUM CHLORIDE 0.9% 250 ML IVPB SCH (11:00)
--- NOTE | 2022-10-28 11:36 | P.PN ---
Subjective Progress Note Date: 10/28/22 Principal diagnosis: Intractable pain from metastasis, non-small cell lung cancer In follow-up today fever 101.8F this morning, she reports she is still feeling tired but, feels a little more alert today than yesterday. No new symptoms to report. Minor nonproductive cough reported. Blood cultures pending, UA pending, chest x-ray suspicious for a left lower lobe pneumonia. Objective - Vital Signs Vital signs: Vital Signs Temp 100.3 F H 10/28/22 10:46 Pulse 129 H 10/28/22 07:25 Resp 15 10/28/22 07:25 BP 117/81 10/28/22 07:25 Pulse Ox 94 L 10/28/22 07:25 FiO2 Intake & Output 10/27/22 10/28/22 10/28/22 18:59 06:59 18:59 Intake Total 298 Balance 298 Intake: Blood Product 298 Platelet Pheresis Pas 298 Psoralen Unit [id number] Other: Voiding Method Bedpan # Voids 1 1 - Constitutional General appearance: Present: average body habitus, cooperative, no acute di stress - EENT Eyes: Present: anicteric sclerae, EOMI ENT: Present: hearing grossly normal - Respiratory Respiratory: bilateral: rales (Bilateral bases) - Cardiovascular Details: Tachycardia, regular rhythm Heart sounds: normal: S1, S2 Abnormal Heart Sounds: Absent: systolic murmur, diastolic murmur, rub, S3 Gallop, S4 Gallop, click, other - Peripheral edema leg Peripheral Edema: bilateral: None - Gastrointestinal General gastrointestinal: Present: normal bowel sounds, soft - Neurologic Neurologic: Present: CNII-XII intact (Grossly) - Musculoskeletal Musculoskeletal: Present: generalized weakness - Psychiatric Psychiatric: Present: A&O x's 3, appropriate affect, intact judgment & insight - Labs CBC & Chem 7: 10/28/22 05:37 10/27/22 17:30 Labs: Abnormal Lab Results - Last 24 Hours (Table) 10/27/22 10/27/22 10/27/22 Range/Units 16:43 17:23 17:30 RBC (3.80-5.40) m/uL Hgb (11.4-16.0) gm/dL Hct (34.0-46.0) % RDW (11.5-15.5) % Plt Count (150-450) k/uL Lymphocytes # (1.0-4.8) k/uL Lymphocytes # (Manual) (1.0-4.8) k/uL Metamyelocytes # (Man) (0) k/uL Myelocytes # (Manual) (0) k/uL INR 1.2 H (<1.2) Fibrinogen 579 H (200-500) mg/dL Sodium (137-145) mmol/L Potassium (3.5-5.1) mmol/L BUN (7-17) mg/dL Glucose (74-99) mg/dL POC Glucose (mg/dL) 140 H (70-110) mg/dL Calcium (8.4-10.2) mg/dL Lactate Dehydrogenase (120-246) U/L Total Protein (6.3-8.2) g/dL Albumin (3.5-5.0) g/dL Urine Appearance Cloudy H (Clear) Urine Protein 1+ H (Negative) Ur Leukocyte Esterase Large H (Negative) Urine WBC 66 H (0-5) /hpf Urine Bacteria Rare H (None) /hpf Urine Mucus Few H (None) /hpf Crossmatch 10/27/22 10/27/22 10/27/22 Range/Units 17:30 17:30 20:26 RBC 2.34 L (3.80-5.40) m/uL Hgb 7.7 L (11.4-16.0) gm/dL Hct 22.9 L (34.0-46.0) % RDW 18.2 H (11.5-15.5) % Plt Count 8 L* (150-450) k/uL Lymphocytes # 0.2 L (1.0-4.8) k/uL Lymphocytes # (Manual) 0.51 L (1.0-4.8) k/uL Metamyelocytes # (Man) 0.06 H (0) k/uL Myelocytes # (Manual) 0.06 H (0) k/uL INR (<1.2) Fibrinogen (200-500) mg/dL Sodium 132 L (137-145) mmol/L Potassium 3.0 L (3.5-5.1) mmol/L BUN 25 H (7-17) mg/dL Glucose 123 H (74-99) mg/dL POC Glucose (mg/dL) 235 H (70-110) mg/dL Calcium 8.3 L (8.4-10.2) mg/dL Lactate Dehydrogenase 735 H (120-246) U/L Total Protein 6.2 L (6.3-8.2) g/dL Albumin 2.6 L (3.5-5.0) g/dL Urine Appearance (Clear) Urine Protein (Negative) Ur Leukocyte Esterase (Negative) Urine WBC (0-5) /hpf Urine Bacteria (None) /hpf Urine Mucus (None) /hpf Crossmatch 10/28/22 10/28/22 Range/Units 05:37 08:31 RBC 2.10 L (3.80-5.40) m/uL Hgb 6.7 L* (11.4-16.0) gm/dL Hct 20.6 L (34.0-46.0) % RDW 18.1 H (11.5-15.5) % Plt Count 30 L D (150-450) k/uL Lymphocytes # (1.0-4.8) k/uL Lymphocytes # (Manual) (1.0-4.8) k/uL Metamyelocytes # (Man) (0) k/uL Myelocytes # (Manual) (0) k/uL INR (<1.2) Fibrinogen (200-500) mg/dL Sodium (137-145) mmol/L Potassium (3.5-5.1) mmol/L BUN (7-17) mg/dL Glucose (74-99) mg/dL POC Glucose (mg/dL) (70-110) mg/dL Calcium (8.4-10.2) mg/dL Lactate Dehydrogenase (120-246) U/L Total Protein (6.3-8.2) g/dL Albumin (3.5-5.0) g/dL Urine Appearance (Clear) Urine Protein (Negative) Ur Leukocyte Esterase (Negative) Urine WBC (0-5) /hpf Urine Bacteria (None) /hpf Urine Mucus (None) /hpf Crossmatch See Detail Microbiology - Last 24 Hours (Table) 10/27/22 16:43 Urine Culture - Preliminary Urine,Voided - Imaging and Cardiology Chest x-ray: report reviewed Assessment and Plan (1) Sepsis Current Visit: Yes Status: Acute Priority: High Code(s): A41.9 - SEPSIS, UNSPECIFIED ORGANISM SNOMED Code(s): 01298588 (2) Thrombocytopenia Current Visit: Yes Status: Acute Priority: High Code(s): D69.6 - THROMBOCYTOPENIA, UNSPECIFIED SNOMED Code(s): 610320472 (3) DVT (deep venous thrombosis) Current Visit: Yes Status: Acute Priority: High Code(s): I82.409 - ACUTE EMBOLISM AND THOMBOS UNSP DEEP VN UNSP LOWER EXTREMITY SNOMED Code(s): 380773826 (4) Pain of metastatic malignancy Current Visit: Yes Status: Resolved Priority: High Code(s): G89.3 - NEOPLASM RELATED PAIN (ACUTE) (CHRONIC) SNOMED Code(s): 142531573 (5) Non-small cell lung cancer (NSCLC) Current Visit: Yes Status: Acute Priority: High Code(s): C34.90 - MALIGNANT NEOPLASM OF UNSP PART OF UNSP BRONCHUS OR LUNG SNOMED Code(s): 424769831 Plan: Sepsis -Sepsis criteria met-fever, tachycardia, lethargy -Pancultures ordered. Pending UA and blood cultures, chest x-ray suspicious for a left lower lobe pneumonia -Empiric vancomycin, pharmacy to dose -INR slightly elevated at 1.2, fibrinogen elevated, No evidence of DIC. CBC was checked yesterday showed a stable hemoglobin 7.7 and a platelet count of 8000. Patient was transfused with a unit of single donor platelets. This a.m. hemoglobin 6.7, 1 unit of packed red blood cells ordered, platelets today are at 30,000. CMP showing low potassium, Internal Medicine has ordered potassium replacement protocol. LDH Elevated, more likely secondary to malignancy. Pending haptoglobin -IV fluids were increased to 100 Yesterday due to patient's having poor oral intake. IV fluids can be reduced based on patient's ability to tolerate oral intake -Pending Infectious Disease Assessment and recommendations Oral thrush -Started oral clotrimazole Thrombocytopenia -Doing first signs of recovery today! -Promacta started 10/26. She received 1 unit single donor platelets yesterday for a plt count of 8,000, plt 30,000 today. -Continue on PPI for prevention of steroid-induced gastritis -CBC daily -Close monitoring for any bleeding, continue to monitor hemoglobin. Hemoglobin was 6.7 the same, transfused with 1 unit of PRBCs -Plt counts have been highly variable since July, based on the timing of the changes and subsequent recovery's, felt that thrombocytopenia was secondary to chemotherapy. Unfortunately, since August, when her Platelets declined, they have not recovered. High-dose steroids, IVIG and then with no significant changes. Patient does have multiple platelet transfusions with no significant improvement. Thrombopoietin receptor agonist medications started 10/26/22, today, platelet count is 30,000 DVT/PE -Anticoagulation for recent DVT/PE has been held, patient has an IVC filter. Continue to hold until platelets are 50,000 or above SCLC -Progressive, metastatic disease to the bones. -Hx of brain mets, previously treated with XRT -Transfer of care locally. 10/29 at 3pm 1st office visit here-this will be moved as patient is very likely going to require some type of rehabilitation to improve her performance status prior to resuming any treatment Intractable pain 2/2 metastatic disease -Resolved -Fentanyl and [place], pt reporting good pain control now. -Continue medications for prevention of narcotic-induced constipation attests: I have seen and examined patient, performed H&P, developed impression and plan of care. Discussed with dictator. Agree with documentation, dictated as a scribe
--- NOTE | 2022-10-28 11:51 | P.PN ---
Subjective Progress Note Date: 10/28/22 Patient is a 57-year-old female with a history of metastatic lung cancer to brain and spine, pulmonary embolism on Eliquis with recent IVC filter and DVT, and seizure disorder who presented to the ER with complaints of worsening right lower extremity pain. She had a known L1 5 lesion with nerve root impingement. She presented to the ER for intractable pain. On presentation to the ER her vital signs within normal limits, lab work was remarkable for white blood cell count of 11.5, platelets 37, sodium 137, creatinine 0.76. She was admitted and was started on Dilaudid and Wall for pain as well as Lyrica. Oncology and radiation oncology were consulted. Patient underwent simulation for radiation on 10/12 and first round on 10/13 with a plan for a total of 5 doses. She has not been able to sit due to pain. Her pain medications were adjusted and she was able to tolerate sitting in the chair between this and her radiation. Her platelets continued to be low and she required multiple transfusions. Patient has completed a course of IVIG and steroids. 10/28 Patient this morning had no acute complaints. She reports fatigue. She denies any dysuria. She denies any cough. She denies and fever or chills. No nausea or vomiting. Yesterday, she had a fever Tmax of 102.2F. She was empirically started on vancomycin, valles culture collected and infectious disease was consulted. General: non toxic, no distress, appears at stated age Derm: warm, dry Head: atraumatic, normocephalic, symmetric Eyes: EOMI, no lid lag, anicteric sclera Cardiovascular: Tachycardic, no murmurs Lungs: Clear to auscultation bilaterally, no accessory muscle use GI: Non tender to palpation. Not distended. + bowel sounds Ext: no gross muscle atrophy, no edema, no contractures Neuro: no focal neuro deficits Psych: Alert, oriented, appropriate affect SIRS versus Sepsis Hypokalemia Thrombocytopenia, possible related to immune therapy, s/p 9 units of plt (I reviewed patient's labs, luis eduardo León and patient's baseline platelets are 70) Anemia Intractable malignancy related pain secondary to an L5 nerve root impingement and hip lesion Metastatic lung cancer with metastases to the brain and bone Newly discovered DM 2 with hyperglycemia due to steroids Seizure disorder Recent PE on Eliquis and status post IVC filter (3 weeks prior to this hospitalization) Resolved: Leukocytosis Based on my assessment of this patient, this patient meets a high complexity level of care. Patient has a new diagnosis of thrombocytopenia, possible related to immune therapy with uncertain prognosis. She is status post 9 units of platelets. Platelet count improved to 30 today after starting eltrombopag. Hematology on board. Patient had a fever yesterday Tmax 102.2F. She meets SIRS criteria with tachycardia and fever. Blood and urine culture collected. UA is pending. CXR showing no obvious signs of pneumonia. Continue Vancomycin 1250 mg IV BID for now. Bolused 1 L normal saline yesterday, continued on 100 mL/h. Telemetry monitoring ordered. Infectious disease consulted. 1 unit PRBC ordered for hemoglobin of 6.7 this morning. 40 meq of IV potassium chloride ordered for K of 3.0. Diabetes Mellitus: Sliding scale. Hypoglycemic precautions. Novolog 4 units TID. Tradjenta 5 mg PO QD. Seizure: Keppra 500 mg PO BID. Pain control: Fentanyl patch 75 mcg/hr I have reviewed the following digital media sales consultant notes: None. I have reviewed the results of the following tests: CBC shows hemoglobin is 6.7 and platelet count of 30. Fibrinogen elevated at 579. Coagulation panel shows INR of 1.2. BMP shows sodium 132, potassium of 3, BUN of 25, glucose 123, calcium of 8.3, albumin of 2.6. LDH 735. I have ordered the following tests: CBC and BMP ordered for tomorrow morning. Blood cultures pending. Urine cultures pending. I have discussed the care of this patient with the following independent historian: None. I have independently interpreted the following test below: Chest x-ray shows no consolidation suggestive of pneumonia. I have discussed the management of this patient with the following physician: The case was discussed with Roslyn MARKETING PROFESSIONAL, improvement in platelet count since starting eltrombopag, sepsis workup underway. Objective - Vital Signs Vital signs: Vital Signs Temp 100.3 F H 10/28/22 10:46 Pulse 129 H 10/28/22 07:25 Resp 15 10/28/22 07:25 BP 117/81 10/28/22 07:25 Pulse Ox 94 L 10/28/22 07:25 FiO2 Intake & Output 10/27/22 10/28/22 10/28/22 18:59 06:59 18:59 Intake Total 298 Balance 298 Intake: Blood Product 298 Platelet Pheresis Pas 298 Psoralen Unit [id number] Other: Voiding Method Bedpan # Voids 1 1 - Labs CBC & Chem 7: 10/28/22 05:37 10/27/22 17:30 Labs: Abnormal Lab Results - Last 24 Hours (Table) 10/27/22 10/27/22 10/27/22 Range/Units 16:43 17: 17:30 RBC (3.80-5.40) m/uL Hgb (11.4-16.0) gm/dL Hct (34.0-46.0) % RDW (11.5-15.5) % Plt Count (150-450) k/uL Lymphocytes # (1.0-4.8) k/uL Lymphocytes # (Manual) (1.0-4.8) k/uL Metamyelocytes # (Man) (0) k/uL Myelocytes # (Manual) (0) k/uL INR 1.2 H (<1.2) Fibrinogen 579 H (200-500) mg/dL Sodium (137-145) mmol/L Potassium (3.5-5.1) mmol/L BUN (7-17) mg/dL Glucose (74-99) mg/dL POC Glucose (mg/dL) 140 H (70-110) mg/dL Calcium (8.4-10.2) mg/dL Lactate Dehydrogenase (120-246) U/L Total Protein (6.3-8.2) g/dL Albumin (3.5-5.0) g/dL Urine Appearance Cloudy H (Clear) Urine Protein 1+ H (Negative) Ur Leukocyte Esterase Large H (Negative) Urine WBC 66 H (0-5) /hpf Urine Bacteria Rare H (None) /hpf Urine Mucus Few H (None) /hpf Crossmatch 10/27/22 10/27/22 10/27/22 Range/Units 17:30 17:30 20:26 RBC 2.34 L (3.80-5.40) m/uL Hgb 7.7 L (11.4-16.0) gm/dL Hct 22.9 L (34.0-46.0) % RDW 18.2 H (11.5-15.5) % Plt Count 8 L* (150-450) k/uL Lymphocytes # 0.2 L (1.0-4.8) k/uL Lymphocytes # (Manual) 0.51 L (1.0-4.8) k/uL Metamyelocytes # (Man) 0.06 H (0) k/uL Myelocytes # (Manual) 0.06 H (0) k/uL INR (<1.2) Fibrinogen (200-500) mg/dL Sodium 132 L (137-145) mmol/L Potassium 3.0 L (3.5-5.1) mmol/L BUN 25 H (7-17) mg/dL Glucose 123 H (74-99) mg/dL POC Glucose (mg/dL) 235 H (70-110) mg/dL Calcium 8.3 L (8.4-10.2) mg/dL Lactate Dehydrogenase 735 H (120-246) U/L Total Protein 6.2 L (6.3-8.2) g/dL Albumin 2.6 L (3.5-5.0) g/dL Urine Appearance (Clear) Urine Protein (Negative) Ur Leukocyte Esterase (Negative) Urine WBC (0-5) /hpf Urine Bacteria (None) /hpf Urine Mucus (None) /hpf Crossmatch 10/28/22 10/28/22 Range/Units 05:37 08:31 RBC 2.10 L (3.80-5.40) m/uL Hgb 6.7 L* (11.4-16.0) gm/dL Hct 20.6 L (34.0-46.0) % RDW 18.1 H (11.5-15.5) % Plt Count 30 L D (150-450) k/uL Lymphocytes # (1.0-4.8) k/uL Lymphocytes # (Manual) (1.0-4.8) k/uL Metamyelocytes # (Man) (0) k/uL Myelocytes # (Manual) (0) k/uL INR (<1.2) Fibrinogen (200-500) mg/dL Sodium (137-145) mmol/L Potassium (3.5-5.1) mmol/L BUN (7-17) mg/dL Glucose (74-99) mg/dL POC Glucose (mg/dL) (70-110) mg/dL Calcium (8.4-10.2) mg/dL Lactate Dehydrogenase (120-246) U/L Total Protein (6.3-8.2) g/dL Albumin (3.5-5.0) g/dL Urine Appearance (Clear) Urine Protein (Negative) Ur Leukocyte Esterase (Negative) Urine WBC (0-5) /hpf Urine Bacteria (None) /hpf Urine Mucus (None) /hpf Crossmatch See Detail Microbiology - Last 24 Hours (Table) 10/27/22 16:43 Urine Culture - Preliminary Urine,Voided
[2022-10-28 12:19] LABS: Glucose,Whole Blood 126 mg/dL (70-110)
--- NOTE | 2022-10-28 14:27 | CT ---
EXAMINATION TYPE: CT brain wo con CT DLP: 1147 mGycm, Automated exposure control for dose reduction was used. DATE OF EXAM: 10/28/2022 2:14 PM COMPARISON: CT brain studies by 09/22/2022 MRI brain 09/23/2022. CLINICAL INDICATION:Female, 57 years old with history of headaches and nose bleeds low plts, headache and low platelets and history of lung cancer TECHNIQUE: Brain: Multiple axial CT images of the brain were obtained without IV contrast. FINDINGS: Brain: Extra-axial spaces: No abnormal extra-axial fluid collections. Ventricular system: Within normal limits Cerebral parenchyma: No acute intraparenchymal hemorrhage. Similar region of hypoattenuation suggesti ve vasogenic edema within the posterior aspect of the left frontal lobe (series 3, image 41). Similar scattered areas of hypoattenuation consistent with vasogenic edema involving the posterior aspect of the right frontal lobe and medial aspect of the right parietal lobe. The mendosa-white junction is well differentiated. Cerebellum: Unremarkable. Mass effect: No evidence of midline shift. Intracranial vasculature: unremarkable Soft tissues: Normal. Calvarium/osseous structures: No depressed skull fracture. Paranasal sinuses and mastoid air cells: Clear Visualized orbits: Orbital contents are intact. IMPRESSION: 1. No acute intracranial hemorrhage. 2. Similar scattered regions of vasogenic edema within the bilateral frontal lobes and right parieta l lobe consistent with known metastasis.
[2022-10-28] MEDS: PROMACTA PO SCH (15:35)
[2022-10-28 17:40] LABS: Glucose,Whole Blood 169 mg/dL (70-110)
[2022-10-28] MEDS: PIPERACILLIN-TAZOBACTAM 3.375 GM in SODIUM CHLORIDE 0.9% 100 ML IVPB SCH (18:14)
[2022-10-28 20:17] LABS: Glucose,Whole Blood 174 mg/dL (70-110)
[2022-10-28] MEDS: INSULIN DETEMIR (LEVEMIR) 100 UNIT/ML SYR SQ SCH (21:45)
[2022-10-28 22:03] LABS: Appearance,Urine Cloudy (Clear); Bacteria,Urine Occasional /hpf; Bilirubin,Urine Negative (Negative); Blood,Urine Moderate (Negative); Color,Urine Yellow; Glucose,Urine (UA) Negative (Negative); Ketones,Urine Negative (Negative); Leukocyte Esterase,Urine Negative (Negative); Mucus,Urine Rare /hpf; Nitrite,Urine Negative (Negative); PH, Urine 5.5 (5.0-8.0); Protein,Urine Trace (Negative); RBC,Urine 4 /hpf (0-5); Specific Gravity,Urine 1.017 (1.001-1.035); Squamous Epithelial Cell,Urine <1 /hpf (0-4); Urobilinogen,Urine <2.0 mg/dL (<2.0); WBC,Urine 2 /hpf (0-5)
[2022-10-29] MEDS: CLOTRIMAZOLE TROCHE 10 MG TROCHE MUCOUS MEM SCH ×6 (00:13→23:39)
[2022-10-29] MEDS: PIPERACILLIN-TAZOBACTAM 3.375 GM in SODIUM CHLORIDE 0.9% 100 ML IVPB SCH ×2 (00:13→08:38)
[2022-10-29] MEDS: SALT AND SODA MOUTHWASH 1,000 ML PO SCH ×6 (00:13→23:39)
[2022-10-29] MEDS: SODIUM CHLORIDE 0.9% 1,000 ML IV SCH ×3 (00:14→20:20)
[2022-10-29] MEDS: ACETAMINOPHEN TAB 325 MG TAB PO PRN ×2 (00:39→10:58)
--- NOTE | 2022-10-29 06:56 | P.CONS ---
History of Present Illness - Reason for Consult Consult date: 10/28/22 Fever Requesting physician: Sisi Mcgowan - Chief Complaint Fever x one day - History of Present Illness Patient is a 57-year-old female with a past medical history significant for metastatic lung cancer with mets to the brain patient did have a history of PE did have a IVC filter and has been on Eliquis seizure disorder patient also have a MRI of the lumbar spine with lesion at L5 causing intractable lower back pain patient presented to hospital about 20 days ago for intractable lower back pain and difficulty with ambulation patient on presentation to the hospital was afebrile and however the patient started running a fever on 10/27/2022 with a temperature of 102.2 degree for night this morning the patient did have a fever of 101.8 degrees overnight patient has been tachycardic as well patient did have a elevated white count initial part of admission however subsequently white count has normalized kidney function has been normal liver enzymes are normal urine has been showing large leukocyte esterase and 66 WBC patient did have a chest x-ray retrocardiac consolidation with a few air bronchograms correlate for patient known lung cancer versus left lower lobe pneumonia patient was started on vancomycin infectious disease was consulted for further management of antibiotic therapy patient currently has been complaining of feeling weak patient did have some headache no significant URI symptoms no chest pain or shortness of breath she did have a cough mild to moderate intensity but not bring up any sputum nausea no vomiting no abdominal pain no diarrhea Review of Systems Positive point and negatives has been mentioned in the HPI, complete review of systems was performed and all other systems are negative Past Medical History Past Medical History: CVA/TIA, GERD/Reflux, Pulmonary Embolus (PE) Additional Past Medical History / Comment(s): diverticulosis,uti, "i think i have a hiatal hernia", brain and lung cancer, "bone cancer" History of Any Multi-Drug Resistant Organisms: None Reported Past Surgical History: Section, Cholecystectomy, Joint Replacement Additional Past Surgical History / Comment(s): egd/colonosocpy, left hip replacement Past Anesthesia/Blood Transfusion Reactions: No Reported Reaction Additional Past Anesthesia/Blood Transfusion Reaction / Comm: clausterphobia Past Psychological History: No Psychological Hx Reported Smoking Status: Never smoker Past Alcohol Use History: Occasional Past Drug Use History: None Reported - Past Family History Mother Family Medical History: Hypertension Father Family Medical History: Diabetes Mellitus Additional Family Medical History / Comment(s): diverticulosis Medications and Allergies Home Medications Medication Instructions Recorded Confirmed Type Apixaban [Eliquis] 5 mg PO BID 09/22/22 10/09/22 History Cyclobenzaprine [Flexeril] 5 - 10 mg PO TID PRN 09/22/22 10/09/22 History Folic Acid 1 mg PO DAILY 09/22/22 10/09/22 History Pantoprazole Sodium [Protonix] 40 mg PO DAILY 09/22/22 10/09/22 History Pregabalin [Lyrica] 50 mg PO TID 09/22/22 10/09/22 History Magnesium Oxide [Mag-Ox] 400 mg PO DAILY tab 09/25/22 10/09/22 Rx levETIRAcetam [Keppra] 500 mg PO Q12HR #60 tab 09/25/22 10/09/22 Rx Acetaminophen Tab [Tylenol] 650 mg PO Q4HR PRN 10/09/22 10/09/22 History HYDROcodone/APAP 7.5-325MG [Abbott 1 tab PO Q6H PRN 10/09/22 10/09/22 History 7.5-325] Ondansetron [Zofran] 8 mg PO Q8HR PRN 10/09/22 10/09/22 History dexAMETHasone [Decadron] 4 mg PO DIRECTED #25 tablet 10/11/22 Rx Allergies Allergy/AdvReac Type Severity Reaction Status Date / Time diphenhydramine Allergy head to Verified 10/09/22 07:30 [From Benadryl] toe rash/peeling hands Physical Exam Vitals: Vital Signs Temp Pulse Pulse Resp BP BP BP 10/28/22 10:46 100.3 F H 10/28/22 07:25 101.8 F H 129 H 15 117/81 10/28/22 00:47 99.4 F 98 14 111/75 10/27/22 23:22 98.9 F 95 16 112/76 10/27/22 23:02 98.3 F 92 16 115/78 10/27/22 22:53 99.1 F 97 18 109/75 10/27/22 19:22 98.5 F 111 H 16 113/78 10/27/22 15:38 100.6 F H 136 H 20 10/27/22 12:44 102.2 F H 135 H 18 109/75 Pulse Ox 10/28/22 10:46 10/28/22 07:25 94 L 10/28/22 00:47 98 10/27/22 23:22 97 10/27/22 23:02 98 10/27/22 22:53 97 10/27/22 19:22 96 10/27/22 15:38 95 10/27/22 12:44 96 Intake and Output 10/27/22 10/28/22 10/28/22 22:59 06:59 14:59 Intake Total 0 298 Balance 0 298 Intake: Blood Product 0 298 Platelet Pheresis Pas 0 298 Psoralen Unit [id number] Other: Voiding Method Bedpan # Voids 1 1 Weight 74.843 kg GENERAL DESCRIPTION: Middle-aged female lying in bed, no distress. No tachypnea or accessory muscle of respiration use. HEENT: Shows Pallor , no scleral icterus. Oral mucous membrane is dry. NECK: Trachea central, no thyromegaly. LUNGS: Unlabored breathing. Decreased breath sounds at bases HEART: S1, S2, regular rate and rhythm. No loud murmur ABDOMEN: Soft, no tenderness , guarding or rigidity, no organomegaly EXTREMITIES: No edema of feet. SKIN: No rash, no masses palpable. NEUROLOGICAL: The patient is awake, alert, oriented x3, mood and affect normal. Results CBC & Chem 7: 11/03/22 04:18 11/03/22 04:18 Labs: Abnormal Lab Results - Last 24 Hours (Table) 10/27/22 10/27/22 10/27/22 Range/Units 16:43 17:23 17:30 RBC (3.80-5.40) m/uL Hgb (11.4-16.0) gm/dL Hct (34.0-46.0) % RDW (11.5-15.5) % Plt Count (150-450) k/uL Lymphocytes # (1.0-4.8) k/uL Lymphocytes # (Manual) (1.0-4.8) k/uL Metamyelocytes # (Man) (0) k/uL Myelocytes # (Manual) (0) k/uL INR 1.2 H (<1.2) Fibrinogen 579 H (200-500) mg/dL Sodium (137-145) mmol/L Potassium (3.5-5.1) mmol/L BUN (7-17) mg/dL Glucose (74-99) mg/dL POC Glucose (mg/dL) 140 H (70-110) mg/dL Calcium (8.4-10.2) mg/dL Lactate Dehydrogenase (120-246) U/L Total Protein (6.3-8.2) g/dL Albumin (3.5-5.0) g/dL Urine Appearance Cloudy H (Clear) Urine Protein 1+ H (Negative) Ur Leukocyte Esterase Large H (Negative) Urine WBC 66 H (0-5) /hpf Urine Bacteria Rare H (None) /hpf Urine Mucus Few H (None) /hpf Crossmatch 10/27/22 10/27/22 10/27/22 Range/Units 17:30 17:30 20:26 RBC 2.34 L (3.80-5.40) m/uL Hgb 7.7 L (11.4-16.0) gm/dL Hct 22.9 L (34.0-46.0) % RDW 18.2 H (11.5-15.5) % Plt Count 8 L* (150-450) k/uL Lymphocytes # 0.2 L (1.0-4.8) k/uL Lymphocytes # (Manual) 0.51 L (1.0-4.8) k/uL Metamyelocytes # (Man) 0.06 H (0) k/uL Myelocytes # (Manual) 0.06 H (0) k/uL INR (<1.2) Fibrinogen (200-500) mg/dL Sodium 132 L (137-145) mmol/L Potassium 3.0 L (3.5-5.1) mmol/L BUN 25 H (7-17) mg/dL Glucose 123 H (74-99) mg/dL POC Glucose (mg/dL) 235 H (70-110) mg/dL Calcium 8.3 L (8.4-10.2) mg/dL Lactate Dehydrogenase 735 H (120-246) U/L Total Protein 6.2 L (6.3-8.2) g/dL Albumin 2.6 L (3.5-5.0) g/dL Urine Appearance (Clear) Urine Protein (Negative) Ur Leukocyte Esterase (Negative) Urine WBC (0-5) /hpf Urine Bacteria (None) /hpf Urine Mucus (None) /hpf Crossmatch 10/28/22 10/28/22 Range/Units 05:37 08:31 RBC 2.10 L (3.80-5.40) m/uL Hgb 6.7 L* (11.4-16.0) gm/dL Hct 20.6 L (34.0-46.0) % RDW 18.1 H (11.5-15.5) % Plt Count 30 L D (150-450) k/uL Lymphocytes # (1.0-4.8) k/uL Lymphocytes # (Manual) (1.0-4.8) k/uL Metamyelocytes # (Man) (0) k/uL Myelocytes # (Manual) (0) k/uL INR (<1.2) Fibrinogen (200-500) mg/dL Sodium (137-145) mmol/L Potassium (3.5-5.1) mmol/L BUN (7-17) mg/dL Glucose (74-99) mg/dL POC Glucose (mg/dL) (70-110) mg/dL Calcium (8.4-10.2) mg/dL Lactate Dehydrogenase (120-246) U/L Total Protein (6.3-8.2) g/dL Albumin (3.5-5.0) g/dL Urine Appearance (Clear) Urine Protein (Negative) Ur Leukocyte Esterase (Negative) Urine WBC (0-5) /hpf Urine Bacteria (None) /hpf Urine Mucus (None) /hpf Crossmatch See Detail Microbiology - Last 24 Hours (Table) 10/27/22 16:43 Urine Culture - Preliminary Urine,Voided Assessment and Plan (1) Sepsis Status: Acute Priority: High Code(s): A41.9 - SEPSIS, UNSPECIFIED ORGANISM SNOMED Code(s): 02571184 Plan: 1patient with a fever and this patient has been hospital for almost 3 weeks with history of metastatic lung cancer with mets to the brain and abnormality of the L5 vertebra initial presentation with intractable lower back pain source of this fever/sepsis could be pneumonia and likely from a gram-negative pathogen. 2we will obtain a CRP procalcitonin sputum for Gram stain and culture 3-check influenza and COVID PCR 4-discontinue vancomycin start the patient on Zosyn Multiple family members at the bedside questions concerns answered We will follow on clinical condition and cultures to further adjust medication if needed Thank you for this consultation we will follow the patient along with you Time with Patient: Greater than 30
[2022-10-29 07:14] LABS: Glucose,Whole Blood 86 mg/dL (70-110)
[2022-10-29 07:51] LABS: Anisocytosis Slight; HCT 22.8 % (34.0-46.0); HGB 7.8 gm/dL (11.4-16.0); MCH 32.5 pg (25.0-35.0); MCHC 34.2 g/dL (31.0-37.0); MCV 94.9 fL (80.0-100.0); Mean Platelet Volume 8.9; RBC 2.41 m/uL (3.80-5.40); RDW 17.7 % (11.5-15.5); WBC 3.6 k/uL (3.8-10.6)
[2022-10-29] MEDS: INSULIN ASPART (NovoLOG) 100 UNIT/ML VIAL SQ SCH ×7 (08:21→21:15)
[2022-10-29] MEDS: FOLIC ACID 1 MG TAB PO SCH (08:40)
[2022-10-29] MEDS: PANTOPRAZOLE 40 MG TABLET PO SCH (08:40)
[2022-10-29] MEDS: PREGABALIN 50 MG CAP PO SCH ×3 (08:40→21:22)
[2022-10-29] MEDS: levETIRAcetam 500 MG TAB PO SCH ×2 (08:40→21:22)
[2022-10-29] MEDS: polyethylene glycoL 3350 17 GM POWD.PACK PO SCH ×2 (08:40→21:16)
[2022-10-29] MEDS: MAGNESIUM OXIDE 400 MG TAB PO SCH (08:40)
[2022-10-29] MEDS: LINAGLIPTIN 5 MG TABLET PO SCH (08:40)
[2022-10-29] MEDS: SENNOSIDES-DOCUSATE SODIUM 1 EACH TAB PO SCH (08:41)
[2022-10-29 09:16] LABS: Platelet Count 10 k/uL (150-450)
[2022-10-29 11:57] LABS: Glucose,Whole Blood 158 mg/dL (70-110)
[2022-10-29 12:24] LABS: African American GFR (CKD) 115.3 (60.0-200.0); BUN/Creat Ratio 20.43 Ratio (12.00-20.00); Blood Urea Nitrogen 13.2 mg/dL (9.0-27.0); C Reactive Protein 22.5 mg/dL (0.00-0.80); Calcium 8.3 mg/dL (8.7-10.3); Carbon Dioxide 23.8 mmol/L (20.0-27.5); Non-African American GFR(CKD) 99.5 (60.0-200.0); Potassium 3.1 mmol/L (3.5-5.5)
[2022-10-29] MEDS ORDERED: VANCOMYCIN IV PER PHARMACY 1 EACH MISC MISCELLANE PRN (12:49)
--- NOTE | 2022-10-29 12:49 | P.PN ---
Subjective Progress Note Date: 10/29/22 Principal diagnosis: Intractable pain from metastasis, non-small cell lung cancer In follow-up today fever 101.8F this morning, she reports she is still feeling tired but, feels a little more alert today than yesterday. No new symptoms to report. Minor nonproductive cough reported. Blood cultures pending, UA pending, chest x-ray suspicious for a left lower lobe pneumonia. Objective - Vital Signs Vital signs: Vital Signs Temp 100.6 F H 10/29/22 12:22 Pulse 128 H 10/29/22 12:22 Resp 22 10/29/22 12:22 BP 123/79 10/29/22 12:22 Pulse Ox 92 L 10/29/22 11:05 FiO2 Intake & Output 10/28/22 10/29/22 10/29/22 18:59 06:59 18:59 Intake Total 283 0 Output Total 400 950 Balance -117 -950 0 Weight 74.843 kg Intake: Blood Product 283 0 Unit 0 Rc Pheresis As-3 Unit 283 [id number] Output: Urine 400 950 Stool 0 0 Other: Voiding Method External Catheter External Catheter - Constitutional Constitutional Comment(s): drowsy, slow to respond but responds appropriately General appearance: Present: average body habitus, cooperative, no acute distress - EENT Eyes: Present: anicteric sclerae, EOMI ENT: Present: hearing grossly normal - Respiratory Respiratory: bilateral: CTA - Cardiovascular Details: mild tachycardia, regular rhythm Heart sounds: normal: S1, S2 Abnormal Heart Sounds: Absent: systolic murmur, diastolic murmur, rub, S3 Gal lop, S4 Gallop, click, other - Gastrointestinal General gastrointestinal: Present: normal bowel sounds, soft. Absent: absent bowel sounds, decreased bowel sounds, distended, hepatomegaly, hyperactive bowel sounds, organomegaly, rigid, scaphoid, splenomegaly, tenderness, umbilical hernia, ventral hernia - Integumentary Integumentary Comment(s): no petechiae, hematomas - Neurologic Neurologic: Present: CNII-XII intact (grossly) - Musculoskeletal Musculoskeletal: Present: generalized weakness - Psychiatric Psychiatric: Present: A&O x's 3 (drowsy, arousable to voice and touch, ), appropriate affect, intact judgment & insight - Labs CBC & Chem 7: 10/29/22 06:11 10/29/22 06:11 Labs: Abnormal Lab Results - Last 24 Hours (Table) 10/28/22 10/28/22 10/28/22 Range/Units 08:31 14:00 17:39 WBC (3.8-10.6) k/uL RBC (3.80-5.40) m/uL Hgb (11.4-16.0) gm/dL Hct (34.0-46.0) % RDW (11.5-15.5) % Plt Count (150-450) k/uL Potassium (3.5-5.5) mmol/L BUN/Creatinine Ratio (12.00-20.00) Ratio POC Glucose (mg/dL) 169 H (70-110) mg/dL Calcium (8.7-10.3) mg/dL C-Reactive Protein (0.00-0.80) mg/dL Procalcitonin (0.02-0.09) ng/mL Urine Appearance Cloudy H (Clear) Urine Protein Trace H (Negative) Urine Blood Moderate H (Negative) Urine Bacteria Occasional H (None) /hpf Urine Mucus Rare H (None) /hpf Crossmatch See Detail 10/28/22 10/29/22 10/29/22 Range/Units 20:14 06:11 06:11 WBC 3.6 L (3.8-10.6) k/uL RBC 2.41 L (3.80-5.40) m/uL Hgb 7.8 L (11.4-16.0) gm/dL Hct 22.8 L (34.0-46.0) % RDW 17.7 H (11.5-15.5) % Plt Count 10 L* D (150-450) k/uL Potassium (3.5-5.5) mmol/L BUN/Creatinine Ratio (12.00-20.00) Ratio POC Glucose (mg/dL) 174 H (70-110) mg/dL Calcium (8.7-10.3) mg/dL C-Reactive Protein (0.00-0.80) mg/dL Procalcitonin 0.41 H (0.02-0.09) ng/mL Urine Appearance (Clear) Urine Protein (Negative) Urine Blood (Negative) Urine Bacteria (None) /hpf Urine Mucus (None) /hpf Crossmatch 10/29/22 10/29/22 Range/Units 06:11 11:55 WBC (3.8-10.6) k/uL RBC (3.80-5.40) m/uL Hgb (11.4-16.0) gm/dL Hct (34.0-46.0) % RDW (11.5-15.5) % Plt Count (150-450) k/uL Potassium 3.1 L (3.5-5.5) mmol/L BUN/Creatinine Ratio 20.43 H (12.00-20.00) Ratio POC Glucose (mg/dL) 158 H (70-110) mg/dL Calcium 8.3 L (8.7-10.3) mg/dL C-Reactive Protein 22.50 H (0.00-0.80) mg/dL Procalcitonin (0.02-0.09) ng/mL Urine Appearance (Clear) Urine Protein (Negative) Urine Blood (Negative) Urine Bacteria (None) /hpf Urine Mucus (None) /hpf Crossmatch Microbiology - Last 24 Hours (Table) 10/27/22 16:43 Urine Culture - Final Urine,Voided 10/27/22 17:30 Blood Culture - Preliminary Blood 10/27/22 17:30 Blood Culture - Preliminary Blood - Imaging and Cardiology CT Scan - head: report reviewed Assessment and Plan (1) Sepsis Current Visit: Yes Status: Acute Priority: High Code(s): A41.9 - SEPSIS, UNSPECIFIED ORGANISM SNOMED Code(s): 64649246 (2) Thrombocytopenia Current Visit: Yes Status: Acute Priority: High Code(s): D69.6 - THROMBOCYTOPENIA, UNSPECIFIED SNOMED Code(s): 230565374 (3) DVT (deep venous thrombosis) Current Visit: Yes Status: Acute Priority: High Code(s): I82.409 - ACUTE EMBOLISM AND THOMBOS UNSP DEEP VN UNSP LOWER EXTREMITY SNOMED Code(s): 488235699 (4) Pain of metastatic malignancy Current Visit: Yes Status: Resolved Priority: High Code(s): G89.3 - NEOPLASM RELATED PAIN (ACUTE) (CHRONIC) SNOMED Code(s): 757091186 (5) Non-small cell lung cancer (NSCLC) Current Visit: Yes Status: Acute Priority: High Code(s): C34.90 - MALIG NANT NEOPLASM OF UNSP PART OF UNSP BRONCHUS OR LUNG SNOMED Code(s): 039238974 Plan: Sepsis -Sepsis criteria met-fever, tachycardia, lethargy. Persists today -Pending UA and blood cultures, chest x-ray suspicious for a left lower lobe pneumonia -ID has seen pt and adjusted abx -No evidence of DIC when sepsis 1st presented. Ongoing assessment of pt. Fibrinogen daily, coags in AM -Today CBC showing Hgb 7.8 today, plt back down to 10,000-likely consumption from sepsis. 1 unit of single donor platelets ordered today. -CBC daily -No evidence of hemolysis Oral thrush -Started oral clotrimazole Thrombocytopenia -CT head without contrast for reported neuro symptoms-reported no evidence of hemorrhage, neuro symptoms improved, no new symptoms today when seen -Plt count dropped to 10K today-likely 2/2 sepsis. 1 unit SDP today -Promacta started 10/26, cont. -Continue on PPI for prevention of steroid-induced gastritis -CBC daily -Close monitoring for any bleeding, continue to monitor hemoglobin. Appropriate increase in Hgb after 1 unit PRBCs -Plt counts have been highly variable since July, based on the timing of the changes and subsequent recovery's, felt that thrombocytopenia was secondary to chemotherapy. Unfortunately, since August, when her Platelets declined, they have not recovered. High-dose steroids, IVIG and then with no significant changes. Patient does have multiple platelet transfusions with no significant improvement. DVT/PE -Anticoagulation for recent DVT/PE has been held, patient has an IVC filter. Continue to hold until platelets are 50,000 or above SCLC -Progressive, metastatic disease to the bones. -Hx of brain mets, previously treated with XRT -Transfer of care locally. Intractable pain 2/2 metastatic disease -Resolved -Fentanyl and Gabbs, pt reporting good pain control now. -Continue medications for prevention of narcotic-induced constipation attests: I have seen and examined patient, performed H&P, developed impression and plan of care. Discussed with dictator. Agree with documentation, dictated as a scribe
[2022-10-29] MEDS: VANCOMYCIN 1,250 MG in SODIUM CHLORIDE 0.9% 250 ML IVPB SCH ×2 (13:37→21:23)
--- NOTE | 2022-10-29 14:30 | P.PN ---
Subjective Progress Note Date: 10/29/22 Principal diagnosis: Fever Patient is a 57-year-old female with a past medical history significant for metastatic lung cancer with mets to the brain patient did have a history of PE did have a IVC filter and has been on Eliquis seizure disorder patient also have a MRI of the lumbar spine with lesion at L5 causing intractable lower back pain , patient did have a fever on 10/27/2022 prompting this infection disease consultation On today's evaluation that is 10/29/2022 patient did spike another fever of 103F this morning patient is tachycardic lethargic and unable to provide any history no vomiting diarrhea or any other changes reported by the family the bedside Objective - Vital Signs Vital signs: Vital Signs Temp 99.1 F 10/29/22 07:27 Pulse 106 H 10/29/22 07:27 Resp 18 10/29/22 07:27 BP 133/86 10/29/22 07:27 Pulse Ox 95 10/29/22 07:27 FiO2 Intake & Output 10/28/22 10/29/22 10/29/22 18:59 06:59 18:59 Intake Total 283 Output Total 400 950 Balance -117 -950 Weight 74.843 kg Intake: Blood Product 283 Rc Pheresis As-3 Unit 283 [id number] Output: Urine 400 950 Stool 0 0 Other: Voiding Method External Catheter External Catheter - Exam GENERAL DESCRIPTION: Middle-aged female lying in bed in no distress RESPIRATORY SYSTEM: Unlabored breathing , decreased breath sounds at bases HEART: S1 S2 regular rate and rhythm , ABDOMEN: Soft , no tenderness EXTREMITIES: No edema feet - Labs CBC & Chem 7: 10/29/22 06:11 10/29/22 06:11 Labs: Abnormal Lab Results - Last 24 Hours (Table) 10/28/22 10/28/22 10/28/22 Range/Units 08:31 12:17 14:00 WBC (3.8-10.6) k/uL RBC (3.80-5.40) m/uL Hgb (11.4-16.0) gm/dL Hct (34.0-46.0) % RDW (11.5-15.5) % Plt Count (150-450) k/uL POC Glucose (mg/dL) 126 H (70-110) mg/dL Urine Appearance Cloudy H (Clear) Urine Protein Trace H (Negative) Urine Blood Moderate H (Negative) Urine Bacteria Occasional H (None) /hpf Urine Mucus Rare H (None) /hpf Crossmatch See Detail 10/28/22 10/28/22 10/29/22 Range/Units 17:39 20:14 06:11 WBC 3.6 L (3.8-10.6) k/uL RBC 2.41 L (3.80-5.40) m/uL Hgb 7.8 L (11.4-16.0) gm/dL Hct 22.8 L (34.0-46.0) % RDW 17.7 H (11.5-15.5) % Plt Count 10 L* D (150-450) k/uL POC Glucose (mg/dL) 169 H 174 H (70-110) mg/dL Urine Appearance (Clear) Urine Protein (Negative) Urine Blood (Negative) Urine Bacteria (None) /hpf Urine Mucus (None) /hpf Crossmatch Microbiology - Last 24 Hours (Table) 10/27/22 16:43 Urine Culture - Final Urine,Voided 10/27/22 17:30 Blood Culture - Preliminary Blood 10/27/22 17:30 Blood Culture - Preliminary Blood Assessment and Plan (1) Sepsis Current Visit: Yes Status: Acute Priority: High Code(s): A41.9 - SEPSIS, UNSPECIFIED ORGANISM SNOMED Code(s): 65158870 Plan: 1patient with a fever and this patient has been hospital for almost 3 weeks with history of metastatic lung cancer with mets to the brain and abnormality of the L5 vertebra initial presentation with intractable lower back pain source of this fever/sepsis could be pneumonia 2patient did have elevated CRP of 22.50, however procalcitonin is only 0.41 3-influenza and COVID PCR, chlamydia negative 4-antibiotics will be adjusted to cefepime and vancomycin and cultures will be followed closely Family the bedside questions were answered Time with Patient: Less than 30
--- NOTE | 2022-10-29 15:01 | P.PN ---
Subjective Progress Note Date: 10/29/22 Patient is a 57-year-old female with a history of metastatic lung cancer to brain and spine, pulmonary embolism on Eliquis with recent IVC filter and DVT, and seizure disorder who presented to the ER with complaints of worsening right lower extremity pain. She had a known L1 5 lesion with nerve root impingement. She presented to the ER for intractable pain. On presentation to the ER her vital signs within normal limits, lab work was remarkable for white blood cell count of 11.5, platelets 37, sodium 137, creatinine 0.76. She was admitted and was started on Dilaudid and [place] for pain as well as Lyrica. Oncology and radiation oncology were consulted. Patient underwent simulation for radiation on 10/12 and first round on 10/13 with a plan for a total of 5 doses. She has not been able to sit due to pain. Her pain medications were adjusted and she was able to tolerate sitting in the chair between this and her radiation. Her platelets continued to be low and she required multiple transfusions. Patient has completed a course of IVIG and steroids. 10/29 Patient was seen and examined this morning. T max 103F. She is more lethargic and sleepy today. Answering questions appropriately. She was empirically started on vancomycin, valles culture collected and infectious disease was consulted on 10/28. General: lethargic, no distress, appears at stated age Derm: warm, dry Head: atraumatic, normocephalic, symmetric Eyes: EOMI, no lid lag, anicteric sclera Cardiovascular: Tachycardic, no murmurs Lungs: Clear to auscultation bilaterally, no accessory muscle use GI: Non tender to palpation. Not distended. + bowel sounds Ext: no gross muscle atrophy, no edema, no contractures Neuro: no focal neuro deficits Psych: Alert, oriented, appropriate affect SIRS versus Sepsis Hypokalemia Thrombocytopenia, possible related to immune therapy, s/p 9 units of plt (I reviewed patient's labs, luis eduardo León and patient's baseline platelets are 70) Anemia Intractable malignancy related pain secondary to an L5 nerve root impingement and hip lesion Metastatic lung cancer with metastases to the brain and bone Newly discovered DM 2 with hyperglycemia due to steroids Seizure disorder Recent PE on Eliquis and status post IVC filter (3 weeks prior to this hospitalization) Resolved: Leukocytosis Based on my assessment of this patient, this patient meets a high complexity level of care. Patient has a new diagnosis of thrombocytopenia, possible related to immune therapy with uncertain prognosis. She is status post 12 units of platelets. Platelet count decreased to 10 today after starting eltrombopag, 1 unit of platelets ordered. Hematology on board. Patient had a fever yesterday Tmax 103F. She meets SIRS criteria with tachycardia and fever. Blood and urine culture collected. UA shows moderate LE. Influenza, RSV, COVID negative. CRP elevated at 22.5. Procalcitonin 0.41. CXR showing no obvious signs of pneumonia. Continue Vancomycin 1250 mg IV BID (Day 2). Cefepime 2g IV Q8H ordered. Continue 100 mL/h. Telemetry monitoring ordered. Infectious disease consulted. Hg improved from 6.7 to 7.8 s/p 1 PRBC. 40 meq of IV potassium chloride ordered for K of 3.1. Diabetes Mellitus: Sliding scale. Hypoglycemic precautions. Novolog 4 units TID. Tradjenta 5 mg PO QD. Seizure: Keppra 500 mg PO BID. Pain control: Fentanyl patch 75 mcg/hr I have reviewed the following mainframe consultant notes: None. I have reviewed the results of the following tests: CBC shows WBC count of 3.6, hemoglobin is 7.8 and platelet count of 10. Fibrinogen elevated at 539. BMP shows potassium of 3.1, glucose 158, calcium of 8.3. CRP elevated at 22.5. Procalcitonin 0.41. Blood and urine culture prelim negative. Brain CT shows scattered regions of vasogenic edema consistent with known metastasis. I have ordered the following tests: CBC and BMP ordered for tomorrow morning. Blood cultures pending. Urine cultures pending. I have discussed the care of this patient with the following independent historian: None. I have independently interpreted the following test below: None. I have discussed the management of this patient with the following physician: The case was discussed with [employer], plans to transfuse 1 unit of platelets today, sepsis workup underway. Objective - Vital Signs Vital signs: Vital Signs Temp 100.7 F H 10/29/22 12:42 Pulse 123 H 10/29/22 12:42 Resp 22 10/29/22 12:42 BP 120/79 10/29/22 12:42 Pulse Ox 92 L 10/29/22 11:05 FiO2 Intake & Output 0510/29/22 10/29/22 18:59 06:59 18:59 Intake Total 283 0 Output Total 400 950 Balance -117 -950 0 Weight 74.843 kg Intake: Blood Product 283 0 Unit 0 Rc Pheresis As-3 Unit 283 [id number] Output: Urine 400 950 Stool 0 0 Other: Voiding Method External Catheter External Catheter External Catheter # Bowel Movements 1 - Labs CBC & Chem 7: 10/29/22 06:11 10/29/22 06:11 Labs: Abnormal Lab Results - Last 24 Hours (Table) 10/28/22 10/28/22 10/28/22 Range/Units 14:00 17:39 20:14 WBC (3.8-10.6) k/uL RBC (3.80-5.40) m/uL Hgb (11.4-16.0) gm/dL Hct (34.0-46.0) % RDW (11.5-15.5) % Plt Count (150-450) k/uL Fibrinogen (200-500) mg/dL Potassium (3.5-5.5) mmol/L BUN/Creatinine Ratio (12.00-20.00) Ratio POC Glucose (mg/dL) 169 H 174 H (70-110) mg/dL Calcium (8.7-10.3) mg/dL C-Reactive Protein (0.00-0.80) mg/dL Procalcitonin (0.02-0.09) ng/mL Urine Appearance Cloudy H (Clear) Urine Protein Trace H (Negative) Urine Blood Moderate H (Negative) Urine Bacteria Occasional H (None) /hpf Urine Mucus Rare H (None) /hpf 10/29/22 10/29/22 10/29/22 Range/Units 06:11 06:11 06:11 WBC 3.6 L (3.8-10.6) k/uL RBC 2.41 L (3.80-5.40) m/uL Hgb 7.8 L (11.4-16.0) gm/dL Hct 22.8 L (34.0-46.0) % RDW 17.7 H (11.5-15.5) % Plt Count 10 L* D (150-450) k/uL Fibrinogen (200-500) mg/dL Potassium 3.1 L (3.5-5.5) mmol/L BUN/Creatinine Ratio 20.43 H (12.00-20.00) Ratio POC Glucose (mg/dL) (70-110) mg/dL Calcium 8.3 L (8.7-10.3) mg/dL C-Reactive Protein 22.50 H (0.00-0.80) mg/dL Procalcitonin 0.41 H (0.02-0.09) ng/mL Urine Appearance (Clear) Urine Protein (Negative) Urine Blood (Negative) Urine Bacteria (None) /hpf Urine Mucus (None) /hpf 10/29/22 10/29/22 Range/Units 11:55 13:23 WBC (3.8-10.6) k/uL RBC (3.80-5.40) m/uL Hgb (11.4-16.0) gm/dL Hct (34.0-46.0) % RDW (11.5-15.5) % Plt Count (150-450) k/uL Fibrinogen 539 H (200-500) mg/dL Potassium (3.5-5.5) mmol/L BUN/Creatinine Ratio (12.00-20.00) Ratio POC Glucose (mg/dL) 158 H (70-110) mg/dL Calcium (8.7-10.3) mg/dL C-Reactive Protein (0.00-0.80) mg/dL Procalcitonin (0.02-0.09) ng/mL Urine Appearance (Clear) Urine Protein (Negative) Urine Blood (Negative) Urine Bacteria (None) /hpf Urine Mucus (None) /hpf Microbiology - Last 24 Hours (Table) 10/27/22 16:43 Urine Culture - Final Urine,Voided 10/27/22 17:30 Blood Culture - Preliminary Blood 10/27/22 17:30 Blood Culture - Preliminary Blood
[2022-10-29] MEDS: CEFEPIME 2 GM in SODIUM CHLORIDE 0.9% 100 ML IVPB SCH ×2 (15:43→23:39)
[2022-10-29] MEDS: POTASSIUM CHLORIDE 10 MEQ in WATER FOR INJECTION 1 100ML.BAG IVPB SCH ×4 (15:46→19:12)
[2022-10-29] MEDS: PROMACTA PO SCH (15:49)
[2022-10-29 16:54] LABS: Glucose,Whole Blood 98 mg/dL (70-110)
[2022-10-29] MEDS: HYDROcodone/APAP 7.5-325MG 1 EACH TAB PO PRN (20:06)
[2022-10-29 20:30] LABS: Glucose,Whole Blood 84 mg/dL (70-110)
[2022-10-29] MEDS: INSULIN DETEMIR (LEVEMIR) 100 UNIT/ML SYR SQ SCH (21:15)
[2022-10-30] MEDS: VANCOMYCIN 1,250 MG in SODIUM CHLORIDE 0.9% 250 ML IVPB SCH (04:43)
[2022-10-30] MEDS: SODIUM CHLORIDE 0.9% 1,000 ML IV SCH ×2 (05:18→17:54)
[2022-10-30] MEDS: CLOTRIMAZOLE TROCHE 10 MG TROCHE MUCOUS MEM SCH ×4 (05:18→21:46)
[2022-10-30] MEDS: SALT AND SODA MOUTHWASH 1,000 ML PO SCH ×4 (05:19→21:48)
[2022-10-30] MEDS: ACETAMINOPHEN TAB 325 MG TAB PO PRN ×2 (05:22→21:46)
[2022-10-30 06:37] LABS: Anisocytosis Slight; HCT 20.5 % (34.0-46.0); MCH 31.4 pg (25.0-35.0); MCHC 33.5 g/dL (31.0-37.0); MCV 93.8 fL (80.0-100.0); Mean Platelet Volume 8.5; Poikilocytosis Slight; RBC 2.18 m/uL (3.80-5.40); RDW 17.6 % (11.5-15.5); WBC 4.2 k/uL (3.8-10.6)
[2022-10-30 06:51] LABS: African American GFR (CKD) >90 (>60 ml/min/1.73 sqM); Anion Gap 7 mmol/L; Blood Urea Nitrogen 11 mg/dL (7-17); Calcium 7.6 mg/dL (8.4-10.2); Carbon Dioxide 22 mmol/L (22-30); Chloride 102 mmol/L (98-107); Glucose 123 mg/dL (74-99); Non-African American GFR(CKD) >90 (>60 ml/min/1.73 sqM); Sodium 131 mmol/L (137-145)
[2022-10-30 07:14] LABS: Glucose,Whole Blood 138 mg/dL (70-110)
[2022-10-30 07:20] LABS: HGB 6.8 gm/dL (11.4-16.0)
[2022-10-30 07:25] LABS: Platelet Count 4 k/uL (150-450)
[2022-10-30] MEDS: INSULIN ASPART (NovoLOG) 100 UNIT/ML VIAL SQ SCH ×7 (08:00→21:49)
[2022-10-30] MEDS: polyethylene glycoL 3350 17 GM POWD.PACK PO SCH ×2 (08:02→21:49)
[2022-10-30] MEDS: SENNOSIDES-DOCUSATE SODIUM 1 EACH TAB PO SCH (08:02)
[2022-10-30] MEDS: FOLIC ACID 1 MG TAB PO SCH (08:03)
[2022-10-30] MEDS: LINAGLIPTIN 5 MG TABLET PO SCH (08:03)
[2022-10-30] MEDS: PANTOPRAZOLE 40 MG TABLET PO SCH (08:03)
[2022-10-30] MEDS: MAGNESIUM OXIDE 400 MG TAB PO SCH (08:03)
[2022-10-30] MEDS: levETIRAcetam 500 MG TAB PO SCH ×2 (08:03→21:46)
[2022-10-30] MEDS: CEFEPIME 2 GM in SODIUM CHLORIDE 0.9% 100 ML IVPB SCH ×2 (08:03→16:16)
[2022-10-30] MEDS: PREGABALIN 50 MG CAP PO SCH ×3 (08:03→21:46)
[2022-10-30 08:06] LABS: INR 1.2 (<1.2); Partial Thromboplastin Time 23.9 sec (22.0-30.0); Prothrombin Time 12.1 sec (9.0-12.0)
[2022-10-30] MEDS ORDERED: POTASSIUM CHLORIDE 10 MEQ in WATER FOR INJECTION 1 100ML.BAG IVPB SCH (10:00)
[2022-10-30] MEDS: POTASSIUM CHLORIDE ER 20 MEQ TAB.ER PO SCH ×2 (10:15→12:28)
[2022-10-30 11:13] LABS: Glucose,Whole Blood 133 mg/dL (70-110)
[2022-10-30] MEDS ORDERED: VANCOMYCIN TROUGH DUE 1 EACH MISC MISCELLANE ONE (12:00)
[2022-10-30] MEDS ORDERED: ACETAMINOPHEN IV (For NPO) 1,000 MG in EMPTY BAG 1 BAG IVPB ONE (12:33)
--- NOTE | 2022-10-30 12:40 | P.PN ---
Subjective Progress Note Date: 10/30/22 Patient is a 57-year-old female with a history of metastatic lung cancer to brain and spine, pulmonary embolism on Eliquis with recent IVC filter and DVT, and seizure disorder who presented to the ER with complaints of worsening right lower extremity pain. She had a known L1 5 lesion with nerve root impingement. She presented to the ER for intractable pain. On presentation to the ER her vital signs within normal limits, lab work was remarkable for white blood cell count of 11.5, platelets 37, sodium 137, creatinine 0.76. She was admitted and was started on Dilaudid and [place] for pain as well as Lyrica. Oncology and radiation oncology were consulted. Patient underwent simulation for radiation on 10/12 and first round on 10/13 with a plan for a total of 5 doses. She has not been able to sit due to pain. Her pain medications were adjusted and she was able to tolerate sitting in the chair between this and her radiation. Her platelets continued to be low and she required multiple transfusions. Patient has completed a course of IVIG and steroids. 10/30 Patient was seen and examined this morning. T max 102.2F. She is more lethargic and sleepy today. Answering questions appropriately. She complains migraines. She was empirically started on vancomycin and Cefepime, valles culture collected a nd infectious disease was consulted on 10/28. General: lethargic, no distress, appears at stated age Derm: warm, dry Head: atraumatic, normocephalic, symmetric Eyes: EOMI, no lid lag, anicteric sclera Cardiovascular: Tachycardic, no murmurs Lungs: Clear to auscultation bilaterally, no accessory muscle use GI: Non tender to palpation. Not distended. + bowel sounds Ext: no gross muscle atrophy, no edema, no contractures Neuro: no focal neuro deficits Psych: Alert, oriented, appropriate affect SIRS versus Sepsis Hypokalemia Thrombocytopenia, possible related to immune therapy, s/p 13 units of plt (I reviewed patient's labs, luis eduardo León and patient's baseline platelets are 70) Anemia Intractable malignancy related pain secondary to an L5 nerve root impingement and hip lesion Metastatic lung cancer with metastases to the brain and bone Newly discovered DM 2 with hyperglycemia due to steroids Seizure disorder Recent PE on Eliquis and status post IVC filter (3 weeks prior to this hospitalization) Resolved: Leukocytosis Based on my assessment of this patient, this patient meets a high complexity level of care. Patient has a new diagnosis of thrombocytopenia, possible related to immune therapy with uncertain prognosis. She is status post 13 units of platelets. Platelet count decreased to 4 today after starting eltrombopag, 1 unit of platelets ordered. Hematology on board. Patient had a fever yesterday Tmax 102.2F. She meets SIRS criteria with tachycardia and fever. Blood and urine culture collected and prelim negative. UA shows moderate LE. Influenza, RSV, COVID negative. CRP elevated at 22.5. Procalcitonin 0.41. CXR showing no obvious signs of pneumonia. Continue Vancomycin 1250 mg IV BID (Day 3). Cefepime 2g IV Q8H (Day 2). Continue 100 mL/h. Telemetry monitoring ordered. Infectious disease on board. Hg dropped to 6.8 this morning. 1 unit PRBC ordered. 80 meq of PO potassium chloride ordered for K of 3. Diabetes Mellitus: Sliding scale. Hypoglycemic precautions. Novolog 4 units TID. Tradjenta 5 mg PO QD. Seizure: Keppra 500 mg PO BID. Pain control: Fentanyl patch 75 mcg/hr I have reviewed the following planning consultant notes: None. I have reviewed the results of the following tests: CBC shows hemoglobin of 6.8 and platelet count of 4. Fibrinogen elevated at 585. Coagulation panel shows INR of 1.2 and PT of 12.1. BMP shows Na 131, potassium of 3, glucose 123, calcium of 7.6. Blood and urine culture prelim negative. I have ordered the following tests: CBC and BMP ordered for tomorrow morning. Blood cultures pending. Urine cultures pending. I have discussed the care of this patient with the following independent historian: None. I have independently interpreted the following test below: None. I have discussed the management of this patient with the following physician: None. Objective - Vital Signs Vital signs: Vital Signs Temp 98.1 F 10/30/22 11:28 Pulse 104 H 10/30/22 11:28 Resp 14 10/30/22 11:28 BP 100/71 10/30/22 11:28 Pulse Ox 96 10/30/22 11:28 FiO2 Intake & Output 10/29/22 10/30/22 10/30/22 18:59 06:59 18:59 Intake Total 2219 2440 0 Output Total 500 775 Balance 1719 1665 0 Intake: Intake, IV Titration 1950 1900 Amount Cefepime 2 gm In Sodium 100 100 Chloride 0.9% 100 ml @ 25 mls/hr IVPB Q8HR [facility] Rx# :[id number] Piperacillin-Tazobactam 3 100 .375 gm In Sodium Chloride 0.9% 100 ml @ 25 mls/hr IVPB Q8HR [facility] Rx# :[id number] Potassium Chloride 10 meq 300 100 In Water For Injection 1 100ml.bag @ 100 mls/hr IVPB Q1HR [facility] Rx#: [id number] Sodium Chloride 0.9% 1, 1200 1200 000 ml @ 100 mls/hr IV . Q10H [facility] Rx#:[id number] Vancomycin 1,250 mg In 250 500 Sodium Chloride 0.9% 250 ml @ 125 mls/hr IVPB Q8H [facility] Rx#:[id number] Oral 540 Blood Product 269 0 Unit 0 Platelet Pheresis Pas 269 Psoralen Unit [id number] Output: Urine 500 775 Stool 0 Other: Voiding Method External Catheter External Catheter # Voids 1 # Bowel Movements 1 - Labs CBC & Chem 7: 10/30/22 05:28 10/30/22 05:28 Labs: Abnormal Lab Results - Last 24 Hours (Table) 10/28/22 10/29/22 10/30/22 Range/Units 08:31 13:23 05:28 RBC (3.80-5.40) m/uL Hgb (11.4-16.0) gm/dL Hct (34.0-46.0) % RDW (11.5-15.5) % Plt Count (150-450) k/uL PT 12.1 H (9.0-12.0) sec INR 1.2 H (<1.2) Fibrinogen 539 H 585 H (200-500) mg/dL Sodium (137-145) mmol/L Potassium (3.5-5.1) mmol/L Glucose (74-99) mg/dL POC Glucose (mg/dL) (70-110) mg/dL Calcium (8.4-10.2) mg/dL Crossmatch See Detail 10/30/22 10/30/22 10/30/22 Range/Units 05:28 05:28 07:03 RBC 2.18 L (3.80-5.40) m/uL Hgb 6.8 L* (11.4-16.0) gm/dL Hct 20.5 L (34.0-46.0) % RDW 17.6 H (11.5-15.5) % Plt Count 4 L* D (150-450) k/uL PT (9.0-12.0) sec INR (<1.2) Fibrinogen (200-500) mg/dL Sodium 131 L (137-145) mmol/L Potassium 3.0 L (3.5-5.1) mmol/L Glucose 123 H (74-99) mg/dL POC Glucose (mg/dL) 138 H (70-110) mg/dL Calcium 7.6 L (8.4-10.2) mg/dL Crossmatch 10/30/22 Range/Units 11:11 RBC (3.80-5.40) m/uL Hgb (11.4-16.0) gm/dL Hct (34.0-46.0) % RDW (11.5-15.5) % Plt Count (150-450) k/uL PT (9.0-12.0) sec INR (<1.2) Fibrinogen (200-500) mg/dL Sodium (137-145) mmol/L Potassium (3.5-5.1) mmol/L Glucose (74-99) mg/dL POC Glucose (mg/dL) 133 H (70-110) mg/dL Calcium (8.4-10.2) mg/dL Crossmatch Microbiology - Last 24 Hours (Table) 10/27/22 17:30 Blood Culture - Preliminary Blood 10/27/22 17:30 Blood Culture - Preliminary Blood 10/29/22 11:10 Sputum Culture - Preliminary Sputum 10/27/22 16:43 Urine Culture - Final Urine,Voided
--- NOTE | 2022-10-30 14:28 | P.PN ---
Subjective Progress Note Date: 10/30/22 Principal diagnosis: hx of metastatic lung adenocarcinoma, RLE pain At today's visit patient is resting comfortably in bed, family at bedside. Patient reports headache, fever and chills. Temperature 102.2 this morning. She denies pain. Denies episodes of bleeding. Platelets 4,000, hemoglobin 6.8, 1 unit platelet and 1 unit PRBC ordered. No other reported complaints at this ti mo. Objective - Vital Signs Vital signs: Vital Signs Temp 98.1 F 10/30/22 13:54 Pulse 125 H 10/30/22 13:54 Resp 20 10/30/22 13:54 BP 123/75 10/30/22 13:54 Pulse Ox 96 10/30/22 11:28 FiO2 Intake & Output 10/29/22 10/30/22 10/30/22 18:59 06:59 18:59 Intake Total 2219 2440 340 Output Total 500 775 Balance 1719 1665 340 Intake: Intake, IV Titration 1950 1900 Amount Cefepime 2 gm In Sodium 100 100 Chloride 0.9% 100 ml @ 25 mls/hr IVPB Q8HR [facility] Rx# :[id number] Piperacillin-Tazobactam 3 100 .375 gm In Sodium Chloride 0.9% 100 ml @ 25 mls/hr IVPB Q8HR [facility] Rx# :[id number] Potassium Chloride 10 meq 300 100 In Water For Injection 1 100ml.bag @ 100 mls/hr IVPB Q1HR [facility] Rx#: [id number] Sodium Chloride 0.9% 1, 1200 1200 000 ml @ 100 mls/hr IV . Q10H [facility] Rx#:[id number] Vancomycin 1,250 mg In 250 500 Sodium Chloride 0.9% 250 ml @ 125 mls/hr IVPB Q8H [facility] Rx#:[id number] Oral 540 Blood Product 269 340 Platelet Pheresis Pas 340 Psoralen Unit [id number] Platelet Pheresis Pas 269 Psoralen Unit [id number] Rc Pheresis 2 As3 Unit 0 [id number] Output: Urine 500 775 Stool 0 Other: Voiding Method External Catheter External Catheter External Catheter # Voids 1 # Bowel Movements 1 - Constitutional General appearance: Present: average body habitus, no acute distress - EENT Eyes: Present: anicteric sclerae, EOMI ENT: Present: hearing grossly normal - Respiratory Details: Breathing even and unlabored - Cardiovascular Details: Skin warm and dry - Integumentary Integumentary: Present: pale - Musculoskeletal Musculoskeletal: Present: generalized weakness - Psychiatric Psychiatric: Present: A&O x's 3, appropriate affect, intact judgment & insight - Labs CBC & Chem 7: 10/30/22 05:28 10/30/22 05:28 Labs: Abnormal Lab Results - Last 24 Hours (Table) 10/28/22 10/30/22 10/30/22 Range/Units 08:31 05:28 05:28 RBC 2.18 L (3.80-5.40) m/uL Hgb 6.8 L* (11.4-16.0) gm/dL Hct 20.5 L (34.0-46.0) % RDW 17.6 H (11.5-15.5) % Plt Count 4 L* D (150-450) k/uL PT 12.1 H (9.0-12.0) sec INR 1.2 H (<1.2) Fibrinogen 585 H (200-500) mg/dL Sodium (137-145) mmol/L Potassium (3.5-5.1) mmol/L Glucose (74-99) mg/dL POC Glucose (mg/dL) (70-110) mg/dL Calcium (8.4-10.2) mg/dL Magnesium (1.6-2.3) mg/dL Crossmatch See Detail 10/30/22 10/30/22 10/30/22 Range/Units 05:28 07:03 11:11 RBC (3.80-5.40) m/uL Hgb (11.4-16.0) gm/dL Hct (34.0-46.0) % RDW (11.5-15.5) % Plt Count (150-450) k/uL PT (9.0-12.0) sec INR (<1.2) Fibrinogen (200-500) mg/dL Sodium 131 L (137-145) mmol/L Potassium 3.0 L (3.5-5.1) mmol/L Glucose 123 H (74-99) mg/dL POC Glucose (mg/dL) 138 H 133 H (70-110) mg/dL Calcium 7.6 L (8.4-10.2) mg/dL Magnesium (1.6-2.3) mg/dL Crossmatch 10/30/22 Range/Units 12:42 RBC (3.80-5.40) m/uL Hgb (11.4-16.0) gm/dL Hct (34.0-46.0) % RDW (11.5-15.5) % Plt Count (150-450) k/uL PT (9.0-12.0) sec INR (<1.2) Fibrinogen (200-500) mg/dL Sodium (137-145) mmol/L Potassium (3.5-5.1) mmol/L Glucose (74-99) mg/dL POC Glucose (mg/dL) (70-110) mg/dL Calcium (8.4-10.2) mg/dL Magnesium 1.3 L (1.6-2.3) mg/dL Crossmatch Microbiology - Last 24 Hours (Table) 10/27/22 17:30 Blood Culture - Preliminary Blood 10/27/22 17:30 Blood Culture - Preliminary Blood 10/29/22 11:10 Sputum Culture - Preliminary Sputum - Imaging and Cardiology CT Scan - head: report reviewed Assessment and Plan (1) Non-small cell lung cancer (NSCLC) Current Visit: Yes Status: Acute Priority: High Code(s): C34.90 - MALIGNANT NEOPLASM OF UNSP PART OF UNSP BRONCHUS OR LUNG SNOMED Code(s): 993507370 (2) Thrombocytopenia Current Visit: Yes Status: Acute Priority: High Code(s): D69.6 - T HROMBOCYTOPENIA, UNSPECIFIED SNOMED Code(s): 414169786 Plan: Sepsis -Sepsis criteria met-fever, tachycardia, lethargy. Persists today -Urine culture negative, blood cultures negative at 48 hours, chest x-ray suspicious for a left lower lobe pneumonia -ID has seen pt and adjusted abx -No evidence of DIC. Ongoing assessment of pt. Fibrinogen daily, coags in AM -Today CBC showing Hgb 6.8 today, plt back down to 4,000-likely consumption from sepsis. 1 unit of single donor platelets and 1 unit PRBCs ordered today. -CBC daily -No evidence of hemolysis Oral thrush -Started oral clotrimazole Thrombocytopenia -CT head without contrast for reported neuro symptoms-reported no evidence of hemorrhage, neuro symptoms improved, no new symptoms today when seen -Plt count dropped to 4K today-likely 2/2 sepsis. 1 unit SDP today -Promacta started 10/26, cont. -Continue on PPI for prevention of steroid-induced gastritis -CBC daily -Close monitoring for any bleeding, continue to monitor hemoglobin. -Plt counts have been highly variable since July, based on the timing of the changes and subsequent recovery's, felt that thrombocytopenia was secondary to chemotherapy. Unfortunately, since August, when her Platelets declined, they have not recovered. High-dose steroids, IVIG with no significant changes. Patient does have multiple platelet transfusions with no significant improvement. DVT/PE -Anticoagulation for recent DVT/PE has been held, patient has an IVC filter. Continue to hold until platelets are 50,000 or above Metastatic adenocarcinoma of the lung with metastasis to the brain/bone -Progressive, metastatic disease to the bones. -She has received 4 cycles of carboplatin/Alim[place]/pembrolizumab, last cycle in early august -Hx of brain mets, previously treated with XRT -Transfer of care locally. Intractable pain 2/2 metastatic disease -Resolved -Fentanyl and [place], pt reporting good pain control now. -Continue medications for prevention of narcotic-induced constipation
--- NOTE | 2022-10-30 15:02 | P.PN ---
Subjective Progress Note Date: 10/30/22 Principal diagnosis: Fever Patient is a 57-year-old female with a past medical history significant for metastatic lung cancer with mets to the brain patient did have a history of PE did have a IVC filter and has been on Eliquis seizure disorder patient also have a MRI of the lumbar spine with lesion at L5 causing intractable lower back pain , patient did have a fever on 10/27/2022 prompting this infection disease consultation On today's evaluation that is 10/30/2022 patient with fever pattern has improved last temperature was around 5 this morning the patient is afebrile since then, the patient is breathing comfortably currently on room air occasional cough no n ausea no vomiting no abdominal pain and no diarrhea Objective - Vital Signs Vital signs: Vital Signs Temp 98.1 F 10/30/22 11:28 Pulse 104 H 10/30/22 11:28 Resp 14 10/30/22 11:28 BP 100/71 10/30/22 11:28 Pulse Ox 96 10/30/22 11:28 FiO2 Intake & Output 10/29/22 10/30/22 10/30/22 18:59 06:59 18:59 Intake Total 2219 2440 0 Output Total 500 775 Balance 1719 1665 0 Intake: Intake, IV Titration 1950 1900 Amount Cefepime 2 gm In Sodium 100 100 Chloride 0.9% 100 ml @ 25 mls/hr IVPB Q8HR [facility] Rx# :[id number] Piperacillin-Tazobactam 3 100 .375 gm In Sodium Chloride 0.9% 100 ml @ 25 mls/hr IVPB Q8HR [facility] Rx# :[id number] Potassium Chloride 10 meq 300 100 In Water For Injection 1 100ml.bag @ 100 mls/hr IVPB Q1HR [facility] Rx#: [id number] Sodium Chloride 0.9% 1, 1200 1200 000 ml @ 100 mls/hr IV . Q10H [facility] Rx#:[id number] Vancomycin 1,250 mg In 250 500 Sodium Chloride 0.9% 250 ml @ 125 mls/hr IVPB Q8H [facility] Rx#:[id number] Oral 540 Blood Product 269 0 Unit 0 Platelet Pheresis Pas 269 Psoralen Unit [id number] Output: Urine 500 775 Stool 0 Other: Voiding Method External Catheter External Catheter # Voids 1 # Bowel Movements 1 - Exam GENERAL DESCRIPTION: Middle-aged female lying in bed in no distress RESPIRATORY SYSTEM: Unlabored breathing , decreased breath sounds at bases HEART: S1 S2 regular rate and rhythm , ABDOMEN: Soft , no tenderness EXTREMITIES: No edema feet - Labs CBC & Chem 7: 10/30/22 05:28 10/30/22 05:28 Labs: Abnormal Lab Results - Last 24 Hours (Table) 10/28/22 10/29/22 10/29/22 Range/Units 08:31 06:11 13:23 RBC (3.80-5.40) m/uL Hgb (11.4-16.0) gm/dL Hct (34.0-46.0) % RDW (11.5-15.5) % Plt Count (150-450) k/uL PT (9.0-12.0) sec INR (<1.2) Fibrinogen 539 H (200-500) mg/dL Sodium (137-145) mmol/L Potassium 3.1 L (3.5-5.5) mmol/L BUN/Creatinine Ratio 20.43 H (12.00-20.00) Ratio Glucose (74-99) mg/dL POC Glucose (mg/dL) (70-110) mg/dL Calcium 8.3 L (8.7-10.3) mg/dL C-Reactive Protein 22.50 H (0.00-0.80) mg/dL Crossmatch See Detail 10/30/22 10/30/22 10/30/22 Range/Units 05:28 05:28 05:28 RBC 2.18 L (3.80-5.40) m/uL Hgb 6.8 L* (11.4-16.0) gm/dL Hct 20.5 L (34.0-46.0) % RDW 17.6 H (11.5-15.5) % Plt Count 4 L* D (150-450) k/uL PT 12.1 H (9.0-12.0) sec INR 1.2 H (<1.2) Fibrinogen 585 H (200-500) mg/dL Sodium 131 L (137-145) mmol/L Potassium 3.0 L (3.5-5.5) mmol/L BUN/Creatinine Ratio (12.00-20.00) Ratio Glucose 123 H (74-99) mg/dL POC Glucose (mg/dL) (70-110) mg/dL Calcium 7.6 L (8.7-10.3) mg/dL C-Reactive Protein (0.00-0.80) mg/dL Crossmatch 10/30/22 10/30/22 Range/Units 07:03 11:11 RBC (3.80-5.40) m/uL Hgb (11.4-16.0) gm/dL Hct (34.0-46.0) % RDW (11.5-15.5) % Plt Count (150-450) k/uL PT (9.0-12.0) sec INR (<1.2) Fibrinogen (200-500) mg/dL Sodium (137-145) mmol/L Potassium (3.5-5.5) mmol/L BUN/Creatinine Ratio (12.00-20.00) Ratio Glucose (74-99) mg/dL POC Glucose (mg/dL) 138 H 133 H (70-110) mg/dL Calcium (8.7-10.3) mg/dL C-Reactive Protein (0.00-0.80) mg/dL Crossmatch Microbiology - Last 24 Hours (Table) 10/27/22 17:30 Blood Culture - Preliminary Blood 10/27/22 17:30 Blood Culture - Preliminary Blood 10/29/22 11:10 Sputum Culture - Preliminary Sputum 10/27/22 16:43 Urine Culture - Final Urine,Voided Assessment and Plan (1) Sepsis Current Visit: Yes Status: Acute Priority: High Code(s): A41.9 - SEPSIS, UNSPECIFIED ORGANISM SNOMED Code(s): 45376082 Plan: 1patient with a fever and this patient has been hospital for almost 3 weeks with history of metastatic lung cancer with mets to the brain and abnormality of the L5 vertebra initial presentation with intractable lower back pain source of this fever/sepsis could be pneumonia 2patient did have elevated CRP of 22.50, however procalcitonin is only 0.41 3-influenza and COVID PCR, chlamydia negative 4Patient fever seems to have improved with adjustment of antibiotics to cefepime and vancomycin, which will be continued while waiting for the cultures to finalize Time with Patient: Less than 30
[2022-10-30] MEDS: VANCOMYCIN 1,000 MG in SODIUM CHLORIDE 0.9% 250 ML IVPB SCH (16:16)
[2022-10-30] MEDS: PROMACTA PO SCH (16:17)
[2022-10-30] MEDS: HYDROcodone/APAP 7.5-325MG 1 EACH TAB PO PRN ×2 (16:34→21:54)
[2022-10-30] MEDS ORDERED: SUMAtriptan succinate 50 MG TAB PO STA (17:03)
[2022-10-30 17:20] LABS: Glucose,Whole Blood 169 mg/dL (70-110)
[2022-10-30 21:18] LABS: Glucose,Whole Blood 160 mg/dL (70-110)
[2022-10-30] MEDS: INSULIN DETEMIR (LEVEMIR) 100 UNIT/ML SYR SQ SCH (21:49)
[2022-10-31] MEDS: VANCOMYCIN 1,000 MG in SODIUM CHLORIDE 0.9% 250 ML IVPB SCH ×4 (00:38→23:10)
[2022-10-31] MEDS: CEFEPIME 2 GM in SODIUM CHLORIDE 0.9% 100 ML IVPB SCH ×4 (00:38→23:10)
[2022-10-31] MEDS: CLOTRIMAZOLE TROCHE 10 MG TROCHE MUCOUS MEM SCH ×6 (00:38→22:21)
[2022-10-31] MEDS: SALT AND SODA MOUTHWASH 1,000 ML PO SCH ×6 (00:38→22:21)
[2022-10-31] MEDS: SODIUM CHLORIDE 0.9% 1,000 ML IV SCH ×3 (05:25→20:31)
[2022-10-31 06:16] LABS: INR 1.2 (<1.2); Partial Thromboplastin Time 22.1 sec (22.0-30.0); Prothrombin Time 12.5 sec (9.0-12.0)
[2022-10-31 06:22] LABS: African American GFR (CKD) >90 (>60 ml/min/1.73 sqM); Anion Gap 5 mmol/L; Blood Urea Nitrogen 10 mg/dL (7-17); Calcium 7.8 mg/dL (8.4-10.2); Carbon Dioxide 23 mmol/L (22-30); Chloride 107 mmol/L (98-107); Glucose 81 mg/dL (74-99); Non-African American GFR(CKD) >90 (>60 ml/min/1.73 sqM); Potassium 3.3 mmol/L (3.5-5.1); Sodium 135 mmol/L (137-145)
[2022-10-31 07:16] LABS: Glucose,Whole Blood 75 mg/dL (70-110)
[2022-10-31] MEDS: INSULIN ASPART (NovoLOG) 100 UNIT/ML VIAL SQ SCH ×7 (07:32→20:08)
[2022-10-31] MEDS ORDERED: POTASSIUM CHLORIDE 20 MEQ in WATER FOR INJECTION 1 100ML.BAG IVPB STA (08:17)
[2022-10-31] MEDS: SENNOSIDES-DOCUSATE SODIUM 1 EACH TAB PO SCH (08:58)
[2022-10-31] MEDS: MAGNESIUM OXIDE 400 MG TAB PO SCH (08:58)
[2022-10-31] MEDS: PANTOPRAZOLE 40 MG TABLET PO SCH (08:58)
[2022-10-31] MEDS: FOLIC ACID 1 MG TAB PO SCH (08:58)
[2022-10-31] MEDS: PREGABALIN 50 MG CAP PO SCH ×3 (08:59→20:29)
[2022-10-31] MEDS: levETIRAcetam 500 MG TAB PO SCH ×2 (08:59→20:29)
[2022-10-31] MEDS: LINAGLIPTIN 5 MG TABLET PO SCH (09:01)
[2022-10-31] MEDS: polyethylene glycoL 3350 17 GM POWD.PACK PO SCH ×2 (09:01→20:30)
[2022-10-31 10:27] LABS: NRBC Per 100 WBC 0 /100 WBCS (0.0-0.0)
[2022-10-31 10:28] LABS: HCT 23.5 % (37.2-46.3); HGB 7.5 g/dL (12.0-15.0); Immature Platelet Fraction 9.8 % (1.1-6.1); MCH 31.5 pg (27.0-32.0); MCHC 31.9 g/dL (32.0-37.0); MCV 98.7 fL (80.0-97.0); Platelet Count 4 X 10*3/uL (140-440); RBC 2.38 X 10*6/uL (4.10-5.20); RDW 17.4 % (11.5-14.5); WBC 3.97 X 10*3/uL (4.50-10.00)
[2022-10-31 11:19] LABS: Glucose,Whole Blood 96 mg/dL (70-110)
--- NOTE | 2022-10-31 11:57 | XR ---
EXAMINATION TYPE: XR chest 1V portable DATE OF EXAM: 10/31/2022 COMPARISON: 10/27/2022 INDICATION: Short of breath TECHNIQUE: Single frontal view of the chest is obtained. FINDINGS: The heart size is normal. The pulmonary vasculature is normal. The lungs are clear. IMPRESSION: 1. No acute pulmonary process.
[2022-10-31] MEDS: METOPROLOL TARTRATE 25 MG TAB PO SCH ×2 (13:35→20:29)
--- NOTE | 2022-10-31 14:08 | P.PN ---
Subjective Progress Note Date: 10/31/22 Patient is a 57-year-old female with a history of metastatic lung cancer to brain and spine, pulmonary embolism on Eliquis with recent IVC filter and DVT, and seizure disorder who presented to the ER with complaints of worsening right lower extremity pain. She had a known L1 5 lesion with nerve root impingement. She presented to the ER for intractable pain. On presentation to the ER her vital signs within normal limits, lab work was remarkable for white blood cell count of 11.5, platelets 37, sodium 137, creatinine 0.76. She was admitted and was started on Dilaudid and Coleman for pain as well as Lyrica. Oncology and radiation oncology were consulted. Patient underwent simulation for radiation on 10/12 and first round on 10/13 with a plan for a total of 5 doses. She has not been able to sit due to pain. Her pain medications were adjusted and she was able to tolerate sitting in the chair between this and her radiation. Her platelets continued to be low and she required multiple transfusions. Patient has completed a course of IVIG and steroids. She was empirically started on vancomycin and Cefepime, valles culture collected and infectious disease was consulted on 10/28. 10/30 Patient was seen and examined this morning. T max 102.2F. She is more lethargic and sleepy today. Answering questions appropriately. She complains migraines. 10/31 Patient was seen and examined. Telemetry shows heart rate in the 140s. Patient reports continued migraines and is now complaining of shortness of b reath. CBC shows hemoglobin 7.5 and platelet count of 4. Her family is at bedside and CODE STATUS is discussed. Patient is electing to be no code. Started on Metoprolol 25 mg PO BID. She will be transferred to [address] [place] [address]. General: lethargic, no distress, appears at stated age Derm: warm, dry Head: atraumatic, normocephalic, symmetric Eyes: EOMI, no lid lag, anicteric sclera Cardiovascular: Tachycardic, no murmurs Lungs: Clear to auscultation bilaterally, no accessory muscle use Ext: no gross muscle atrophy, no edema, no contractures Neuro: no focal neuro deficits Psych: Alert, oriented, appropriate affect SIRS versus Sepsis Hypokalemia Thrombocytopenia, possible related to immune therapy, s/p 13 units of plt (I reviewed patient's labs, clam Wendell and patient's baseline platelets are 70) Anemia Intractable malignancy related pain secondary to an L5 nerve root impingement and hip lesion Metastatic lung cancer with metastases to the brain and bone Newly discovered DM 2 with hyperglycemia due to steroids Seizure disorder Recent PE on Eliquis and status post IVC filter (3 weeks prior to this hospitalization) Resolved: Leukocytosis Based on my assessment of this patient, this patient meets a high complexity level of care. Patient has a new diagnosis of thrombocytopenia, possible related to immune therapy with uncertain prognosis. She is status post 14 units of platelets. Platelet count decreased to 4 today after starting eltrombopag, 1 unit of platelets ordered. Hematology on board. Patient had a fever yesterday Tmax 100.3F. She meets SIRS criteria with tachycardia and fever. Blood and urine culture collected and prelim negative. UA shows moderate LE. Influenza, RSV, COVID negative. CRP elevated at 22.5. Procalcitonin 0.41. CXR showing no obvious signs of pneumonia. Continue Vancomycin 1250 mg IV BID (Day 4). Cefepime 2g IV Q8H (Day 3). Continue 100 mL/h. Telemetry monitoring ordered. Infectious disease on board. Hg improved to 7.5 this morning. 20 meq of IV potassium chloride ordered for K of 3.3. Diabetes Mellitus: Sliding scale. Hypoglycemic precautions. Novolog 4 units TID. Tradjenta 5 mg PO QD. Seizure: Keppra 500 mg PO BID. Pain control: Fentanyl patch 75 mcg/hr I have reviewed the following franchise business consultant notes: None. I have reviewed the results of the following tests: CBC shows hemoglobin of 7.5 and platelet count of 4. Fibrinogen elevated at 577. Coagulation panel shows INR of 1.2 and PT of 12.5. BMP shows Na 135, potassium of 3.3, calcium of 7.8. Blood and urine culture prelim negative. I have ordered the following tests: CBC and BMP ordered for tomorrow morning. Blood cultures pending. Urine cultures pending. I have discussed the care of this patient with the following independent historian: None. I have independently interpreted the following test below: None. I have discussed the management of this patient with the following physician: None. Objective - Vital Signs Vital signs: Vital Signs Temp 99.1 F 10/31/22 13:25 Pulse 144 H 10/31/22 13:25 Resp 20 10/31/22 13:25 BP 130/67 10/31/22 13:25 Pulse Ox 93 L 10/31/22 11:50 FiO2 Intake & Output 10/30/22 10/31/22 10/31/22 18:59 06:59 18:59 Intake Total 620 0 Output Total 600 0 Balance 620 -600 0 Intake: Blood Product 620 0 Unit 0 Platelet Pheresis Pas 340 Psoralen Unit [id number] Rc Pheresis 2 As3 Unit 280 [id number] Output: Urine 600 Stool 0 0 Other: Voiding Method External Catheter External Catheter External Catheter # Voids 0 # Bowel Movements 1 - Labs CBC & Chem 7: 10/31/22 05:42 10/31/22 05:53 Labs: Abnormal Lab Results - Last 24 Hours (Table) 10/28/22 10/30/22 10/30/22 Range/Units 08:31 17:09 21:13 WBC (4.50-10.00) X 10*3/uL RBC (4.10-5.20) X 10*6/uL Hgb (12.0-15.0) g/dL Hct (37.2-46.3) % MCV (80.0-97.0) fL MCHC (32.0-37.0) g/dL RDW (11.5-14.5) % Plt Count (140-440) X 10*3/uL Plt Count Comment Immature Plt Fraction (1.1-6.1) % PT (9.0-12.0) sec INR (<1.2) Fibrinogen (200-500) mg/dL Sodium (137-145) mmol/L Potassium (3.5-5.1) mmol/L POC Glucose (mg/dL) 169 H 160 H (70-110) mg/dL Calcium (8.4-10.2) mg/dL Crossmatch See Detail 10/31/22 10/31/22 10/31/22 Range/Units 05:42 05:53 05:53 WBC 3.97 L (4.50-10.00) X 10*3/uL RBC 2.38 L (4.10-5.20) X 10*6/uL Hgb 7.5 L (12.0-15.0) g/dL Hct 23.5 L (37.2-46.3) % MCV 98.7 H (80.0-97.0) fL MCHC 31.9 L (32.0-37.0) g/dL RDW 17.4 H (11.5-14.5) % Plt Count 4 L* (140-440) X 10*3/uL Plt Count Comment A Immature Plt Fraction 9.8 H (1.1-6.1) % PT 12.5 H (9.0-12.0) sec INR 1.2 H (<1.2) Fibrinogen 577 H (200-500) mg/dL Sodium 135 L (137-145) mmol/L Potassium 3.3 L (3.5-5.1) mmol/L POC Glucose (mg/dL) (70-110) mg/dL Calcium 7.8 L (8.4-10.2) mg/dL Crossmatch Microbiology - Last 24 Hours (Table) 10/27/22 17:30 Blood Culture - Preliminary Blood 10/27/22 17:30 Blood Culture - Preliminary Blood 10/29/22 11:10 Gram Stain - Final Sputum Sputum Culture - Final
[2022-10-31 16:42] LABS: Glucose,Whole Blood 123 mg/dL (70-110)
[2022-10-31] MEDS: PROMACTA PO SCH (17:11)
[2022-10-31] MEDS: ACETAMINOPHEN TAB 325 MG TAB PO PRN (19:47)
[2022-10-31 19:57] LABS: Glucose,Whole Blood 115 mg/dL (70-110)
[2022-10-31] MEDS: INSULIN DETEMIR (LEVEMIR) 100 UNIT/ML SYR SQ SCH (20:46)
--- NOTE | 2022-10-31 21:39 | P.PN ---
Subjective Progress Note Date: 10/31/22 Principal diagnosis: Fever Patient is a 57-year-old female with a past medical history significant for metastatic lung cancer with mets to the brain patient did have a history of PE did have a IVC filter and has been on Eliquis seizure disorder patient also have a MRI of the lumbar spine with lesion at L5 causing intractable lower back pain , patient did have a fever on 10/27/2022 prompting this infection disease consultation On today's evaluation that is 10/31/2022 patient with fever pattern has improved with the low-grade fever of 99F today, the patient is breathing comfortably on room air, the patient did have occasional cough no nausea no vomiting no abdomi nal pain and no diarrhea Objective - Vital Signs Vital signs: Vital Signs Temp 99.5 F 10/31/22 11:10 Pulse 141 H 10/31/22 11:10 Resp 28 H 10/31/22 11:10 BP 144/93 10/31/22 11:10 Pulse Ox 95 10/31/22 11:10 FiO2 Intake & Output 10/30/22 10/31/22 10/31/22 18:59 06:59 18:59 Intake Total 620 0 Output Total 600 0 Balance 620 -600 0 Intake: Blood Product 620 0 Unit 0 Platelet Pheresis Pas 340 Psoralen Unit [id number] Rc Pheresis 2 As3 Unit 280 [id number] Output: Urine 600 Stool 0 0 Other: Voiding Method External Catheter External Catheter External Catheter # Voids 0 # Bowel Movements 1 - Exam GENERAL DESCRIPTION: Middle-aged female lying in bed in no distress RESPIRATORY SYSTEM: Unlabored breathing , decreased breath sounds at bases HEART: S1 S2 regular rate and rhythm , ABDOMEN: Soft , no tenderness EXTREMITIES: No edema feet - Labs CBC & Chem 7: 10/31/22 05:42 10/31/22 05:53 Labs: Abnormal Lab Results - Last 24 Hours (Table) 10/28/22 10/30/22 10/30/22 Range/Units 08:31 12:42 17:09 WBC (4.50-10.00) X 10*3/uL RBC (4.10-5.20) X 10*6/uL Hgb (12.0-15.0) g/dL Hct (37.2-46.3) % MCV (80.0-97.0) fL MCHC (32.0-37.0) g/dL RDW (11.5-14.5) % Plt Count (140-440) X 10*3/uL Plt Count Comment Immature Plt Fraction (1.1-6.1) % PT (9.0-12.0) sec INR (<1.2) Fibrinogen (200-500) mg/dL Sodium (137-145) mmol/L Potassium (3.5-5.1) mmol/L POC Glucose (mg/dL) 169 H (70-110) mg/dL Calcium (8.4-10.2) mg/dL Magnesium 1.3 L (1.6-2.3) mg/dL Crossmatch See Detail 10/30/22 10/31/22 10/31/22 Range/Units 21:13 05:42 05:53 WBC 3.97 L (4.50-10.00) X 10*3/uL RBC 2.38 L (4.10-5.20) X 10*6/uL Hgb 7.5 L (12.0-15.0) g/dL Hct 23.5 L (37.2-46.3) % MCV 98.7 H (80.0-97.0) fL MCHC 31.9 L (32.0-37.0) g/dL RDW 17.4 H (11.5-14.5) % Plt Count 4 L* (140-440) X 10*3/uL Plt Count Comment A Immature Plt Fraction 9.8 H (1.1-6.1) % PT 12.5 H (9.0-12.0) sec INR 1.2 H (<1.2) Fibrinogen 577 H (200-500) mg/dL Sodium (137-145) mmol/L Potassium (3.5-5.1) mmol/L POC Glucose (mg/dL) 160 H (70-110) mg/dL Calcium (8.4-10.2) mg/dL Magnesium (1.6-2.3) mg/dL Crossmatch 10/31/22 Range/Units 05:53 WBC (4.50-10.00) X 10*3/uL RBC (4.10-5.20) X 10*6/uL Hgb (12.0-15.0) g/dL Hct (37.2-46.3) % MCV (80.0-97.0) fL MCHC (32.0-37.0) g/dL RDW (11.5-14.5) % Plt Count (140-440) X 10*3/uL Plt Count Comment Immature Plt Fraction (1.1-6.1) % PT (9.0-12.0) sec INR (<1.2) Fibrinogen (200-500) mg/dL Sodium 135 L (137-145) mmol/L Potassium 3.3 L (3.5-5.1) mmol/L POC Glucose (mg/dL) (70-110) mg/dL Calcium 7.8 L (8.4-10.2) mg/dL Magnesium (1.6-2.3) mg/dL Crossmatch Microbiology - Last 24 Hours (Table) 10/27/22 17:30 Blood Culture - Preliminary Blood 10/27/22 17:30 Blood Culture - Preliminary Blood 10/29/22 11:10 Gram Stain - Final Sputum Sputum Culture - Final Assessment and Plan (1) Sepsis Current Visit: Yes Status: Acute Priority: High Code(s): A41.9 - SEPSIS, UNSPECIFIED ORGANISM SNOMED Code(s): 74208219 Plan: 1patient with a fever and this patient has been hospital for almost 3 weeks with history of metastatic lung cancer with mets to the brain and abnormality of the L5 vertebra initial presentation with intractable lower back pain source of this fever/sepsis could be pneumonia 2patient did have elevated CRP of 22.50, however procalcitonin is only 0.41 3-influenza and COVID PCR, chlamydia negative 4Patient fever seems to have improved, cultures so far negative, patient to continue with cefepime and vancomycin, family at the bedside questions were answered Time with Patient: Less than 30
--- NOTE | 2022-10-31 22:32 | P.PN ---
Subjective Progress Note Date: 10/31/22 Pt lethargic, but arousable. Fever pattern better. SANCHEZ persistent, but unchanged. No obvious bleeding. Generalized weakness. Poor appetite Objective - Vital Signs Vital signs: Vital Signs Temp 98.3 F 10/31/22 20:00 Pulse 110 H 10/31/22 20:00 Resp 20 10/31/22 20:00 BP 114/72 10/31/22 20:00 Pulse Ox 95 10/31/22 20:00 FiO2 Intake & Output 10/31/22 10/31/22 11/01/22 06:59 18:59 06:59 Intake Total 380 300 Output Total 600 0 Balance -600 380 300 Intake: Oral 300 Blood Product 380 Platelet Pheresis Pas 380 Psoralen Unit [id number] Output: Urine 600 Stool 0 0 Other: Voiding Method External Catheter External Catheter External Catheter # Voids 0 1 # Bowel Movements 1 - Constitutional General appearance: Present: no acute distress - EENT Eyes: Present: EOMI ENT: Present: hearing grossly normal, normal oropharynx - Respiratory Respiratory: bilateral: diminished - Cardiovascular Rhythm: regular Heart sounds: normal: S1, S2 - Gastrointestinal General gastrointestinal: Present: normal bowel sounds, soft - Integumentary Integumentary: Present: normal - Neurologic Neurologic: Present: CNII-XII intact - Musculoskeletal Musculoskeletal: Present: generalized weakness, strength equal bilaterally - Psychiatric Psychiatric: Present: A&O x's 3, appropriate affect - Labs CBC & Chem 7: 10/31/22 05:42 10/31/22 05:53 Labs: Abnormal Lab Results - Last 24 Hours (Table) 10/31/22 10/31/22 10/31/22 Range/Units 05:42 05:53 05:53 WBC 3.97 L (4.50-10.00) X 10*3/uL RBC 2.38 L (4.10-5.20) X 10*6/uL Hgb 7.5 L (12.0-15.0) g/dL Hct 23.5 L (37.2-46.3) % MCV 98.7 H (80.0-97.0) fL MCHC 31.9 L (32.0-37.0) g/dL RDW 17.4 H (11.5-14.5) % Plt Count 4 L* (140-440) X 10*3/uL Plt Count Comment A Immature Plt Fraction 9.8 H (1.1-6.1) % PT 12.5 H (9.0-12.0) sec INR 1.2 H (<1.2) Fibrinogen 577 H (200-500) mg/dL Sodium 135 L (137-145) mmol/L Potassium 3.3 L (3.5-5.1) mmol/L POC Glucose (mg/dL) (70-110) mg/dL Calcium 7.8 L (8.4-10.2) mg/dL 10/31/22 10/31/22 Range/Units 16:41 19:54 WBC (4.50-10.00) X 10*3/uL RBC (4.10-5.20) X 10*6/uL Hgb (12.0-15.0) g/dL Hct (37.2-46.3) % MCV (80.0-97.0) fL MCHC (32.0-37.0) g/dL RDW (11.5-14.5) % Plt Count (140-440) X 10*3/uL Plt Count Comment Immature Plt Fraction (1.1-6.1) % PT (9.0-12.0) sec INR (<1.2) Fibrinogen (200-500) mg/dL Sodium (137-145) mmol/L Potassium (3.5-5.1) mmol/L POC Glucose (mg/dL) 123 H 115 H (70-110) mg/dL Calcium (8.4-10.2) mg/dL Microbiology - Last 24 Hours (Table) 10/27/22 17:30 Blood Culture - Preliminary Blood 10/27/22 17:30 Blood Culture - Preliminary Blood 10/29/22 11:10 Gram Stain - Final Sputum Sputum Culture - Final Assessment and Plan (1) Sepsis Narrative/Plan: Fever pattern better, but still with high HR, O2 requirement. Source - poss pneumonia. Cultures negative so far. On abx per ID. Ig levels are adequate Current Visit: Yes Status: Acute Priority: High Code(s): A41.9 - SEPSIS, UNSPECIFIED ORGANISM SNOMED Code(s): 36811005 (2) Non-small cell lung cancer (NSCLC) Current Visit: Yes Status: Acute Priority: High Code(s): C34.90 - MALIGNANT NEOPLASM OF UNSP PART OF UNSP BRONCHUS OR LUNG SNOMED Code(s): 536734620 (3) Thrombocytopenia Narrative/Plan: [place] to primarily auto immune, starting to respond to Promacta, but response negated by sepsis/ SIRS. DIC w/u negative. Continue Promacta, plt transfusion for count < 10. 1 U ordered today. No obvious bleeding. Hopefully, will respond better to Promacta, once inflammation diminishes. D/W pt/family Current Visit: Yes Status: Acute Priority: High Code(s): D69.6 - THROMBOCYTOPENIA, UNSPECIFIED SNOMED Code(s): 538552859 (4) Anemia aplastic aregenerative Narrative/Plan: Due to effect of anti neoplastic therapy, and subsequent inflammation. No obvious bleeding. Transfuse to keep Hgb > 7. 7.5 today Current Visit: Yes Status: Acute Code(s): D61.9 - APLASTIC ANEMIA, UNSPECIFIED SNOMED Code(s): 99809727 (5) Intractable pain Narrative/Plan: Controlled on current regimen. Current Visit: Yes Status: Acute Priority: High Code(s): R52 - PAIN, UNSPECIFIED SNOMED Code(s): 63131873
[2022-11-01] MEDS: ACETAMINOPHEN TAB 325 MG TAB PO PRN ×2 (04:33→21:15)
[2022-11-01] MEDS: CLOTRIMAZOLE TROCHE 10 MG TROCHE MUCOUS MEM SCH ×4 (05:27→21:42)
[2022-11-01] MEDS: SALT AND SODA MOUTHWASH 1,000 ML PO SCH ×4 (05:28→21:20)
[2022-11-01 05:51] LABS: Glucose,Whole Blood 123 mg/dL (70-110)
[2022-11-01] MEDS: INSULIN ASPART (NovoLOG) 100 UNIT/ML VIAL SQ SCH ×7 (05:53→21:13)
[2022-11-01] MEDS ORDERED: VANCOMYCIN TROUGH DUE 1 EACH MISC MISCELLANE ONE (07:00)
[2022-11-01] MEDS: SENNOSIDES-DOCUSATE SODIUM 1 EACH TAB PO SCH (08:41)
[2022-11-01] MEDS: polyethylene glycoL 3350 17 GM POWD.PACK PO SCH ×2 (08:41→21:14)
[2022-11-01] MEDS: levETIRAcetam 500 MG TAB PO SCH ×2 (08:56→21:16)
[2022-11-01] MEDS: PANTOPRAZOLE 40 MG TABLET PO SCH (08:56)
[2022-11-01] MEDS: LINAGLIPTIN 5 MG TABLET PO SCH (08:56)
[2022-11-01] MEDS: MAGNESIUM OXIDE 400 MG TAB PO SCH (08:56)
[2022-11-01] MEDS: FOLIC ACID 1 MG TAB PO SCH (08:56)
[2022-11-01] MEDS: METOPROLOL TARTRATE 25 MG TAB PO SCH ×2 (08:57→21:16)
[2022-11-01] MEDS: HYDROcodone/APAP 7.5-325MG 1 EACH TAB PO PRN (08:57)
[2022-11-01] MEDS: PREGABALIN 50 MG CAP PO SCH ×3 (08:57→21:16)
[2022-11-01] MEDS: CEFEPIME 2 GM in SODIUM CHLORIDE 0.9% 100 ML IVPB SCH ×2 (08:58→18:27)
[2022-11-01] MEDS: SODIUM CHLORIDE 0.9% 1,000 ML IV SCH ×2 (08:58→18:26)
[2022-11-01 09:54] LABS: Anisocytosis Slight; HCT 21.7 % (34.0-46.0); MCH 31.2 pg (25.0-35.0); MCHC 32.4 g/dL (31.0-37.0); MCV 96.2 fL (80.0-100.0); Macrocytosis Slight; Mean Platelet Volume 8.6; Poikilocytosis Slight; RBC 2.25 m/uL (3.80-5.40); RDW 16.8 % (11.5-15.5); WBC 4.1 k/uL (3.8-10.6)
[2022-11-01 10:12] LABS: African American GFR (CKD) >90 (>60 ml/min/1.73 sqM); Anion Gap 6 mmol/L; Blood Urea Nitrogen 15 mg/dL (7-17); Calcium 8.1 mg/dL (8.4-10.2); Carbon Dioxide 22 mmol/L (22-30); Chloride 105 mmol/L (98-107); Glucose 87 mg/dL (74-99); Non-African American GFR(CKD) >90 (>60 ml/min/1.73 sqM); Potassium 2.9 mmol/L (3.5-5.1); Sodium 133 mmol/L (137-145)
[2022-11-01 11:33] LABS: Platelet Count 6 k/uL (150-450)
[2022-11-01 11:40] LABS: Glucose,Whole Blood 101 mg/dL (70-110)
[2022-11-01] MEDS: VANCOMYCIN 1,000 MG in SODIUM CHLORIDE 0.9% 250 ML IVPB SCH ×2 (11:55→18:23)
--- NOTE | 2022-11-01 14:00 | P.PN ---
Subjective Progress Note Date: 11/01/22 Patient is a 57-year-old female with a history of metastatic lung cancer to brain and spine, pulmonary embolism on Eliquis with recent IVC filter and DVT, and seizure disorder who presented to the ER with complaints of worsening right lower extremity pain. She had a known L1 5 lesion with nerve root impingement. She presented to the ER for intractable pain. On presentation to the ER her vital signs within normal limits, lab work was remarkable for white blood cell count of 11.5, platelets 37, sodium 137, creatinine 0.76. She was admitted and was started on Dilaudid and [place] for pain as well as Lyrica. Oncology and radiation oncology were consulted. Patient underwent simulation for radiation on 10/12 and first round on 10/13 with a plan for a total of 5 doses. She has not been able to sit due to pain. Her pain medications were adjusted and she was able to tolerate sitting in the chair between this and her radiation. Her platelets continued to be low and she required multiple transfusions. Patient has completed a course of IVIG and steroids. She was empirically started on vancomycin and Cefepime, valles culture collected and infectious disease was consulted on 10/28. 10/30 Patient was seen and examined this morning. T max 102.2F. She is more lethargic and sleepy today. Answering questions appropriately. She complains migraines. 10/31 Patient was seen and examined. Telemetry shows heart rate in the 140s. Patient reports continued migraines and is now complaining of shortness of b reath. CBC shows hemoglobin 7.5 and platelet count of 4. Her family is at bedside and CODE STATUS is discussed. Patient is electing to be no code. Started on Metoprolol 25 mg PO BID. She will be transferred to [address] [place] [address]. 11/01 Patient was seen and examined. Heart rate improved to the 90s after star ting Metoprolol. Patient reports no shortness of breath today. CXR was negative for acute change yesterday. She is being transfused 1 unit of platelets today. Family at bedside. Still has migraines but reports improvement in her energy today. General: lethargic, no distress, appears at stated age Derm: warm, dry Head: atraumatic, normocephalic, symmetric Eyes: EOMI, no lid lag, anicteric sclera Cardiovascular: Tachycardic, no murmurs Lungs: Clear to auscultation bilaterally, no accessory muscle use Ext: no gross muscle atrophy, no edema, no contractures Neuro: no focal neuro deficits Psych: Alert, oriented, appropriate affect SIRS versus Sepsis Hypokalemia Thrombocytopenia, possible related to immune therapy, s/p 13 units of plt (I reviewed patient's labs, luis eduardo León and patient's baseline platelets are 70) Anemia Intractable malignancy related pain secondary to an L5 nerve root impingement and hip lesion Metastatic lung cancer with metastases to the brain and bone Newly discovered DM 2 with hyperglycemia due to steroids Seizure disorder Recent PE on Eliquis and status post IVC filter (3 weeks prior to this hospitalization) Resolved: Leukocytosis Based on my assessment of this patient, this patient meets a moderate complexity level of care. Patient has a new diagnosis of thrombocytopenia, possible related to immune therapy with uncertain prognosis. She is status post 15 units of platelets. Platelet count increased to 6 today after starting eltrombopag, 1 unit of platelets ordered. Hematology on board. Patient had a fever yesterday Tmax 99.9F. She meets SIRS criteria with tachycardia and fever. Blood and urine culture collected and prelim negative. UA shows moderate LE. Influenza, RSV, COVID negative. CRP elevated at 22.5. Procalcitonin 0.41. CXR showing no obvious signs of pneumonia. Continue Vancomycin 1250 mg IV BID (Day 5). Cefepime 2g IV Q8H (Day 4). Continue 100 mL/h. Telemetry monitoring ordered. Infectious disease on board. Hg dropping to 7 this morning. 80 meq of IV potassium chloride ordered for K of 2.9. Diabetes Mellitus: Sliding scale. Hypoglycemic precautions. Novolog 4 units TID. Tradjenta 5 mg PO QD. Seizure: Keppra 500 mg PO BID. Pain control: Fentanyl patch 75 mcg/hr I have reviewed the following engagement quality consultant notes: None. I have reviewed the results of the following tests: CBC shows hemoglobin of 7 and platelet count of 6. BMP shows Na 133, potassium of 2.9, calcium of 8.1. Vancomycin trough 27.1. I have ordered the following tests: CBC and BMP ordered for tomorrow morning. Blood cultures pending. Urine cultures pending. I have discussed the care of this patient with the following independent historian: None. I have independently interpreted the following test below: None. I have discussed the management of this patient with the following physician: None. Objective - Vital Signs Vital signs: Vital Signs Temp 99.6 F 11/01/22 08:45 Pulse 107 H 11/01/22 08:45 Resp 16 11/01/22 08:45 BP 118/77 11/01/22 08:45 Pulse Ox 96 11/01/22 08:45 FiO2 Intake & Output 10/31/22 11/01/22 11/01/22 18:59 06:59 18:59 Intake Total 380 300 Output Total 0 0 0 Balance 380 300 0 Intake: Oral 300 Blood Product 380 Platelet Pheresis Pas 380 Psoralen Unit [id number] Output: Stool 0 0 0 Other: Voiding Method External Catheter External Catheter External Catheter # Voids 1 1 # Bowel Movements 1 - Labs CBC & Chem 7: 11/01/22 08:16 11/01/22 08:16 Labs: Abnormal Lab Results - Last 24 Hours (Table) 10/28/22 10/31/22 10/31/22 Range/Units 08:31 16:41 19:54 RBC (3.80-5.40) m/uL Hgb (11.4-16.0) gm/dL Hct (34.0-46.0) % RDW (11.5-15.5) % Plt Count (150-450) k/uL Sodium (137-145) mmol/L Potassium (3.5-5.1) mmol/L POC Glucose (mg/dL) 123 H 115 H (70-110) mg/dL Calcium (8.4-10.2) mg/dL Crossmatch See Detail 11/01/22 11/01/22 11/01/22 Range/Units 05:49 08:16 08:16 RBC 2.25 L (3.80-5.40) m/uL Hgb 7.0 L (11.4-16.0) gm/dL Hct 21.7 L (34.0-46.0) % RDW 16.8 H (11.5-15.5) % Plt Count 6 L* (150-450) k/uL Sodium 133 L (137-145) mmol/L Potassium 2.9 L (3.5-5.1) mmol/L POC Glucose (mg/dL) 123 H (70-110) mg/dL Calcium 8.1 L (8.4-10.2) mg/dL Crossmatch Microbiology - Last 24 Hours (Table) 10/27/22 17:30 Blood Culture - Preliminary Blood 10/27/22 17:30 Blood Culture - Preliminary Blood
[2022-11-01] MEDS: POTASSIUM CHLORIDE 10 MEQ in WATER FOR INJECTION 1 100ML.BAG IVPB SCH ×5 (14:43→22:46)
--- NOTE | 2022-11-01 15:00 | P.PN ---
Subjective Progress Note Date: 11/01/22 Principal diagnosis: Fever Patient is a 57-year-old female with a past medical history significant for metastatic lung cancer with mets to the brain patient did have a history of PE did have a IVC filter and has been on Eliquis seizure disorder patient also have a MRI of the lumbar spine with lesion at L5 causing intractable lower back pain , patient did have a fever on 10/27/2022 prompting this infection disease consultation On today's evaluation that is 11/01/2022 patient is afebrile today, patient has been moved to the telemetry floor because of persistent tachycardia which seemed to have improved with addition of metoprolol, the patient is breathing comforta claudio on room air, the patient did have occasional cough no nausea no vomiting no abdominal pain and no diarrhea Objective - Vital Signs Vital signs: Vital Signs Temp 98.0 F 11/01/22 14:41 Pulse 106 H 11/01/22 14:41 Resp 18 11/01/22 14:41 BP 97/60 11/01/22 14:41 Pulse Ox 95 11/01/22 14:41 FiO2 Intake & Output 10/31/22 11/01/22 11/01/22 18:59 06:59 18:59 Intake Total 380 300 0 Output Total 0 0 0 Balance 380 300 0 Intake: Oral 300 Blood Product 380 0 Platelet Pheresis Pas 0 Psoralen Unit [id number] Platelet Pheresis Pas 380 Psoralen Unit [id number] Output: Stool 0 0 0 Other: Voiding Method External Catheter External Catheter External Catheter # Voids 1 1 # Bowel Movements 1 - Exam GENERAL DESCRIPTION: Middle-aged female lying in bed in no distress RESPIRATORY SYSTEM: Unlabored breathing , decreased breath sounds at bases HEART: S1 S2 regular rate and rhythm , ABDOMEN: Soft , no tenderness EXTREMITIES: No edema feet - Labs CBC & Chem 7: 11/01/22 08:16 11/01/22 08:16 Labs: Abnormal Lab Results - Last 24 Hours (Table) 10/28/22 10/31/22 10/31/22 Range/Units 08:31 16:41 19:54 RBC (3.80-5.40) m/uL Hgb (11.4-16.0) gm/dL Hct (34.0-46.0) % RDW (11.5-15.5) % Plt Count (150-450) k/uL Sodium (137-145) mmol/L Potassium (3.5-5.1) mmol/L POC Glucose (mg/dL) 123 H 115 H (70-110) mg/dL Calcium (8.4-10.2) mg/dL Crossmatch See Detail 11/01/22 11/01/22 11/01/22 Range/Units 05:49 08:16 08:16 RBC 2.25 L (3.80-5.40) m/uL Hgb 7.0 L (11.4-16.0) gm/dL Hct 21.7 L (34.0-46.0) % RDW 16.8 H (11.5-15.5) % Plt Count 6 L* (150-450) k/uL Sodium 133 L (137-145) mmol/L Potassium 2.9 L (3.5-5.1) mmol/L POC Glucose (mg/dL) 123 H (70-110) mg/dL Calcium 8.1 L (8.4-10.2) mg/dL Crossmatch Microbiology - Last 24 Hours (Table) 10/27/22 17:30 Blood Culture - Preliminary Blood 10/27/22 17:30 Blood Culture - Preliminary Blood Assessment and Plan (1) Sepsis Current Visit: Yes Status: Acute Priority: High Code(s): A41.9 - SEPSIS, UNSPECIFIED ORGANISM SNOMED Code(s): 65751814 Plan: 1patient with a fever and this patient has been hospital for almost 3 weeks with history of metastatic lung cancer with mets to the brain and abnormality of the L5 vertebra initial presentation with intractable lower back pain source of this fever/sepsis could be pneumonia 2patient did have elevated CRP of 22.50, however procalcitonin is only 0.41 3-influenza and COVID PCR, chlamydia negative 4Patient fever seems to have improved, cultures has been negative so far, we will continue the patient on cefepime and vancomycin, vancomycin dose to be adjusted keeping in mind elevated trough and monitor clinical course closely family the bedside questions were answered Time with Patient: Less than 30
[2022-11-01] MEDS: PROMACTA PO SCH (16:02)
[2022-11-01 16:23] LABS: Glucose,Whole Blood 97 mg/dL (70-110)
--- NOTE | 2022-11-01 18:03 | P.PN ---
Subjective Progress Note Date: 11/01/22 Pt remains afebrile. HR better, with Metoprolol. Transferred to [facility]. SANCHEZ stable. No obv bleeding Objective - Vital Signs Vital signs: Vital Signs Temp 99.5 F 11/01/22 15:01 Pulse 109 H 11/01/22 15:01 Resp 18 11/01/22 15:01 BP 106/74 11/01/22 15:01 Pulse Ox 95 11/01/22 15:01 FiO2 Intake & Output 10/31/22 11/01/22 11/01/22 18:59 06:59 18:59 Intake Total 380 300 0 Output Total 0 0 200 Balance 380 300 -200 Intake: Oral 300 Blood Product 380 0 Platelet Pheresis Pas 0 Psoralen Unit [id number] Platelet Pheresis Pas 380 Psoralen Unit [id number] Output: Urine 200 Stool 0 0 0 Other: Voiding Method External Catheter External Catheter External Catheter # Voids 1 1 # Bowel Movements 1 - Constitutional General appearance: Present: no acute distress - EENT Eyes: Present: EOMI ENT: Present: hearing grossly normal, normal oropharynx - Respiratory Respiratory: bilateral: diminished - Cardiovascular Rhythm: regular Heart sounds: normal: S1, S2 - Gastrointestinal General gastrointestinal: Present: normal bowel sounds, soft - Integumentary Integumentary: Present: normal - Neurologic Neurologic: Present: CNII-XII intact - Musculoskeletal Musculoskeletal: Present: generalized weakness, strength equal bilaterally - Psychiatric Psychiatric: Present: A&O x's 3, appropriate affect - Labs CBC & Chem 7: 11/01/22 08:16 11/01/22 08:16 Labs: Abnormal Lab Results - Last 24 Hours (Table) 10/28/22 10/31/22 11/01/22 Range/Units 08:31 19:54 05:49 RBC (3.80-5.40) m/uL Hgb (11.4-16.0) gm/dL Hct (34.0-46.0) % RDW (11.5-15.5) % Plt Count (150-450) k/uL Sodium (137-145) mmol/L Potassium (3.5-5.1) mmol/L POC Glucose (mg/dL) 115 H 123 H (70-110) mg/dL Calcium (8.4-10.2) mg/dL Crossmatch See Detail 11/01/22 11/01/22 Range/Units 08:16 08:16 RBC 2.25 L (3.80-5.40) m/uL Hgb 7.0 L (11.4-16.0) gm/dL Hct 21.7 L (34.0-46.0) % RDW 16.8 H (11.5-15.5) % Plt Count 6 L* (150-450) k/uL Sodium 133 L (137-145) mmol/L Potassium 2.9 L (3.5-5.1) mmol/L POC Glucose (mg/dL) (70-110) mg/dL Calcium 8.1 L (8.4-10.2) mg/dL Crossmatch Microbiology - Last 24 Hours (Table) 10/27/22 17:30 Blood Culture - Preliminary Blood 10/27/22 17:30 Blood Culture - Preliminary Blood Assessment and Plan (1) Sepsis Narrative/Plan: Pt remains afeb over past 24 hyrs. HR improved with B dewey. Cultures remain negative. On Vanco/Cefepime. Continue Abx per ID Current Visit: Yes Status: Acute Priority: High Code(s): A41.9 - SEPSIS, UNSPECIFIED ORGANISM SNOMED Code(s): 75804972 (2) Thrombocytopenia Narrative/Plan: Plt 6 today.1 U plt ordered. Continue Promacta Current Visit: Yes Status: Acute Priority: High Code(s): D69.6 - THROMBOCYTOPENIA, UNSPECIFIED SNOMED Code(s): 302438585 (3) Anemia aplastic aregenerative Current Visit: Yes Status: Acute Code(s): D61.9 - APLASTIC ANEMIA, UNSPECIFIED SNOMED Code(s): 75309450 (4) Intractable pain Current Visit: Yes Status: Acute Priority: High Code(s): R52 - PAIN, UNSPECIFIED SNOMED Code(s): 39620733 (5) Non-small cell lung cancer (NSCLC) Current Visit: Yes Status: Acute Priority: High Code(s): C34.90 - MALIGNANT NEOPLASM OF UNSP PART OF UNSP BRONCHUS OR LUNG SNOMED Code(s): 810649147 Plan: Pt states her SANCHEZ feels similiar to previous episode she had due to dental infections. She was supposed to have multiple teeth removed, but was unable to do so due to ca progression leading to this admission. She states her symptoms had improved with oral antibiotic. She was reassured that she is very well covered in terms of antibiotics. She is not a candidate for any extractions until her plt improve
[2022-11-01 20:11] LABS: Glucose,Whole Blood 107 mg/dL (70-110)
[2022-11-02 00:15] LABS: Calcium 7.9 mg/dL (8.4-10.2); Potassium 3.8 mmol/L (3.5-5.1)
[2022-11-02] MEDS: CEFEPIME 2 GM in SODIUM CHLORIDE 0.9% 100 ML IVPB SCH ×2 (00:20→09:59)
[2022-11-02] MEDS: IPRATROPIUM-ALBUTEROL 3 ML NEB INHALATION PRN (00:47)
[2022-11-02] MEDS: CLOTRIMAZOLE TROCHE 10 MG TROCHE MUCOUS MEM SCH ×6 (00:59→21:48)
[2022-11-02] MEDS: ACETAMINOPHEN TAB 325 MG TAB PO PRN ×3 (00:59→12:20)
[2022-11-02] MEDS: SALT AND SODA MOUTHWASH 1,000 ML PO SCH ×5 (01:00→21:48)
[2022-11-02 01:13] LABS: C Reactive Protein 34.5 mg/dL (<1.0)
[2022-11-02] MEDS: POTASSIUM CHLORIDE 10 MEQ in WATER FOR INJECTION 1 100ML.BAG IVPB SCH ×3 (02:35→05:20)
[2022-11-02] MEDS: INSULIN DETEMIR (LEVEMIR) 100 UNIT/ML SYR SQ SCH ×2 (05:21→21:48)
[2022-11-02 06:00] LABS: Glucose,Whole Blood 111 mg/dL (70-110)
[2022-11-02] MEDS: VANCOMYCIN 1,000 MG in SODIUM CHLORIDE 0.9% 250 ML IVPB SCH (06:00)
[2022-11-02] MEDS: INSULIN ASPART (NovoLOG) 100 UNIT/ML VIAL SQ SCH ×7 (06:38→21:48)
[2022-11-02] MEDS: PANTOPRAZOLE 40 MG TABLET PO SCH (06:42)
[2022-11-02] MEDS: SODIUM CHLORIDE 0.9% 1,000 ML IV SCH ×2 (06:44→17:18)
[2022-11-02 06:49] LABS: Anisocytosis Slight; HCT 20.4 % (34.0-46.0); Hypochromasia Slight; MCH 31.9 pg (25.0-35.0); MCHC 32.1 g/dL (31.0-37.0); MCV 99.3 fL (80.0-100.0); Macrocytosis Slight; Mean Platelet Volume 9.3; Poikilocytosis Slight; RBC 2.06 m/uL (3.80-5.40); RDW 16.8 % (11.5-15.5); WBC 3.3 k/uL (3.8-10.6)
[2022-11-02 07:00] LABS: HGB 6.6 gm/dL (11.4-16.0); Platelet Count 12 k/uL (150-450)
[2022-11-02 07:12] LABS: African American GFR (CKD) >90 (>60 ml/min/1.73 sqM); Anion Gap 7 mmol/L; Blood Urea Nitrogen 20 mg/dL (7-17); Carbon Dioxide 18 mmol/L (22-30); Chloride 107 mmol/L (98-107); Glucose 116 mg/dL (74-99); Non-African American GFR(CKD) 80 (>60 ml/min/1.73 sqM); Potassium 3.9 mmol/L (3.5-5.1); Sodium 132 mmol/L (137-145)
[2022-11-02] MEDS: polyethylene glycoL 3350 17 GM POWD.PACK PO SCH ×2 (09:51→21:48)
[2022-11-02] MEDS: PREGABALIN 50 MG CAP PO SCH ×3 (09:58→21:48)
[2022-11-02] MEDS: LINAGLIPTIN 5 MG TABLET PO SCH (09:58)
[2022-11-02] MEDS: SENNOSIDES-DOCUSATE SODIUM 1 EACH TAB PO SCH (09:58)
[2022-11-02] MEDS: MAGNESIUM OXIDE 400 MG TAB PO SCH (09:58)
[2022-11-02] MEDS: METOPROLOL TARTRATE 25 MG TAB PO SCH ×2 (09:59→21:48)
[2022-11-02] MEDS: levETIRAcetam 500 MG TAB PO SCH ×2 (09:59→21:48)
[2022-11-02] MEDS: FOLIC ACID 1 MG TAB PO SCH (09:59)
[2022-11-02] MEDS ORDERED: ANIDULAFUNGIN 200 MG in SODIUM CHLORIDE 0.9% 200 ML IVPB ONE (11:00)
[2022-11-02 11:30] LABS: Glucose,Whole Blood 109 mg/dL (70-110)
[2022-11-02] MEDS ORDERED: IOPAMIDOL CONTRAST (ORAL USE) VIAL PO PRN (12:04)
--- NOTE | 2022-11-02 12:29 | P.PN ---
Subjective Progress Note Date: 11/02/22 Principal diagnosis: hx of metastatic lung adenocarcinoma, RLE pain At today's visit patient is resting comfortably in bed, family at bedside. Patient is lethargic today. He reports persistent headache and reports the headache is worse today. Patient had a fever of 101.2 this morning. Denies episodes of bleeding. Platelets 12,000, hemoglobin 6.6, 1 unit PRBCs ordered. No other reported complaints at this time. Objective - Vital Signs Vital signs: Vital Signs Temp 99.9 F H 11/02/22 06:45 Pulse 108 H 11/02/22 03:46 Resp 16 11/02/22 03:46 BP 109/52 11/02/22 03:46 Pulse Ox 97 11/02/22 03:46 FiO2 Intake & Output 11/01/22 11/02/22 11/02/22 18:59 06:59 18:59 Intake Total 356 Output Total 200 200 Balance 156 -200 Intake: Blood Product 356 Platelet Pheresis Pas 356 Psoralen Unit [id number] Output: Urine 200 200 Stool 0 Other: Voiding Method External Catheter External Catheter # Voids 0 - Constitutional General appearance: Present: average body habitus, no acute distress - EENT Eyes: Present: anicteric sclerae, EOMI ENT: Present: hearing grossly normal - Respiratory Respiratory: bilateral: CTA - Cardiovascular Rhythm: regular Heart sounds: normal: S1, S2 Abnormal Heart Sounds: Absent: systolic murmur, diastolic murmur, rub, S3 Gallop, S4 Gallop, click, other - Gastrointestinal General gastrointestinal: Present: soft. Absent: tenderness - Integumentary Integumentary: Present: pale - Neurologic Neurologic Comment(s): lethargic, generalized weakness - Musculoskeletal Musculoskeletal: Present: generalized weakness - Psychiatric Psychiatric: Present: A&O x's 3, intact judgment & insight - Labs CBC & Chem 7: 11/02/22 06:03 11/02/22 06:03 Labs: Abnormal Lab Results - Last 24 Hours (Table) 11/01/22 11/01/22 11/02/22 Range/Units 23:30 23:30 05:58 WBC (3.8-10.6) k/uL RBC (3.80-5.40) m/uL Hgb (11.4-16.0) gm/dL Hct (34.0-46.0) % RDW (11.5-15.5) % Plt Count (150-450) k/uL Sodium 132 L (137-145) mmol/L Carbon Dioxide 18 L (22-30) mmol/L BUN 20 H (7-17) mg/dL Glucose 111 H (74-99) mg/dL POC Glucose (mg/dL) 111 H (70-110) mg/dL Calcium 7.9 L (8.4-10.2) mg/dL C-Reactive Protein 34.5 H (<1.0) mg/dL Procalcitonin 2.85 H (0.02-0.09) ng/mL Crossmatch 11/02/22 11/02/22 11/02/22 Range/Units 06:03 06:03 09:03 WBC 3.3 L (3.8-10.6) k/uL RBC 2.06 L (3.80-5.40) m/uL Hgb 6.6 L* (11.4-16.0) gm/dL Hct 20.4 L (34.0-46.0) % RDW 16.8 H (11.5-15.5) % Plt Count 12 L* D (150-450) k/uL Sodium 132 L (137-145) mmol/L Carbon Dioxide 18 L (22-30) mmol/L BUN 20 H (7-17) mg/dL Glucose 116 H (74-99) mg/dL POC Glucose (mg/dL) (70-110) mg/dL Calcium 8.0 L (8.4-10.2) mg/dL C-Reactive Protein (<1.0) mg/dL Procalcitonin (0.02-0.09) ng/mL Crossmatch See Detail Microbiology - Last 24 Hours (Table) 10/27/22 17:30 Blood Culture - Final Blood 10/27/22 17:30 Blood Culture - Final Blood Assessment and Plan (1) Non-small cell lung cancer (NSCLC) Current Visit: Yes Status: Acute Priority: High Code(s): C34.90 - MALIGNANT NEOPLASM OF UNSP PART OF UNSP BRONCHUS OR LUNG SNOMED Code(s): 653526225 (2) Thrombocytopenia Current Visit: Yes Status: Acute Priority: High Code(s): D69.6 - THROMBOCYTOPENIA, UNSPECIFIED SNOMED Code(s): 485291018 Plan: Sepsis -Sepsis criteria met-fever, tachycardia, lethargy. Persisting -Urine culture negative, blood cultures negative. Repeat CXR negative for acute processes. Pt has hx of dental problems, was supposed to have teeth extraction prior to current health issues/lung cancer dx, but has been unable to f/u. She is having acute tenderness to right upper teeth/gingiva. Fever/infection may be caused by dental issues -ID following.. Currently being treated with vanco, cefepime, and eraxis -No evidence of DIC. Ongoing assessment of pt. -Today CBC showing Hgb 6.6 today, plt 12,000-likely consumption from sepsis. 1 unit PRBCs ordered today. -CBC daily -No evidence of hemolysis Oral thrush -Continues on oral clotrimazole Thrombocytopenia -Due to persisting headache and thrombocytopenia will order repeat CT head with/without contrast -Plt Improved today, 12,000-likely 2/2 sepsis. -Continues on Promacta -Continue on PPI for prevention of steroid-induced gastritis -CBC daily -Close monitoring for any bleeding, continue to monitor hemoglobin. -Plt counts have been highly variable since July, based on the timing of the changes and subsequent recovery's, felt that thrombocytopenia was secondary to chemotherapy. Unfortunately, since August, when her Platelets declined, they have not recovered. High-dose steroids, IVIG with no significant changes. Patient does have multiple platelet transfusions with no significant improvement. DVT/PE -Anticoagulation for recent DVT/PE has been held, patient has an IVC filter. Continue to hold until platelets are 50,000 or above Metastatic adenocarcinoma of the lung with metastasis to the brain/bone -Progressive, metastatic disease to the bones. -She has received 4 cycles of carboplatin/Alimta/pembrolizumab, last cycle in early august -Hx of brain mets, previously treated with XRT -Transfer of care locally. Intractable pain 2/2 metastatic disease -Resolved -Fentanyl and [place], pt reporting good pain control now. -Continue medications for prevention of narcotic-induced constipation attests: I have performed H&P and developed impression and plan of care for patient, discussed with dictator. I agree with dictated note, documented as a scribe
--- NOTE | 2022-11-02 13:34 | CT ---
EXAMINATION TYPE: CT brain wo/w con DATE OF EXAM: 11/02/2022 COMPARISON: 10/28/2022 HISTORY: 57-year-old female Headache, thrombocytopenia, brain mets TECHNIQUE: Examination was done in axial plane before and after administration of 100 mL Isovue 300 IV contrast. Coronal and sagittal reconstructions performed. CT DLP: 2246.4 mGycm Automated exposure control for dose reduction was used. FINDINGS: Redemonstrated white matter hypodensity along the left precentral region extending down to the left f rontotemporal junction. Small focus of cortical hypodensity in the right occipital lobe is unchanged as is mild hypodensity r ight frontoparietal junction. Similar 5 mm of cerebellar tonsillar ectopia. After IV contrast administration: 1.3 cm ring-enhancing lesion superior, lateral left precentral gyrus. Axial image 42. Small 6 mm focus of cortical/subcortical enhancement left paramedian frontal lobe, axial images 36. Punctate enhancement superior posterior right frontal lobe measuring 4 mm, axial image 40. Suspected small ring enhancing 6 mm lesion right paramedian occipital lobe, axial image 29. Some benign punctate basal ganglionic calcifications are noted. No midline shift or hydrocephalus. No extra-axial fluid collection or acute intracranial hemorrhage i s identified. Dural venous sinuses appear patent. Moderate to severe mucosal thickening left sphenoid sinus. Mastoid air cells are well pneumatized The globes are intact. IMPRESSION: 1. Redemonstrated areas of vasogenic edema in the bifrontal lobes and right occipital lobe compatible with known metastases. The largest area of vasogenic edema along the left precentral frontal lobe sh ows a 1.3 cm ring enhancing cortical lesion. 2. Right occipital lobe shows a small 6 mm ring-enhancing lesion. 6 mm subcortical enhancing focus le ft paramedian frontal lobe. 4 mm enhancement right frontoparietal junction. 3. 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 4. No midline shift or hydrocephalus.
--- NOTE | 2022-11-02 15:28 | CT ---
EXAMINATION TYPE: CT abdomen pelvis w con DATE OF EXAM: 11/02/2022 COMPARISON: PET CT 05/29/2022 HISTORY: 57-year-old female Fever unknown origin TECHNIQUE: Contiguous axial scanning of the abdomen and pelvis following administration of 100 ml Omn ipaque 300 IV contrast. Delayed images through the kidneys and coronal/sagittal reconstructions perf ormed. CT DLP: 2011.7 mGycm Automated exposure control for dose reduction was used. FINDINGS: A small left pleural effusion compared to 06/08/2022. A centrally necrotic medial left lowe r lobe mass measures 5.0 cm versus 4.0 cm, previously. Questionable mural based filling defects within the left lower lobe pulmonary artery extending into s ome of the basilar segmental branches. Multiple hepatic masses measuring up to 2.8 cm. Approximately 25 lesions are present. Suspect subtle portal venous air within the liver. Portal venous system appears patent. Cholecystecto my clips. Bilateral adrenal masses measuring up to 4.0 x 2.4 cm on the right and 2.9 x 3.6 cm on the left. This is in comparison to 1.6 cm on the right on 06/08/2022. There are patchy areas of hypoenhancement throughout the left greater than right renal cortices. Most confluent bilateral mid left kidney measuring 1.8 cm that she be reassessed at follow-up. Delayed ex cretion of contrast into the ureters. Wedge-shaped hypoenhancement within areas of the spleen suggesting splenic infarcts. Some apparent gastric wall thickening along the fundus and proximal body, axial image 27 and 28. Scattered periaortic lymph nodes measuring up to 1.2 cm on the left. These have shown some fluctuatio n compared to 05/29/2022 where some have improved and others have arisen, for example, a portacaval no de measuring 1.0 cm is new. IVC filter. No dilated small bowel, free fluid, or free air. No mesenteric adenopathy seen. Prominent fluid-filled small bowel loops in the right side of the abdomen. Borderline dilated transverse colon measuring up to to 7.3 cm in caliber, coronal image 21. No obviou s pneumatosis is seen. Assessment of the pelvis is limited due to streak and beam hardening artifact from the patient's left total hip arthroplasty. Prominent distention of the urinary bladder. Uterus anteverted. Ovaries not well distinguished from adjacent bowel loops. Mild presacral edema. Questionable filling defects within the bilateral upper superficial femoral veins. Lytic mass posterior left iliac bone measuring 3.8 cm new. The marrow now is diffusely heterogeneous. Known metastatic involvement of the T9 vertebral body now with collapse of 60% of the overall height and moderate focal spinal canal stenosis secondary to retr opulsion. IMPRESSION: 1. QUESTIONABLE MURAL BASED FILLING DEFECTS LEFT LOWER LOBAR PULMONARY ARTERY EXTENDING INTO SOME OF THE LEFT LOWER LOBE SEGMENTAL BRANCHES. POSSIBLE CHRONIC PE's. 2. QUESTIONABLE FILLING DEFECTS WITHIN THE BILATERAL UPPER FEMORAL VEINS. Findings may represent mixi ng artifact. Correlate to exclude underlying bilateral lower extremity DVTs. 3. A few foci of air within the periphery of the liver. Unable to exclude portal venous gas. Correlat e with lactic acid levels to exclude underlying ischemic bowel. Despite the lack of obvious bowel wal l pneumatosis, the transverse colon is being viewed with some suspicion due to the excessive dilatati on up to 7.3 cm. 4. Findings suggest bilateral patchy pyelonephritis, left greater than right. 5. Overall progression in metastatic disease: (1) New small left pleural effusion. (2) Enlarging, centrally necrotic medial left lower lobe mass at 5.0 cm versus 4.0 cm, previously. (3) new multiple hepatic metastases. (4) enlarging right adrenal metastases and new left adrenal metastases (5) fluctuating retroperitoneal adenopathy, (6) progression now to diffuse osseous metastatic disease (pathologic compression fracture of T9 is n ew. Retropulsion contiguous to moderate focal spinal canal stenosis here). 6. Interval development of a few splenic infarcts. Findings discussed with Dr. Srivastava over the phone at 3:00 PM.
[2022-11-02 16:37] LABS: Glucose,Whole Blood 90 mg/dL (70-110)
--- NOTE | 2022-11-02 16:45 | US ---
EXAMINATION TYPE: US venous doppler duplex LE BI DATE OF EXAM: 11/02/2022 4:29 PM COMPARISON: NONE CLINICAL INDICATION: Female, 57 years old with history of swelling/DVT; Per patient , patient had bilateral leg DVT and PE in May. Patient has Lung Ca with mets. Per patients , nhi ent has filter in lower abdomen. SIDE PERFORMED: Bilateral TECHNIQUE: The lower extremity deep venous system is examined utilizing real time linear array sonog sergio with graded compression, doppler sonography and color-flow sonography. VESSELS IMAGED: Common Femoral Vein Deep Femoral Vein Greater Saphenous Vein * Femoral Vein Popliteal Vein Small Saphenous Vein * Proximal Calf Veins (* superficial vessels) Right Leg: Positive for DVT in CFV with thready flow. Femoral vein and popliteal vein appears small in size. Left Leg: Positive for DVT in CFV, proximal femoral vein and deep vein with thready flow. IMPRESSION: Positive bilateral lower extremity DVTs. Some of the clots appear more chronic with the p resence of partial recanalization and some small caliber vessels.
[2022-11-02] MEDS: PROMACTA PO SCH (17:19)
--- NOTE | 2022-11-02 17:28 | P.PN ---
Subjective Progress Note Date: 11/02/22 Patient is a 57-year-old female with a history of metastatic lung cancer to brain and spine, pulmonary embolism on Eliquis with recent IVC filter and DVT, and seizure disorder who presented to the ER with complaints of worsening right lower extremity pain. She had a known L1 5 lesion with nerve root impingement. She presented to the ER for intractable pain. On presentation to the ER her vital signs within normal limits, lab work was remarkable for white blood cell count of 11.5, platelets 37, sodium 137, creatinine 0.76. She was admitted and was started on Dilaudid and [place] for pain as well as Lyrica. Oncology and radiation oncology were consulted. Patient underwent simulation for radiation on 10/12 and first round on 10/13 with a plan for a total of 5 doses. She has not been able to sit due to pain. Her pain medications were adjusted and she was able to tolerate sitting in the chair between this and her radiation. Her platelets continued to be low and she required multiple transfusions. Patient has completed a course of IVIG and steroids. She was empirically started on vancomycin and Cefepime, valles culture collected and infectious disease was consulted on 10/28. 10/29 Patient was seen and examined this morning. T max 103F. She is more lethargic and sleepy today. Answering questions appropriately. 10/30 Patient was seen and examined this morning. T max 102.2F over the past 24H. She is more lethargic and sleepy today. Answering questions appropriately. She complains migraines. 10/31 Patient was seen and examined. Telemetry shows heart rate in the 140s. T max of 100.4F over the past 24H. Patient reports continued migraines and is now complaining of shortness of breath. CBC shows hemoglobin 7.5. She is being transfused a unit of platelet today for platelet count of 4. Her family is at bedside and CODE STATUS is discussed. Patient is electing to be no code. Started on Metoprolol 25 mg PO BID. She will be transferred to [address] [place] [address]. 11/01 Patient was seen and examined. Heart rate improved to the 90s after starting Metoprolol. T max of 99.6F over the past 24H. Patient reports no shortness of breath today. CXR was negative for acute change yesterday. She is being transfused 1 unit of platelets today for platelet count of 6. Family at bedside. Still has migraines but reports improvement in her energy today. 11/02 Patient was seen and examined this afternoon. reports that patient was doing well until around 5PM last night, when she started to become more let hargic. She had fevers as high as 103.6F overnight. Her heart rate has been in the 140s today. She is lethargic today, but arousable. Urine, sputum and blood culture have been negative thus far. Hemoglobin of 6.6 and platelet count of 12 today. 1 unit PRBC ordered. Repeat brain CT was done which showed redemonstrated areas of vasogenic edema compatible with known metastasis. CTAP shows filling d efects in the pulmonary artery consistent with chronic PE, questionable filling defect bilateral upper femoral veins, dilated transverse colon of 7.3 cm with no obvious wall pneumatosis. The findings of CT AP was discussed with the who is agreeable that surgery would not be the best option for her, however is not ready to discuss hospice and comfort care. General: lethargic but arousable, mild distress, appears at stated age Derm: warm, dry Head: atraumatic, normocephalic, symmetric Eyes: no lid lag, anicteric sclera Cardiovascular: Tachycardic, no murmurs Lungs: Decreased breath sounds bilaterally, no accessory muscle use GI: Nontender to palpation. Positive bowel sounds. Ext: no gross muscle atrophy, 2+ lower extremity edema, no contractures Neuro: no focal neuro deficits Psych: Lethargic but arrousable SIRS versus Sepsis Dilated transverse colon with concerns of ischemic bowel Thrombocytopenia, possible related to immune therapy, s/p 15 units of plt (I reviewed patient's labs, luis eduardo León and patient's baseline platelets are 70) Anemia, s/p 3 units of PRBC Intractable malignancy related pain secondary to an L5 nerve root impingement and hip lesion Metastatic lung cancer with metastases to the brain, adrenal gland, liver and bone Newly discovered DM 2 with hyperglycemia due to steroids Seizure disorder Recent PE on Eliquis and status post IVC filter (3 weeks prior to this hospitalization) Resolved: Leukocytosis, Hypokalemia Based on my assessment of this patient, this patient meets a high complexity level of care. Patient has a new diagnosis of thrombocytopenia, possible related to immune therapy with uncertain prognosis. She is status post 15 units of platelets. Platelet count increased to 12 today. Hematology on board. Patient had a fever yesterday Tmax 103.6F. She meets SIRS criteria with tachycardia and fever. Blood, sputum and urine culture are negative. Influenza, RSV, COVID negative. CRP elevated at 22.5-34.5. Procalcitonin 0.41-2.85. CXR showing no obvious signs of pneumonia. CTAP shows filling defects in the pulmonary artery consistent with chronic PE, questionable filling defect bilater al upper femoral veins, dilated transverse colon of 7.3 cm with no obvious wall pneumatosis. Continue Vancomycin 1250 mg IV BID (Day 6). Cefepime 2g IV Q8H discontinued after day 4 and patient started on Zosyn 3.375g IV Q8H along with Anidulafungin 200 mg IV QD. Continue 100 mL/h. Continue telemetry monitoring on . Patient will be placed nothing by mouth. Infectious disease on board. General surgery consulted for dilated transverse colon seen on CTAP with concerns for ischemic bowel. Hg dropping to 6.6 this morning. 1 unit PRBC ordered. Diabetes Mellitus: Sliding scale. Hypoglycemic precautions. Novolog 4 units TID. Tradjenta 5 mg PO QD. Seizure: Keppra 500 mg PO BID. Pain control: Fentanyl patch 75 mcg/hr I have reviewed the following life consultant notes: None. I have reviewed the results of the following tests: CBC shows WBC count of 3.3, hemoglobin of 6.6 and platelet count of 12. BMP shows sodium 132, bicarb of 18, BUN of 20, glucose 116 and calcium of 8. Repeat brain CT was done which showed redemonstrated areas of vasogenic edema compatible with known metastasis. CTAP shows filling defects in the pulmonary artery consistent with chronic PE, questionable filling defect bilateral upper femoral veins, dilated transverse colon of 7.3 cm with no obvious wall pneum atosis. I have ordered the following tests: CBC and BMP ordered for tomorrow morning. I have discussed the care of this patient with the following independent historian: The findings of CT AP was discussed with the who is agreeable that surgery would not be the best option for her, however is not ready to discuss hospice and comfort care. I have independently interpreted the following test below: None. I have discussed the management of this patient with the following physician: The case was discussed with Dr. Srivastava who recommended switching Cefepime to Zosyn and obtaining surgery consult. He would also like to obtain venous duplex for CT AP showing filling defect bilateral upper femoral veins. She is not a candidate for anticoagulation at this time due to severe thrombocytopenia. Objective - Vital Signs Vital signs: Vital Signs Temp 98.4 F 11/02/22 15:20 Pulse 70 11/02/22 15:20 Resp 20 11/02/22 15:20 BP 107/62 11/02/22 15:20 Pulse Ox 94 L 11/02/22 15:20 FiO2 Intake & Output 11/01/22 11/02/22 11/02/22 18:59 06:59 18:59 Intake Total 356 0 Output Total 200 200 400 Balance 156 -200 -400 Intake: Oral 0 Blood Product 356 Platelet Pheresis Pas 356 Psoralen Unit [id number] Output: Urine 200 200 Stool 0 0 Urine/Stool Mix 400 Other: Voiding Method External Catheter External Catheter External Catheter # Voids 0 - Labs CBC & Chem 7: 11/02/22 06:03 11/02/22 06:03 Labs: Abnormal Lab Results - Last 24 Hours (Table) 11/01/22 11/01/22 11/02/22 Range/Units 23:30 23:30 05:58 WBC (3.8-10.6) k/uL RBC (3.80-5.40) m/uL Hgb (11.4-16.0) gm/dL Hct (34.0-46.0) % RDW (11.5-15.5) % Plt Count (150-450) k/uL Sodium 132 L (137-145) mmol/L Carbon Dioxide 18 L (22-30) mmol/L BUN 20 H (7-17) mg/dL Glucose 111 H (74-99) mg/dL POC Glucose (mg/dL) 111 H (70-110) mg/dL Calcium 7.9 L (8.4-10.2) mg/dL C-Reactive Protein 34.5 H (<1.0) mg/dL Procalcitonin 2.85 H (0.02-0.09) ng/mL Crossmatch 11/02/22 11/02/22 11/02/22 Range/Units 06:03 06:03 09:03 WBC 3.3 L (3.8-10.6) k/uL RBC 2.06 L (3.80-5.40) m/uL Hgb 6.6 L* (11.4-16.0) gm/dL Hct 20.4 L (34.0-46.0) % RDW 16.8 H (11.5-15.5) % Plt Count 12 L* D (150-450) k/uL Sodium 132 L (137-145) mmol/L Carbon Dioxide 18 L (22-30) mmol/L BUN 20 H (7-17) mg/dL Glucose 116 H (74-99) mg/dL POC Glucose (mg/dL) (70-110) mg/dL Calcium 8.0 L (8.4-10.2) mg/dL C-Reactive Protein (<1.0) mg/dL Procalcitonin (0.02-0.09) ng/mL Crossmatch See Detail Microbiology - Last 24 Hours (Table) 10/27/22 17:30 Blood Culture - Final Blood 10/27/22 17:30 Blood Culture - Final Blood
[2022-11-02] MEDS: PIPERACILLIN-TAZOBACTAM 3.375 GM in SODIUM CHLORIDE 0.9% 100 ML IVPB SCH (22:06)
[2022-11-02] MEDS: ACETAMINOPHEN IV (For NPO) 1,000 MG in EMPTY BAG 1 BAG IVPB PRN (23:05)
[2022-11-03] MEDS: PIPERACILLIN-TAZOBACTAM 3.375 GM in SODIUM CHLORIDE 0.9% 100 ML IVPB SCH ×2 (01:10→09:12)
[2022-11-03] MEDS: CLOTRIMAZOLE TROCHE 10 MG TROCHE MUCOUS MEM SCH ×6 (01:28→23:43)
[2022-11-03] MEDS: SALT AND SODA MOUTHWASH 1,000 ML PO SCH ×6 (01:28→23:43)
[2022-11-03] MEDS: SODIUM CHLORIDE 0.9% 1,000 ML IV SCH ×2 (02:16→10:44)
[2022-11-03] MEDS ORDERED: VANCOMYCIN TROUGH DUE 1 EACH MISC MISCELLANE ONE (04:00)
[2022-11-03 06:06] LABS: Glucose,Whole Blood 68 mg/dL (70-110)
[2022-11-03] MEDS: DEXTROSE 50% SYRINGE 50 ML IVP PRN ×2 (06:08→06:43)
[2022-11-03 06:43] LABS: Glucose,Whole Blood 88 mg/dL (70-110)
[2022-11-03] MEDS: INSULIN ASPART (NovoLOG) 100 UNIT/ML VIAL SQ SCH ×3 (06:48→11:31)
[2022-11-03] MEDS: PANTOPRAZOLE 40 MG TABLET PO SCH (06:49)
--- NOTE | 2022-11-03 07:08 | P.PN ---
Subjective Progress Note Date: 11/02/22 Principal diagnosis: Fever Patient is a 57-year-old female with a past medical history significant for metastatic lung cancer with mets to the brain patient did have a history of PE did have a IVC filter and has been on Eliquis seizure disorder patient also have a MRI of the lumbar spine with lesion at L5 causing intractable lower back pain , patient did have a fever on 10/27/2022 prompting this infection disease consultation On today's evaluation that is 11/02/2022 patient did spike a fever again today of 102F, patient the patient is breathing comfortably on room air with no need for supplemental oxygen, the patient did have occasional cough productive sputum production, no nausea no vomiting no abdominal pain and no diarrhea has been reported patient is slightly lethargic Objective - Vital Signs Vital signs: Vital Signs Temp 99.9 F H 11/02/22 06:45 Pulse 108 H 11/02/22 03:46 Resp 16 11/02/22 03:46 BP 109/52 11/02/22 03:46 Pulse Ox 97 11/02/22 03:46 FiO2 Intake & Output 11/01/22 11/02/22 11/02/22 18:59 06:59 18:59 Intake Total 356 Output Total 200 200 Balance 156 -200 Intake: Blood Product 356 Platelet Pheresis Pas 356 Psoralen Unit [id number] Output: Urine 200 200 Stool 0 Other: Voiding Method External Catheter External Catheter # Voids 0 - Exam GENERAL DESCRIPTION: Middle-aged female lying in bed in no distress RESPIRATORY SYSTEM: Unlabored breathing , decreased breath sounds at bases HEART: S1 S2 regular rate and rhythm , ABDOMEN: Soft , mild distention but no tenderness EXTREMITIES: No edema feet - Labs CBC & Chem 7: 11/02/22 06:03 11/03/22 04:18 Labs: Abnormal Lab Results - Last 24 Hours (Table) 11/01/22 11/01/22 11/01/22 Range/Units 08:16 23:30 23:30 WBC (3.8-10.6) k/uL RBC (3.80-5.40) m/uL Hgb (11.4-16.0) gm/dL Hct (34.0-46.0) % RDW (11.5-15.5) % Plt Count 6 L* (150-450) k/uL Sodium 132 L (137-145) mmol/L Carbon Dioxide 18 L (22-30) mmol/L BUN 20 H (7-17) mg/dL Glucose 111 H (74-99) mg/dL POC Glucose (mg/dL) (70-110) mg/dL Calcium 7.9 L (8.4-10.2) mg/dL C-Reactive Protein 34.5 H (<1.0) mg/dL Procalcitonin 2.85 H (0.02-0.09) ng/mL Crossmatch 11/02/22 11/02/22 11/02/22 Range/Units 05:58 06:03 06:03 WBC 3.3 L (3.8-10.6) k/uL RBC 2.06 L (3.80-5.40) m/uL Hgb 6.6 L* (11.4-16.0) gm/dL Hct 20.4 L (34.0-46.0) % RDW 16.8 H (11.5-15.5) % Plt Count 12 L* D (150-450) k/uL Sodium 132 L (137-145) mmol/L Carbon Dioxide 18 L (22-30) mmol/L BUN 20 H (7-17) mg/dL Glucose 116 H (74-99) mg/dL POC Glucose (mg/dL) 111 H (70-110) mg/dL Calcium 8.0 L (8.4-10.2) mg/dL C-Reactive Protein (<1.0) mg/dL Procalcitonin (0.02-0.09) ng/mL Crossmatch 11/02/22 Range/Units 09:03 WBC (3.8-10.6) k/uL RBC (3.80-5.40) m/uL Hgb (11.4-16.0) gm/dL Hct (34.0-46.0) % RDW (11.5-15.5) % Plt Count (150-450) k/uL Sodium (137-145) mmol/L Carbon Dioxide (22-30) mmol/L BUN (7-17) mg/dL Glucose (74-99) mg/dL POC Glucose (mg/dL) (70-110) mg/dL Calcium (8.4-10.2) mg/dL C-Reactive Protein (<1.0) mg/dL Procalcitonin (0.02-0.09) ng/mL Crossmatch See Detail Microbiology - Last 24 Hours (Table) 10/27/22 17:30 Blood Culture - Final Blood 10/27/22 17:30 Blood Culture - Final Blood Assessment and Plan (1) Sepsis Current Visit: Yes Status: Acute Priority: High Code(s): A41.9 - SEPSIS, UNSPECIFIED ORGANISM SNOMED Code(s): 27002824 Plan: 1patient with a fever and this patient has been hospital for almost 3 weeks with history of metastatic lung cancer with mets to the brain and abnormality of the L5 vertebra initial presentation with intractable lower back pain source of this fever/sepsis could be pneumonia 2patient did have elevated CRP of 22.50, however procalcitonin is only 0.41 3-influenza and COVID PCR, chlamydia negative 4Patient did have persistent fever also noticed to have a drop in hemoglobin and some abdominal distention concerning for possible abdominal source we will go ahead and check a CT of abdominal pelvis with contrast, continue with the current antibiotic therapy patient is a high risk of fungal infection we will add Eraxis , cultures has been repeated has been at the bedside multiple questions concerned were answered, prognosis remains to be guarded Time with Patient: Less than 30
[2022-11-03 07:20] LABS: Appearance,Urine Clear (Clear); Bilirubin,Urine Negative (Negative); Blood,Urine Moderate (Negative); Color,Urine Yellow; Glucose,Urine (UA) Negative (Negative); Ketones,Urine Trace (Negative); Leukocyte Esterase,Urine Negative (Negative); Nitrite,Urine Negative (Negative); PH, Urine 5.5 (5.0-8.0); Protein,Urine 1+ (Negative); RBC,Urine 2 /hpf (0-5); Specific Gravity,Urine 1.034 (1.001-1.035); Squamous Epithelial Cell,Urine 2 /hpf (0-4); Urobilinogen,Urine <2.0 mg/dL (<2.0); WBC,Urine 4 /hpf (0-5)
[2022-11-03] MEDS: IPRATROPIUM-ALBUTEROL 3 ML NEB INHALATION PRN ×3 (07:31→15:13)
[2022-11-03 08:45] LABS: Anisocytosis Slight; HCT 25.4 % (34.0-46.0); Hypochromasia Slight; MCH 32.5 pg (25.0-35.0); MCHC 32.5 g/dL (31.0-37.0); MCV 99.8 fL (80.0-100.0); Macrocytosis Slight; Mean Platelet Volume 9.7; Poikilocytosis Slight; RBC 2.55 m/uL (3.80-5.40); RDW 16.6 % (11.5-15.5); WBC 3.9 k/uL (3.8-10.6)
[2022-11-03 08:52] LABS: HGB 8.3 gm/dL (11.4-16.0)
[2022-11-03 08:53] LABS: Platelet Count 5 k/uL (150-450)
[2022-11-03] MEDS: LINAGLIPTIN 5 MG TABLET PO SCH (09:00)
[2022-11-03] MEDS ORDERED: ANIDULAFUNGIN 100 MG in SODIUM CHLORIDE 0.9% 100 ML IVPB SCH (09:00)
[2022-11-03] MEDS: polyethylene glycoL 3350 17 GM POWD.PACK PO SCH (09:00)
[2022-11-03 09:02] LABS: Calcium 8.5 mg/dL (8.4-10.2); Potassium 3.3 mmol/L (3.5-5.1)
[2022-11-03] MEDS: FOLIC ACID 1 MG TAB PO SCH (09:18)
[2022-11-03] MEDS: levETIRAcetam 500 MG TAB PO SCH (09:18)
[2022-11-03] MEDS: MAGNESIUM OXIDE 400 MG TAB PO SCH (09:18)
[2022-11-03] MEDS: METOPROLOL TARTRATE 25 MG TAB PO SCH (09:19)
[2022-11-03] MEDS: SENNOSIDES-DOCUSATE SODIUM 1 EACH TAB PO SCH (09:19)
[2022-11-03] MEDS: PREGABALIN 50 MG CAP PO SCH ×3 (09:19→20:58)
[2022-11-03 11:29] LABS: Glucose,Whole Blood 90 mg/dL (70-110)
[2022-11-03] MEDS: ACETAMINOPHEN IV (For NPO) 1,000 MG in EMPTY BAG 1 BAG IVPB PRN (11:48)
[2022-11-03] MEDS ORDERED: ARTIFICIAL TEARS-HYPROMELLOSE DROPS 15 ML BTL BOTH EYES PRN (11:49)
[2022-11-03] MEDS ORDERED: GLYCOPYRROLATE 0.2 MG/ML 2 ML VIAL IVP PRN (11:49)
[2022-11-03] MEDS ORDERED: ONDANSETRON 4 MG/2 ML VIAL IVP PRN (11:49)
[2022-11-03] MEDS ORDERED: ATROPINE OPHTH SOLN 1% 5ML BTL SUBLINGUAL PRN (11:49)
[2022-11-03] MEDS ORDERED: DRY MOUTH SPRAY 44.3 SPRAY/44.3 ML SPRAY MUCOUS MEM PRN (11:49)
[2022-11-03] MEDS ORDERED: ACETAMINOPHEN SUPPOSITORY 650 MG SUPP RECTAL PRN (11:49)
[2022-11-03] MEDS ORDERED: LORazepam 2 MG/ML INJ IV PRN (11:49)
[2022-11-03 12:37] LABS: Glucose,Whole Blood 84 mg/dL (70-110)
[2022-11-03] MEDS: MORPHINE SULFATE 2 MG/ML SYRINGE IV PRN ×3 (12:52→19:49)
[2022-11-03] MEDS: levETIRAcetam IV 500 MG/5 ML VIAL IVP SCH ×2 (12:53→20:50)
--- NOTE | 2022-11-03 13:47 | P.PN ---
Subjective Progress Note Date: 11/03/22 Principal diagnosis: hx of metastatic lung adenocarcinoma, RLE pain At today's visit patient's condition is progressively worsening. Pt is obtunded today. CT head revealed no midline shift or hydronephrosis or acute intracranial bleed, with stable findings of metastatic disease. CT abdomen and pelvis showed some suspicion for ischemic bowel, with findings of progressing metastatic disease. Spoke in detail with and sons at bedside regarding patient prognosis. Discussed with family that hospice would be appropriate at this time and asked if they would like to speak to the hospice team. was agreeable and stated he wanted to speak with hospice to discuss options for patient. Consult placed to hospice No reported episodes of bleeding. Platelets 5,000, hemoglobin 8.3, 1 unit platelets ordered. Objective - Vital Signs Vital signs: Vital Signs Temp 101.8 F H 11/03/22 12:00 Pulse 130 H 11/03/22 12:00 Resp 20 11/03/22 12:00 BP 113/77 11/03/22 12:00 Pulse Ox 100 11/03/22 12:00 FiO2 Intake & Output 11/02/22 11/03/22 11/03/22 18:59 06:59 18:59 Intake Total 0 310 0 Output Total 400 400 250 Balance -400 -90 -250 Weight 74.843 kg Intake: Oral 0 0 Blood Product 0 310 Rc As-1 Unit 0 310 [id number] Output: Urine 400 250 Stool 0 Urine/Stool Mix 400 Other: Voiding Method External Catheter External Catheter External Catheter # Bowel Movements 0 - Constitutional General appearance: Present: average body habitus, no acute distress - Respiratory Details: breathing is labored - Neurologic Neurologic Comment(s): obtunded - Labs CBC & Chem 7: 11/03/22 04:18 11/03/22 04:18 Labs: Abnormal Lab Results - Last 24 Hours (Table) 11/02/22 11/03/22 11/03/22 Range/Units 09:03 04:18 04:18 RBC 2.55 L (3.80-5.40) m/uL Hgb 8.3 L D (11.4-16.0) gm/dL Hct 25.4 L (34.0-46.0) % RDW 16.6 H (11.5-15.5) % Plt Count 5 L* D (150-450) k/uL Sodium 134 L (137-145) mmol/L Potassium 3.3 L (3.5-5.1) mmol/L Chloride 110 H (98-107) mmol/L Carbon Dioxide 17 L (22-30) mmol/L BUN 24 H (7-17) mg/dL POC Glucose (mg/dL) (70-110) mg/dL Urine Protein (Negative) Urine Ketones (Negative) Urine Blood (Negative) Crossmatch See Detail 11/03/22 11/03/22 Range/Units 06:05 06:15 RBC (3.80-5.40) m/uL Hgb (11.4-16.0) gm/dL Hct (34.0-46.0) % RDW (11.5-15.5) % Plt Count (150-450) k/uL Sodium (137-145) mmol/L Potassium (3.5-5.1) mmol/L Chloride (98-107) mmol/L Carbon Dioxide (22-30) mmol/L BUN (7-17) mg/dL POC Glucose (mg/dL) 68 L (70-110) mg/dL Urine Protein 1+ H (Negative) Urine Ketones Trace H (Negative) Urine Blood Moderate H (Negative) Crossmatch Microbiology - Last 24 Hours (Table) 11/01/22 23:40 Blood Culture - Preliminary Blood 11/01/22 23:30 Blood Culture - Preliminary Blood Assessment and Plan (1) Non-small cell lung cancer (NSCLC) Current Visit: Yes Status: Acute Priority: High Code(s): C34.90 - MALIGNANT NEOPLASM OF UNSP PART OF UNSP BRONCHUS OR LUNG SNOMED Code(s): 463446951 (2) Thrombocytopenia Current Visit: Yes Status: Acute Priority: High Code(s): D69.6 - THROMBOCYTOPENIA, UNSPECIFIED SNOMED Code(s): 297411686 Plan: Sepsis -Sepsis criteria met-fever, tachycardia, lethargy. Persisting -Urine culture negative, blood cultures negative. Repeat CXR negative for acute processes. -ID following.. Currently being treated with vanco, cefepime, and eraxis -CT abdomen and pelvis revealed suspicion of ischemic bowel. -No evidence of DIC. Ongoing assessment of pt. -Today CBC showing Hgb 8.3, plt 5,000-likely consumption from sepsis. 1 unit platelets ordered today. -CBC daily -No evidence of hemolysis Thrombocytopenia -Repeat CT head with/without contrast revealed no midline shift or hydrocephalus or intracranial bleed. Metastatic disease stable. -Plt 5,000 today -likely 2/2 sepsis. 1 unit of platelets ordered -Continues on Promacta, however due to patients worsening condition she is NPO, so promacta has been held -Continue on PPI for prevention of steroid-induced gastritis -CBC daily -Close monitoring for any bleeding, continue to monitor hemoglobin. -Plt counts have been highly variable since July, based on the timing of the changes and subsequent recovery's, felt that thrombocytopenia was secondary to chemotherapy. Unfortunately, since August, when her Platelets declined, they have not recovered. High-dose steroids, IVIG with no significant changes. Patient does have multiple platelet transfusions with no significant improvement. DVT/PE -Anticoagulation for recent DVT/PE has been held, patient has an IVC filter. Continue to hold until platelets are 50,000 or above Metastatic adenocarcinoma of the lung with metastasis to the brain/bone -Progressive, metastatic disease to the bones. -She has received 4 cycles of carboplatin/Alimta/pembrolizumab, last cycle in early august -Hx of brain mets, previously treated with XRT -CT abdomen and pelvis revealed progression of metastatic disease. Enlarging centrally necrotic medial left lower lobe mass. Multiple hepatic metastases. Enlarging right adrenal metastases and new left adrenal metastases. Diffuse osseous metastatic disease, pathologic compression fracture of T9. -Plan was to transfer of care locally with plans to begin treatment once acutely recovered, however, patient's admission has been complex and unfortunatley patients condition has continued to worsen. Spoke with and sons today regarding patient's condition and prognosis. Recommended hospice at this time, and patient's was agreeable and stated he would like to speak with hospice team to get more information. Hospice has been consulted
--- NOTE | 2022-11-03 14:35 | P.PN ---
Progress Note - Text Progress Note Date: 11/03/22 (Delayed charting seen at 11 and 1145) Advanced Care Planning: Diagnoses: Ischemic bowel, severe thrombocytopenia status post 15 units of platelets, metastatic lung cancer with metastases to the brain, adrenal gland, liver, and bone Discussion: Person(s) present and participating in discussion: , 3 children Summary: I had seen the patient earlier in her hospital stay. At that point in time she does not want to consider hospice and felt as though she wanted to keep fighting for her family and regain function. However her and family have come to the conclusion that she will not recover from her current state. They would not like things such as surgery. We discussed the possibility of hospice, however care never wanted to consider hospice if she was a fighter. We then discussed that comfort measures would provide the same level of care is hospice without the formal structure. Family is aware that she will not recover and they want to keep her comfort as the most important priority at this time. They're aware that comfort measures consisted of stopping all life prolonging treatments such as IV fluids, blood transfusion, and antibiotics. They have asked to initiate comfort measures. A total of 17 minutes of face to face time was spent discussing advanced care planning.
--- NOTE | 2022-11-03 14:46 | P.PN ---
Subjective Progress Note Date: 11/03/22 (Delayed charting patient seen at 11 and 1145) Patient is a 57-year-old female with a history of metastatic lung cancer to brain and spine, pulmonary embolism on Eliquis with recent IVC filter and DVT, and seizure disorder who presented to the ER with complaints of worsening right lower extremity pain. She had a known L1 5 lesion with nerve root impingement. She presented to the ER for intractable pain. On presentation to the ER her vital signs within normal limits, lab work was remarkable for white blood cell count of 11.5, platelets 37, sodium 137, creatinine 0.76. She was admitted and was started on Dilaudid and [place] for pain as well as Lyrica. Oncology and radiation oncology were consulted. Patient underwent simulation for radiation on 10/12 and first round on 10/13 with a plan for a total of 5 doses. She has not been able to sit due to pain. Her pain medications were adjusted and she was able to tolerate sitting in the chair between this and her radiation. Her rita telets continued to be low and she required multiple transfusions. She completed a course of IVIG and steroids. Patient was noted to be febrile on 10/28 and she was empirically started on Vanco and cefepime. She continued to spike fevers. She was valles cultured and had negative sputum, blood, and urine cultures. Infectious disease was consulted. She continued to spike fevers and ultimately was transferred to selective care due to persistent tachycardia. On 11/01 she became more lethargic at 5 PM at night. The next morning her hemoglobin was down to 6.6 and platelets were 12. Repeat imaging was obtained which showed increasing cancer burden of the CT abdomen and pelvis with possible ischemic gut. CT brain had redemonstration of her vasogenic edema compatible with her known metastasis. Surgery was consulted, however the agreed that surgery would likely not be the best option for her. Patient seen and examined at bedside. She is minimally responsive and moaning Vital signs reviewed General: nontoxic, moderate distress, appears older than stated age Cardiovascular: S1S2 reg, no murmur, Absent posterior tibial pulse bilateral, dusky appearance of bilateral lower extremities Lungs: Decreased breath sounds bilateral, no rhonchi, no rales , no accessory muscle use Abdominal: soft, + tender to palpation, no guarding, no appreciable organomegaly Ext: no gross muscle atrophy, 3+ edema, no contractures Neuro: CN II-XI grossly intact, moving all 4 extremities independently Psych: Somonolent Assessment: Thrombocytopenia, possible related to immune therapy, s/p 6 units of plt Anemia, worsening, undetermined etiology Intractable malignancy related pain secondary to an L5 nerve root impingement and hip lesion Metastatic lung cancer with metastases to the brain and bone Newly discovered DM 2 with hyperglycemia due to steroids Seizure disorder Recent PE on Eliquis and status post IVC filter (3 weeks prior to this hospital ization) Leukocytosis, related to steroid use, resolved Imaging: Venous Doppler: Bilateral lower extremity DVTs, some clots appear more chronic CT abdomen and pelvis: Questionable mural based filling deficits in the lower pulmonary arteries extending into the left lower lobe, questionable filling defects in bilateral femoral veins, few foci of air within the periphery of the liver, possible ischemic bowel, findings suggesting bilateral patchy pyelonephri tis, and large necrotic lower lobe mass, new left pleural effusion, new hepatic masses, enlarging right adrenal metastasis and new left adrenal metastasis, fluctuating retroperitoneal lymphadenopathy, progression of diffuse osseous metastatic disease Data Review: Vital signs reviewed in T-max in last 24 hours is 102.7, heart rate 125, respirations 18, blood pressure 85/67, and O2 sat 96% on room air Laboratory analysis reviewed from today and significant for hemoglobin 8.3, platelets 5, sodium 134, potassium 3.3, carbon dioxide 17, BUN 24 Plan: - Discussed with family and would like to transition to comfort measures - Discontinue infectious disease and oncology consultations -Transition Keppra to 500 mg IV every 12 hours -Discontinue anidulafundin, Zosyn, and vancomycin -Discontinue Levemir, scheduled NovoLog, sliding scale NovoLog, etc. gentle -Discontinue Lopressor, Protonix, Eltrobombopag -Continue fentanyl patch at 75 g per hour -Start comfort medications: Glycopyrrolate 0.1 mg IV every 6 hours when necessary secretions, Ativan 1 mg IV every 4 hours when necessary anxiety, morphine 2-4 mg every 15 minutes when necessary breakthrough pain -Continue with the Lyrica if patient is able to take oral medications -Patient is a DO NOT RESUSCITATE This dictation was prepared using [email or web address] voice recognition software. Though every attempt is made to correct errors during during dictation some may still exist. Objective - Vital Signs Vital signs: Vital Signs Temp 101.8 F H 11/03/22 12:00 Pulse 130 H 11/03/22 12:00 Resp 20 11/03/22 12:00 BP 113/77 11/03/22 12:00 Pulse Ox 100 11/03/22 12:00 FiO2 Intake & Output 11/02/22 11/03/22 11/03/22 18:59 06:59 18:59 Intake Total 0 310 0 Output Total 400 400 250 Balance -400 -90 -250 Weight 74.843 kg Intake: Oral 0 0 Blood Product 0 310 Rc As-1 Unit 0 310 [id number] Output: Urine 400 250 Stool 0 Urine/Stool Mix 400 Other: Voiding Method External Catheter External Catheter External Catheter # Bowel Movements 0 - Labs CBC & Chem 7: 11/03/22 04:18 11/03/22 04:18 Labs: Abnormal Lab Results - Last 24 Hours (Table) 11/02/22 11/03/22 11/03/22 Range/Units 09:03 04:18 04:18 RBC 2.55 L (3.80-5.40) m/uL Hgb 8.3 L D (11.4-16.0) gm/dL Hct 25.4 L (34.0-46.0) % RDW 16.6 H (11.5-15.5) % Plt Count 5 L* D (150-450) k/uL Sodium 134 L (137-145) mmol/L Potassium 3.3 L (3.5-5.1) mmol/L Chloride 110 H (98-107) mmol/L Carbon Dioxide 17 L (22-30) mmol/L BUN 24 H (7-17) mg/dL POC Glucose (mg/dL) (70-110) mg/dL Urine Protein (Negative) Urine Ketones (Negative) Urine Blood (Negative) Crossmatch See Detail 11/03/22 11/03/22 Range/Units 06:05 06:15 RBC (3.80-5.40) m/uL Hgb (11.4-16.0) gm/dL Hct (34.0-46.0) % RDW (11.5-15.5) % Plt Count (150-450) k/uL Sodium (137-145) mmol/L Potassium (3.5-5.1) mmol/L Chloride (98-107) mmol/L Carbon Dioxide (22-30) mmol/L BUN (7-17) mg/dL POC Glucose (mg/dL) 68 L (70-110) mg/dL Urine Protein 1+ H (Negative) Urine Ketones Trace H (Negative) Urine Blood Moderate H (Negative) Crossmatch Microbiology - Last 24 Hours (Table) 11/01/22 23:40 Blood Culture - Preliminary Blood 11/01/22 23:30 Blood Culture - Preliminary Blood
[2022-11-03 15:51] VITALS: BP 80/56; PULSE 105; RESP 15; TEMP 99
[2022-11-04] MEDS: MORPHINE SULFATE 4 MG/ML SYRINGE IV PRN ×5 (00:17→05:35)
[2022-11-04] MEDS: CLOTRIMAZOLE TROCHE 10 MG TROCHE MUCOUS MEM SCH (03:28)
[2022-11-04] MEDS: SALT AND SODA MOUTHWASH 1,000 ML PO SCH (03:28)
--- NOTE | 2022-11-04 08:05 | P.DS ---
Providers Date of admission: 10/09/22 06:53 Expected date of discharge: 11/04/22 Attending physician: Jacy Joy MD Consults: 10/09/22 12:45 Consult to Palliative Care Routine Consulting Provider: Kassy Keller Consult Reason/Comments: goals of care discussion Do you want consulting provider notified?: Yes [facility] Course: Discharge Diagnosis: Thrombocytopenia, possible related to immune therapy, s/p 6 units of plt Anemia, worsening, undetermined etiology Intractable malignancy related pain secondary to an L5 nerve root impingement and hip lesion Metastatic lung cancer with metastases to the liver, adrenal, brain, and bone Newly discovered DM 2 with hyperglycemia due to steroids Seizure disorder Recent PE on Eliquis and status post IVC filter (3 weeks prior to this hospitalization) Leukocytosis, related to steroid use, resolved Hospital Course: Patient is a 57-year-old female with a history of metastatic lung cancer to brain and spine, pulmonary embolism on Eliquis with recent IVC filter and DVT, and seizure disorder who presented to the ER with complaints of worsening right lower extremity pain. She had a known L1 5 lesion with nerve root impingement. She presented to the ER for intractable pain. On presentation to the ER her vital signs within normal limits, lab work was remarkable for white blood cell count of 11.5, platelets 37, sodium 137, creatinine 0.76. She was admitted and was started on Dilaudid and [place] for pain as well as Lyrica. Oncology and radiation oncology were consulted. Patient underwent simulation for radiation on 10/12 and first round on 10/13 with a plan for a total of 5 doses. She has not been able to sit due to pain. Her pain medications were adjusted and she was able to tolerate sitting in the chair between this and her radiation. Her platelets continued to be low and she required multiple transfusions. She completed a course of IVIG and steroids. Patient was noted to be febrile on 10/28 and she was empirically started on Vanco and cefepime. She continued to spike fevers. She was valles cultured and had negative sputum, blood, and urine cultures. Infectious disease was consulted. She continued to spike fevers and [facility] due to persistent tachycardia. On 11/01 she became more lethargic at 5 PM at night. The next morning her hemoglobin was down to 6.6 and platelets were 12. Repeat imaging was obtained which showed increasing cancer burden of the CT abdomen and pelvis with possible ischemic gut. CT brain had redemonstration of her vasogenic edema compatible with her known metastasis. Surgery was consulted, however the agreed that surgery would likely not be the best option for her. Family transition patient to comfort measures on 11/03/22. She passed peacefully on the morning of 10/31/22 at 0558 Patient was discharged on 11/04/22. This dictation was prepared using [employer] voice recognition software. Though every attempt is made to correct errors during during dictation some may still exist. Plan - Discharge Summary Discharge Rx Participant: No New Discharge Prescriptions: New dexAMETHasone [Decadron] 4 mg PO DIRECTED #25 tablet Discontinued dexAMETHasone [Decadron] 4 mg PO TID No Action Folic Acid 1 mg PO DAILY Cyclobenzaprine [Flexeril] 5 - 10 mg PO TID PRN PRN Reason: Muscle Spasm Apixaban [Eliquis] 5 mg PO BID levETIRAcetam [Keppra] 500 mg PO Q12HR #60 tab Magnesium Oxide [Mag-Ox] 400 mg PO DAILY tab Acetaminophen Tab [Tylenol] 650 mg PO Q4HR PRN PRN Reason: Pain Pregabalin [Lyrica] 50 mg PO TID Pantoprazole Sodium [Protonix] 40 mg PO DAILY HYDROcodone/APAP 7.5-325MG [[place] 7.5-325] 1 tab PO Q6H PRN PRN Reason: Pain Ondansetron [Zofran] 8 mg PO Q8HR PRN PRN Reason: Nausea Discharge Medication List Apixaban [Eliquis] 5 mg PO BID 09/22/22 [History] Cyclobenzaprine [Flexeril] 5 - 10 mg PO TID PRN 09/22/22 [History] Folic Acid 1 mg PO DAILY 09/22/22 [History] Pantoprazole Sodium [Protonix] 40 mg PO DAILY 09/22/22 [History] Pregabalin [Lyrica] 50 mg PO TID 09/22/22 [History] Magnesium Oxide [Mag-Ox] 400 mg PO DAILY tab 09/25/22 [Rx] levETIRAcetam [Keppra] 500 mg PO Q12HR #60 tab 09/25/22 [Rx] Acetaminophen Tab [Tylenol] 650 mg PO Q4HR PRN 10/09/22 [History] HYDROcodone/APAP 7.5-325MG [[place] 7.5-325] 1 tab PO Q6H PRN 10/09/22 [History] Ondansetron [Zofran] 8 mg PO Q8HR PRN 10/09/22 [History] dexAMETHasone [Decadron] 4 mg PO DIRECTED #25 tablet 10/11/22 [Rx] Follow up Appointment(s)/Referral(s): [facility], [NON-STAFF] - [facility] [NON-STAFF] - Daniel Abraham DO [Primary Care Provider] - 1-2 days Patient Instructions/Handouts: Dexamethasone (By mouth), Mediterranean Diet (DC) Activity/Diet/Wound Care/Special Instructions: diabetic supplies at [facility] - nurse to have supplies delivered when the pt is d/c'd.
--- NOTE | 2022-11-16 14:51 | P.PN ---
Subjective Progress Note Date: 11/03/22 Principal diagnosis: Fever Patient is a 57-year-old female with a past medical history significant for metastatic lung cancer with mets to the brain patient did have a history of PE did have a IVC filter and has been on Eliquis seizure disorder patient also have a MRI of the lumbar spine with lesion at L5 causing intractable lower back pain , patient did have a fever on 10/27/2022 prompting this infection disease consultation On today's evaluation that is 11/03/2022 patient has been running a fever however afebrile, patient the patient is breathing comfortably on room air with no need for supplemental oxygen, the patient did have occasional cough but not bringing up any sputum, no nausea no vomiting no abdominal pain and no diarrhea has been reported patient is slightly lethargic Objective - Vital Signs Vital signs: Vital Signs Temp 100.5 F H 11/03/22 08:00 Pulse 125 H 11/03/22 08:00 Resp 18 11/03/22 08:00 BP 85/67 11/03/22 08:00 Pulse Ox 96 11/03/22 08:00 FiO2 Intake & Output 11/02/22 11/03/22 11/03/22 18:59 06:59 18:59 Intake Total 0 310 Output Total 400 400 Balance -400 -90 Intake: Oral 0 Blood Product 0 310 Rc As-1 Unit 0 310 [id number] Output: Urine 400 Stool 0 Urine/Stool Mix 400 Other: Voiding Method External Catheter External Catheter External Catheter # Bowel Movements 0 - Exam GENERAL DESCRIPTION: Middle-aged female lying in bed in no distress RESPIRATORY SYSTEM: Unlabored breathing , decreased breath sounds at bases HEART: S1 S2 regular rate and rhythm , ABDOMEN: Soft , mild distention but no tenderness EXTREMITIES: No edema feet - Labs CBC & Chem 7: 11/03/22 04:18 11/03/22 04:18 Labs: Abnormal Lab Results - Last 24 Hours (Table) 11/02/22 11/03/22 11/03/22 Range/Units 09:03 04:18 04:18 RBC 2.55 L (3.80-5.40) m/uL Hgb 8.3 L D (11.4-16.0) gm/dL Hct 25.4 L (34.0-46.0) % RDW 16.6 H (11.5-15.5) % Plt Count 5 L* D (150-450) k/uL Sodium 134 L (137-145) mmol/L Potassium 3.3 L (3.5-5.1) mmol/L Chloride 110 H (98-107) mmol/L Carbon Dioxide 17 L (22-30) mmol/L BUN 24 H (7-17) mg/dL POC Glucose (mg/dL) (70-110) mg/dL Urine Protein (Negative) Urine Ketones (Negative) Urine Blood (Negative) Crossmatch See Detail 11/03/22 11/03/22 Range/Units 06:05 06:15 RBC (3.80-5.40) m/uL Hgb (11.4-16.0) gm/dL Hct (34.0-46.0) % RDW (11.5-15.5) % Plt Count (150-450) k/uL Sodium (137-145) mmol/L Potassium (3.5-5.1) mmol/L Chloride (98-107) mmol/L Carbon Dioxide (22-30) mmol/L BUN (7-17) mg/dL POC Glucose (mg/dL) 68 L (70-110) mg/dL Urine Protein 1+ H (Negative) Urine Ketones Trace H (Negative) Urine Blood Moderate H (Negative) Crossmatch Microbiology - Last 24 Hours (Table) 11/01/22 23:40 Blood Culture - Preliminary Blood 11/01/22 23:30 Blood Culture - Preliminary Blood 10/27/22 17:30 Blood Culture - Final Blood 10/27/22 17:30 Blood Culture - Final Blood Assessment and Plan (1) Sepsis Status: Acute Priority: High Code(s): A41.9 - SEPSIS, UNSPECIFIED ORGANISM SNOMED Code(s): 21275756 Plan: 1patient with a fever and this patient has been hospital for almost 3 weeks with history of metastatic lung cancer with mets to the brain and abnormality of the L5 vertebra initial presentation with intractable lower back pain source of this fever/sepsis could be pneumonia 2patient did have elevated CRP of 22.50, however procalcitonin is only 0.41 3-influenza and COVID PCR negative 4Patient did have persistent fever also noticed to have a drop in hemoglobin and some abdominal distention concerning for possible abdominal source we will go ahead , CT of abdominal pelvis with contrast did show progression of her metastatic cancer and the primary team is talking to the family for possible hospice/comfort oriented care which may be appropriate for her, antibiotics cane be safely discontinued, ID will sign off Time with Patient: Less than 30
== END 2022-11-04 08:21 | disposition expired | DRG 542 ==
LOC: EC 05:17 → 5NMEDONC 06:53 → 3SCARD 10-31 15:33
PROVIDERS: ADMIT Internal Medicine; ATTEND Internal Medicine
PROC: 30233R1 Transfusion of Nonautologous Platelets into Peripheral Vein, Percutaneous Approach (ICD-10-PCS; 2022-10-09)
PROC: DP092ZZ Beam Radiation of Femur using Photons >10 MeV (ICD-10-PCS; 2022-10-13)
PROC: 30233N1 Transfusion of Nonautologous Red Blood Cells into Peripheral Vein, Percutaneous Approach (ICD-10-PCS; 2022-10-28)
PROC: 05HF33Z Insertion of Infusion Device into Left Cephalic Vein, Percutaneous Approach (ICD-10-PCS; principal; 2022-11-03 17:45)
DX: C79.51 Secondary malignant neoplasm of bone (principal); A41.9 Sepsis, unspecified organism; G93.6 Cerebral edema; J18.9 Pneumonia, unspecified organism; C34.90 Malignant neoplasm of unspecified part of unspecified bronchus or lung; C78.7 Secondary malignant neoplasm of liver and intrahepatic bile duct; C79.31 Secondary malignant neoplasm of brain; C79.70 Secondary malignant neoplasm of unspecified adrenal gland; D61.9 Aplastic anemia, unspecified; K55.9 Vascular disorder of intestine, unspecified; K59.39 Other megacolon; G89.3 Neoplasm related pain (acute) (chronic); D69.59 Other secondary thrombocytopenia; T38.0X5A Adverse effect of glucocorticoids and synthetic analogues, initial encounter; Z51.5 Encounter for palliative care; Z66 Do not resuscitate; Z20.822 Contact with and (suspected) exposure to COVID-19; D72.829 Elevated white blood cell count, unspecified; E11.65 Type 2 diabetes mellitus with hyperglycemia; Z95.828 Presence of other vascular implants and grafts; I10 Essential (primary) hypertension; G40.909 Epilepsy, unspecified, not intractable, without status epilepticus; K57.90 Diverticulosis of intestine, part unspecified, without perforation or abscess without bleeding; G43.909 Migraine, unspecified, not intractable, without status migrainosus; Z86.718 Personal history of other venous thrombosis and embolism; Z79.01 Long term (current) use of anticoagulants; Z86.711 Personal history of pulmonary embolism; E87.6 Hypokalemia; M54.16 Radiculopathy, lumbar region; Z28.310 Unvaccinated for COVID-19; Z28.21 Immunization not carried out because of patient refusal; F40.240 Claustrophobia; K21.9 Gastro-esophageal reflux disease without esophagitis; K44.9 Diaphragmatic hernia without obstruction or gangrene; Z86.73 Personal history of transient ischemic attack (TIA), and cerebral infarction without residual deficits; Z96.642 Presence of left artificial hip joint; Z82.49 Family history of ischemic heart disease and other diseases of the circulatory system; Z83.3 Family history of diabetes mellitus; Z79.899 Other long term (current) drug therapy
CPT/HCPCS: 36410; 36415; 70450; 70470; 71045; 73502; 74177; 76937; 77280; 77290; 77295; 77300; 77334; 77336; 77387; 77412; 80048; 80053; 80202; 81001; 82565; 83010; 83036; 83615; 83735; 84145; 85025; 85027; 85049; 85384; 85610; 85730; 86022; 86140; 86850; 86900; 86901; 86920; 87040; 87070; 87086; 87205; 87636; 93005; 93970; 94640; 96361; 96374; 99285